=== PATIENT | male | born 1950 | race Caucasian/White ===

== ENCOUNTER → 2016-09-10 | Outpatient (CLI) | payer OTHER ==
[~2016-09-10] MED LIST: ACET-1311 PO; ADVIN10050 INH; ALBUAER19 INH; ALL300 PO; ASPEC81 PO; CLON1TAB3 PO; CYAN500T PO; FLVHFA220 INH; GFNSR600 PO; GLC/500 PO; HYDC25 PO; LISI-461 PO; METO50TA16 PO; NAPR-1169 PO; PRAV20TA PO; PRLSR20 PO; XNX25 PO
[2016-09-10 17:22] LABS: BASO % 0.3 %; BASO ABS # 0.02 K/uL (0-0.2); COMPLETE YES; EOS % 4.2 %; IG% 0.4 %; LYMPH % 21.5 %; LYMPH ABS # 1.57 K/uL (1.2-3.4); MEAN CELL VOLUME 90.7 fL (80-100); MEAN CORPUSCULAR HEMOGLOBIN 31.7 pg (25-34); MEAN PLATELET VOLUME 11.2 fL (7.4-10.4); MONO % 7.1 %; NEUT % 66.5 %; PLATELET COUNT 194 K/uL (130-400); RED BLOOD COUNT 4.19 M/uL (4.7-6.1)
[2016-09-10 18:02] LABS: ALB/GLOB RATIO 1.3 (0.9-2); ALT/SGPT 27 U/L (12-78); AST/SGOT 16 U/L (15-37); BLOOD UREA NITROGEN 16 mg/dl (7-18); BUN/CREATININE RATIO 13.7 (10-20); CALCIUM 8.7 mg/dl (8.5-10.1); CARBON DIOXIDE 24 mmol/L (21-32); CHLORIDE 103 mmol/L (98-107); CHOLESTEROL 145 mg/dl (0-200); CHOLESTEROL/HDL RATIO 4.1; GLUCOSE 87 mg/dl (70-99); HDL CHOLESTEROL 35 mg/dl; POTASSIUM 3.8 mmol/L (3.5-5.1); SODIUM 139 mmol/L (136-145)
[2016-09-10 18:16] LABS: ALKALINE PHOSPHATASE 56 U/L (45-117); LDL CHOLESTEROL CALCULATED 76 mg/dl; TRIGLYCERIDES 170 mg/dl (0-150); VERY LOW DENSITY LIPOPROT CALC 34 mg/dl
[2016-09-11 06:46] LABS: ESTIMATED AVERAGE GLUCOSE 117 mg/dl; HA1C FLAG Normal (Normal)
== END | disposition home or self-care (01) ==
LOC: C.LABBFT 14:33
PROVIDERS: ATTEND Internal Medicine
DX: E11.9 Type 2 diabetes mellitus without complications (principal); D64.9 Anemia, unspecified; Z11.59 Encounter for screening for other viral diseases

== ENCOUNTER → 2017-02-15 | Outpatient (CLI) | payer OTHER ==
--- NOTE | 2017-02-21 12:27 | CODING QUERY MEDICAL NECESSITY ---
SUPPORTING DIAGNOSIS NEEDED A supporting diagnosis is required for the test/procedure performed on this patient in order for us to be reimbursed by the patient's insurance. Please provide a supporting diagnosis for the following test/procedure listed below next to the test name along with your signature. *If there is no additional diagnosis for this patient that would support the following test/procedure please document that below next to the test/procedure. Test(s)/Procedure(s) that require a supporting diagnosis: * VITAMIN B12 DIAGNOSIS: Provider Signature: Date: Thank you Marisa [place] [employer] Once completed, please kindly fax back to [phone] For questions please call [phone]
== END | disposition home or self-care (01) ==
LOC: C.LABBFT 12:03
PROVIDERS: ATTEND Physician Assistant Medical
DX: G62.9 Polyneuropathy, unspecified (principal)

== ENCOUNTER → 2017-04-04 | Outpatient (CLI) | payer OTHER ==
[2017-04-04 17:49] LABS: BASO % 0.3 %; BASO ABS # 0.02 K/uL (0-0.2); COMPLETE YES; EOS % 3.5 %; HEMATOCRIT 39.9 % (42-52); IG% 0.3 %; LYMPH % 17.8 %; LYMPH ABS # 1.22 K/uL (1.2-3.4); MEAN CORPUSCULAR HEMOGLOBIN 31.9 pg (25-34); MEAN CORPUSCULAR HGB CONC 33.6 g/dl (32-36); MEAN PLATELET VOLUME 10.9 fL (7.4-10.4); MONO % 5.7 %; NEUT % 72.4 %; PLATELET COUNT 174 K/uL (130-400); WHITE BLOOD COUNT 6.85 K/uL (4.8-10.8)
[2017-04-04 18:00] LABS: ALT/SGPT 21 U/L (12-78); AST/SGOT 12 U/L (15-37); BLOOD UREA NITROGEN 19 mg/dl (7-18); BUN/CREATININE RATIO 17.2 (10-20); CALCIUM 8.9 mg/dl (8.5-10.1); CARBON DIOXIDE 26 mmol/L (21-32); CHLORIDE 105 mmol/L (98-107); GLUCOSE 143 mg/dl (70-99); POTASSIUM 3.8 mmol/L (3.5-5.1); SODIUM 138 mmol/L (136-145)
[2017-04-04 18:11] LABS: ALB/GLOB RATIO 1.2 (0.9-2); ALKALINE PHOSPHATASE 56 U/L (45-117); CHOLESTEROL 153 mg/dl (0-200); CHOLESTEROL/HDL RATIO 4.8; HDL CHOLESTEROL 32 mg/dl; LDL CHOLESTEROL CALCULATED 82 mg/dl; TRIGLYCERIDES 194 mg/dl (0-150); VERY LOW DENSITY LIPOPROT CALC 39 mg/dl
[2017-04-05 06:14] LABS: ESTIMATED AVERAGE GLUCOSE 108 mg/dl; HA1C FLAG Normal (Normal)
--- NOTE | 2017-04-15 09:57 | CODING QUERY MEDICAL NECESSITY ---
CQSUPPORTING DIAGNOSIS NEEDED A supporting diagnosis is required for the test/procedure performed on this patient in order for us to be reimbursed by the patient's insurance. Please provide a supporting diagnosis for the following test/procedure listed below next to the test name along with your signature. *If there is no additional diagnosis for this patient that would support the following test/procedure please document that below next to the test/procedure. Test(s)/Procedure(s) that require a supporting diagnosis: DOS 04/04/17 VITAMIN B12 TEST ORDERED BY JOI ELAM Provider Signature: Date: Thank you Josee Fuller [employer] Once completed, please kindly fax back to [phone] For questions please call [phone]
== END | disposition home or self-care (01) ==
LOC: C.LABBFT 12:16
PROVIDERS: ATTEND Physician Assistant Medical
DX: R79.9 Abnormal finding of blood chemistry, unspecified (principal); E11.9 Type 2 diabetes mellitus without complications

== ENCOUNTER 2017-07-09 20:16 | Emergency (ER) | payer OTHER ==
[~2017-07-09] VITALS: Ht 170.2 cm; Wt 96.2 kg
[2017-07-09 20:46] VITALS: O2SAT 95
[2017-07-09] MEDS ORDERED: ALBUT/IPRATROP 3MG/0.5MG NEB 3 ML VIAL INH STA (20:52)
[2017-07-09 20:56] VITALS: Ht 170.2 cm; Wt 96.2 kg
[2017-07-09] MEDS ORDERED: GLC500 PO (21:17)
[2017-07-09] MEDS ORDERED: VNTHFA/IN INH (21:17)
[2017-07-09] MEDS ORDERED: NAPR500T3 PO (21:17)
[2017-07-09] MEDS ORDERED: TIOT1AER INH (21:17)
[2017-07-09] MEDS ORDERED: TADA5TAB11 PO (21:17)
[2017-07-09] MEDS ORDERED: RANI300C PO (21:17)
[2017-07-09] MEDS ORDERED: OMEP40CA41 PO (21:17)
[2017-07-09] MEDS ORDERED: ALL300 PO (21:17)
[2017-07-09] MEDS ORDERED: HYDR25TA5 PO (21:17)
[2017-07-09] MEDS ORDERED: KLN1X PO (21:17)
[2017-07-09] MEDS ORDERED: PRVC/20 PO (21:17)
[2017-07-09] MEDS ORDERED: LISI-461 PO (21:17)
[2017-07-09] MEDS ORDERED: ASPI81TA28 PO (21:19)
[2017-07-09] MEDS ORDERED: CYAN100020 PO ×2 (21:22)
[2017-07-09] MEDS ORDERED: MOME6000 (21:24)
[2017-07-09 21:39] LABS: BASO % 0.1 %; BASO ABS # 0.02 K/uL (0-0.2); COMPLETE YES; EOS % 0.4 %; HEMATOCRIT 40.2 % (42-52); IG% 0.3 %; LYMPH % 6.4 %; LYMPH ABS # 0.96 K/uL (1.2-3.4); MEAN CELL VOLUME 93.7 fL (80-100); MEAN CORPUSCULAR HEMOGLOBIN 33.3 pg (25-34); MEAN CORPUSCULAR HGB CONC 35.6 g/dl (32-36); MEAN PLATELET VOLUME 10.2 fL (7.4-10.4); NEUT % 86.8 %; PLATELET COUNT 149 K/uL (130-400); RED BLOOD COUNT 4.29 M/uL (4.7-6.1); WHITE BLOOD COUNT 14.89 K/uL (4.8-10.8)
--- NOTE | 2017-07-09 21:49 | DIAGNOSTIC IMAGING REPORT ---
CHEST ONE VIEW PORTABLE CLINICAL HISTORY: Sepsis dyspnea COMPARISON STUDY: 12/02/2014 FINDINGS: The bones soft tissues and hemidiaphragms are normal. The cardiomediastinal silhouette is normal. The lungs are clear. The pulmonary vasculature is normal. IMPRESSION: Negative chest. The above report was generated using voice recognition software. It may contain grammatical, syntax or spelling errors. Electronically signed by: Yasmany Fall M.D. 07/09/2017 9:48 PM Dictated Date/Time: 07/09/2017 9:48 PM
[2017-07-09 21:52] LABS: PROTHROMBIN TIME (PATIENT) 10.4 SECONDS (9.0-12.0)
[2017-07-09 22:02] LABS: BUN/CREATININE RATIO 12.2 (10-20); CALCIUM 9.1 mg/dl (8.5-10.1); CREATININE 1.39 mg/dl (0.60-1.40); POTASSIUM 3.8 mmol/L (3.5-5.1)
[2017-07-09 22:05] LABS: ALB/GLOB RATIO 1.1 (0.9-2)
[2017-07-09] MEDS ORDERED: ACETAMINOPHEN 325 MG TAB PO STA (22:22)
[2017-07-09 23:20] VITALS: TEMP 37
[2017-07-09] MEDS ORDERED: DOXY100C2 PO (23:25)
[2017-07-09 23:30] VITALS: BP 146/77
[2017-07-09] MEDS ORDERED: DOXYCYCLINE HYCLATE 100 MG CAP PO ONE (23:30)
[2017-07-09 23:35] VITALS: PULSE 107; O2SAT 93
--- NOTE | 2017-07-10 00:33 | EMERGENCY ROOM VISIT NOTE ---
History Report prepared by Will: Gi Escalera Under the Supervision of: Dr. Ramo Juarez M.D. First contact with patient: 20:43 Chief Complaint: FLU LIKE SX Stated Complaint: FEVER, SORE THROAT, CONGESTION, CHEST (COPD) History of Present Illness The patient is a 67 year old male who presents to the Emergency Room with complaints of worsening flu like symptoms starting yesterday. The patient states that he woke up yesterday with a sore throat and feeling achy. He reports that it became worse throughout the day. He states that this morning his voice was hoarse and he started a cough. He reports that he started coughing up mucus that is a dozier gel color. He notes that this is similar to when he had pneumonia in the past. The patient denies vomiting. The patient complains of a fever of a 102 or something and some shortness of breath. The patient notes he does have a nebulizer, but no medication for it. He notes that he has some achy chest pain from coughing but otherwise denies any chest discomfort. He notes that he took 1000 mg of Tylenol 3 hours ago. Source of History: patient Onset: yesterday Position: other (global) Quality: ache Timing: worsening Associated Symptoms: + fevers, + sorethroat, + cough, + chest pain, + SOB, No vomiting Note: The patient complains of coughing up a dozier gel mucus. Review of Systems See HPI for pertinent positives & negatives. A total of 10 systems reviewed and were otherwise negative. Past Medical & Surgical Medical Problems: (1) Chronic obstructive lung disease (2) Gastroesophageal reflux disease (3) Lacunar infarction (4) Vertigo Family History No pertinent family history Social History Smoking Status: Former Smoker Alcohol Use: none Marital Status: Housing Status: lives with significant other Occupation Status: unemployed Current/Historical Medications Scheduled Allopurinol (Allopurinol), 300 MG PO QAM Aspirin (Aspirin Ec), 81 MG PO QAM Clonazepam (Clonazepam), 1 MG PO BID Cyanocobalamin (Vitamin B12), 2,000 MCG PO QAM Cyanocobalamin (Vitamin B12), 1,000 MCG PO QPM Doxycycline Hyclate (Vibramycin), 100 MG PO BID Hydrochlorothiazide (Hydrochlorothiazide), 25 MG PO QAM Lisinopril (Lisinopril), 10 MG PO HS Metformin HCl (Metformin HCl), 1,000 MG PO BID Metoprolol Tartrate (Lopressor) (Lopressor), 50 MG PO BID Mometasone Furoate (Nasal) (Mometasone Furoate), 2 SPRAYS NA QAM Omeprazole (Prilosec), 40 MG PO QAM Pravastatin Sod (Pravastatin Sodium), 20 MG PO HS Tadalafil (Cialis), 5 MG PO QAM Tiotropium Rowe-Olodaterol (Stiolto Respimat 2.5-2.5 Mcg/Act), 2 PUFFS INH QAM Scheduled PRN Albuterol Hfa (Ventolin Hfa), 2 PUFFS INH QID PRN for SOB/Wheezing Naproxen (Naproxen), 500 MG PO BID PRN for Pain Ranitidine Hcl (Ranitidine Hcl), 300 MG PO DAILY PRN for Indigestion Allergies Coded Allergies: Iodine (Verified Allergy, Intermediate, SHORTNESS OF BREATH, 12/02/14) HAS HAD CT SCAN PREVIOUSLY, QUESTIONABLE R/T CONTRAST DYE VS. ANXIETY FROM CLOSED SPACES Amoxicillin (Verified Allergy, Mild, RASH, 12/05/14) rash was not typical drug reaction rash and was not pruritic. Clavulanic Acid (Verified Allergy, Mild, RASH, 12/05/14) rash was not typical drug reaction rash and was not pruritic. Clarithromycin (Verified Allergy, Unknown, UNKNOWN, 12/02/14) Indomethacin (Verified Allergy, Unknown, UNKNOWN, 12/02/14) Physical Exam Vital Signs Date Time Temp Pulse Resp B/P (MAP) Pulse Ox O2 Delivery O2 Flow Rate FiO2 07/09/17 23:35 107 16 93 07/09/17 23:30 146/77 07/09/17 23:20 105 16 94 07/09/17 23:20 37.0 07/09/17 23:05 106 20 93 07/09/17 23:00 107 18 143/70 93 07/09/17 22:54 129/84 07/09/17 22:32 111 20 140/79 93 Room Air 07/09/17 20:49 107 07/09/17 20:46 95 Room Air 07/09/17 20:42 108 18 154/90 95 Room Air 07/09/17 20:20 38.1 107 18 215/106 96 Room Air Physical Exam Constitutional: Vital signs reviewed. Eyes: Pupils are equal round reactive to light. Conjunctiva are noninjected. ENT: Pharynx is clear without erythema or exudate. Mucous membranes are moist. Neck supple without meningeal signs. Respiratory: Minimal wheezing at the bases. Otherwise clear to auscultation bilaterally. Breath sounds are equal bilaterally. Cardiovascular: Tachycardic heart rate of 107. Regular rhythm. No rubs or gallops. GI: Soft, nondistended and nontender. Bowel sounds are present. Musculoskeletal: No peripheral edema. No lower extremity tenderness. Integumentary: No cyanosis. Neurological: The patient is awake and alert. No focal deficits. Psychiatric: Normal affect. Medical Decision & Procedures ER Provider Diagnostic Interpretation: Radiology results as stated below per my review and the radiologist's interpretation: CHEST ONE VIEW PORTABLE CLINICAL HISTORY: Sepsis dyspnea COMPARISON STUDY: 12/02/2014 FINDINGS: The bones soft tissues and hemidiaphragms are normal. The cardiomediastinal silhouette is normal. The lungs are clear. The pulmonary vasculature is normal. IMPRESSION: Negative chest. The above report was generated using voice recognition software. It may contain grammatical, syntax or spelling errors. Electronically signed by: Yasmany Fall M.D. 07/09/2017 9:48 PM Dictated Date/Time: 07/09/2017 9:48 PM Laboratory Results 07/09/17 21:17 Red Blood Count 4.29, Mean Corpuscular Volume 93.7, Mean Corpuscular Hemoglobin 33.3, Mean Corpuscular Hemoglobin Concent 35.6, Mean Platelet Volume 10.2, Neutrophils (%) (Auto) 86.8, Lymphocytes (%) (Auto) 6.4, Monocytes (%) (Auto) 6.0, Eosinophils (%) (Auto) 0.4, Basophils (%) (Auto) 0.1, Neutrophils # (Auto) 12.91, Lymphocytes # (Auto) 0.96, Monocytes # (Auto) 0.90, Eosinophils # (Auto) 0.06, Basophils # (Auto) 0.02 07/09/17 21:17 Test 07/09/17 21:17 07/09/17 21:32 07/09/17 22:25 White Blood Count 14.89 K/uL (4.8-10.8) Red Blood Count 4.29 M/uL (4.7-6.1) Hemoglobin 14.3 g/dL (14.0-18.0) Hematocrit 40.2 % (42-52) Mean Corpuscular Volume 93.7 fL (80-100) Mean Corpuscular Hemoglobin 33.3 pg (25-34) Mean Corpuscular Hemoglobin Concent 35.6 g/dl (32-36) Platelet Count 149 K/uL (130-400) Mean Platelet Volume 10.2 fL (7.4-10.4) Neutrophils (%) (Auto) 86.8 % Lymphocytes (%) (Auto) 6.4 % Monocytes (%) (Auto) 6.0 % Eosinophils (%) (Auto) 0.4 % Basophils (%) (Auto) 0.1 % Neutrophils # (Auto) 12.91 K/uL (1.4-6.5) Lymphocytes # (Auto) 0.96 K/uL (1.2-3.4) Monocytes # (Auto) 0.90 K/uL (0.11-0.59) Eosinophils # (Auto) 0.06 K/uL (0-0.5) Basophils # (Auto) 0.02 K/uL (0-0.2) RDW Standard Deviation 48.1 fL (36.4-46.3) RDW Coefficient of Variation 14.2 % (11.5-14.5) Immature Granulocyte % (Auto) 0.3 % Immature Granulocyte # (Auto) 0.04 K/uL (0.00-0.02) Prothrombin Time 10.4 SECONDS (9.0-12.0) Prothromb Time International Ratio 1.0 (0.9-1.1) Activated Partial Thromboplast Time 25.1 SECONDS (21.0-31.0) Partial Thromboplastin Ratio 1.0 Anion Gap 8.0 mmol/L (3-11) Est Creatinine Clear Calc Drug Dose 56.2 ml/min Estimated GFR () 59.9 Estimated GFR (Non- 51.7 BUN/Creatinine Ratio 12.2 (10-20) Calcium Level 9.1 mg/dl (8.5-10.1) Total Bilirubin 0.8 mg/dl (0.2-1) Aspartate Amino Transf (AST/SGOT) 13 U/L (15-37) Alanine Aminotransferase (ALT/SGPT) 22 U/L (12-78) Alkaline Phosphatase 64 U/L (45-117) Troponin I < 0.015 ng/ml (0-0.045) Total Protein 7.8 gm/dl (6.4-8.2) Albumin 4.1 gm/dl (3.4-5.0) Globulin 3.7 gm/dl (2.5-4.0) Albumin/Globulin Ratio 1.1 (0.9-2) Bedside Lactic Acid Venous 1.70 mmol/L (0.90-1.70) Influenza Type A Antigen Neg for Influ A (NEG) Influenza Type B Antigen Neg for Influ B (NEG) Laboratory results as reviewed by me. Medications Administered Medications (Trade) Dose Ordered Sig/Diann Route Start Time Stop Time Status Last Admin Dose Admin Albuterol/ Ipratropium (Duoneb) 3 ml NOW STAT INH 07/09/17 20:52 07/09/17 20:54 DC 07/09/17 20:57 3 ML Acetaminophen (Tylenol Tab) 650 mg NOW STAT PO 07/09/17 22:22 07/09/17 22:23 DC 07/09/17 22:28 650 MG Doxycycline Hyclate (Vibramycin Cap) 100 mg ONE ONCE PO 07/09/17 23:30 07/09/17 23:31 DC 07/09/17 23:48 100 MG ECG Indication: SOB/dyspnea Rate (beats per minute): 106 Rhythm: sinus tachycardia Findings: no acute ischemic change, no ectopy Comparison ECG Date: December 02, 2014 Change: no significant change ED Course 2047: The patient was evaluated in room B6. A complete history and physical exam was performed. 2051: Ordered Duoneb 3 ml INH. 2218: I reevaluated the patient and he is feeling 50% better.On re-exam his wheezing is resolved. He complains of a headache from not eating. 2221: Ordered Tylenol Tab 650 mg PO. 3: Upon reevaluation, the patient appeared to have improvement of his symptoms. I discussed tonight's findings with him. He verbalized agreement of the treatment plan. The patient was discharged home. 0: Ordered Vibramycin Cap 100 mg PO. Medical Decision This is a 67-year-old male presents with flulike symptoms and fever. Differential diagnosis includes COPD exacerbation, pneumonia, bronchitis, influenza, SIRS. I did perform a limited focused review of portions of the patient's old chart on the electronic medical record. The patient has had no recent pertinent visits to this hospital. I did evaluate the patient as noted above. The patient is presenting with flulike symptoms starting yesterday. He states he is here today because he was concerned about pneumonia. IV access was established. The patient was placed on a continuous desk monitor. I did order and personally review the patient' s 12-lead EKG and chest x-ray as described above. This chest x-ray does not demonstrate any acute infiltrates. I did order and review the patient's blood work as noted in the electronic medical record. His white blood cell count is elevated. Troponin is negative. Rapid flu testing is negative. I did treat the patient with a DuoNeb. He is also given Tylenol. On reassessment he is feeling better. His wheezing is resolved. I did discuss the test results with the patient. He was given doxycycline here and discharged with a prescription for doxycycline. He was advised follow with his doctor. Medication Reconcilliation Current Medication List: was personally reviewed by me Blood Pressure Screening Patient's blood pressure: Elevated blood pressure Blood pressure disposition: Referred to PCP Impression Primary Impression: Bronchitis Additional Impression: COPD exacerbation Scribe Attestation The scribe's documentation has been prepared under my direct and personally reviewed by me in its entirety. I confirm that the note above accurately reflects all work, treatment, procedures, and medical decision making performed by me. Departure Information Dispostion Home / Self-Care Prescriptions Doxycycline Hyclate (VIBRAMYCIN) 100 Mg Cap 100 MG PO BID for 10 Days, #19 CAP Prov: Ramo Juarez M.D. 07/09/17 Referrals Harjeet Molina M.D. (PCP) Forms HOME CARE DOCUMENTATION FORM, IMPORTANT VISIT INFORMATION Patient Instructions My [facility] Additional Instructions You have been examined and treated today on an emergency basis only. This is not a substitute for, or an effort to provide, complete comprehensive medical care. It is impossible to recognize and treat all injuries or illnesses in a single emergency department visit. It is therefore important that you follow up closely with your physician. Call as soon as possible for an appointment. Return for worsening symptoms or if you develop fever, vomiting, or any other concerning symptoms. Problem Qualifiers
== END 2017-07-09 23:50 | disposition home or self-care (01) ==
LOC: C.EDB 20:17
DX: J44.1 Chronic obstructive pulmonary disease with (acute) exacerbation (principal); K21.9 Gastro-esophageal reflux disease without esophagitis; Z87.891 Personal history of nicotine dependence; Z79.82 Long term (current) use of aspirin; Z79.84 Long term (current) use of oral hypoglycemic drugs

== ENCOUNTER 2017-09-12 14:09 | Emergency (ER) | payer OTHER ==
[~2017-09-12] VITALS: Ht 170.2 cm; Wt 92.1 kg
[~2017-09-12 14:09] MED LIST changes: -ACET-1311 PO; -ADVIN10050 INH; -ALBUAER19 INH; -ASPEC81 PO; +ASPI81TA28 PO; -CLON1TAB3 PO; +CYAN100020 PO; -CYAN500T PO; +DOXY100C2 PO; -FLVHFA220 INH; -GFNSR600 PO; -GLC/500 PO; +GLC500 PO; -HYDC25 PO; +HYDR25TA5 PO; +KLN1X PO; +MOME6000; -NAPR-1169 PO; +NAPR500T3 PO; +OMEP40CA41 PO; -PRAV20TA PO; -PRLSR20 PO; +PRVC/20 PO; +RANI300C PO; +TADA5TAB11 PO; +TIOT1AER INH; +VNTHFA/IN INH; -XNX25 PO
[2017-09-12 14:14] VITALS: TEMP 36.6; Ht 170.2 cm; Wt 92.1 kg
[2017-09-12] MEDS ORDERED: OSEL75CA16 PO (14:38)
[2017-09-12] MEDS ORDERED: KETOROLAC TROMETHAMINE 30 MG/ML VIAL IV STA (14:52)
[2017-09-12] MEDS ORDERED: DEXAMETHASONE INJ 10 MG in SYRINGE 0 ML IV ONE (15:00)
[2017-09-12] MEDS ORDERED: SODIUM CHLORIDE 0.9% 1000ML 1,000 ML IV ONE (15:00)
[2017-09-12] MEDS ORDERED: ALBUT/IPRATROP 3MG/0.5MG NEB 3 ML VIAL INH ONE (15:00)
[2017-09-12] MEDS ORDERED: ACETAMINOPHEN IV 1,000 MG in EMPTY BAG 0 ML IV ONE (15:00)
[2017-09-12] MEDS ORDERED: ACETAMINOPHEN 1000 MG/100 ML IV IV ONE (15:16)
[2017-09-12] MEDS ORDERED: DEXAMETHASONE **PF** INJ 10 MG/ML VIAL ONE (15:21)
[2017-09-12 15:27] LABS: BASO % 0.5 %; BASO ABS # 0.03 K/uL (0-0.2); EOS % 3.8 %; EOS ABS # 0.24 K/uL (0-0.5); HEMATOCRIT 37.9 % (42-52); HEMOGLOBIN 13.4 g/dL (14.0-18.0); IG# 0.01 K/uL (0.00-0.02); LYMPH % 17.9 %; LYMPH ABS # 1.13 K/uL (1.2-3.4); MEAN CELL VOLUME 92.2 fL (80-100); MEAN CORPUSCULAR HEMOGLOBIN 32.6 pg (25-34); MEAN CORPUSCULAR HGB CONC 35.4 g/dl (32-36); MONO % 10.1 %; MONO ABS # 0.64 K/uL (0.11-0.59); NEUT % 67.5 %; NEUT ABS # 4.26 K/uL (1.4-6.5); PLATELET COUNT 140 K/uL (130-400); WHITE BLOOD COUNT 6.31 K/uL (4.8-10.8)
--- NOTE | 2017-09-12 15:34 | EMERGENCY ROOM VISIT NOTE ---
ED Visit Note First contact with patient: 14:34 This Patient was discussed with the physician assistant media buyer, Bruno Du PA-C. The pertinent historical and physical exam findings were confirmed. I agree with the studies ordered and with the interpretations of these studies. I agree with the disposition and care plan.
[2017-09-12 15:51] LABS: ALBUMIN 3.8 gm/dl (3.4-5.0); CALCIUM 8.5 mg/dl (8.5-10.1); CREATININE 1.06 mg/dl (0.60-1.40); POTASSIUM 4.4 mmol/L (3.5-5.1)
[2017-09-12 15:54] LABS: TOTAL PROTEIN 7.7 gm/dl (6.4-8.2)
--- NOTE | 2017-09-12 16:17 | DIAGNOSTIC IMAGING REPORT ---
TWO VIEW CHEST CLINICAL HISTORY: Cough. Influenza. COPD. FINDINGS: PA and lateral chest radiographs are compared to study dated 07/09/2017. The heart is top normal for projection and there is atherosclerotic calcification of the thoracic aorta. The pulmonary vasculature is noncongested. Chronic interstitial thickening is similar to previous. No airspace consolidation or pleural effusion is identified. There is no pneumothorax. The skeletal structures appear osteopenic. The bony thorax appears intact. IMPRESSION: No acute cardiopulmonary abnormality. Electronically signed by: Don Oleary M.D. 09/12/2017 4:16 PM Dictated Date/Time: 09/12/2017 4:15 PM
[2017-09-12 16:34] VITALS: O2SAT 92
[2017-09-12] MEDS ORDERED: PRED50TA PO (17:08)
[2017-09-12 17:21] VITALS: BP 146/71; PULSE 87; O2SAT 93
--- NOTE | 2017-09-12 21:38 | EMERGENCY ROOM VISIT NOTE ---
History First contact with patient: 14:34 Chief Complaint: FLU LIKE SX Stated Complaint: FLU History of Present Illness The patient is a 67 year old male who presents to the Emergency Room with complaints of persistent flulike symptoms for the past 3 days. The patient was evidently diagnosed with influenza A from his primary care physician's office earlier this week. He was started on Tamiflu and has been taking the medication as prescribed. The patient has a past medical history of COPD, and he has been using his inhalers as previously prescribed. He states that he has some mild wheezing that has been improved, but not completely resolved with the inhalers. He states the wheezing is worse at night. He will occasionally have a productive cough the past few days, which is atypical for him. He has had a fever and is taking Advil and Tylenol at home with relief. He does not report other complaints and rates his discomfort a 6/10. Review of Systems More than 10 systems were reviewed and otherwise negative with the exception of history of present illness. Past Medical/Surgical History Medical Problems: (1) Chronic obstructive lung disease (2) Gastroesophageal reflux disease (3) Lacunar infarction (4) Vertigo Family History No pertinent family history Social History Smoking Status: Former Smoker Alcohol Use: none Marital Status: Housing Status: lives with significant other Occupation Status: unemployed Current/Historical Medications Scheduled Allopurinol (Allopurinol), 300 MG PO QAM Aspirin (Aspirin Ec), 81 MG PO QAM Clonazepam (Clonazepam), 1 MG PO BID Cyanocobalamin (Vitamin B12), 1,000 MCG PO QPM Hydrochlorothiazide (Hydrochlorothiazide), 25 MG PO QAM Lisinopril (Lisinopril), 10 MG PO HS Metformin HCl (Metformin HCl), 1,000 MG PO BID Metoprolol Tartrate (Lopressor) (Lopressor), 50 MG PO BID Mometasone Furoate (Nasal) (Mometasone Furoate), 2 SPRAYS NA QAM Omeprazole (Prilosec), 40 MG PO QAM Oseltamivir Phosphate (Oseltamivir Phosphate), 75 MG PO BID Pravastatin Sod (Pravastatin Sodium), 20 MG PO HS Prednisone (Prednisone), 50 MG PO DAILY Scheduled PRN Albuterol Hfa (Ventolin Hfa), 2 PUFFS INH QID PRN for SOB/Wheezing Naproxen (Naproxen), 500 MG PO BID PRN for Pain Ranitidine Hcl (Ranitidine Hcl), 300 MG PO DAILY PRN for Indigestion Physical Exam Vital Signs Date Time Temp Pulse Resp B/P (MAP) Pulse Ox O2 Delivery O2 Flow Rate FiO2 09/12/17 17:21 87 20 146/71 93 09/12/17 16:35 66 09/12/17 16:34 92 Room Air 09/12/17 14:14 36.6 53 20 142/75 95 Room Air Physical Exam VITALS: Vitals are noted on the nurse's note and reviewed by myself. Vital signs stable. GENERAL: Well-developed, well-nourished, white male who appears mildly ill but nontoxic NECK: Supple without nuchal rigidity. No lymphadenopathy. No thyromegaly. Cervical spine is nontender. HEART: Regular rate and rhythm without murmurs gallops or rubs. LUNGS: Distant breath sounds bilateral with scattered wheezing. No crackles ABDOMEN: Positive normal bowel sounds x 4. Soft, nontender, without masses or organomegaly. No guarding or rebound tenderness. MUSCULOSKELETAL: No muscle atrophy, erythema, or edema noted. Full range of motion without joint tenderness in all extremities. Medical Decision & Procedures ER Provider Diagnostic Interpretation: TWO VIEW CHEST CLINICAL HISTORY: Cough. Influenza. COPD. FINDINGS: PA and lateral chest radiographs are compared to study dated 07/09/2017. The heart is top normal for projection and there is atherosclerotic calcification of the thoracic aorta. The pulmonary vasculature is noncongested. Chronic interstitial thickening is similar to previous. No airspace consolidation or pleural effusion is identified. There is no pneumothorax. The skeletal structures appear osteopenic. The bony thorax appears intact. IMPRESSION: No acute cardiopulmonary abnormality. Laboratory Results 09/12/17 15:15 Red Blood Count 4.11, Mean Corpuscular Volume 92.2, Mean Corpuscular Hemoglobin 32.6, Mean Corpuscular Hemoglobin Concent 35.4, Mean Platelet Volume 10.0, Neutrophils (%) (Auto) 67.5, Lymphocytes (%) (Auto) 17.9, Monocytes (%) (Auto) 10.1, Eosinophils (%) (Auto) 3.8, Basophils (%) (Auto) 0.5, Neutrophils # (Auto ) 4.26, Lymphocytes # (Auto) 1.13, Monocytes # (Auto) 0.64, Eosinophils # (Auto ) 0.24, Basophils # (Auto) 0.03 09/12/17 15:15 Test 09/12/17 15:15 09/12/17 15:39 White Blood Count 6.31 K/uL (4.8-10.8) Red Blood Count 4.11 M/uL (4.7-6.1) Hemoglobin 13.4 g/dL (14.0-18.0) Hematocrit 37.9 % (42-52) Mean Corpuscular Volume 92.2 fL (80-100) Mean Corpuscular Hemoglobin 32.6 pg (25-34) Mean Corpuscular Hemoglobin Concent 35.4 g/dl (32-36) Platelet Count 140 K/uL (130-400) Mean Platelet Volume 10.0 fL (7.4-10.4) Neutrophils (%) (Auto) 67.5 % Lymphocytes (%) (Auto) 17.9 % Monocytes (%) (Auto) 10.1 % Eosinophils (%) (Auto) 3.8 % Basophils (%) (Auto) 0.5 % Neutrophils # (Auto) 4.26 K/uL (1.4-6.5) Lymphocytes # (Auto) 1.13 K/uL (1.2-3.4) Monocytes # (Auto) 0.64 K/uL (0.11-0.59) Eosinophils # (Auto) 0.24 K/uL (0-0.5) Basophils # (Auto) 0.03 K/uL (0-0.2) RDW Standard Deviation 47.0 fL (36.4-46.3) RDW Coefficient of Variation 14.0 % (11.5-14.5) Immature Granulocyte % (Auto) 0.2 % Immature Granulocyte # (Auto) 0.01 K/uL (0.00-0.02) Anion Gap 8.0 mmol/L (3-11) Est Creatinine Clear Calc Drug Dose 72.2 ml/min Estimated GFR () 83.2 Estimated GFR (Non- 71.8 BUN/Creatinine Ratio 14.1 (10-20) Calcium Level 8.5 mg/dl (8.5-10.1) Total Bilirubin 0.7 mg/dl (0.2-1) Aspartate Amino Transf (AST/SGOT) 15 U/L (15-37) Alanine Aminotransferase (ALT/SGPT) 19 U/L (12-78) Alkaline Phosphatase 62 U/L (45-117) Total Protein 7.7 gm/dl (6.4-8.2) Albumin 3.8 gm/dl (3.4-5.0) Globulin 3.9 gm/dl (2.5-4.0) Albumin/Globulin Ratio 1.0 (0.9-2) Bedside Troponin I < 0.030 ng/ml (0-0.045) Medications Administered Medications (Trade) Dose Ordered Sig/Diann Route Start Time Stop Time Status Last Admin Dose Admin Sodium Chloride 1,000 ml @ 999 mls/hr Q1H1M ONCE IV 09/12/17 15:00 09/12/17 16:00 DC 09/12/17 15:27 999 MLS/HR Ketorolac Tromethamine (Toradol Inj) 30 mg NOW STAT IV 09/12/17 14:52 09/12/17 14:55 DC 09/12/17 15:28 30 MG Acetaminophen 1000 mg/Empty Bag 100 ml @ 400 mls/hr NOW ONCE IV 09/12/17 15:00 09/12/17 15:14 DC 09/12/17 15:30 400 MLS/HR Albuterol/ Ipratropium (Duoneb) 3 ml NOW ONCE INH 09/12/17 15:00 09/12/17 15:01 DC 09/12/17 15:29 3 ML Dexamethasone Sodium Phosphate (Dexamethasone Inj Pf) 10 mg STK-MED ONCE .ROUTE 09/12/17 15:21 09/12/17 15:22 DC 09/12/17 15:29 10 MG ED Course Physical exam and history were performed. Nursing notes, EMR, and Medication List were personally reviewed. Patient appears to have an outpatient diagnosis of the flu. His concern today is that he is having some worsening of his wheezing. He is with chronic COPD, and his inhalers have been helping, but not completely resolving his symptoms. IV access was established and labs were obtained. The patient was hydrated medicated as above. He was given a DuoNeb here in the department as well as steroids. Chest x-ray was performed. The patient's blood work is as above and was reviewed. He does not have a significant elevated white blood cell count, gross anemia, bandemia, or significant electrolyte imbalance. His chest x-ray is without obvious pneumonia or other etiology of his symptoms. Overall the patient is felt to have a flulike process that is continuing through the week. He has been ill for the past few days but did feel much better with steroids and a breathing treatment. I do not feel that he needs antibiotics at this point. The case was discussed with my attending physician, Dr. Dickey, who also independently evaluated the patient. The patient will be started on a short course of steroids and asked to follow closely with his primary care physician. He was otherwise asked to return to the ER with any worsening symptoms. He voiced understanding and rated his discomfort a 3/10 at the time of departure. The chart was completed utilizing [employer] Speech Voice Recognition Software. Grammatical errors, random word insertions, pronoun errors, and incomplete sentences are an occasional consequence of this system due to software limitations, ambient noise, and hardware issues. Any formal questions or concerns about the content, text, or information contained within the body of this dictation should be directly addressed to the provider for clarification. . Medical Decision Differential diagnosis: Etiologies such as infections, reactive airway disease, pneumonia, pneumothorax , COPD, CHF, cardiac ischemia, pulmonary embolism, musculoskeletal, gastrointestinal, as well as others were entertained. Impression Primary Impression: Influenza-like symptoms Additional Impression: Upper respiratory infection Departure Information Dispostion Home / Self-Care Condition GOOD Prescriptions Prednisone (Prednisone) 50 Mg Tab 50 MG PO DAILY for 4 Days, #4 TAB Prov: Bruno Du PA-C 09/12/17 Referrals Harjeet Molina M.D. (PCP) Forms HOME CARE DOCUMENTATION FORM, IMPORTANT VISIT INFORMATION Patient Instructions My [facility] Additional Instructions You were seen and evaluated today on an emergency basis only. This is not a substitute for, or an effort to provide, complete comprehensive medical care. It is not possible to recognize and treat all injuries or illnesses in a single emergency department visit. For this reason it is recommended that you followup with your primary care physician's office on Saturday or Saturday for recheck. Continue the inhalers at home Take prednisone daily for the next 4 days For baseline pain relief you may alternate ibuprofen and acetaminophen every 4 hours for pain control. Take 600 mg ibuprofen (Advil) and then 4 hours later take 1000 mg acetaminophen (Tylenol). Do not take more than 3000 mg acetaminophen in a single day. Drink plenty of fluids and remain well hydrated. You are welcome to return to the emergency department anytime with new, worsening, or concerning symptoms. Problem Qualifiers
== END 2017-09-12 17:22 | disposition home or self-care (01) ==
LOC: C.EDB 14:12
DX: J06.9 Acute upper respiratory infection, unspecified (principal); K21.9 Gastro-esophageal reflux disease without esophagitis; Z86.73 Personal history of transient ischemic attack (TIA), and cerebral infarction without residual deficits; Z87.891 Personal history of nicotine dependence; Z79.82 Long term (current) use of aspirin; Z79.899 Other long term (current) drug therapy

== ENCOUNTER → 2017-10-16 | Outpatient (CLI) | payer OTHER ==
[~2017-10-16] MED LIST changes: -DOXY100C2 PO; +NAPR-1231 PO; -NAPR500T3 PO; +OSEL75CA16 PO; -TADA5TAB11 PO; -TIOT1AER INH
[2017-10-16 12:17] LABS: BASO % 0.4 %; BASO ABS # 0.03 K/uL (0-0.2); EOS % 4.6 %; EOS ABS # 0.36 K/uL (0-0.5); HEMATOCRIT 38.1 % (42-52); HEMOGLOBIN 13.5 g/dL (14.0-18.0); IG# 0.05 K/uL (0.00-0.02); LYMPH % 16.1 %; LYMPH ABS # 1.25 K/uL (1.2-3.4); MEAN CELL VOLUME 91.8 fL (80-100); MEAN CORPUSCULAR HEMOGLOBIN 32.5 pg (25-34); MEAN CORPUSCULAR HGB CONC 35.4 g/dl (32-36); MEAN PLATELET VOLUME 9.6 fL (7.4-10.4); MONO % 8.4 %; MONO ABS # 0.65 K/uL (0.11-0.59); NEUT % 69.9 %; NEUT ABS # 5.42 K/uL (1.4-6.5); PLATELET COUNT 173 K/uL (130-400); RED CELL DISTRIBUTION WIDTH CV 14.2 % (11.5-14.5); RED CELL DISTRIBUTION WIDTH SD 48.3 fL (36.4-46.3); WHITE BLOOD COUNT 7.76 K/uL (4.8-10.8)
[2017-10-16 12:25] LABS: HEMOGLOBIN A1C 5.8 % (4.5-5.6)
[2017-10-16 12:42] LABS: ALBUMIN 3.8 gm/dl (3.4-5.0); ALT/SGPT 19 U/L (12-78); BLOOD UREA NITROGEN 16 mg/dl (7-18); CALCIUM 9.3 mg/dl (8.5-10.1); CARBON DIOXIDE 29 mmol/L (21-32); CHOLESTEROL 166 mg/dl (0-200); CREATININE 1.06 mg/dl (0.60-1.40); GLUCOSE 85 mg/dl (70-99); POTASSIUM 4.4 mmol/L (3.5-5.1); SODIUM 133 mmol/L (136-145); TOTAL PROTEIN 7.2 gm/dl (6.4-8.2)
[2017-10-16 12:52] LABS: ALKALINE PHOSPHATASE 58 U/L (45-117); AST/SGOT 10 U/L (15-37); LDL CHOLESTEROL CALCULATED 98 mg/dl
== END | disposition home or self-care (01) ==
LOC: C.LABBFT 10:14
PROVIDERS: ATTEND Internal Medicine
DX: E11.9 Type 2 diabetes mellitus without complications (principal); D64.9 Anemia, unspecified

== ENCOUNTER 2017-11-13 08:46 | Inpatient (IN) | payer OTHER ==
[~2017-11-13] VITALS: Ht 170.2 cm; Wt 87.9 kg
[2017-11-13] VITALS (13 sets, daily range): BP systolic 127–169; BP diastolic 75–81; PULSE 70–86; TEMP 36.4–37.1; O2SAT 91–93; Ht 170.2 cm; Wt 87.9 kg
[2017-11-13] MEDS ORDERED: DC ALL PREVIOUSLY ORDERED DIABETES MEDS ONE (11:00)
[2017-11-13] MEDS ORDERED: DEXTROSE 50% 50 ML SYR IV PRN (11:00)
[2017-11-13] MEDS ORDERED: ACETAMINOPHEN 325 MG TAB PO PRN (11:00)
[2017-11-13] MEDS ORDERED: GLUCOSE 10 TABS/TUBE PO PRN (11:00)
[2017-11-13] MEDS ORDERED: ALBUTEROL 0.5% NEB SOLN 2.5 MG/0.5 ML VIAL INH PRN (11:00)
[2017-11-13] MEDS ORDERED: ONDANSETRON INJ 2 MG/ML 2 ML VIAL IV PRN (11:00)
[2017-11-13] MEDS: INSULIN ASPART 100 UNITS/ML 3 ML PEN SC SCH ×3 (11:00→21:41)
[2017-11-13] MEDS ORDERED: GLUCOSE 40% GEL 15 GM TUBE PO PRN (11:00)
[2017-11-13] MEDS ORDERED: GLUCAGON FOR INJ 1 MG VIAL SQ PRN (11:00)
[2017-11-13] MEDS ORDERED: GUAIFENESIN/DEXTROM SYRUP 100MG/10MG 5ML UDC PO PRN (11:00)
--- NOTE | 2017-11-13 11:29 | History and Physical ---
History & Physical Date & Time of Service: Nov 13, 2017 at 11:04 Chief Complaint: COPD Primary Care Physician: Harjeet Molina M.D. History of Present Illness Source: patient Mr. Rutledge is a pleasant 67yo C male with history of COPD presenting with cough and progressive shortness of breath over the last 4-5 days. Patient reports that he was diagnosed with the flu in September and was treated with Tamiflu after which he developed a right lung pneumonia. He was treated in the outpatient setting with a course of Levaquin 750mg daily and a 15 day steroid taper. He states that he felt much improved after completing the steroid taper. However, at the beginning of October he developed a head cold with cough. He was seen again by an outpatient provider and prescribed another course of antibiotics and a 9 day steroid taper. He states that he has been having a severe cough, progressively worsening over the last 4-5 days. The cough is constant, worse at night with laying down. Productive for clear phlegm. He also reports progressive SOB/HALL and wheeze. He had an episode at 0230 today in which he could not stop coughing and could not catch his breath. He has nasal congestion that is clear/yellow in nature. He denies CP/palpitations/ syncope. Denies fevers/chills or sweats. Denies abdominal pain/nausea/vomiting /post-tussive vomiting. He does endorse some mild constipation and muscular back pain associated with the cough. Patient was seen in clinic the AM with Dr. Molina and was subsequently transferred to [facility] for direct admission. Past Medical/Surgical History Medical Problems: (1) Acute bronchitis (2) Bronchitis (3) Chronic obstructive lung disease (4) COPD exacerbation (5) COPD exacerbation (6) Failure of outpatient treatment (7) Gastroesophageal reflux disease (8) Influenza-like symptoms (9) Influenza-like symptoms (10) Lacunar infarction (11) Upper respiratory infection (12) Upper respiratory infection (13) Vertigo Family History No pertinent family history Cancer in sister Renal disease in mother Social History Smoking Status: Former Smoker Smokeless Tobacco Use: No Alcohol Use: none Drug Use: none Marital Status: Housing status: lives with family Occupational Status: unemployed Immunizations History of Influenza Vaccine: No History of Tetanus Vaccine?: Yes History of Pneumococcal: Yes Pneumococcal Date: Jun 14, 2010 History of Hepatitis B Vaccine: Yes Allergies Coded Allergies: Iodine (Verified Allergy, Intermediate, SHORTNESS OF BREATH, 12/02/14) HAS HAD CT SCAN PREVIOUSLY, QUESTIONABLE R/T CONTRAST DYE VS. ANXIETY FROM CLOSED SPACES Amoxicillin (Verified Allergy, Mild, RASH, 12/05/14) rash was not typical drug reaction rash and was not pruritic. Clavulanic Acid (Verified Allergy, Mild, RASH, 12/05/14) rash was not typical drug reaction rash and was not pruritic. Clarithromycin (Verified Allergy, Unknown, UNKNOWN, 12/02/14) Indomethacin (Verified Allergy, Unknown, UNKNOWN, 12/02/14) Home Medications Scheduled Allopurinol (Allopurinol), 300 MG PO QAM Aspirin (Aspirin Ec), 81 MG PO QAM Clonazepam (Clonazepam), 1 MG PO BID Cyanocobalamin (Vitamin B12), 1,000 MCG PO QPM Hydrochlorothiazide (Hydrochlorothiazide), 25 MG PO QAM Lisinopril (Lisinopril), 10 MG PO HS Metformin HCl (Metformin HCl), 1,000 MG PO BID Metoprolol Tartrate (Lopressor) (Lopressor), 50 MG PO BID Mometasone Furoate (Nasal) (Mometasone Furoate), 2 SPRAYS NA QAM Omeprazole (Prilosec), 40 MG PO QAM Oseltamivir Phosphate (Oseltamivir Phosphate), 75 MG PO BID Pravastatin Sod (Pravastatin Sodium), 20 MG PO HS Scheduled PRN Albuterol Hfa (Ventolin Hfa), 2 PUFFS INH QID PRN for SOB/Wheezing Naproxen (Naproxen), 500 MG PO BID PRN for Pain Ranitidine Hcl (Ranitidine Hcl), 300 MG PO DAILY PRN for Indigestion Review of Systems Constitutional: + weight loss (Patient reports weighing 233# in April), No fever, No chills, No sweats, No fatigue Eyes: No worsening of vision, No redness ENT: No hearing loss, No sore throat, No trouble swallowing Respiratory: + cough, + sputum, + wheezing, + shortness of breath, + dyspnea on exertion, + dyspnea at rest, No hemoptysis Cardiovascular: No chest pain, No orthopnea, No PND, No edema, No palpitations Abdomen: + constipation, No pain, No nausea, No vomiting, No diarrhea Musculoskeletal: + muscle pain, No swelling Genitourinary - Male: No hematuria Integumentary: No rash, No itch Physical Exam Vital Signs Date Time Temp Pulse Resp B/P (MAP) Pulse Ox O2 Delivery O2 Flow Rate FiO2 11/13/17 10:12 37.1 85 20 127/81 (96) 92 Room Air General: patient sitting up in bed, appears comfortable, NAD, pleasant and appropriate, oriented x 4 Skin: warm, dry, intact, no rashes or lesions HEENT: NC/AT, PERRL, EOMI, anicteric sclera, conjunctiva without injection, MMM , +postnasal drip with cobblestoning in the posterior pharynx, +tenderness with palpation of left frontal sinus, neck supple, no JVD, no thyromegaly, no cervical LAD Heart: distant heart sounds, +S1/S2, regular, no m/r/g Lungs: equal air entry bilaterally, +diffuse expiratory wheezing in bilateral lung [place], coarse breath sounds with rales in entirety of right lung, no clubbing Abd: soft, NT/ND, normoactive bowel sounds Ext: warm, well perfused, no clubbing/cyanosis or edema Neuro: grossly intact Diagnostics Laboratory Results Ordered and pending Diagnostic Radiology CXR ordered and pending EKG Ordered and pending Impression Assessment and Plan 67yo C male presenting with COPD exacerbation, possible right PNA 1. COPD exacerbation - patient with progressive SOB/HALL and wheeze as well as cough productive for clear sputum. He is presently in no respiratory distress, adequate oxygenation on room air -DuoNeb q 4 hours -Albuterol q 4 hours PRN -Solumedrol 60mg IV q 8 hours -Awaiting CXR - will start antibiotics pending X-ray results -Supplemental O2 as needed -Sam maher and Aurelainosin DM as needed for symptomatic relief 2. ?PNA - patient presently afebrile, hemodynamically stable. He has completed a course of Tamiflu and 2 courses of antibiotics. Denies fevers/chills/sweats at present but has concerning findings in the right lung on pulmonary exam -Awaiting CXR -Awaiting CBC -Additional workup and antibiotics pending above study results 3. DM - patient reports adequate control on Metformin 500mg po BID -Will hold Metformin while inpatient -Lantus 15units BID and ISS -Blood sugar monitoring 4. HTN - blood pressure presently stable -Continue Lisinopril 10mg po daily -Continue HCTZ 25mg po daily -Continue Lopressor 50mg po BID 5. HLP - stable -Continue Pravastatin 6. GERD - stable -Continue Prilosec daily 7. Gout - stable -Continue Allopurinol 300mg po daily 8. History of lacunar infarct -Stable. -Continue ASA 81mg po daily and Pravastatin 9. Pain control -Naprosyn BID 10. F/E/N - heplock. Check electrolytes and replete as needed. AHA diet as tolerated 11. Code - Full per discussion with patient 12. Dispo - admit to medicine for COPD exacerbation and possible PNA Resuscitation Status Full VTE Prophylaxis Will order VTE Prophylaxis: Yes Social Service Consult None Apply
[2017-11-13 11:36] LABS: BASO % 0.4 %; BASO ABS # 0.04 K/uL (0-0.2); EOS % 3.3 %; EOS ABS # 0.32 K/uL (0-0.5); HEMATOCRIT 38.4 % (42-52); HEMOGLOBIN 13.8 g/dL (14.0-18.0); IG# 0.07 K/uL (0.00-0.02); LYMPH % 9.4 %; LYMPH ABS # 0.92 K/uL (1.2-3.4); MEAN CELL VOLUME 91.2 fL (80-100); MEAN CORPUSCULAR HEMOGLOBIN 32.8 pg (25-34); MEAN CORPUSCULAR HGB CONC 35.9 g/dl (32-36); MEAN PLATELET VOLUME 9.6 fL (7.4-10.4); MONO % 10.2 %; NEUT ABS # 7.47 K/uL (1.4-6.5); PLATELET COUNT 211 K/uL (130-400); RED CELL DISTRIBUTION WIDTH CV 14.5 % (11.5-14.5); RED CELL DISTRIBUTION WIDTH SD 48.1 fL (36.4-46.3); WHITE BLOOD COUNT 9.82 K/uL (4.8-10.8)
[2017-11-13] MEDS: PATIENT'S HEIGHT AND/OR WEIGHT NEEDED SCH ×2 (11:45→13:45)
[2017-11-13 11:53] LABS: BLOOD UREA NITROGEN 21 mg/dl (7-18); CALCIUM 8.7 mg/dl (8.5-10.1); CARBON DIOXIDE 28 mmol/L (21-32); CREATININE 1.14 mg/dl (0.60-1.40); GLUCOSE 97 mg/dl (70-99); PHOSPHORUS 3.5 mg/dl (2.5-4.9); POTASSIUM 3.7 mmol/L (3.5-5.1); SODIUM 133 mmol/L (136-145)
[2017-11-13] MEDS: ALBUT/IPRATROP 3MG/0.5MG NEB 3 ML VIAL INH SCH ×4 (11:53→22:57)
--- NOTE | 2017-11-13 13:46 | DIAGNOSTIC IMAGING REPORT ---
TWO VIEW CHEST CLINICAL HISTORY: Cough and dyspnea. FINDINGS: PA and lateral chest radiographs are compared to study dated 09/12/2017. The cardiomediastinal silhouette is unremarkable. Mild patchy airspace opacities are identified in the lingula. The lungs are otherwise clear. No large pleural effusion or pneumothorax is seen. The bony thorax appears intact. IMPRESSION: Mild patchy airspace opacities are suggested in the lingula. This may represent a mild infectious/inflammatory pneumonitis. Radiographic follow-up to resolution is recommended. Electronically signed by: Don Oleary M.D. 11/13/2017 1:45 PM Dictated Date/Time: 11/13/2017 1:44 PM
[2017-11-13] MEDS: BENZONATATE 100MG CAP PO SCH ×2 (14:18→21:34)
[2017-11-13] MEDS: METHYLPREDNISOLONE IV 60 MG in SYRINGE 0 ML IV SCH ×2 (14:19→21:35)
[2017-11-13] MEDS: ENOXAPARIN 40 MG/0.4 ML SYR SC SCH (14:20)
[2017-11-13] MEDS: MAGNESIUM SULFATE 1GM / D5W 1 GM in PREMIXED IN D5W 100 ML IV SCH ×2 (14:20→15:37)
[2017-11-13] MEDS: NAPROXEN 250 MG TAB PO PRN (17:31)
[2017-11-13] MEDS: LEVOFLOXACIN / D5W 750 MG in PREMIXED IN D5W 150 ML IV SCH (17:32)
[2017-11-13] MEDS: CLONAZEPAM 1 MG TAB PO SCH (21:32)
[2017-11-13] MEDS: CYANOCOBALAMIN 500 MCG TAB (VIT B-12) PO SCH (21:33)
[2017-11-13] MEDS: LISINOPRIL 10 MG TAB PO SCH (21:33)
[2017-11-13] MEDS: PRAVASTATIN SOD 20 MG TAB PO SCH (21:34)
[2017-11-13] MEDS: METOPROLOL TARTRATE 50 MG TAB PO SCH (21:34)
[2017-11-13] MEDS: INSULIN GLARGINE SOLOSTAR 100 UNITS/ML 3 ML PEN SC SCH (21:42)
[2017-11-14] VITALS (13 sets, daily range): BP systolic 123–154; BP diastolic 68–79; PULSE 58–96; TEMP 36.4–36.8; O2SAT 92–97
[2017-11-14] MEDS: ALBUT/IPRATROP 3MG/0.5MG NEB 3 ML VIAL INH SCH ×6 (02:22→23:09)
[2017-11-14] MEDS: METHYLPREDNISOLONE IV 60 MG in SYRINGE 0 ML IV SCH ×3 (05:27→20:59)
[2017-11-14 07:00] LABS: HEMATOCRIT 36.8 % (42-52); HEMOGLOBIN 13.1 g/dL (14.0-18.0); IG# 0.04 K/uL (0.00-0.02); LYMPH % 6.1 %; LYMPH ABS # 0.41 K/uL (1.2-3.4); MEAN CELL VOLUME 91.1 fL (80-100); MEAN CORPUSCULAR HEMOGLOBIN 32.4 pg (25-34); MEAN CORPUSCULAR HGB CONC 35.6 g/dl (32-36); MEAN PLATELET VOLUME 9.5 fL (7.4-10.4); MONO % 5.4 %; MONO ABS # 0.36 K/uL (0.11-0.59); NEUT % 87.9 %; NEUT ABS # 5.91 K/uL (1.4-6.5); PLATELET COUNT 208 K/uL (130-400); RED CELL DISTRIBUTION WIDTH CV 14.8 % (11.5-14.5); RED CELL DISTRIBUTION WIDTH SD 48.7 fL (36.4-46.3); WHITE BLOOD COUNT 6.72 K/uL (4.8-10.8)
[2017-11-14 07:33] LABS: CREATININE 1.02 mg/dl (0.60-1.40); POTASSIUM 3.9 mmol/L (3.5-5.1)
[2017-11-14] MEDS: FLUTICASONE PROPIONATE NA SPR 16 GM BTL SCH (08:12)
[2017-11-14] MEDS: PANTOprazole SOD 40 MG TAB PO SCH (08:13)
[2017-11-14] MEDS: METOPROLOL TARTRATE 50 MG TAB PO SCH ×2 (08:13→20:55)
[2017-11-14] MEDS: ASPIRIN 81 MG ECTAB PO SCH (08:13)
[2017-11-14] MEDS: ALLOPURINOL 300 MG TAB PO SCH (08:13)
[2017-11-14] MEDS: HYDROCHLOROTHIAZIDE 25 MG TAB PO SCH (08:13)
[2017-11-14] MEDS: BENZONATATE 100MG CAP PO SCH ×3 (08:13→20:56)
[2017-11-14] MEDS: INSULIN ASPART 100 UNITS/ML 3 ML PEN SC SCH ×4 (08:17→20:52)
[2017-11-14] MEDS: INSULIN GLARGINE SOLOSTAR 100 UNITS/ML 3 ML PEN SC SCH ×2 (08:18→20:53)
[2017-11-14] MEDS: CLONAZEPAM 1 MG TAB PO SCH ×2 (08:26→20:54)
[2017-11-14] MEDS: NAPROXEN 250 MG TAB PO PRN (08:26)
[2017-11-14] MEDS: LIDODERM (LIDOCAINE) PATCH 5% TD SCH (11:17)
[2017-11-14] MEDS: LACTOBACILLUS ACIDOPHILUS (FLORANEX) TAB PO SCH ×2 (11:18→17:14)
[2017-11-14] MEDS: ENOXAPARIN 40 MG/0.4 ML SYR SC SCH (13:25)
--- NOTE | 2017-11-14 14:51 | Progress Note ---
Subjective Date of Service: Nov 14, 2017. Subjective Pt evaluation today including: conversation w/ patient, physical exam, chart review, lab review, review of inpatient medication list Pain: Controlled PO Intake: Adequate Patient feeling much better than yesterday Sitting comfortable in room air Able to speak full sentences without getting short of breath Problem List Medical Problems: (1) Influenza-like symptoms Status: Acute (2) Upper respiratory infection Status: Acute Review of Systems Review of system Constitutional: No fever / no chills / no sweats / no weakness / no fatigue Eyes: no blurring of vision / no eye pain / no discharge / no redness ENT: no hearing loss / no epistaxis /no swallowing problems Respiratory: Positive for wheezing and SOB / no hemoptysis Cardiovascular: no Chest pain / no lower extremity edema / no palpitation Abdomen: no pain / no nausea / no vomiting / no constipation Musculoskeletal: no joint pain / no muscle pain / no joint swelling Genitourinary: no dysuria / no incontinence / no urinary retention Neurologic: no focal weakness / no numbness/tingling / no ataxia Psychiatric: no depression symptoms / no anxiety / no insomnia Endocrine: no excessive thirst / no excessive urination Hematologic: no abnormal bleeding / no bruising / no LN swelling Skin: No rash / no pallor Objective Vital Signs Date Time Temp Pulse Resp B/P (MAP) Pulse Ox O2 Delivery O2 Flow Rate FiO2 11/14/17 11:40 Room Air 11/14/17 11:30 36.5 60 16 123/68 (86) 93 Room Air 11/14/17 11:22 77 18 95 Room Air 11/14/17 07:45 Room Air 11/14/17 07:14 79 18 94 Room Air 11/14/17 06:56 36.7 72 20 154/77 (102) 92 Room Air 11/14/17 04:00 Room Air 11/14/17 03:56 36.8 96 18 143/78 (99) 92 Room Air 11/14/17 00:00 Room Air 11/13/17 23:48 36.4 86 19 169/80 (109) 92 Room Air 11/13/17 22:57 79 18 91 Room Air 11/13/17 21:31 86 135/76 (95) 92 Room Air 11/13/17 20:56 36.6 83 20 147/80 (102) 92 Room Air 11/13/17 20:00 93 Room Air 11/13/17 19:14 72 16 93 Room Air 11/13/17 16:09 36.9 70 18 131/75 (93) 91 Room Air 11/13/17 16:00 93 Room Air 11/13/17 15:19 76 16 93 Room Air Physical Exam Comments: Physical examination General patient appears to be comfortable, not in acute distress HEENT: Atraumatic , normocephalic /no jaundice /no pallor /anicteric /no dry mucous membrane /normal external ear inspection Neck: Supple /no swelling /central trach Heart: S1/S2 normal/regular rate and rhythm/no gallop /no rub /no murmur Lungs: Decreased air entry bilaterally, bilateral wheezing with scattered rhonchi Abdomen: Soft/nontender/no guarding/no rebound/no organomegaly/no pulsatile mass Musculoskeletal: No swelling/no edema/no tenderness/normal range of motion Neuro exam: Awake alert oriented 3/cranial nerves II through XII appear to be intact/sensation intact/moves all extremities/no abnormal movements Psychiatric evaluation: No depressed mood/normal affect Skin: No rash on exposed skin area/no erythema Extremity: Normal pulse/no pitting edema/no clubbing or cyanosis Endocrine/lymphatic: No obvious lymphadenopathy /no lymphedema Laboratory Results Last 24 Hours Test 11/13/17 16:41 11/13/17 20:28 11/14/17 06:33 11/14/17 07:12 Bedside Glucose 132 mg/dl 160 mg/dl 137 mg/dl White Blood Count 6.72 K/uL Red Blood Count 4.04 M/uL Hemoglobin 13.1 g/dL Hematocrit 36.8 % Mean Corpuscular Volume 91.1 fL Mean Corpuscular Hemoglobin 32.4 pg Mean Corpuscular Hemoglobin Concent 35.6 g/dl Platelet Count 208 K/uL Mean Platelet Volume 9.5 fL Neutrophils (%) (Auto) 87.9 % Lymphocytes (%) (Auto) 6.1 % Monocytes (%) (Auto) 5.4 % Eosinophils (%) (Auto) 0.0 % Basophils (%) (Auto) 0.0 % Neutrophils # (Auto) 5.91 K/uL Lymphocytes # (Auto) 0.41 K/uL Monocytes # (Auto) 0.36 K/uL Eosinophils # (Auto) 0.00 K/uL Basophils # (Auto) 0.00 K/uL RDW Standard Deviation 48.7 fL RDW Coefficient of Variation 14.8 % Immature Granulocyte % (Auto) 0.6 % Immature Granulocyte # (Auto) 0.04 K/uL Sodium Level 132 mmol/L Potassium Level 3.9 mmol/L Chloride Level 96 mmol/L Carbon Dioxide Level 27 mmol/L Anion Gap 8.0 mmol/L Blood Urea Nitrogen 20 mg/dl Creatinine 1.02 mg/dl Est Creatinine Clear Calc Drug Dose 72.8 ml/min Estimated GFR () 87.1 Estimated GFR (Non- 75.2 BUN/Creatinine Ratio 19.1 Random Glucose 142 mg/dl Calcium Level 9.0 mg/dl Test 11/14/17 11:28 11/14/17 11:35 D-Dimer 290 ug/L FEU Bedside Glucose 149 mg/dl Assessment and Plan 67-year-old man with past medical history of hypertension, dyslipidemia, diabetes mellitus on oral hypoglycemic, GERD and history of lacunar infarct. Patient was sent from his primary care physician office with severe shortness of breath, wheezing, COPD exacerbation failed outpatient treatment measures Assessment Acute COPD exacerbation Hypertension Dyslipidemia Diabetes mellitus type 2 on oral hypokinesis GERD History of lacunar infarct Plan Admit patient to telemetry continue bronchodilators, albuterol/Atrovent inhalation nebulizer 4 times daily continue steroids, Solu-Medrol 60 mg IV every 6 hours Chest imaging reviewed, showed no active pneumonia but likely bacterial bronchitis lingula pneumonia, CAP continue levofloxacin Add probiotic for C. difficile prevention hold Metformin while inpatient , continue Lantus 15units BID and ISS Continue Lisinopril 10mg / HCTZ 25mg and Lopressor 50mg po BID continue statin Pulmonary consultation if no improvement as needed Pepcid for GI prophylaxis Heparin subcu for DVT prophylaxis Patient will need pulmonary function test in 6 weeks after resolution
[2017-11-14] MEDS: LEVOFLOXACIN / D5W 750 MG in PREMIXED IN D5W 150 ML IV SCH (15:49)
[2017-11-14] MEDS: LISINOPRIL 10 MG TAB PO SCH (20:55)
[2017-11-14] MEDS: PRAVASTATIN SOD 20 MG TAB PO SCH (20:55)
[2017-11-14] MEDS: CYANOCOBALAMIN 500 MCG TAB (VIT B-12) PO SCH (20:55)
[2017-11-15] VITALS (12 sets, daily range): BP systolic 138–185; BP diastolic 72–89; PULSE 60–80; TEMP 36.4–36.9; O2SAT 93–96
[2017-11-15] MEDS: ALBUT/IPRATROP 3MG/0.5MG NEB 3 ML VIAL INH SCH ×6 (04:14→23:10)
[2017-11-15] MEDS: METHYLPREDNISOLONE IV 60 MG in SYRINGE 0 ML IV SCH ×3 (05:39→21:53)
[2017-11-15 06:42] LABS: HEMATOCRIT 35.8 % (42-52); IG# 0.04 K/uL (0.00-0.02); LYMPH % 5.4 %; LYMPH ABS # 0.54 K/uL (1.2-3.4); MEAN CELL VOLUME 90.4 fL (80-100); MEAN CORPUSCULAR HEMOGLOBIN 32.8 pg (25-34); MEAN CORPUSCULAR HGB CONC 36.3 g/dl (32-36); MEAN PLATELET VOLUME 9.5 fL (7.4-10.4); MONO % 4.8 %; MONO ABS # 0.48 K/uL (0.11-0.59); NEUT % 89.4 %; NEUT ABS # 8.89 K/uL (1.4-6.5); PLATELET COUNT 205 K/uL (130-400); RED CELL DISTRIBUTION WIDTH CV 14.4 % (11.5-14.5); RED CELL DISTRIBUTION WIDTH SD 47.7 fL (36.4-46.3); WHITE BLOOD COUNT 9.95 K/uL (4.8-10.8)
[2017-11-15 07:15] LABS: ALBUMIN 3.5 gm/dl (3.4-5.0); CREATININE 1.2 mg/dl (0.60-1.40); POTASSIUM 3.7 mmol/L (3.5-5.1)
[2017-11-15 07:17] LABS: TOTAL PROTEIN 7.1 gm/dl (6.4-8.2)
[2017-11-15] MEDS: LACTOBACILLUS ACIDOPHILUS (FLORANEX) TAB PO SCH ×3 (08:20→17:30)
[2017-11-15] MEDS: HYDROCHLOROTHIAZIDE 25 MG TAB PO SCH (08:21)
[2017-11-15] MEDS: TRAMADOL HCL 50 MG TAB PO PRN ×2 (08:21→20:52)
[2017-11-15] MEDS: METOPROLOL TARTRATE 50 MG TAB PO SCH ×2 (08:21→20:49)
[2017-11-15] MEDS: CLONAZEPAM 1 MG TAB PO SCH ×2 (08:21→20:48)
[2017-11-15] MEDS: BENZONATATE 100MG CAP PO SCH ×3 (08:21→20:48)
[2017-11-15] MEDS: PANTOprazole SOD 40 MG TAB PO SCH (08:21)
[2017-11-15] MEDS: ALLOPURINOL 300 MG TAB PO SCH (08:21)
[2017-11-15] MEDS: ASPIRIN 81 MG ECTAB PO SCH (08:21)
[2017-11-15] MEDS: LIDODERM (LIDOCAINE) PATCH 5% TD SCH (08:21)
[2017-11-15] MEDS: FLUTICASONE PROPIONATE NA SPR 16 GM BTL SCH (08:23)
[2017-11-15] MEDS: INSULIN ASPART 100 UNITS/ML 3 ML PEN SC SCH ×4 (08:26→20:47)
[2017-11-15] MEDS: INSULIN GLARGINE SOLOSTAR 100 UNITS/ML 3 ML PEN SC SCH ×2 (08:27→20:48)
[2017-11-15] MEDS: ENOXAPARIN 40 MG/0.4 ML SYR SC SCH (13:58)
[2017-11-15] MEDS ORDERED: NURSING VERBAL MED ORDER ONE (15:45)
[2017-11-15] MEDS: LEVOFLOXACIN / D5W 750 MG in PREMIXED IN D5W 150 ML IV SCH (15:50)
[2017-11-15] MEDS ORDERED: GUAIFENESIN SUGAR FREE 100 MG/5 ML UDC PO PRN (16:45)
--- NOTE | 2017-11-15 16:49 | Progress Note ---
Subjective Date of Service: Nov 15, 2017. Subjective Pt evaluation today including: conversation w/ patient, physical exam, chart review, lab review, review of studies, review of inpatient medication list Pain: controlled PO Intake: adequate Voiding: no voiding problems, no incontinence patient slightly improved yesterday today he is feeling much worse he is unable to cough up any mucous. Problem List Medical Problems: (1) Influenza-like symptoms Status: Acute (2) Upper respiratory infection Status: Acute Review of Systems Constitutional: No see HPI, No fever, No chills, No sweats, No weight loss, No weakness, No fatigue, No problem reported Eyes: No see HPI, No worsening of vision, No eye pain, No redness, No discharge , No diplopia, No problem reported ENT: No see HPI, No hearing loss, No unusual epistaxis, No nasal symptoms, No sore throat, No tinnitus, No dental problems, No trouble swallowing, No problem reported Respiratory: + cough, + sputum, + wheezing, + shortness of breath, + dyspnea on exertion, + dyspnea at rest, No see HPI, No hemoptysis, No problem reported Cardiac: No see HPI, No chest pain, No orthopnea, No PND, No edema, No claudication, No palpitations, No problem reported Abdomen: No see HPI, No pain, No nausea, No vomiting, No diarrhea, No constipation, No GI bleeding, No problem reported Musculoskeletal: No see HPI, No joint pain, No muscle pain, No swelling, No calf pain, No problem reported Male : No see HPI, No dysuria, No urinary frequency, No incontinence, No nocturia more than once/night, No slowing stream, No hematuria, No sexual dysfunction, No problem reported Neurologic: No see HPI, No memory loss, No paralysis, No weakness, No numbness/ tingling, No vertigo, No balance problems, No problem reported Psychiatric: No see HPI, No depression symptoms, No anhedonism, No anxiety, No insomnia, No substance abuse, No problem reported Heme: No see HPI, No abnormal bleeding/bruising, No clotting problems, No swollen lymph nodes, No night sweats, No problem reported Endo: No see HPI, No fatigue, No excessive thirst, No excessive urination, No problem reported Skin: No see HPI, No rash, No itch, No new/changing skin lesions, No color change, No bleeding, No problem reported Objective Vital Signs Date Time Temp Pulse Resp B/P (MAP) Pulse Ox O2 Delivery O2 Flow Rate FiO2 11/15/17 16:00 Room Air 11/15/17 15:59 36.4 63 18 161/72 (101) 96 Room Air 11/15/17 15:27 60 18 95 Room Air 11/15/17 12:00 Room Air 11/15/17 11:52 36.7 70 18 138/74 (95) 93 Room Air 11/15/17 11:21 70 18 93 Room Air 11/15/17 08:10 36.6 60 18 144/75 (98) 95 Room Air 11/15/17 07:45 Room Air 11/15/17 07:27 70 18 93 Room Air 11/15/17 04:32 36.9 75 19 143/72 (95) 93 Room Air 11/15/17 04:14 72 18 93 Room Air 11/15/17 04:00 Room Air 11/15/17 00:00 Room Air 11/14/17 23:09 60 18 97 Room Air 11/14/17 23:06 36.5 70 18 149/79 (102) 94 Room Air 11/14/17 20:00 93 Room Air 11/14/17 19:48 60 18 97 Room Air 11/14/17 19:42 36.4 74 16 154/76 (102) 93 Room Air Physical Exam General Appearance: WD/WN, no apparent distress Eyes: normal inspection, EOMI ENT: normal ENT inspection, hearing grossly normal Neck: supple Respiratory/Chest: chest non-tender, + decreased breath sounds, + crackles, + rales Cardiovascular: regular rate, rhythm, no edema, no gallop, no JVD, no murmur Abdomen: normal bowel sounds, non tender, soft, no organomegaly, no pulsatile mass Extremities: normal range of motion, non-tender, normal inspection, no pedal edema, no calf tenderness 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, no motor/sensory deficits, alert, normal mood/affect, oriented x 3 Skin: normal color, warm/dry, no rash Laboratory Results Last 24 Hours Test 11/14/17 20:23 11/15/17 05:59 11/15/17 07:47 11/15/17 11:03 Bedside Glucose 172 mg/dl 135 mg/dl 178 mg/dl White Blood Count 9.95 K/uL Red Blood Count 3.96 M/uL Hemoglobin 13.0 g/dL Hematocrit 35.8 % Mean Corpuscular Volume 90.4 fL Mean Corpuscular Hemoglobin 32.8 pg Mean Corpuscular Hemoglobin Concent 36.3 g/dl Platelet Count 205 K/uL Mean Platelet Volume 9.5 fL Neutrophils (%) (Auto) 89.4 % Lymphocytes (%) (Auto) 5.4 % Monocytes (%) (Auto) 4.8 % Eosinophils (%) (Auto) 0.0 % Basophils (%) (Auto) 0.0 % Neutrophils # (Auto) 8.89 K/uL Lymphocytes # (Auto) 0.54 K/uL Monocytes # (Auto) 0.48 K/uL Eosinophils # (Auto) 0.00 K/uL Basophils # (Auto) 0.00 K/uL RDW Standard Deviation 47.7 fL RDW Coefficient of Variation 14.4 % Immature Granulocyte % (Auto) 0.4 % Immature Granulocyte # (Auto) 0.04 K/uL Sodium Level 129 mmol/L Potassium Level 3.7 mmol/L Chloride Level 95 mmol/L Carbon Dioxide Level 27 mmol/L Anion Gap 7.0 mmol/L Blood Urea Nitrogen 26 mg/dl Creatinine 1.20 mg/dl Est Creatinine Clear Calc Drug Dose 61.9 ml/min Estimated GFR () 71.6 Estimated GFR (Non- 61.8 BUN/Creatinine Ratio 21.8 Random Glucose 146 mg/dl Calcium Level 9.0 mg/dl Magnesium Level 1.8 mg/dl Total Bilirubin 0.5 mg/dl Aspartate Amino Transf (AST/SGOT) 15 U/L Alanine Aminotransferase (ALT/SGPT) 18 U/L Alkaline Phosphatase 58 U/L Total Protein 7.1 gm/dl Albumin 3.5 gm/dl Globulin 3.6 gm/dl Albumin/Globulin Ratio 1.0 Test 11/15/17 16:16 Bedside Glucose 122 mg/dl Assessment and Plan 67-year-old man with past medical history of hypertension, dyslipidemia, diabetes mellitus on oral hypoglycemic, GERD and history of lacunar infarct. Patient was sent from his primary care physician office with severe shortness of breath, wheezing, COPD exacerbation failed outpatient treatment measures Assessment Acute COPD exacerbation Hypertension Dyslipidemia Diabetes mellitus type 2 on oral hypokinesis GERD History of lacunar infarct Plan continue telemetry unfortunately today he is worse switch levofloxacin to azithro / CTX to get the anti inflammatory effect of azithro ordered CT chest without contrast to evaluate his worsening SOB, R/O pneumonia or underlying CHF continue bronchodilators, albuterol/Atrovent inhalation nebulizer 4 times daily continue steroids, Solu-Medrol 60 mg IV every 6 hours lingula pneumonia, CAP continue probiotic for C. difficile prevention hold Metformin while inpatient , continue Lantus 15units BID and ISS Continue HCTZ 25mg and Lopressor 50mg po BID DC Lisinopril 10mg , as it might be contributing to patient's cough use losartan instead continue statin Pulmonary consultation Pepcid for GI prophylaxis Heparin subcu for DVT prophylaxis Patient will need pulmonary function test in 6 weeks after resolution
--- NOTE | 2017-11-15 17:28 | DIAGNOSTIC IMAGING REPORT ---
(CHEST) THORAX WITHOUT CT DOSE: 581.66 mGycm HISTORY: Short of breath. TECHNIQUE: Multiaxial CT images of the chest were performed without contrast. A dose lowering technique was utilized adhering to the principles of ALARA. COMPARISON: Chest 11/13/2017. FINDINGS: Small amount of mucoid material within the right mainstem bronchus. No pleural effusions. No pneumothorax. There are few small clusters of nodules seen within the left lower lobe. Dominant nodule measures 8 mm on image 198. 5 mm groundglass nodule within the right upper lobe on image 80. There are few additional irregular subcentimeter nodules within the right upper lobe posteriorly. Dominant groundglass nodule measures 8 mm on image 121. Small patchy densities within the base of the right lower lobe. No suspicious lytic or blastic osseous lesions. An 8 mm hypodense lesion within the liver. This is too small to characterize but statistically represents a cyst. The visualized spleen and adrenal glands are unremarkable. Right-sided gynecomastia. No pericardial effusion. The heart is normal in size. No mediastinal or hilar lymphadenopathy. Mild calcified plaque within the normal caliber thoracic aorta. IMPRESSION: A few scattered subcentimeter groundglass and irregular nodules within the lungs as described above as well as a small amount of mucoid material within the right mainstem bronchus. These findings favor mild infectious/inflammatory change. A [address] follow up is recommended to ensure resolution of the small nodules. Electronically signed by: Ozzy Brito M.D. 11/15/2017 5:27 PM Dictated Date/Time: 11/15/2017 5:17 PM
[2017-11-15] MEDS: BUDESONIDE 0.5 MG/2 ML VIAL (PULMICORT) INH SCH (19:01)
[2017-11-15] MEDS: PRAVASTATIN SOD 20 MG TAB PO SCH (20:48)
[2017-11-15] MEDS: CYANOCOBALAMIN 500 MCG TAB (VIT B-12) PO SCH (20:49)
[2017-11-15] MEDS: GUAIFENESIN 600 MG TABCR PO SCH (21:06)
[2017-11-16] VITALS (14 sets, daily range): BP systolic 132–179; BP diastolic 68–102; PULSE 62–91; TEMP 36.3–36.6; O2SAT 92–96
[2017-11-16] MEDS: ALBUT/IPRATROP 3MG/0.5MG NEB 3 ML VIAL INH SCH ×6 (03:37→23:25)
[2017-11-16] MEDS: METHYLPREDNISOLONE IV 60 MG in SYRINGE 0 ML IV SCH ×3 (06:08→21:31)
[2017-11-16] MEDS: BUDESONIDE 0.5 MG/2 ML VIAL (PULMICORT) INH SCH ×2 (07:06→18:56)
[2017-11-16 07:18] LABS: HEMATOCRIT 38.2 % (42-52); HEMOGLOBIN 13.4 g/dL (14.0-18.0); IG# 0.05 K/uL (0.00-0.02); LYMPH % 5.4 %; LYMPH ABS # 0.53 K/uL (1.2-3.4); MEAN CELL VOLUME 91.2 fL (80-100); MEAN CORPUSCULAR HGB CONC 35.1 g/dl (32-36); MEAN PLATELET VOLUME 9.7 fL (7.4-10.4); MONO % 4.1 %; NEUT ABS # 8.76 K/uL (1.4-6.5); PLATELET COUNT 188 K/uL (130-400); RED CELL DISTRIBUTION WIDTH CV 14.3 % (11.5-14.5); RED CELL DISTRIBUTION WIDTH SD 48.1 fL (36.4-46.3); WHITE BLOOD COUNT 9.74 K/uL (4.8-10.8)
[2017-11-16 07:46] LABS: ALBUMIN 3.3 gm/dl (3.4-5.0); CALCIUM 8.9 mg/dl (8.5-10.1); CREATININE 1.09 mg/dl (0.60-1.40); POTASSIUM 3.5 mmol/L (3.5-5.1)
[2017-11-16 07:49] LABS: TOTAL PROTEIN 6.7 gm/dl (6.4-8.2)
[2017-11-16] MEDS: FLUTICASONE PROPIONATE NA SPR 16 GM BTL SCH (08:05)
[2017-11-16] MEDS: GUAIFENESIN 600 MG TABCR PO SCH ×2 (08:06→20:48)
[2017-11-16] MEDS: BENZONATATE 100MG CAP PO SCH ×3 (08:06→20:49)
[2017-11-16] MEDS: METOPROLOL TARTRATE 50 MG TAB PO SCH ×2 (08:07→20:48)
[2017-11-16] MEDS: LOSARTAN POTASSIUM 50 MG TAB PO SCH (08:07)
[2017-11-16] MEDS: LACTOBACILLUS ACIDOPHILUS (FLORANEX) TAB PO SCH ×3 (08:07→17:14)
[2017-11-16] MEDS: PANTOprazole SOD 40 MG TAB PO SCH (08:08)
[2017-11-16] MEDS: ALLOPURINOL 300 MG TAB PO SCH (08:09)
[2017-11-16] MEDS: ASPIRIN 81 MG ECTAB PO SCH (08:09)
[2017-11-16] MEDS: CLONAZEPAM 1 MG TAB PO SCH ×2 (08:12→20:45)
[2017-11-16] MEDS: INSULIN ASPART 100 UNITS/ML 3 ML PEN SC SCH ×4 (08:20→20:52)
[2017-11-16] MEDS: INSULIN GLARGINE SOLOSTAR 100 UNITS/ML 3 ML PEN SC SCH ×2 (08:20→20:52)
--- NOTE | 2017-11-16 12:07 | Pulmonary Consultation ---
History General Date of Service: Nov 16, 2017. Stated Complaint: COPD HPI The patient is a 67 year old male who presents to [facility] with complaints of COPD. The patient's primary care provider is Harjeet Molina M.D.. 67-year-old gentleman admitted for progressive cough with associated shortness of breath. Patient has a clinical diagnosis of COPD but no pulmonary function studies for evaluation. He was initially seen by his PCP on 11/06/2017 for COPD exacerbation with associated cough and wheezing and started on oral cortical steroids with doxycycline and albuterol nebulizer with increasing signs and symptoms. After being seen by his PCP on 11/13/2017 he was a direct admission. In the emergency room the patient noted progressive cough or shortness of Breath and was started on Levaquin 750 mg and IV steroids. Patient has had increasing cough since October of 2017 with semi productive sputum and associated severe GERD/unable to lie flat without coughing and notable postnasal drip. During our interview the patient denied: Fever, chills , pleurisy, unintentional weight loss, B type symptoms, hemoptysis or classic cardiac chest pain. He did reiterate chronic rhinitis and GERD as issues he notes every day and also is having productive yellow nasal secretions. Current workup EKG: Sinus rhythm, rate 78, first-degree AV block WBC: 9K D-dimer: 290 Na: [id number] Albumin: 3.3 CT thorax without contrast: Diffuse/scattered pulmonary nodules some ground -glass in the right upper lobe ranging from 8 millimeters to 12 millimeters with some scar tissue noted in the right lower lobe. Previous workup Dobutamine stress echocardiogram 10/20/2014: No stress-induced segmental wall motion abnormalities noted Echocardiogram 10/19/2014 Normal global biventricular systolic function without segmental wall motion abnormalities Mild left ventricular hypertrophy/diastolic dysfunction suggested EF=60% TAPSE = WNL Inpatient medications 1. Guaifenesin 2. Pulmonary cord/budesonide nebulized 0.5 mg b.i.d. 3. Flonase nasal spray 2 puffs b.i.d. 4. Protonix 40 mg daily 5. Levaquin 750 mg daily 6. Enoxaparin 40 mg daily subcu 7. Methylprednisolone 60 mg q.8 hours IV 8. Duo nebs q.4 hours 9. Robitussin DM 5 milliliters q.6 hours p.r.n. PmHx: 1. Chronic Sinusitis 2. Anemia 3. Anxiety 4. Anemia 5. Benign prostatic hypertrophy 6. COPD 7. Diabetes mellitus 8. Erectile dysfunction 9. GERD 10. Gout 11. Hypertension 12. Hypertrophy of the right breast 13. Lacunar stroke 14. 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 Peripheral neuropathy 17. Vitamin B12 deficiency 18. Cataracts PsHx: 1. Phacoemulsification with intraocular lens implantation of the right eye 2. Phacoemulsification with intraocular lens implantation of the left eye 3. Social history Alcohol: Current rare use Tobacco: 2-2.5ppd/45 years-quit in 2004 Marital status: and lives with his in [place] Occupation: Disabled secondary to CVA Outpatient Medications Allergies Iodine contrast, Augmentin, Biaxin, indomethacin Family history Two brothers are both had cardiac disease and underwent bypass surgery , mother at age 46 from kidney disease Historian: patient, EMS Review of Systems Constitutional: reports: weakness Eyes: reports: no symptoms ENT: reports: as stated in HPI Cardiovascular: reports: as stated in HPI Respiratory: reports: as stated in HPI Gastrointestinal: reports: no symptoms Genitourinary - Male: reports: no symptoms Musculoskeletal: reports: no symptoms Integumentary: reports: no symptoms Neurologic: reports: no symptoms Psychiatric: reports: no symptoms Endocrine: no symptoms Hematologic / Lymphatic: no symptoms Allergic / Immunologic: no symptoms Past Medical History Past Medical History: Please refer to HPI Past Surgical History: Please refer to HPI Family History No pertinent family history Please refer to HPI Social History Please refer to [facility] Hx Tobacco Use In Past Year?: No Smoking Status: Former Smoker Marital status: Housing status: lives with family Occupational Status: unemployed Immunizations History of Influenza Vaccine: No History of Tetanus Vaccine?: Yes History of Pneumococcal: Yes Pneumococcal Date: Jun 14, 2010 History of Hepatitis B Vaccine: Yes History of MDRO History of MDRO: No Allergies Coded Allergies: Iodine (Verified Allergy, Intermediate, SHORTNESS OF BREATH, 12/02/14) HAS HAD CT SCAN PREVIOUSLY, QUESTIONABLE R/T CONTRAST DYE VS. ANXIETY FROM CLOSED SPACES Amoxicillin (Verified Allergy, Mild, RASH, 12/05/14) rash was not typical drug reaction rash and was not pruritic. Clavulanic Acid (Verified Allergy, Mild, RASH, 12/05/14) rash was not typical drug reaction rash and was not pruritic. Clarithromycin (Verified Allergy, Unknown, UNKNOWN, 12/02/14) Indomethacin (Verified Allergy, Unknown, UNKNOWN, 12/02/14) Current Medications Reported Home Medications Medications Dose Route/Sig Max Daily Dose Days Date Category Oseltamivir Phosphate 75 Mg Cap 75 Mg PO BID 09/12/17 Reported Mometasone Furoate (Mometasone Furoate (Nasal)) 50 Mcg/Act Spr 2 Sprays NA QAM 07/09/17 Reported Vitamin B12 (Cyanocobalamin) 1,000 Mcg Tab 1,000 Mcg PO QPM 07/09/17 Reported Aspirin Ec (Aspirin) 81 Mg Tab 81 Mg PO QAM 07/09/17 Reported Ranitidine Hcl 300 Mg Cap 300 Mg PO DAILY PRN 07/09/17 Reported Lisinopril 10 Mg Tab 10 Mg PO HS 07/09/17 Reported Prilosec (Omeprazole) 40 Mg Cap 40 Mg PO QAM 07/09/17 Reported Hydrochlorothiazide 25 Mg Tab 25 Mg PO QAM 07/09/17 Reported Clonazepam 1 Mg Tab 1 Mg PO BID 07/09/17 Reported Naproxen 500 Mg Tab 500 Mg PO BID PRN 07/09/17 Reported Ventolin Hfa (Albuterol) 200 Puffs/72946 Mcg Aers 2 Puffs INH QID PRN 07/09/17 Reported Allopurinol 300 Mg Tab 300 Mg PO QAM 07/09/17 Reported Pravastatin Sodium (Pravastatin Sod) 20 Mg Tab 20 Mg PO HS 07/09/17 Reported Metformin HCl 500 Mg Tab 1,000 Mg PO BID 07/09/17 Reported Lopressor (Metoprolol Tartrate) 50 Mg Tab 50 Mg PO BID 04/30/14 Reported Physical Physical Exam Vital Signs: Date Time Temp Pulse Resp B/P (MAP) Pulse Ox O2 Delivery O2 Flow Rate FiO2 11/16/17 11:20 81 18 96 Room Air 11/16/17 08:00 95 Room Air 11/16/17 07:33 36.5 87 16 144/68 (93) 95 Room Air 11/16/17 07:06 77 18 95 Room Air 11/16/17 05:14 36.5 77 18 160/74 (102) 94 Room Air 11/16/17 04:00 Room Air 11/16/17 03:37 81 18 92 Room Air 11/16/17 00:00 Room Air 11/15/17 23:10 80 18 95 Room Air 11/15/17 22:57 36.7 62 20 185/89 (121) 94 Room Air 170/75 (106) 11/15/17 20:00 Room Air 11/15/17 19:06 36.6 64 20 162/79 (106) 95 11/15/17 19:03 77 16 95 Room Air 11/15/17 16:00 Room Air 11/15/17 15:59 36.4 63 18 161/72 (101) 96 Room Air 11/15/17 15:27 60 18 95 Room Air 11/15/17 12:00 Room Air General Appearance: WELL-APPEARING, NO APPARENT DISTRESS Head: NORMOCEPHALIC, ATRAUMATIC Eyes: PERRLA, NO DISCHARGE, EOMI, SCLERAE NORMAL ENT: NORMAL EAR EXAM, other (Mallampati 2, posterior oral pharyngeal cobblestoning and bilateral nasal erythema) Neck: NORMAL RANGE OF MOTION, NO TENDERNESS, other (Inspiratory expiratory wheezing appreciated at the level of the glottis with rhonchorous breath sounds that appear to transfer down to the lungs bilaterally) Respiratory: rhonchi, wheezing Cardiovasular: REGULAR RATE/RHYTHM, NORMAL S1S2, NO M/G/R, NO MURMUR, NO GALLOP Abdomen: NON TENDER, NORMAL BOWEL SOUNDS, NO REBOUND, NO MASSES, NO GUARDING, NO ORGANOMEGALY Genitourinary - Male: EXTERNAL GENITALIA NORMAL Back: NORMAL INSPECTION, NO MIDLINE TENDERNESS, NO CVA TENDERNESS, NO PARAVERTEBRAL TTP Upper Extremities: NO EDEMA, NO DEFORMITY, NORMAL ROM Lower Extremities: NO EDEMA, NO DEFORMITY, NORMAL ROM Pulses: carotid (R) (2+), carotid (L) (2+), dorsalis pedis (R) (2+), dorsalis pedis (L) (2+) Neuro: ALERT, ORIENTED x 3, NORMAL MOTOR EXAM, NORMAL SENSATION Reflexes: biceps (R) (2+), bicpes (L) (2+), patellar (R) (2+), patellar (L) (2+ ) Babinski Testing: right (downgoing), left (downgoing) Psychiatric: NORMAL AFFECT, NO SUICIDAL IDEATION, CONTRACTS FOR SAFETY Diagnostics Labs Results Past 24 Hours Test 11/15/17 16:16 11/15/17 20:13 11/16/17 06:57 11/16/17 07:06 Range/Units Bedside Glucose 122 148 147 70-99 mg/dl White Blood Count 9.74 4.8-10.8 K/uL Red Blood Count 4.19 4.7-6.1 M/uL Hemoglobin 13.4 14.0-18.0 g/dL Hematocrit 38.2 42-52 % Mean Corpuscular Volume 91.2 80-100 fL Mean Corpuscular Hemoglobin 32.0 25-34 pg Mean Corpuscular Hemoglobin Concent 35.1 32-36 g/dl Platelet Count 188 130-400 K/uL Mean Platelet Volume 9.7 7.4-10.4 fL Neutrophils (%) (Auto) 90.0 % Lymphocytes (%) (Auto) 5.4 % Monocytes (%) (Auto) 4.1 % Eosinophils (%) (Auto) 0.0 % Basophils (%) (Auto) 0.0 % Neutrophils # (Auto) 8.76 1.4-6.5 K/uL Lymphocytes # (Auto) 0.53 1.2-3.4 K/uL Monocytes # (Auto) 0.40 0.11-0.59 K/uL Eosinophils # (Auto) 0.00 0-0.5 K/uL Basophils # (Auto) 0.00 0-0.2 K/uL RDW Standard Deviation 48.1 36.4-46.3 fL RDW Coefficient of Variation 14.3 11.5-14.5 % Immature Granulocyte % (Auto) 0.5 % Immature Granulocyte # (Auto) 0.05 0.00-0.02 K/uL Sodium Level 131 136-145 mmol/L Potassium Level 3.5 3.5-5.1 mmol/L Chloride Level 96 98-107 mmol/L Carbon Dioxide Level 26 21-32 mmol/L Anion Gap 8.0 3-11 mmol/L Blood Urea Nitrogen 23 7-18 mg/dl Creatinine 1.09 0.60-1.40 mg/dl Est Creatinine Clear Calc Drug Dose 68.1 ml/min Estimated GFR () 80.4 Estimated GFR (Non- 69.4 BUN/Creatinine Ratio 20.6 10-20 Random Glucose 150 70-99 mg/dl Calcium Level 8.9 8.5-10.1 mg/dl Magnesium Level 1.8 1.8-2.4 mg/dl Total Bilirubin 0.5 0.2-1 mg/dl Aspartate Amino Transf (AST/SGOT) 14 15-37 U/L Alanine Aminotransferase (ALT/SGPT) 17 12-78 U/L Alkaline Phosphatase 53 45-117 U/L Total Protein 6.7 6.4-8.2 gm/dl Albumin 3.3 3.4-5.0 gm/dl Globulin 3.4 2.5-4.0 gm/dl Albumin/Globulin Ratio 1.0 0.9-2 Diagnostic Radiology Please refer to HPI EKG Please refer to HPI Impression Assessment and Plan 67-year-old gentleman admitted with chronic cough progressive shortness of breath and pulmonary nodules found on CT: 1. Cough/shortness of breath: Agree with continuing current treatment for COPD exacerbations of this patient requires a more thorough workup and I will write for bedside spirometry to better understand his obstructive ventilatory disease. This will most likely a sub par study as he will require further workup as an outpatient for possible COPD. Patient is at a chronic cough most likely associated with COPD, GERD and postnasal drip as well as a diagnosis of laryngeal pharyngeal syndrome. We had a long discussion about dietary and social habits 2nd help with these different disorders. As the patient is notably improving I will decrease his steroid dosing to p.o. starting tomorrow 11/17/2017. Also I would like to obtain pertussis titers at this time. 2. Pulmonary nodules: Patient has multiple pulmonary nodules most of the ground-glass but will require 2-3 month follow-up with noncontrast CT.
[2017-11-16] MEDS: LIDODERM (LIDOCAINE) PATCH 5% TD SCH (14:22)
[2017-11-16] MEDS: ENOXAPARIN 40 MG/0.4 ML SYR SC SCH (14:23)
[2017-11-16] MEDS: LEVOFLOXACIN / D5W 750 MG in PREMIXED IN D5W 150 ML IV SCH (15:55)
--- NOTE | 2017-11-16 16:59 | Progress Note ---
Subjective Date of Service: Nov 16, 2017. Subjective 67 yo m today had midsternum burning like sensation. PATIENT HAS HAD THIS PAIN IN THE PAST. He attributes this to GERD. This occurred after eating crackers.Patient continues to have a cough, denies fever chills. Problem List Medical Problems: (1) Influenza-like symptoms Status: Acute (2) Upper respiratory infection Status: Acute Review of Systems Constitutional: No fever, No chills Eyes: No worsening of vision, No eye pain ENT: No hearing loss Respiratory: + cough, + shortness of breath Cardiac: No chest pain Abdomen: + pain Musculoskeletal: No joint pain Neurologic: No memory loss Heme: No abnormal bleeding/bruising Endo: No fatigue Skin: No rash All Other Systems: Reviewed and Negative Objective Vital Signs Date Time Temp Pulse Resp B/P (MAP) Pulse Ox O2 Delivery O2 Flow Rate FiO2 11/16/17 16:14 36.3 78 18 132/102 (112) 92 Room Air 11/16/17 16:00 Room Air 11/16/17 14:36 62 18 95 Room Air 11/16/17 12:32 36.6 81 18 150/78 (102) 96 Room Air 11/16/17 12:00 96 Room Air 11/16/17 11:20 81 18 96 Room Air 11/16/17 08:00 95 Room Air 11/16/17 07:33 36.5 87 16 144/68 (93) 95 Room Air 11/16/17 07:06 77 18 95 Room Air 11/16/17 05:14 36.5 77 18 160/74 (102) 94 Room Air 11/16/17 04:00 Room Air 11/16/17 03:37 81 18 92 Room Air 11/16/17 00:00 Room Air 11/15/17 23:10 80 18 95 Room Air 11/15/17 22:57 36.7 62 20 185/89 (121) 94 Room Air 170/75 (106) 11/15/17 20:00 Room Air 11/15/17 19:06 36.6 64 20 162/79 (106) 95 11/15/17 19:03 77 16 95 Room Air Physical Exam Comments: General Appearance: WD/WN, no apparent distress Eyes: normal inspection, EOMI ENT: normal ENT inspection, hearing grossly normal Neck: supple Respiratory/Chest: chest non-tender, + decreased breath sounds, + crackles, + wheezing Cardiovascular: regular rate, rhythm, no edema, no gallop, no JVD, no murmur Abdomen: normal bowel sounds, non tender, soft, no organomegaly, no pulsatile mass Extremities: normal range of motion, non-tender, normal inspection, no pedal edema, no calf tenderness 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, no motor/sensory deficits, alert, normal mood/affect, oriented x 3 Skin: normal color, warm/dry, no rash Laboratory Results Last 24 Hours Test 11/15/17 20:13 11/16/17 06:57 11/16/17 07:06 11/16/17 11:56 Bedside Glucose 148 mg/dl 147 mg/dl 118 mg/dl White Blood Count 9.74 K/uL Red Blood Count 4.19 M/uL Hemoglobin 13.4 g/dL Hematocrit 38.2 % Mean Corpuscular Volume 91.2 fL Mean Corpuscular Hemoglobin 32.0 pg Mean Corpuscular Hemoglobin Concent 35.1 g/dl Platelet Count 188 K/uL Mean Platelet Volume 9.7 fL Neutrophils (%) (Auto) 90.0 % Lymphocytes (%) (Auto) 5.4 % Monocytes (%) (Auto) 4.1 % Eosinophils (%) (Auto) 0.0 % Basophils (%) (Auto) 0.0 % Neutrophils # (Auto) 8.76 K/uL Lymphocytes # (Auto) 0.53 K/uL Monocytes # (Auto) 0.40 K/uL Eosinophils # (Auto) 0.00 K/uL Basophils # (Auto) 0.00 K/uL RDW Standard Deviation 48.1 fL RDW Coefficient of Variation 14.3 % Immature Granulocyte % (Auto) 0.5 % Immature Granulocyte # (Auto) 0.05 K/uL Sodium Level 131 mmol/L Potassium Level 3.5 mmol/L Chloride Level 96 mmol/L Carbon Dioxide Level 26 mmol/L Anion Gap 8.0 mmol/L Blood Urea Nitrogen 23 mg/dl Creatinine 1.09 mg/dl Est Creatinine Clear Calc Drug Dose 68.1 ml/min Estimated GFR () 80.4 Estimated GFR (Non- 69.4 BUN/Creatinine Ratio 20.6 Random Glucose 150 mg/dl Calcium Level 8.9 mg/dl Magnesium Level 1.8 mg/dl Total Bilirubin 0.5 mg/dl Aspartate Amino Transf (AST/SGOT) 14 U/L Alanine Aminotransferase (ALT/SGPT) 17 U/L Alkaline Phosphatase 53 U/L Total Protein 6.7 gm/dl Albumin 3.3 gm/dl Globulin 3.4 gm/dl Albumin/Globulin Ratio 1.0 Test 11/16/17 12:15 Assessment and Plan 67-year-old man with past medical history of hypertension, dyslipidemia, diabetes mellitus on oral hypoglycemic, GERD and history of lacunar infarct. Patient was sent from his primary care physician office with severe shortness of breath, wheezing, COPD exacerbation failed outpatient treatment measures Assessment Acute COPD exacerbation Hypertension Dyslipidemia Diabetes mellitus type 2 on oral hypokinesis GERD History of lacunar infarct Plan continue telemetry Will continue to monitor switch levofloxacin to azithro / CTX to get the anti inflammatory effect of azithro ordered CT chest without contrast to evaluate his worsening SOB, R/O pneumonia or underlying CHF A few scattered subcentimeter groundglass and irregular nodules within the lungs on CT scan; recommend repeating in 6 months continue bronchodilators, albuterol/Atrovent inhalation nebulizer 4 times daily continue steroids, Solu-Medrol 60 mg IV every 6 hours lingula pneumonia, CAP continue probiotic for C. difficile prevention hold Metformin while inpatient , continue Lantus 15units BID and ISS Continue Lopressor 50mg po BID, helld hctz due to worsening sodium DC Lisinopril 10mg , as it might be contributing to patient's cough use losartan instead continue statin Pulmonary consultation Pepcid for GI prophylaxis Heparin subcu for DVT prophylaxis Patient will need pulmonary function test in 6 weeks after resolution
[2017-11-16] MEDS ORDERED: RANITIDINE HCL 150 MG TAB PO ONE (17:30)
[2017-11-16] MEDS: SODIUM CHLORIDE 0.65% NA SOLN 45 ML (OCEAN) SCH (20:45)
[2017-11-16] MEDS: PRAVASTATIN SOD 20 MG TAB PO SCH (20:48)
[2017-11-16] MEDS: CYANOCOBALAMIN 500 MCG TAB (VIT B-12) PO SCH (20:49)
[2017-11-17] VITALS (13 sets, daily range): BP systolic 151–182; BP diastolic 70–78; PULSE 57–84; TEMP 36.4–36.6; O2SAT 92–96
[2017-11-17] MEDS: ALBUT/IPRATROP 3MG/0.5MG NEB 3 ML VIAL INH SCH ×6 (03:44→23:36)
[2017-11-17] MEDS: BUDESONIDE 0.5 MG/2 ML VIAL (PULMICORT) INH SCH ×2 (07:02→19:58)
[2017-11-17] MEDS: LOSARTAN POTASSIUM 50 MG TAB PO SCH (07:59)
[2017-11-17] MEDS: BENZONATATE 100MG CAP PO SCH ×3 (07:59→20:56)
[2017-11-17] MEDS: LACTOBACILLUS ACIDOPHILUS (FLORANEX) TAB PO SCH ×3 (07:59→17:19)
[2017-11-17] MEDS: ASPIRIN 81 MG ECTAB PO SCH (08:00)
[2017-11-17] MEDS: ALLOPURINOL 300 MG TAB PO SCH (08:00)
[2017-11-17] MEDS: PANTOprazole SOD 40 MG TAB PO SCH (08:00)
[2017-11-17] MEDS: GUAIFENESIN 600 MG TABCR PO SCH ×2 (08:00→20:55)
[2017-11-17] MEDS: METOPROLOL TARTRATE 50 MG TAB PO SCH ×2 (08:00→20:54)
[2017-11-17] MEDS: SODIUM CHLORIDE 0.65% NA SOLN 45 ML (OCEAN) SCH ×2 (08:05→20:54)
[2017-11-17] MEDS: CLONAZEPAM 1 MG TAB PO SCH ×2 (08:05→21:04)
[2017-11-17] MEDS: FLUTICASONE PROPIONATE NA SPR 16 GM BTL SCH (08:05)
[2017-11-17] MEDS: LIDODERM (LIDOCAINE) PATCH 5% TD SCH (08:06)
[2017-11-17] MEDS: INSULIN ASPART 100 UNITS/ML 3 ML PEN SC SCH ×4 (08:10→20:58)
[2017-11-17] MEDS: INSULIN GLARGINE SOLOSTAR 100 UNITS/ML 3 ML PEN SC SCH ×2 (08:11→20:59)
--- NOTE | 2017-11-17 09:47 | Pulmonology Progress Note ---
Pulmonary Progress Note Date of Service Nov 17, 2017. Attending Dr. Freeman Subjective Patient notes improvement in his overall respiratory status but still states he is 50% from his baseline. He also notes he has not been at his baseline since July 2017. Objective Patient is sitting up at the bedside today working on his computer showing no signs of respiratory insufficiency. 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 Levaquin 750 mg daily 2. Guaifenesin 600 mg twice daily 3. Budesonide nebulized twice daily 4. Robitussin 100 mg every 6 hours as needed cough 5. Fluticasone nasal spray 6. Pantoprazole 40 mg 7. Lovenox 40 mg subcu daily 8. Tessalon Perles 100 mg 3 times daily 9. DuoNeb's every 4 hours/every 4 as needed 10. Robitussin-DM 5 mL every 6 as needed cough Assessment & Plan 67-year-old gentleman admitted with chronic cough progressive shortness of breath and pulmonary nodules found on CT: 1. Cough/Shortness of Breath: Patient is currently responding well to therapy but at this time I will add a 48 hour course of dornase and vest physiotherapy as he appears to still have difficulty clearing his mucus secretions. Bedside spirometry is currently pending. High likelihood patient could have underlying COPD from his previous smoking history but also exacerbating factors such as GERD as well as chronic rhinitis. As well as pertussis titers are currently pending 2. Pulmonary nodules: Patient has multiple pulmonary nodules most of the ground-glass but will require 2-3 month follow-up with non-contrast CT. 3. Mucus impaction: If patient fails to progress on current regimen bronchoscopy would be warranted for evaluation of the mucoid impaction noted on CAT scan of his right lower lobe. Data Medications: Current Inpatient Medications Medications (Trade) Dose Ordered Sig/Diann Route Start Time Stop Time Status Last Admin Dose Admin Enoxaparin Sodium (Lovenox Inj) 40 mg Q24H SC 11/13/17 14:00 12/13/17 13:59 11/16/17 14:23 40 MG Acetaminophen (Tylenol Tab) 650 mg Q4H PRN PO 11/13/17 11:00 12/13/17 10:59 11/15/17 13:58 650 MG Ondansetron HCl (Zofran Inj) 4 mg Q6H PRN IV 11/13/17 11:00 12/13/17 10:59 Insulin Glargine (Lantus Solostar Pen) 15 units Q12 SC 11/13/17 21:00 12/13/17 20:59 11/17/17 08:11 15 UNITS Insulin Aspart (novoLOG ASPART) SLIDING SCALE If C... ACHS SC 11/13/17 11:00 12/13/17 10:59 11/17/17 08:10 4 UNITS Glucose (Glucose 40% Gel) 15-30 GRAMS 15 GRAMS... UD PRN PO 11/13/17 11:00 12/13/17 10:59 Glucose (Glucose Chew Tab) 4-8 Tablets 4 Tabl... UD PRN PO 11/13/17 11:00 12/13/17 10:59 Dextrose (Dextrose 50% 50ML Syringe) 25-50ML OF 50% DW IV FOR... UD PRN IV 11/13/17 11:00 12/13/17 10:59 Glucagon (Glucagon Inj) 1 mg UD PRN SQ 11/13/17 11:00 12/13/17 10:59 Allopurinol (Zyloprim Tab) 300 mg QAM PO 11/14/17 09:00 12/14/17 08:59 11/17/17 08:00 300 MG Aspirin (Ecotrin Tab) 81 mg QAM PO 11/14/17 09:00 12/14/17 08:59 11/17/17 08:00 81 MG Clonazepam (Klonopin Tab) 1 mg BID PO 11/13/17 21:00 12/13/17 20:59 11/17/17 08:05 1 MG Metoprolol Tartrate (Lopressor Tab) 50 mg BID PO 11/13/17 21:00 12/13/17 20:59 11/17/17 08:00 50 MG Pravastatin Sodium (Pravachol Tab) 20 mg HS PO 11/13/17 21:00 12/13/17 20:59 11/16/17 20:48 20 MG Cyanocobalamin (Vitamin B-12 Tab) 1,000 mcg QPM PO 11/13/17 21:00 12/13/17 20:59 11/16/17 20:49 1,000 MCG Fluticasone Propionate (Flonase Nasal [place]) 2 sprays QAM NA 11/14/17 09:00 12/14/17 08:59 11/17/17 08:05 2 SPRAYS Pantoprazole Sodium (Protonix Tab) 40 mg QAM PO 11/14/17 09:00 12/14/17 08:59 11/17/17 08:00 40 MG Albuterol/ Ipratropium (Duoneb) 3 ml Q4R INH 11/13/17 12:00 12/13/17 11:59 11/17/17 07:02 3 ML Albuterol Sulfate (Ventolin 0.5% 2.5MG/0.5ML Neb) 2.5 mg Q4 PRN INH 11/13/17 11:00 12/13/17 10:59 Guaifenesin/ Dextromethorphan (Robitussin-Dm Syrup) 5 ml Q6H PRN PO 11/13/17 11:00 12/13/17 10:59 Benzonatate (Tessalon Perles Cap) 100 mg TID PO 11/13/17 14:00 12/13/17 13:59 11/17/17 07:59 100 MG Tramadol HCl (Ultram Tab) 50 mg Q4H PRN PO 11/14/17 10:30 12/14/17 10:29 11/15/17 20:52 50 MG Lidocaine (Lidoderm Patch 5%) 1 patch QAM TD 11/14/17 11:00 12/14/17 10:59 11/16/17 14:22 1 PATCH Miscellaneous (Remove Lidoderm Patch) 1 ea DAILY@21 N/A 11/14/17 21:00 12/14/17 20:59 11/16/17 20:51 1 EA Lactobacillus Acidophilus (Floranex Tab) 4 tab TIDM PO 11/14/17 12:00 12/14/17 11:59 11/17/17 07:59 4 TAB Guaifenesin (Mucinex Contr Rel Tab) 600 mg BID PO 11/15/17 21:00 12/15/17 20:59 11/17/17 08:00 600 MG Guaifenesin (Robitussin Sugar Free Syrup) 100 mg Q6H PRN PO 11/15/17 16:45 12/15/17 16:44 Budesonide (Pulmicort Respules 0.5MG/ 2ML Neb Soln) 0.5 mg BIDR INH 11/15/17 20:00 12/15/17 19:59 11/17/17 07:02 0.5 MG Losartan Potassium (coZAAR TAB) 50 mg QAM PO 11/16/17 09:00 12/16/17 08:59 11/17/17 07:59 50 MG Levofloxacin (Levaquin Tab) 750 mg DAILY@11 PO 11/17/17 11:00 11/24/17 10:59 Sodium Chloride ([place] Nasal [place]) 2 sprays BID NA 11/16/17 21:00 12/16/17 20:59 11/17/17 08:05 2 SPRAYS Vital Signs: Date Time Temp Pulse Resp B/P (MAP) Pulse Ox O2 Delivery O2 Flow Rate FiO2 11/17/17 07:24 36.5 67 18 152/70 (97) 96 Room Air 11/17/17 07:02 83 16 96 Room Air 11/17/17 04:00 Room Air 11/17/17 04:00 36.5 76 20 151/78 (102) 92 Room Air 11/17/17 03:44 74 16 96 Room Air 11/17/17 00:13 36.5 59 20 182/77 (112) 93 Room Air 11/17/17 00:00 Room Air 11/16/17 23:26 64 16 96 Room Air 11/16/17 20:00 36.6 91 20 160/76 (104) 95 Room Air 11/16/17 20:00 Room Air 11/16/17 18:58 88 16 96 Room Air 11/16/17 16:44 82 18 179/84 (115) 96 Room Air 11/16/17 16:14 36.3 78 18 132/102 (112) 92 Room Air 11/16/17 16:00 Room Air 11/16/17 14:36 62 18 95 Room Air 11/16/17 12:32 36.6 81 18 150/78 (102) 96 Room Air 11/16/17 12:00 96 Room Air 11/16/17 11:20 81 18 96 Room Air Laboratory Results: Last 24 Hours Test 11/16/17 11:56 11/16/17 12:15 11/16/17 16:51 11/16/17 20:38 Bedside Glucose 118 mg/dl 158 mg/dl 219 mg/dl Test 11/17/17 07:03 Bedside Glucose 139 mg/dl
[2017-11-17] MEDS: LEVOFLOXACIN 750 MG TAB PO SCH (12:40)
[2017-11-17] MEDS ORDERED: RANITIDINE HCL 150 MG TAB PO ONE (13:15)
[2017-11-17] MEDS: ENOXAPARIN 40 MG/0.4 ML SYR SC SCH (14:00)
[2017-11-17] MEDS: DORNASE ALFA 2.5 ML AMP INH SCH (19:58)
[2017-11-17] MEDS: PRAVASTATIN SOD 20 MG TAB PO SCH (20:55)
[2017-11-17] MEDS: CYANOCOBALAMIN 500 MCG TAB (VIT B-12) PO SCH (20:56)
--- NOTE | 2017-11-17 22:18 | Progress Note ---
Subjective Date of Service: Nov 17, 2017. Subjective Patient reports no significant improvement today. He reports ambulating more, but he was very short of breath, and continued to have cough which was non productive. Patient also complained of left ear pain which was when he put his finger in his left external ear canal to remove wax he noticed pain. This was examined with otoscope and was normal on exam. Problem List Medical Problems: (1) Influenza-like symptoms Status: Acute (2) Upper respiratory infection Status: Acute Review of Systems Constitutional: No fever, No chills Eyes: No worsening of vision ENT: No hearing loss Respiratory: + cough, + dyspnea on exertion Cardiac: No chest pain Abdomen: No pain Musculoskeletal: No joint pain Neurologic: No memory loss Psychiatric: No depression symptoms Heme: No abnormal bleeding/bruising Endo: No fatigue Skin: No rash All Other Systems: Reviewed and Negative Medications Current Inpatient Medications Medications (Trade) Dose Ordered Sig/Diann Route Start Time Stop Time Status Last Admin Dose Admin Enoxaparin Sodium (Lovenox Inj) 40 mg Q24H SC 11/13/17 14:00 12/13/17 13:59 11/16/17 14:23 40 MG Acetaminophen (Tylenol Tab) 650 mg Q4H PRN PO 11/13/17 11:00 12/13/17 10:59 11/15/17 13:58 650 MG Ondansetron HCl (Zofran Inj) 4 mg Q6H PRN IV 11/13/17 11:00 12/13/17 10:59 Insulin Glargine (Lantus Solostar Pen) 15 units Q12 SC 11/13/17 21:00 12/13/17 20:59 11/17/17 20:59 15 UNITS Insulin Aspart (novoLOG ASPART) SLIDING SCALE If C... ACHS SC 11/13/17 11:00 12/13/17 10:59 11/17/17 20:58 3 UNITS Glucose (Glucose 40% Gel) 15-30 GRAMS 15 GRAMS... UD PRN PO 11/13/17 11:00 12/13/17 10:59 Glucose (Glucose Chew Tab) 4-8 Tablets 4 Tabl... UD PRN PO 11/13/17 11:00 12/13/17 10:59 Dextrose (Dextrose 50% 50ML Syringe) 25-50ML OF 50% DW IV FOR... UD PRN IV 11/13/17 11:00 12/13/17 10:59 Glucagon (Glucagon Inj) 1 mg UD PRN SQ 11/13/17 11:00 12/13/17 10:59 Allopurinol (Zyloprim Tab) 300 mg QAM PO 11/14/17 09:00 12/14/17 08:59 11/17/17 08:00 300 MG Aspirin (Ecotrin Tab) 81 mg QAM PO 11/14/17 09:00 12/14/17 08:59 11/17/17 08:00 81 MG Clonazepam (Klonopin Tab) 1 mg BID PO 11/13/17 21:00 12/13/17 20:59 11/17/17 21:04 1 MG Metoprolol Tartrate (Lopressor Tab) 50 mg BID PO 11/13/17 21:00 12/13/17 20:59 11/17/17 20:54 50 MG Pravastatin Sodium (Pravachol Tab) 20 mg HS PO 11/13/17 21:00 12/13/17 20:59 11/17/17 20:55 20 MG Cyanocobalamin (Vitamin B-12 Tab) 1,000 mcg QPM PO 11/13/17 21:00 12/13/17 20:59 11/17/17 20:56 1,000 MCG Fluticasone Propionate (Flonase Nasal [place]) 2 sprays QAM NA 11/14/17 09:00 12/14/17 08:59 11/17/17 08:05 2 SPRAYS Pantoprazole Sodium (Protonix Tab) 40 mg QAM PO 11/14/17 09:00 12/14/17 08:59 11/17/17 08:00 40 MG Albuterol/ Ipratropium (Duoneb) 3 ml Q4R INH 11/13/17 12:00 12/13/17 11:59 11/18/17 04:05 3 ML Albuterol Sulfate (Ventolin 0.5% 2.5MG/0.5ML Neb) 2.5 mg Q4 PRN INH 11/13/17 11:00 12/13/17 10:59 Guaifenesin/ Dextromethorphan (Robitussin-Dm Syrup) 5 ml Q6H PRN PO 11/13/17 11:00 12/13/17 10:59 Benzonatate (Tessalon Perles Cap) 100 mg TID PO 11/13/17 14:00 12/13/17 13:59 11/17/17 20:56 100 MG Tramadol HCl (Ultram Tab) 50 mg Q4H PRN PO 11/14/17 10:30 12/14/17 10:29 11/15/17 20:52 50 MG Lidocaine (Lidoderm Patch 5%) 1 patch QAM TD 11/14/17 11:00 12/14/17 10:59 11/16/17 14:22 1 PATCH Miscellaneous (Remove Lidoderm Patch) 1 ea DAILY@21 N/A 11/14/17 21:00 12/14/17 20:59 11/16/17 20:51 1 EA Lactobacillus Acidophilus (Floranex Tab) 4 tab TIDM PO 11/14/17 12:00 12/14/17 11:59 11/17/17 17:19 4 TAB Guaifenesin (Mucinex Contr Rel Tab) 600 mg BID PO 11/15/17 21:00 12/15/17 20:59 11/17/17 20:55 600 MG Guaifenesin (Robitussin Sugar Free Syrup) 100 mg Q6H PRN PO 11/15/17 16:45 12/15/17 16:44 Budesonide (Pulmicort Respules 0.5MG/ 2ML Neb Soln) 0.5 mg BIDR INH 11/15/17 20:00 12/15/17 19:59 11/17/17 19:58 0.5 MG Losartan Potassium (coZAAR TAB) 50 mg QAM PO 11/16/17 09:00 12/16/17 08:59 11/17/17 07:59 50 MG Levofloxacin (Levaquin Tab) 750 mg DAILY@11 PO 11/17/17 11:00 11/24/17 10:59 11/17/17 12:40 750 MG Sodium Chloride ([place] Nasal [place]) 2 sprays BID NA 11/16/17 21:00 12/16/17 20:59 11/17/17 20:54 2 SPRAYS Dornase Noé (Pulmozyme Inhalation Soln 2.5ml Amp) 2.5 ml BIDR INH 11/17/17 20:00 12/17/17 19:59 11/17/17 19:58 2.5 ML Ranitidine HCl (zANTac TAB) 150 mg QAM PO 11/18/17 09:00 12/18/17 08:59 Objective Vital Signs Date Time Temp Pulse Resp B/P (MAP) Pulse Ox O2 Delivery O2 Flow Rate FiO2 11/17/17 20:00 Room Air 11/17/17 19:58 74 16 95 Room Air 11/17/17 19:56 36.4 67 20 161/77 (105) 96 Room Air 11/17/17 16:08 36.4 80 18 156/73 (100) 94 Room Air 11/17/17 16:00 Room Air 11/17/17 14:59 84 16 92 Room Air 11/17/17 12:20 36.6 60 18 162/77 (105) 94 Room Air 11/17/17 12:00 Room Air 11/17/17 11:11 67 16 95 Room Air 11/17/17 08:00 96 Room Air 11/17/17 07:24 36.5 67 18 152/70 (97) 96 Room Air 11/17/17 07:02 83 16 96 Room Air 11/17/17 04:00 Room Air 11/17/17 04:00 36.5 76 20 151/78 (102) 92 Room Air 11/17/17 03:44 74 16 96 Room Air 11/17/17 00:13 36.5 59 20 182/77 (112) 93 Room Air 11/17/17 00:00 Room Air 11/16/17 23:26 64 16 96 Room Air Physical Exam Comments: General Appearance: WD/WN, no apparent distress Eyes: normal inspection, EOMI ENT: normal ENT inspection, hearing grossly normal Neck: supple Respiratory/Chest: chest non-tender, + decreased breath sounds, + wheezing Cardiovascular: regular rate, rhythm, no edema, no gallop, no JVD, no murmur Abdomen: normal bowel sounds, non tender, soft, no organomegaly, no pulsatile mass Extremities: normal range of motion, non-tender, normal inspection, no pedal edema, no calf tenderness 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 Patient was sent from his primary care physician office with severe shortness of breath, wheezing, COPD exacerbation failed outpatient treatment measures Assessment Acute COPD exacerbation Hypertension Dyslipidemia Diabetes mellitus type 2 on oral hypokinesis GERD History of lacunar infarct Plan continue telemetry unfortunately today no significant improvement switch levofloxacin to azithro / CTX to get the anti inflammatory effect of azithro ordered CT chest without contrast to evaluate his worsening SOB, R/O pneumonia or underlying CHF A few scattered subcentimeter groundglass and irregular nodules within the lungs on CT scan; recommend repeating in 2-3 months as per pulmonary continue bronchodilators, albuterol/Atrovent inhalation nebulizer 4 times daily continue steroids, on PO prednisone lingula pneumonia, CAP Added a course of vest physiotherapy and dornase on Saturday fo 48 hours to help clear secretions. Bedside spirometry is pending Pertussis is pending If no improvement over next 2 days, may require bronch. continue probiotic for C. difficile prevention hold Metformin while inpatient , continue Lantus 15units BID and ISS Continue Lopressor 50mg po BID, helld hctz due to worsening sodium DC Lisinopril 10mg , as it might be contributing to patient's cough use losartan instead continue statin Pulmonary consultation Pepcid for GI prophylaxis Heparin subcu for DVT prophylaxis Patient will need pulmonary function test in 6 weeks after resolution
[2017-11-18] VITALS (15 sets, daily range): BP systolic 129–160; BP diastolic 69–78; PULSE 50–88; TEMP 36.3–36.8; O2SAT 93–100
[2017-11-18] MEDS: ALBUT/IPRATROP 3MG/0.5MG NEB 3 ML VIAL INH SCH ×6 (04:05→23:19)
[2017-11-18] MEDS: DORNASE ALFA 2.5 ML AMP INH SCH ×2 (07:06→19:13)
[2017-11-18] MEDS: BUDESONIDE 0.5 MG/2 ML VIAL (PULMICORT) INH SCH ×2 (07:06→19:13)
[2017-11-18] MEDS: LACTOBACILLUS ACIDOPHILUS (FLORANEX) TAB PO SCH ×3 (08:27→17:32)
[2017-11-18] MEDS: SODIUM CHLORIDE 0.65% NA SOLN 45 ML (OCEAN) SCH ×2 (08:28→20:15)
[2017-11-18] MEDS: FLUTICASONE PROPIONATE NA SPR 16 GM BTL SCH (08:28)
[2017-11-18] MEDS: RANITIDINE HCL 150 MG TAB PO SCH (08:28)
[2017-11-18] MEDS: ALLOPURINOL 300 MG TAB PO SCH (08:30)
[2017-11-18] MEDS: ASPIRIN 81 MG ECTAB PO SCH (08:30)
[2017-11-18] MEDS: LOSARTAN POTASSIUM 50 MG TAB PO SCH (08:30)
[2017-11-18] MEDS: GUAIFENESIN 600 MG TABCR PO SCH ×2 (08:30→20:24)
[2017-11-18] MEDS: PANTOprazole SOD 40 MG TAB PO SCH (08:31)
[2017-11-18] MEDS: BENZONATATE 100MG CAP PO SCH ×3 (08:32→20:24)
[2017-11-18] MEDS: INSULIN ASPART 100 UNITS/ML 3 ML PEN SC SCH ×4 (08:39→20:42)
[2017-11-18] MEDS: INSULIN GLARGINE SOLOSTAR 100 UNITS/ML 3 ML PEN SC SCH ×2 (08:39→20:42)
[2017-11-18] MEDS: CLONAZEPAM 1 MG TAB PO SCH ×2 (08:42→20:23)
[2017-11-18] MEDS: METOPROLOL TARTRATE 50 MG TAB PO SCH ×2 (08:44→20:33)
[2017-11-18] MEDS: LIDODERM (LIDOCAINE) PATCH 5% TD SCH (08:46)
[2017-11-18] MEDS ORDERED: DOCUSATE SODIUM 100 MG CAP PO PRN (10:45)
[2017-11-18] MEDS: LEVOFLOXACIN 750 MG TAB PO SCH (11:08)
[2017-11-18] MEDS: POLYETHYLENE (MIRALAX) 17 GM PACK PO SCH (11:44)
--- NOTE | 2017-11-18 13:01 | Hospitalist Progress Note ---
Hospitalist Progress Note Date of Service Nov 18, 2017. Subjective Pt evaluation today including: conversation w/ patient, physical exam, lab review, review of studies, review of inpatient medication list Voiding: no voiding problems Patient resting in bed. Feeling well. Started Dornase and vest therapy yesterday- patient notes significant improvement in breathing. Bringing up more sputum- yellowish in color. Eating and drinking OK. No BM since last Saturday- +flatus, no N/V. Ambulating around the luke w/out difficulty. Patient denies any fever, chills, sweats, lightheadedness, dizziness, vision changes, CP, palpitations, edema, SOB, wheezing, abdominal pain, nausea, vomiting, diarrhea, urinary symptoms, melena, numbness/tingling, weakness, muscle/joint pain, anxiety/depression, active bleeding, or new skin discoloration/changes. Per RN, doing well. No acute events. Ambulates around hallways. No O2 supplement required. Medications Current Inpatient Medications Medications (Trade) Dose Ordered Sig/Diann Route Start Time Stop Time Status Last Admin Dose Admin Enoxaparin Sodium (Lovenox Inj) 40 mg Q24H SC 11/13/17 14:00 12/13/17 13:59 11/16/17 14:23 40 MG Acetaminophen (Tylenol Tab) 650 mg Q4H PRN PO 11/13/17 11:00 12/13/17 10:59 11/15/17 13:58 650 MG Ondansetron HCl (Zofran Inj) 4 mg Q6H PRN IV 11/13/17 11:00 12/13/17 10:59 Insulin Glargine (Lantus Solostar Pen) 15 units Q12 SC 11/13/17 21:00 12/13/17 20:59 11/18/17 08:39 15 UNITS Insulin Aspart (novoLOG ASPART) SLIDING SCALE If C... ACHS SC 11/13/17 11:00 12/13/17 10:59 11/18/17 12:05 6 UNITS Glucose (Glucose 40% Gel) 15-30 GRAMS 15 GRAMS... UD PRN PO 11/13/17 11:00 12/13/17 10:59 Glucose (Glucose Chew Tab) 4-8 Tablets 4 Tabl... UD PRN PO 11/13/17 11:00 12/13/17 10:59 Dextrose (Dextrose 50% 50ML Syringe) 25-50ML OF 50% DW IV FOR... UD PRN IV 11/13/17 11:00 12/13/17 10:59 Glucagon (Glucagon Inj) 1 mg UD PRN SQ 11/13/17 11:00 12/13/17 10:59 Allopurinol (Zyloprim Tab) 300 mg QAM PO 11/14/17 09:00 12/14/17 08:59 11/18/17 08:30 300 MG Aspirin (Ecotrin Tab) 81 mg QAM PO 11/14/17 09:00 12/14/17 08:59 11/18/17 08:30 81 MG Clonazepam (Klonopin Tab) 1 mg BID PO 11/13/17 21:00 12/13/17 20:59 11/18/17 08:42 1 MG Metoprolol Tartrate (Lopressor Tab) 50 mg BID PO 11/13/17 21:00 12/13/17 20:59 11/18/17 08:44 50 MG Pravastatin Sodium (Pravachol Tab) 20 mg HS PO 11/13/17 21:00 12/13/17 20:59 11/17/17 20:55 20 MG Cyanocobalamin (Vitamin B-12 Tab) 1,000 mcg QPM PO 11/13/17 21:00 12/13/17 20:59 11/17/17 20:56 1,000 MCG Fluticasone Propionate (Flonase Nasal [place]) 2 sprays QAM NA 11/14/17 09:00 12/14/17 08:59 11/18/17 08:28 2 SPRAYS Pantoprazole Sodium (Protonix Tab) 40 mg QAM PO 11/14/17 09:00 12/14/17 08:59 11/18/17 08:31 40 MG Albuterol/ Ipratropium (Duoneb) 3 ml Q4R INH 11/13/17 12:00 12/13/17 11:59 11/18/17 11:20 3 ML Albuterol Sulfate (Ventolin 0.5% 2.5MG/0.5ML Neb) 2.5 mg Q4 PRN INH 11/13/17 11:00 5/11/18 10:59 Guaifenesin/ Dextromethorphan (Robitussin-Dm Syrup) 5 ml Q6H PRN PO 11/13/17 11:00 12/13/17 10:59 Benzonatate (Tessalon Perles Cap) 100 mg TID PO 11/13/17 14:00 12/13/17 13:59 11/18/17 08:32 100 MG Tramadol HCl (Ultram Tab) 50 mg Q4H PRN PO 11/14/17 10:30 12/14/17 10:29 11/15/17 20:52 50 MG Lidocaine (Lidoderm Patch 5%) 1 patch QAM TD 11/14/17 11:00 12/14/17 10:59 11/16/17 14:22 1 PATCH Miscellaneous (Remove Lidoderm Patch) 1 ea DAILY@21 N/A 11/14/17 21:00 12/14/17 20:59 11/16/17 20:51 1 EA Lactobacillus Acidophilus (Floranex Tab) 4 tab TIDM PO 11/14/17 12:00 12/14/17 11:59 11/18/17 11:46 4 TAB Guaifenesin (Mucinex Contr Rel Tab) 600 mg BID PO 11/15/17 21:00 12/15/17 20:59 11/18/17 08:30 600 MG Guaifenesin (Robitussin Sugar Free Syrup) 100 mg Q6H PRN PO 11/15/17 16:45 12/15/17 16:44 Budesonide (Pulmicort Respules 0.5MG/ 2ML Neb Soln) 0.5 mg BIDR INH 11/15/17 20:00 12/15/17 19:59 11/18/17 07:06 0.5 MG Losartan Potassium (coZAAR TAB) 50 mg QAM PO 11/16/17 09:00 12/16/17 08:59 11/18/17 08:30 50 MG Levofloxacin (Levaquin Tab) 750 mg DAILY@11 PO 11/17/17 11:00 11/24/17 10:59 11/18/17 11:08 750 MG Sodium Chloride ([place] Nasal [place]) 2 sprays BID NA 11/16/17 21:00 12/16/17 20:59 11/18/17 08:28 2 SPRAYS Dornase Noé (Pulmozyme Inhalation Soln 2.5ml Amp) 2.5 ml BIDR INH 11/17/17 20:00 12/17/17 19:59 11/18/17 07:06 2.5 ML Ranitidine HCl (zANTac TAB) 150 mg QAM PO 11/18/17 09:00 12/18/17 08:59 11/18/17 08:28 150 MG Prednisone (PredniSONE TAB) 20 mg DAILY PO 11/18/17 09:00 12/18/17 08:59 11/18/17 08:49 20 MG Polyethylene (Miralax Powder Packet) 17 gm DAILY PO 11/18/17 11:00 12/18/17 10:59 11/18/17 11:44 17 GM Docusate Sodium (coLACE CAP) 100 mg BID PRN PO 11/18/17 10:45 12/18/17 10:44 Objective Vital Signs Date Time Temp Pulse Resp B/P (MAP) Pulse Ox O2 Delivery O2 Flow Rate FiO2 11/18/17 12:01 100 Room Air 11/18/17 11:48 36.4 50 18 160/76 (104) 94 11/18/17 11:21 58 18 96 Room Air 11/18/17 08:40 88 129/69 (89) 11/18/17 08:00 100 Room Air 11/18/17 07:48 36.8 55 18 148/78 (101) 100 Nebulizer 11/18/17 07:06 71 18 96 Room Air 11/18/17 05:05 36.4 58 18 145/71 (95) 94 Room Air 11/18/17 04:10 Room Air 11/18/17 04:06 69 16 93 Room Air 11/18/17 00:05 Room Air 11/18/17 00:00 36.7 60 20 129/74 (92) 95 Room Air 11/17/17 23:36 57 16 93 Room Air 11/17/17 20:00 Room Air 11/17/17 19:58 74 16 95 Room Air 11/17/17 19:56 36.4 67 20 161/77 (105) 96 Room Air 11/17/17 16:08 36.4 80 18 156/73 (100) 94 Room Air 11/17/17 16:00 Room Air 11/17/17 14:59 84 16 92 Room Air Physical Exam General Appearance: no apparent distress, + obese Eyes: normal inspection, PERRL ENT: hearing grossly normal Neck: supple Respiratory/Chest: no respiratory distress, no accessory muscle use, + wheezing (mild expiratory wheeze throughout all lung [place]), + pertinent finding ( coarse breath sounds throughout) Cardiovascular: regular rate, rhythm Abdomen: normal bowel sounds, non tender, soft Extremities: no pedal edema, no calf tenderness Neurologic/Psychiatric: alert, normal mood/affect, oriented x 3 Skin: normal color, warm/dry, no rash Laboratory Results Last 24 Hours Test 11/17/17 16:44 11/17/17 20:18 11/18/17 07:38 11/18/17 11:42 Bedside Glucose 130 mg/dl 143 mg/dl 84 mg/dl 73 mg/dl Assessment and Plan 67-year-old man with past medical history of hypertension, dyslipidemia, diabetes mellitus on oral hypoglycemic, GERD and history of lacunar infarct. Patient was sent from his primary care physician office with severe shortness of breath, wheezing, COPD exacerbation failed outpatient treatment measures Acute COPD exacerbation: - Admitted to tele for cardiac monitoring- no acute events- transfer to med/surg - Levaquin 750 mg daily- started on 11/13 - Prednisone 20 mg daily increased to 60 mg daily per pulmonary x7 days then stop- no taper- started on 11/18 - DuoNebs QID and PRN for sob/wheezing, incentive spirometer - Vest physiotherapy and Dornase x48 hours- started on 11/17 - Robitussin and Tessalon Perles PRN for cough - Pertussis pending - Pulmonary consulted, appreciate recommendations- may require bronchoscopy if no significant improvement Pulmonary nodules: Recommend 2-3 month follow-up with non-contrast CT T2DM- last hgbA1c 5.8% in 10/2017- CONTROLLED, peripheral neuropathy: - Hold Metformin 1000 mg BID while inpatient - Lantus 15 u BID - BSG ACHS and ISS HTN- STABLE: - Lisinopril 10 mg daily discontinued- ?contributing to cough; Losartan 50 mg daily - HCTZ held due to hyponatremia - Continue Metoprolol 50 mg BID Hyponatremia: - Hold HCTZ - Follow PRP HLD: Continue Pravastatin 20 mg daily h/o lacunar infarct: Continue ASA and statin Constipation: MiraLAX daily, Colace BID PRN, ambulation Anxiety: Continue Klonopin 1 mg BID Gout: Continue Allopurinol GERD: Continue Zantac, Protonix while inpatient- resume Prilosec at discharge DVT prophylaxis: Lovenox SQ daily Code status: LEVEL I, FULL Dispo: Discharge to home once medically stable- likely discharge in the next 1- 2 days
[2017-11-18] MEDS: ENOXAPARIN 40 MG/0.4 ML SYR SC SCH (13:08)
--- NOTE | 2017-11-18 14:29 | Pulmonology Progress Note ---
Pulmonary Progress Note Date of Service Nov 18, 2017. Attending Dr. Vides Subjective The patient continues to have shortness of breath and cough. The patient did not have shortness of breath at rest but only with exercise. He did not have pulse oximetry on exercise tested yet. Continue to have wheezing. No events overnight. Objective Patient is sitting up at the bedside today working on his computer showing no signs of respiratory insufficiency. He is able to complete sentences with no tachypnea and/or accessory respiratory muscle use Past medical history: Chronic sinusitis, anxiety, COPD/not defined by pulmonary function studies, diabetes, GERD, laryngeal pharyngeal reflux Vital signs: Stable on room air Respiratory: Mild rhonchi at the right base with expiratory wheezing appreciated globally but increased overall air movement as compared to the previous exams Cardiac: S1-S2, regular rate and rhythm Abdomen: Positive bowel sounds soft nontender Extremities: No clubbing cyanosis or edema [employer]: Cranial nerves II through XII intact, strength 5 out of 5 bilaterally in orientated 3 CT thorax 11/15/2017: Diffuse pulmonary nodules with a mixed ground-glass and solid pulmonary nodules all subcentimeter as well as some scar versus atelectatic changes in the right lower lobe, possible mucus/secretions in the right mainstem His physical exam today on 11/18/2017 revealed bilateral diffuse wheezing, the rest of his vital signs were stable, S1-S2 regular rate and rhythm, abdomen is benign no edema. Medications 1. Levaquin 750 mg daily 2. Guaifenesin 600 mg twice daily 3. Budesonide nebulized twice daily 4. Robitussin 100 mg every 6 hours as needed cough 5. Fluticasone nasal spray 6. Pantoprazole 40 mg 7. Lovenox 40 mg subcu daily 8. Tessalon Perles 100 mg 3 times daily 9. DuoNeb's every 4 hours/every 4 as needed 10. Robitussin-DM 5 mL every 6 as needed cough Assessment & Plan 1. Likely obstructive lung disease such as COPD. However I could not confirm without presence of previous workup such as pulmonary function test. I will treat the patient has COPD gold level 2. 2. GERD. 3. Postnasal drip syndrome. Plan: 1. I would increase the dose of prednisone to 60 mg p.o. daily and keep it for additional 7 days then stop it. No taper. 2. Continue with bronchodilators and manage the patient with long-acting beta agonist as well. 3. The loose pulmonary nodules needs to be followed up in follow-up CT of the chest. 4. Patient can be discharged home in the morning. Thank you for your kind referral. Data Medications: Current Inpatient Medications Medications (Trade) Dose Ordered Sig/Diann Route Start Time Stop Time Status Last Admin Dose Admin Enoxaparin Sodium (Lovenox Inj) 40 mg Q24H SC 11/13/17 14:00 12/13/17 13:59 11/16/17 14:23 40 MG Acetaminophen (Tylenol Tab) 650 mg Q4H PRN PO 11/13/17 11:00 12/13/17 10:59 11/15/17 13:58 650 MG Ondansetron HCl (Zofran Inj) 4 mg Q6H PRN IV 11/13/17 11:00 12/13/17 10:59 Insulin Glargine (Lantus Solostar Pen) 15 units Q12 SC 11/13/17 21:00 12/13/17 20:59 11/18/17 08:39 15 UNITS Insulin Aspart (novoLOG ASPART) SLIDING SCALE If C... ACHS SC 11/13/17 11:00 12/13/17 10:59 11/18/17 12:05 6 UNITS Glucose (Glucose 40% Gel) 15-30 GRAMS 15 GRAMS... UD PRN PO 11/13/17 11:00 12/13/17 10:59 Glucose (Glucose Chew Tab) 4-8 Tablets 4 Tabl... UD PRN PO 11/13/17 11:00 12/13/17 10:59 Dextrose (Dextrose 50% 50ML Syringe) 25-50ML OF 50% DW IV FOR... UD PRN IV 11/13/17 11:00 12/13/17 10:59 Glucagon (Glucagon Inj) 1 mg UD PRN SQ 11/13/17 11:00 12/13/17 10:59 Allopurinol (Zyloprim Tab) 300 mg QAM PO 11/14/17 09:00 12/14/17 08:59 11/18/17 08:30 300 MG Aspirin (Ecotrin Tab) 81 mg QAM PO 11/14/17 09:00 12/14/17 08:59 11/18/17 08:30 81 MG Clonazepam (Klonopin Tab) 1 mg BID PO 11/13/17 21:00 12/13/17 20:59 11/18/17 08:42 1 MG Metoprolol Tartrate (Lopressor Tab) 50 mg BID PO 11/13/17 21:00 12/13/17 20:59 11/18/17 08:44 50 MG Pravastatin Sodium (Pravachol Tab) 20 mg HS PO 11/13/17 21:00 12/13/17 20:59 11/17/17 20:55 20 MG Cyanocobalamin (Vitamin B-12 Tab) 1,000 mcg QPM PO 11/13/17 21:00 12/13/17 20:59 11/17/17 20:56 1,000 MCG Fluticasone Propionate (Flonase Nasal [place]) 2 sprays QAM NA 11/14/17 09:00 12/14/17 08:59 11/18/17 08:28 2 SPRAYS Pantoprazole Sodium (Protonix Tab) 40 mg QAM PO 11/14/17 09:00 12/14/17 08:59 11/18/17 08:31 40 MG Albuterol/ Ipratropium (Duoneb) 3 ml Q4R INH 11/13/17 12:00 12/13/17 11:59 11/18/17 11:20 3 ML Albuterol Sulfate (Ventolin 0.5% 2.5MG/0.5ML Neb) 2.5 mg Q4 PRN INH 11/13/17 11:00 12/13/17 10:59 Guaifenesin/ Dextromethorphan (Robitussin-Dm Syrup) 5 ml Q6H PRN PO 11/13/17 11:00 12/13/17 10:59 Benzonatate (Tessalon Perles Cap) 100 mg TID PO 11/13/17 14:00 12/13/17 13:59 11/18/17 13:08 100 MG Tramadol HCl (Ultram Tab) 50 mg Q4H PRN PO 11/14/17 10:30 12/14/17 10:29 11/15/17 20:52 50 MG Lidocaine (Lidoderm Patch 5%) 1 patch QAM TD 11/14/17 11:00 12/14/17 10:59 11/16/17 14:22 1 PATCH Miscellaneous (Remove Lidoderm Patch) 1 ea DAILY@21 N/A 11/14/17 21:00 12/14/17 20:59 11/16/17 20:51 1 EA Lactobacillus Acidophilus (Floranex Tab) 4 tab TIDM PO 11/14/17 12:00 12/14/17 11:59 11/18/17 11:46 4 TAB Guaifenesin (Mucinex Contr Rel Tab) 600 mg BID PO 11/15/17 21:00 12/15/17 20:59 11/18/17 08:30 600 MG Guaifenesin (Robitussin Sugar Free Syrup) 100 mg Q6H PRN PO 11/15/17 16:45 12/15/17 16:44 Budesonide (Pulmicort Respules 0.5MG/ 2ML Neb Soln) 0.5 mg BIDR INH 11/15/17 20:00 12/15/17 19:59 11/18/17 07:06 0.5 MG Losartan Potassium (coZAAR TAB) 50 mg QAM PO 11/16/17 09:00 12/16/17 08:59 11/18/17 08:30 50 MG Levofloxacin (Levaquin Tab) 750 mg DAILY@11 PO 11/17/17 11:00 11/24/17 10:59 11/18/17 11:08 750 MG Sodium Chloride ([place] Nasal [place]) 2 sprays BID NA 11/16/17 21:00 12/16/17 20:59 11/18/17 08:28 2 SPRAYS Dornase Noé (Pulmozyme Inhalation Soln 2.5ml Amp) 2.5 ml BIDR INH 11/17/17 20:00 12/17/17 19:59 11/18/17 07:06 2.5 ML Ranitidine HCl (zANTac TAB) 150 mg QAM PO 11/18/17 09:00 12/18/17 08:59 11/18/17 08:28 150 MG Prednisone (PredniSONE TAB) 20 mg DAILY PO 11/18/17 09:00 12/18/17 08:59 11/18/17 08:49 20 MG Polyethylene (Miralax Powder Packet) 17 gm DAILY PO 11/18/17 11:00 12/18/17 10:59 11/18/17 11:44 17 GM Docusate Sodium (coLACE CAP) 100 mg BID PRN PO 11/18/17 10:45 12/18/17 10:44 Vital Signs: Date Time Temp Pulse Resp B/P (MAP) Pulse Ox O2 Delivery O2 Flow Rate FiO2 11/18/17 12:01 100 Room Air 11/18/17 11:48 36.4 50 18 160/76 (104) 94 11/18/17 11:21 58 18 96 Room Air 11/18/17 08:40 88 129/69 (89) 11/18/17 08:00 100 Room Air 11/18/17 07:48 36.8 55 18 148/78 (101) 100 Nebulizer 11/18/17 07:06 71 18 96 Room Air 11/18/17 05:05 36.4 58 18 145/71 (95) 94 Room Air 11/18/17 04:10 Room Air 11/18/17 04:06 69 16 93 Room Air 11/18/17 00:05 Room Air 11/18/17 00:00 36.7 60 20 129/74 (92) 95 Room Air 11/17/17 23:36 57 16 93 Room Air 11/17/17 20:00 Room Air 11/17/17 19:58 74 16 95 Room Air 11/17/17 19:56 36.4 67 20 161/77 (105) 96 Room Air 11/17/17 16:08 36.4 80 18 156/73 (100) 94 Room Air 11/17/17 16:00 Room Air 11/17/17 14:59 84 16 92 Room Air Laboratory Results: Last 24 Hours Test 11/17/17 16:44 11/17/17 20:18 11/18/17 07:38 11/18/17 11:42 Bedside Glucose 130 mg/dl 143 mg/dl 84 mg/dl 73 mg/dl
[2017-11-18] MEDS: PRAVASTATIN SOD 20 MG TAB PO SCH (20:23)
[2017-11-18] MEDS: CYANOCOBALAMIN 500 MCG TAB (VIT B-12) PO SCH (20:34)
[2017-11-19] VITALS (7 sets, daily range): BP systolic 143–163; BP diastolic 72–85; PULSE 61–84; TEMP 36.6–36.8; O2SAT 94–96
[2017-11-19] MEDS: ALBUT/IPRATROP 3MG/0.5MG NEB 3 ML VIAL INH SCH ×3 (03:29→11:42)
[2017-11-19] MEDS: BUDESONIDE 0.5 MG/2 ML VIAL (PULMICORT) INH SCH (06:57)
[2017-11-19] MEDS: DORNASE ALFA 2.5 ML AMP INH SCH (06:57)
[2017-11-19 07:30] LABS: CALCIUM 8.5 mg/dl (8.5-10.1); POTASSIUM 3.6 mmol/L (3.5-5.1)
[2017-11-19] MEDS: METOPROLOL TARTRATE 50 MG TAB PO SCH (07:47)
[2017-11-19] MEDS: FLUTICASONE PROPIONATE NA SPR 16 GM BTL SCH (07:47)
[2017-11-19] MEDS: POLYETHYLENE (MIRALAX) 17 GM PACK PO SCH (07:47)
[2017-11-19] MEDS: LACTOBACILLUS ACIDOPHILUS (FLORANEX) TAB PO SCH ×2 (07:47→10:53)
[2017-11-19] MEDS: PANTOprazole SOD 40 MG TAB PO SCH (07:48)
[2017-11-19] MEDS: ALLOPURINOL 300 MG TAB PO SCH (07:48)
[2017-11-19] MEDS: ASPIRIN 81 MG ECTAB PO SCH (07:48)
[2017-11-19] MEDS: GUAIFENESIN 600 MG TABCR PO SCH (07:48)
[2017-11-19] MEDS: RANITIDINE HCL 150 MG TAB PO SCH (07:49)
[2017-11-19] MEDS: LOSARTAN POTASSIUM 50 MG TAB PO SCH (07:49)
[2017-11-19] MEDS: LIDODERM (LIDOCAINE) PATCH 5% TD SCH (07:50)
[2017-11-19] MEDS: SODIUM CHLORIDE 0.65% NA SOLN 45 ML (OCEAN) SCH (07:50)
[2017-11-19] MEDS: CLONAZEPAM 1 MG TAB PO SCH (07:52)
[2017-11-19] MEDS: INSULIN ASPART 100 UNITS/ML 3 ML PEN SC SCH (07:59)
[2017-11-19] MEDS: INSULIN GLARGINE SOLOSTAR 100 UNITS/ML 3 ML PEN SC SCH (08:00)
[2017-11-19] MEDS: BENZONATATE 100MG CAP PO SCH (08:01)
[2017-11-19] MEDS ORDERED: GFNSR600 PO (08:41)
[2017-11-19] MEDS ORDERED: PRD20 PO (08:41)
[2017-11-19] MEDS ORDERED: IPRASOL4 INH (08:41)
[2017-11-19] MEDS ORDERED: PLMINS INH (08:41)
[2017-11-19] MEDS ORDERED: CZR50 PO (08:41)
--- NOTE | 2017-11-19 08:48 | Discharge Instructions ---
Discharge Instructions Date of Service Nov 19, 2017. Admission Reason for Admission: COPD Discharge Discharge Diagnosis / Problem: COPD exacerbation Discharge Goals Goal(s): Decrease discomfort, Improve function Activity Recommendations Activity Limitations: resume your previous activity . Instructions / Follow-Up Instructions / Follow-Up Medications: - PREDNISONE: 60mg daily starting tomorrow for 5 more days then stop - DUONEB and PULMICORT: use as prescribed, the duoneb is as needed and the Pulmicort is scheduled twice a day - LOSARTAN: replaces Lisinopril for blood pressure control - HYDROCHLOROTHIAZIDE: stopped due to low sodium levels, likely do not need to resume in the future - MUCINEX: take for additional 7 days, twice a day COPD exacerbation: treated with steroids and antibiotics and nebulizers initially your recovery was slow but vastly improved in 48 hours with vibratory vest and Dornase allowed you to cough up mucous completed 7 days of Levaquin (antibiotic) so no further antibiotics needed will continue Prednisone for 5 more days, no taper prescribed Duoneb and Pulmicort to be used with nebulizer at home Pulmonary nodules: seen on CT scan of the chest, most likely inflammatory in setting of infection, COPD exacerbation need a follow up CT of the chest in 2-3 months, discuss with your PCP FOLLOW UP - Dr. Molina in one week, call for appointment, discussed need for follow up CT chest in a few months Current Hospital Diet Patient's current hospital diet: AHA Diet (Heart Healthy) Discharge Diet Recommended Diet: AHA Diet (Heart Healthy), Diabetes Type 2 Diet Pending Studies Studies pending at discharge: no Laboratory Results Hemoglobin A1c Test 10/16/17 10:38 Range/Units Estimated Average Glucose 120 mg/dl Hemoglobin A1c 5.8 H 4.5-5.6 % Lipid Panel Test 10/16/17 10:38 Range/Units Triglycerides Level 147 0-150 mg/dl Cholesterol Level 166 0-200 mg/dl HDL Cholesterol 39 mg/dl Cholesterol/HDL Ratio 4.3 LDL Cholesterol, Calculated 98 mg/dl Medical Emergencies . Who to Call and When: Medical Emergencies: If at any time you feel your situation is an emergency, please call 911 immediately. . Non-Emergent Contact Non-Emergency issues call your: Primary Care Provider Call Non-Emergent contact if: you have any medication questions . . "Provider Documentation" section prepared by Louie Ralph. . [place] Drug Monitoring Program Search Results: no issues identified
--- NOTE | 2017-11-19 09:38 | Discharge Summary ---
Discharge Summary Date of Service Nov 19, 2017. Discharge Summary Admission Date: Nov 13, 2017 at 11:01 Discharge Date: Nov 19, 2017 Discharge Disposition: Home Principal Diagnosis: COPD exacerbation Problems/Secondary Diagnoses: Pulmonary nodules T2DM- last hgbA1c 5.8% in 10/2017 HTN Hyponatremia HLD h/o lacunar infarct Constipation Anxiety Gout GERD Immunizations: Have You Had Influenza Vaccine: No History of Tetanus Vaccine?: Yes History of Pneumococcal: Yes Pneumococcal Date: Jun 14, 2010 History of Hepatitis B Vaccine: Yes Procedures: TWO VIEW CHEST CLINICAL HISTORY: Cough and dyspnea. FINDINGS: PA and lateral chest radiographs are compared to study dated 09/12/2017. The cardiomediastinal silhouette is unremarkable. Mild patchy airspace opacities are identified in the lingula. The lungs are otherwise clear. No large pleural effusion or pneumothorax is seen. The bony thorax appears intact. IMPRESSION: Mild patchy airspace opacities are suggested in the lingula. This may represent a mild infectious/inflammatory pneumonitis. Radiographic follow-up to resolution is recommended. Electronically signed by: Don Oleary M.D. 11/13/2017 1:45 PM Dictated Date/Time: 11/13/2017 1:44 PM The status of this report is Signed. Draft = Not yet reviewed or approved by Radiologist. Signed = Reviewed and approved by Radiologist (CHEST) THORAX WITHOUT CT DOSE: 581.66 mGycm HISTORY: Short of breath. TECHNIQUE: Multiaxial CT images of the chest were performed without contrast. A dose lowering technique was utilized adhering to the principles of ALARA. COMPARISON: Chest 11/13/2017. FINDINGS: Small amount of mucoid material within the right mainstem bronchus. No pleural effusions. No pneumothorax. There are few small clusters of nodules seen within the left lower lobe. Dominant nodule measures 8 mm on image 198. 5 mm groundglass nodule within the right upper lobe on image 80. There are few additional irregular subcentimeter nodules within the right upper lobe posteriorly. Dominant groundglass nodule measures 8 mm on image 121. Small patchy densities within the base of the right lower lobe. No suspicious lytic or blastic osseous lesions. An 8 mm hypodense lesion within the liver. This is too small to characterize but statistically represents a cyst. The visualized spleen and adrenal glands are unremarkable. Right-sided gynecomastia. No pericardial effusion. The heart is normal in size. No mediastinal or hilar lymphadenopathy. Mild calcified plaque within the normal caliber thoracic aorta. IMPRESSION: A few scattered subcentimeter groundglass and irregular nodules within the lungs as described above as well as a small amount of mucoid material within the right mainstem bronchus. These findings favor mild infectious/inflammatory change. A [address] follow up is recommended to ensure resolution of the small nodules. Electronically signed by: Ozzy Brito M.D. 11/15/2017 5:27 PM Dictated Date/Time: 11/15/2017 5:17 PM The status of this report is Signed. Draft = Not yet reviewed or approved by Radiologist. Signed = Reviewed and approved by Radiologist Consultations: Pulmonary- Dr. Zarate/Dr. Vides Medication Reconciliation New Medications: Budesonide (Inhalation) (Pulmicort Respules 0.5MG/2ML) 0.5 Mg/2 Ml Meg 0.5 MG INH BIDR for 30 Days, #60 INHA 1 Refill Guaifenesin Ext Rel (Mucinex Ext Rel) 600 Mg Tabcr 600 MG PO BID for 7 Days, #14 TABS 0 Refills Ipratropium-Albuterol (Duoneb) 3 Ml Nebu 3 ML INH Q6H PRN for SOB/Wheezing, #1 BOX 3 Refills Losartan Potassium (Losartan Potassium) 50 Mg Tab 50 MG PO QAM, #30 TAB 3 Refills Prednisone (Prednisone) 20 Mg Tab 60 MG PO DAILY, #15 TAB 0 Refills Continued Medications: Albuterol Hfa (Ventolin Hfa) 200 Puffs/96091 Mcg Aers 2 PUFFS INH QID PRN for SOB/Wheezing Allopurinol (Allopurinol) 300 Mg Tab 300 MG PO QAM Aspirin (Aspirin Ec) 81 Mg Tab 81 MG PO QAM Clonazepam (Clonazepam) 1 Mg Tab 1 MG PO BID Cyanocobalamin (Vitamin B12) 1,000 Mcg Tab 1000 MCG PO QPM Metformin HCl (Metformin HCl) 500 Mg Tab 1000 MG PO BID Metoprolol Tartrate (Lopressor) (Lopressor) 50 Mg Tab 50 MG PO BID, TAB Mometasone Furoate (Nasal) (Mometasone Furoate) 50 Mcg/Act Spr 2 SPRAYS NA QAM Naproxen (Naproxen) 500 Mg Tab 500 MG PO BID PRN for Pain Omeprazole (Prilosec) 40 Mg Cap 40 MG PO QAM Pravastatin Sod (Pravastatin Sodium) 20 Mg Tab 20 MG PO HS Ranitidine Hcl (Ranitidine Hcl) 300 Mg Cap 300 MG PO DAILY PRN for Indigestion Discontinued Medications: Hydrochlorothiazide (Hydrochlorothiazide) 25 Mg Tab 25 MG PO QAM Lisinopril (Lisinopril) 10 Mg Tab 10 MG PO HS Oseltamivir Phosphate (Oseltamivir Phosphate) 75 Mg Cap 75 MG PO BID Referrals At Discharge Follow up Referrals: Family Practice Referral - Within 1 Week with Harjeet Molina M.D. Classroom Aide Referral - Within a Month with Ramo Freeman MD Discharge Exam Review of Systems: Constitutional: No fever, No chills, No sweats, No weakness, No fatigue Eyes: No worsening of vision ENT: No hearing loss Respiratory: + cough, + sputum, No shortness of breath, No dyspnea on exertion, No hemoptysis Cardiovascular: No chest pain, No edema, No palpitations Abdomen: No pain, No nausea, No vomiting, No diarrhea, No constipation Musculoskeletal: No joint pain, No muscle pain, No swelling, No calf pain Genitourinary - Male: No hematuria, No dysuria Neurologic: No weakness, No numbness/tingling Psychiatric: No depression symptoms, No anxiety Endocrine: No fatigue Hematologic / Lymphatic: No abnormal bleeding/bruising Integumentary: No rash, No itch, No new/changing skin lesions Physical Exam: General Appearance: no apparent distress, + obese Eyes: normal inspection, PERRL ENT: hearing grossly normal Neck: supple Respiratory/Chest: no respiratory distress, no accessory muscle use, + decreased breath sounds (throughout- improved from yesterday, moving more air ) , + rhonchi (mild, throughout ), + wheezing (mild expiratory wheeze bilateral lower lung [place] ) Cardiovascular: regular rate, rhythm Abdomen / GI: normal bowel sounds, non tender, soft Extremities: no calf tenderness, no pedal edema Neurologic/Psychiatric: alert, normal mood/affect, oriented x 3 Skin: normal color, warm/dry, no rash Hospital Course 67-year-old man with past medical history of hypertension, dyslipidemia, diabetes mellitus on oral hypoglycemic, GERD and history of lacunar infarct. Patient was sent from his primary care physician office with severe shortness of breath, wheezing, COPD exacerbation failed outpatient treatment measures Acute COPD exacerbation: - Admitted to tele for cardiac monitoring- no acute events- transfer to med/surg - Levaquin 750 mg daily- started on 11/13- treatment completed prior to discharge - Prednisone 20 mg daily increased to 60 mg daily per pulmonary x7 days then stop- no taper - DuoNebs QID and PRN for sob/wheezing, incentive spirometer, Pulmicort BID - Vest physiotherapy and Dornase x48 hours- started on 11/17 - Robitussin and Tessalon Perles PRN for cough - Mucinex BID - Pertussis pending - Pulmonary consulted, appreciate recommendations- f/u outpatient for PFT testing Pulmonary nodules: Recommend 2-3 month follow-up with non-contrast CT T2DM- last hgbA1c 5.8% in 10/2017- CONTROLLED, peripheral neuropathy: - Hold Metformin 1000 mg BID while inpatient- resume at discharge - Lantus 15 u BID - BSG ACHS and ISS HTN- STABLE: - Lisinopril 10 mg daily discontinued- ?contributing to cough; Losartan 50 mg daily - HCTZ held due to hyponatremia- continue to hold at discharge- log BPs and f/u w/ PCP - Continue Metoprolol 50 mg BID Hyponatremia- RESOLVED: - Hold HCTZ - Follow PRP HLD: Continue Pravastatin 20 mg daily h/o lacunar infarct: Continue ASA and statin Constipation- RESOLVED: MiraLAX daily, Colace BID PRN, ambulation Anxiety: Continue Klonopin 1 mg BID Gout: Continue Allopurinol GERD: Continue Zantac, Protonix while inpatient- resume Prilosec at discharge DVT prophylaxis: Lovenox SQ daily Code status: LEVEL I, FULL Dispo: Discharge to home Total Time Spent: Greater than 30 minutes This includes examination of the patient, discharge planning, medication reconciliation, and communication with other providers. Discharge Instructions Please refer to the electronic Patient Visit Report (Discharge Instructions) for additional information. Follow-Up Please follow-up with your PCP within 5-7 days Please follow-up with Pulmonary within 1 month Please follow-up/keep all of your subspecialty appointments Additional Copies To Harjeet Molina M.D.
[2017-11-19] MEDS: LEVOFLOXACIN 750 MG TAB PO SCH (10:53)
--- NOTE | 2017-11-19 11:27 | Pulmonology Progress Note ---
Pulmonary Progress Note Date of Service Nov 19, 2017. Attending Dr. Vides Subjective The patient is feeling better, he denies any sputum production, he does have occasional cough. Wheezing has subsided and got better. Overnight he tolerated using the vibrating vest, he feels is very helpful. Did not require additional bronchodilators. Objective Physical exam on 11/19/2017 revealed O2 saturation 95% on room air, no stridor, scattered rhonchi, heart examination S1-S2 regular rate and rhythm, abdomen is benign no edema in the periphery. Assessment & Plan 1. Likely obstructive lung disease such as COPD. although the CT of the chest showed mild cases of bronchiectasis. 2. GERD. 3. Postnasal drip syndrome. 4. Multiple poorly formed pulmonary nodules. Etiology could be inflammatory. Plan: 1. Continue prednisone to 60 mg p.o. daily for 7 days then stop it. No taper. 2. Continue with bronchodilators and manage the patient with long-acting beta agonist as well. Stop Pulmicort as the patient is already on prednisone. Add Symbicort 2 puffs twice daily. 3. The loose pulmonary nodules needs to be followed up in follow-up CT of the chest. 4. Discharge patient home. 5. The patient can use vibration therapy with commercial product, I have given him instruction about that. 6. Follow-up with Dr. Freeman as an outpatient. Thank you for your kind referral. Data Medications: Current Inpatient Medications Medications (Trade) Dose Ordered Sig/Diann Route Start Time Stop Time Status Last Admin Dose Admin Enoxaparin Sodium (Lovenox Inj) 40 mg Q24H SC 11/13/17 14:00 12/13/17 13:59 11/16/17 14:23 40 MG Acetaminophen (Tylenol Tab) 650 mg Q4H PRN PO 11/13/17 11:00 12/13/17 10:59 11/15/17 13:58 650 MG Ondansetron HCl (Zofran Inj) 4 mg Q6H PRN IV 11/13/17 11:00 12/13/17 10:59 Insulin Glargine (Lantus Solostar Pen) 15 units Q12 SC 11/13/17 21:00 12/13/17 20:59 11/19/17 08:00 15 UNITS Insulin Aspart (novoLOG ASPART) SLIDING SCALE If C... ACHS SC 11/13/17 11:00 12/13/17 10:59 11/19/17 07:59 4 UNITS Glucose (Glucose 40% Gel) 15-30 GRAMS 15 GRAMS... UD PRN PO 11/13/17 11:00 12/13/17 10:59 Glucose (Glucose Chew Tab) 4-8 Tablets 4 Tabl... UD PRN PO 11/13/17 11:00 12/13/17 10:59 Dextrose (Dextrose 50% 50ML Syringe) 25-50ML OF 50% DW IV FOR... UD PRN IV 11/13/17 11:00 12/13/17 10:59 Glucagon (Glucagon Inj) 1 mg UD PRN SQ 11/13/17 11:00 12/13/17 10:59 Allopurinol (Zyloprim Tab) 300 mg QAM PO 11/14/17 09:00 12/14/17 08:59 11/19/17 07:48 300 MG Aspirin (Ecotrin Tab) 81 mg QAM PO 11/14/17 09:00 12/14/17 08:59 11/19/17 07:48 81 MG Clonazepam (Klonopin Tab) 1 mg BID PO 11/13/17 21:00 12/13/17 20:59 11/19/17 07:52 1 MG Metoprolol Tartrate (Lopressor Tab) 50 mg BID PO 11/13/17 21:00 12/13/17 20:59 11/19/17 07:47 50 MG Pravastatin Sodium (Pravachol Tab) 20 mg HS PO 11/13/17 21:00 12/13/17 20:59 11/18/17 20:23 20 MG Cyanocobalamin (Vitamin B-12 Tab) 1,000 mcg QPM PO 11/13/17 21:00 12/13/17 20:59 11/18/17 20:34 1,000 MCG Fluticasone Propionate (Flonase Nasal A[place]or) 2 sprays QAM NA 11/14/17 09:00 12/14/17 08:59 11/19/17 07:47 2 SPRAYS Pantoprazole Sodium (Protonix Tab) 40 mg QAM PO 11/14/17 09:00 12/14/17 08:59 11/19/17 07:48 40 MG Albuterol/ Ipratropium (Duoneb) 3 ml Q4R INH 11/13/17 12:00 12/13/17 11:59 11/19/17 06:56 3 ML Albuterol Sulfate (Ventolin 0.5% 2.5MG/0.5ML Neb) 2.5 mg Q4 PRN INH 11/13/17 11:00 12/13/17 10:59 Guaifenesin/ Dextromethorphan (Robitussin-Dm Syrup) 5 ml Q6H PRN PO 11/13/17 11:00 12/13/17 10:59 Benzonatate (Tessalon Perles Cap) 100 mg TID PO 11/13/17 14:00 12/13/17 13:59 11/19/17 08:01 100 MG Tramadol HCl (Ultram Tab) 50 mg Q4H PRN PO 11/14/17 10:30 12/14/17 10:29 11/15/17 20:52 50 MG Lidocaine (Lidoderm Patch 5%) 1 patch QAM TD 11/14/17 11:00 12/14/17 10:59 11/16/17 14:22 1 PATCH Miscellaneous (Remove Lidoderm Patch) 1 ea DAILY@21 N/A 11/14/17 21:00 12/14/17 20:59 11/18/17 20:14 1 EA Lactobacillus Acidophilus (Floranex Tab) 4 tab TIDM PO 11/14/17 12:00 12/14/17 11:59 11/19/17 10:53 4 TAB Guaifenesin (Mucinex Contr Rel Tab) 600 mg BID PO 11/15/17 21:00 12/15/17 20:59 11/19/17 07:48 600 MG Guaifenesin (Robitussin Sugar Free Syrup) 100 mg Q6H PRN PO 11/15/17 16:45 12/15/17 16:44 Budesonide (Pulmicort Respules 0.5MG/ 2ML Neb Soln) 0.5 mg BIDR INH 11/15/17 20:00 12/15/17 19:59 11/19/17 06:57 0.5 MG Losartan Potassium (coZAAR TAB) 50 mg QAM PO 11/16/17 09:00 5/14/18 08:59 11/19/17 07:49 50 MG Levofloxacin (Levaquin Tab) 750 mg DAILY@11 PO 11/17/17 11:00 11/24/17 10:59 11/19/17 10:53 750 MG Sodium Chloride (Swisher Nasal A[place]) 2 sprays BID NA 11/16/17 21:00 12/16/17 20:59 11/19/17 07:50 2 SPRAYS Dornase Noé (Pulmozyme Inhalation Soln 2.5ml Amp) 2.5 ml BIDR INH 11/17/17 20:00 12/17/17 19:59 11/19/17 06:57 2.5 ML Ranitidine HCl (zANTac TAB) 150 mg QAM PO 11/18/17 09:00 12/18/17 08:59 11/19/17 07:49 150 MG Polyethylene (Miralax Powder Packet) 17 gm DAILY PO 11/18/17 11:00 12/18/17 10:59 11/19/17 07:47 17 GM Docusate Sodium (coLACE CAP) 100 mg BID PRN PO 11/18/17 10:45 12/18/17 10:44 Prednisone (PredniSONE TAB) 60 mg DAILY PO 11/19/17 09:00 12/18/17 08:59 11/19/17 07:49 60 MG Vital Signs: Date Time Temp Pulse Resp B/P (MAP) Pulse Ox O2 Delivery O2 Flow Rate FiO2 11/19/17 09:46 36.7 61 16 95 Room Air 11/19/17 08:00 Room Air 11/19/17 07:12 36.7 61 16 163/85 (111) 95 Room Air 11/19/17 06:58 68 18 96 Room Air 11/19/17 04:08 36.8 84 20 143/73 (96) 94 Room Air 11/19/17 04:00 Room Air 11/19/17 03:29 69 16 96 Room Air 11/19/17 00:49 36.6 63 20 156/72 (100) 94 Room Air 11/19/17 00:00 Room Air 11/18/17 23:19 56 16 97 Room Air 11/18/17 19:41 36.4 78 20 144/72 (96) 95 11/18/17 19:16 72 16 96 Room Air 11/18/17 16:00 Room Air 11/18/17 15:51 36.3 61 20 138/73 (94) 94 11/18/17 15:36 67 16 96 Room Air 11/18/17 12:01 100 Room Air 11/18/17 11:48 36.4 50 18 160/76 (104) 94 Laboratory Results: Last 24 Hours Test 11/18/17 11:42 11/18/17 16:37 11/18/17 20:40 11/19/17 06:21 Bedside Glucose 73 mg/dl 99 mg/dl 122 mg/dl Sodium Level 136 mmol/L Potassium Level 3.6 mmol/L Chloride Level 103 mmol/L Carbon Dioxide Level 26 mmol/L Anion Gap 7.0 mmol/L Blood Urea Nitrogen 21 mg/dl Creatinine 1.00 mg/dl Est Creatinine Clear Calc Drug Dose 74.8 ml/min Estimated GFR () 89.2 Estimated GFR (Non- 77.0 BUN/Creatinine Ratio 21.1 Random Glucose 75 mg/dl Calcium Level 8.5 mg/dl Test 11/19/17 07:17 Bedside Glucose 75 mg/dl
[2017-11-19] MEDS ORDERED: BUDESONIDE/FORMOTEROL FUMARATE 160/4.5 60 PUFFS/INHALER INH SCH (21:00)
== END 2017-11-19 13:26 | disposition home or self-care (01) | DRG 191 ==
LOC: C.MED 09:37 → UNDOADMIN 09:37 → C.MED 11:01
PROVIDERS: ADMIT Internal Medicine; ATTEND Internal Medicine
DX: J44.1 Chronic obstructive pulmonary disease with (acute) exacerbation (principal); E87.1 Hypo-osmolality and hyponatremia; E11.9 Type 2 diabetes mellitus without complications; I10 Essential (primary) hypertension; K21.9 Gastro-esophageal reflux disease without esophagitis; E78.5 Hyperlipidemia, unspecified; M10.9 Gout, unspecified; K59.00 Constipation, unspecified; R09.82 Postnasal drip; F41.9 Anxiety disorder, unspecified; Z79.82 Long term (current) use of aspirin; Z79.84 Long term (current) use of oral hypoglycemic drugs; Z79.899 Other long term (current) drug therapy; Z87.891 Personal history of nicotine dependence; Z88.1 Allergy status to other antibiotic agents; Z91.041 Radiographic dye allergy status; Z86.73 Personal history of transient ischemic attack (TIA), and cerebral infarction without residual deficits

== ENCOUNTER → 2017-11-25 | Outpatient (CLI) | payer OTHER ==
[~2017-11-25] MED LIST changes: +CZR50 PO; +GFNSR600 PO; -HYDR25TA5 PO; +IPRASOL4 INH; -LISI-461 PO; -OSEL75CA16 PO; +PLMINS INH; +PRD20 PO
[2017-11-25 17:34] LABS: BLOOD UREA NITROGEN 14 mg/dl (7-18); CALCIUM 8.8 mg/dl (8.5-10.1); CARBON DIOXIDE 29 mmol/L (21-32); CREATININE 1.02 mg/dl (0.60-1.40); GLUCOSE 91 mg/dl (70-99); SODIUM 140 mmol/L (136-145)
== END | disposition home or self-care (01) ==
LOC: C.LABBFT 14:43
PROVIDERS: ATTEND Internal Medicine
DX: E87.1 Hypo-osmolality and hyponatremia (principal)

== ENCOUNTER → 2017-11-26 | Outpatient (CLI) | payer OTHER ==
--- NOTE | 2017-11-26 14:45 | DIAGNOSTIC IMAGING REPORT ---
CHEST 2 VIEWS ROUTINE CLINICAL HISTORY: R05 Cough dyspnea COMPARISON STUDY: 11/13/2017 FINDINGS: The bones soft tissues and hemidiaphragms are normal. The cardiomediastinal silhouette is normal. The lungs are clear. The pulmonary vasculature is normal. Faint nodularity and parenchymal prominence primarily at the left base is similar to minimally improved. IMPRESSION: Stable to slightly improved exam compared to the prior study. A [address] of the chest follow-up is again recommended. The above report was generated using voice recognition software. It may contain grammatical, syntax or spelling errors. Electronically signed by: Yasmany Fall M.D. 11/26/2017 2:43 PM Dictated Date/Time: 11/26/2017 2:42 PM
== END | disposition home or self-care (01) ==
LOC: C.RAD1850 14:36
PROVIDERS: ATTEND Physician Assistant
DX: R05 Cough (principal)

== ENCOUNTER → 2017-11-29 | Outpatient (CLI) | payer OTHER | END | disposition home or self-care (01) | LOC: C.LABBFT 09:33 | PROVIDERS: ATTEND Internal Medicine | DX: R39.9 Unspecified symptoms and signs involving the genitourinary system (principal) ==

== ENCOUNTER → 2017-12-23 | Outpatient (CLI) | payer OTHER ==
[2017-12-23 14:32] LABS: BLOOD UREA NITROGEN 9 mg/dl (7-18); CALCIUM 8.7 mg/dl (8.5-10.1); CARBON DIOXIDE 28 mmol/L (21-32); CREATININE 1.01 mg/dl (0.60-1.40); GLUCOSE 83 mg/dl (70-99); POTASSIUM 3.9 mmol/L (3.5-5.1); SODIUM 137 mmol/L (136-145)
== END | disposition home or self-care (01) ==
LOC: C.LABBFT 10:51
PROVIDERS: ATTEND Internal Medicine
DX: I10 Essential (primary) hypertension (principal)

== ENCOUNTER → 2018-03-28 | Outpatient (CLI) | payer OTHER ==
[~2018-03-28] MED LIST changes: +IPRA-64 INH; -IPRASOL4 INH
[2018-03-29 06:36] LABS: HEMOGLOBIN A1C 5.2 % (4.5-5.6)
== END | disposition home or self-care (01) ==
LOC: C.LABBFT 14:20
PROVIDERS: ATTEND Internal Medicine
DX: E11.9 Type 2 diabetes mellitus without complications (principal); Z12.5 Encounter for screening for malignant neoplasm of prostate

== ENCOUNTER 2019-05-15 05:29 | Inpatient (IN) ==
[2019-05-15] MEDS ORDERED: ONDANSETRON INJ 2 MG/ML 2 ML VIAL ONE (05:34)
[2019-05-15] MEDS ORDERED: SODIUM CHLORIDE 0.9% 1000ML 1,000 ML IV ONE ×2 (06:00→07:20)
[2019-05-15] MEDS ORDERED: ONDANSETRON INJ 2 MG/ML 2 ML VIAL IV STA (06:00)
[2019-05-15] MEDS ORDERED: ALBUT/IPRATROP 3MG/0.5MG NEB 3 ML VIAL NEB STA ×2 (06:00→07:27)
[2019-05-15] MEDS ORDERED: KETOROLAC TROMETHAMINE 15 MG/ML VIAL IV STA (06:04)
[2019-05-15 06:17] LABS: Basophils # (auto) 0.02 K/uL (0-0.2); Basophils % (auto) 0.2 %; Eosinophils % (auto) 2.1 %; Hematocrit (blood only) 39.9 % (42-52); Hemoglobin 14.3 g/dL (14.0-18.0); Immature Granulocytes # (auto) 0.03 K/uL (0.00-0.02); Immature Granulocytes % (auto) 0.3 %; Lymphocytes # (auto) 0.73 K/uL (1.2-3.4); Lymphocytes % (auto) 7.7 %; Mean Corpuscular Hemoglobin 33.3 pg (25-34); Mean Corpuscular Hgb Conc 35.8 g/dL (32-36); Mean Corpuscular Volume 92.8 fL (80-100); Mean Platelet Volume 9.9 fL (7.4-10.4); Monocytes # (auto) 0.53 K/uL (0.11-0.59); Monocytes % (auto) 5.6 %; Neutrophils # (auto) 7.91 K/uL (1.4-6.5); Neutrophils % (auto) 84.1 %; Platelet Count 143 K/uL (130-400); RDW Coefficient of Variation 13.8 % (11.5-14.5); RDW Standard Deviation 46.9 fL (36.4-46.3); White Blood Count 9.42 K/uL (4.8-10.8)
[2019-05-15 06:24] LABS: Albumin Level 4.1 gm/dl (3.4-5.0); BUN Creatinine Ratio 10.9 (10-20); Calcium 8.8 mg/dl (8.5-10.1); Creatinine Clr Calc Pharmacy 59.1 ml/min; Est GFR (African American) 66.5; Est GFR (Non-African American) 57.4; Potassium 3.9 mmol/L (3.5-5.1)
[2019-05-15 06:32] LABS: Albumin Globulin Ratio 1.1 (0.9-2); Bilirubin,Total 1.1 mg/dl (0.2-1); Globulin 3.8 gm/dl (2.5-4.0); Prothrombin Time 10.5 Seconds (9.0-12.0); Total Protein 7.9 gm/dl (6.4-8.2); Troponin I 0.163 ng/ml (0-0.045)
[2019-05-15 07:07] LABS: Influenza A virus by PCR Neg for Influ A (Neg); Influenza B virus by PCR Neg for Influ B (Neg)
[2019-05-15] MEDS ORDERED: ACETAMINOPHEN 1,000 MG/100 ML VIAL IV STA (07:20)
[2019-05-15] MEDS ORDERED: LEVOFLOXACIN/D5W 750 MG/150 ML BAG IV STA (07:20)
[2019-05-15] MEDS ORDERED: methylPREDNISolone 125 MG/2 ML VIAL IV STA (07:20)
[2019-05-15] MEDS ORDERED: ASPIRIN 325 MG ECTAB PO STA (07:27)
--- NOTE | 2019-05-15 07:29 | XRay Report ---
XR chest 2V PA/lateral HISTORY: Shortness of breath. Cough. COMPARISON: Chest 07/09/2017. FINDINGS: The lungs are clear. Cardiac silhouette is normal in size. No pleural effusions. No pneumot horax. IMPRESSION: No acute process. Electronically signed by: Ozzy Brito M.D. 05/15/2019 7:28 AM
[2019-05-15] MEDS ORDERED: ASPIRIN CHEW 324 MG ONE (07:50)
--- NOTE | 2019-05-15 07:54 | History & Physical Report ---
Date of Service May 15, 2019 Assessment & Plan (1) COPD exacerbation: Likely viral process causing COPD flare. sick with URI symptoms; multiple neighbors with URIs; patient with hoarse voice; cxr negative -- all point towards viral etiology. Flu PCR negative. Was given levaquin in ER; will change to doxycycline PO starting tomorrow in the event he has atypical bacterial process (mycoplasma, etc). Continue IV steroids - solumedrol 40mg q8h. Incentive jonah; flutter valve; mucinex BID. Duonebs q6h and prn. Fortunately he is saturating well in room air. (2) Elevated troponin: Patient had chest discomfort this am but it sounded more like tightness from his wheezing/COPD than ischemic pain. He has CAD risk factors, however, and as precautionary measure will place on telemetry; obtain 2 more troponins q6h; and obtain echo to look at wall motion. Continue BB. Continue aspirin. He had no pain at the time of my admission assessment. (3) DM w/o complication type II: Hold metformin. BSGs ac/hs. T2DM diet. Start novolog - correction factor 30; carb ratio 1:10. Likely will need lantus in light of high-dose steroids. (4) Essential (primary) hypertension: Continue all home meds. (5) Hyperlipidemia: Continue statin agent. (6) GERD (gastroesophageal reflux disease): Continue PPI and H2 kip as previous. (7) Gout: No flares at this time. Continue allopurinol prophylaxis. (8) Thrombocytopenia: Possibly due to viral effects on bone marrow. Simply repeat CBC am for stability. (9) Contact dermatitis: waist line. likely due to waistband of clothes or a detergent. triamcinolone cream 0.1% TID in thin amounts. (10) Murmur, cardiac: sounds like . could be MR but less likely. echo for characterization. (11) DVT prophylaxis: lovenox 40mg daily extensively updated at bedside History of Present Illness Chief Complaint: body aches, sore throat, cough, chills Primary Care Provider: Harjeet Molina MD 69yo male with COPD who presents with sore throat starting Saturday am, body aches starting Saturday, severe chills starting early this am, mild cough, worsening dyspnea on exertion, fever today, hoarse voice since Saturday, and nausea that began upon arrival to the [facility] ER. has been sick with URI. He and his live in an apartment building and several neighbors have had URIs. Allergies Allergy/AdvReac Type Severity Reaction Status Date / Time iodine Allergy Intermediate SHORTNESS Verified 05/15/19 06:11 OF BREATH amoxicillin Allergy Mild RASH Verified 05/15/19 06:11 clavulanic acid Allergy Mild RASH Verified 05/15/19 06:11 clarithromycin Allergy Unknown UNKNOWN Verified 05/15/19 06:11 indomethacin Allergy Unknown UNKNOWN Verified 05/15/19 06:11 Home Medications Home Medications Medication Instructions Recorded Confirmed Type omeprazole 40 mg capsule,delayed 40 mg PO DAILY #90 cap 01/30/19 05/15/19 Rx release acetaminophen 325 mg capsule 325 mg PO Q4H PRN 03/05/19 05/15/19 History albuterol sulfate HFA 90 2 puffs INH Q6H PRN 03/05/19 05/15/19 History mcg/actuation aerosol inhaler allopurinol 300 mg tablet 300 mg PO DAILY 03/05/19 05/15/19 History metformin 500 mg tablet 500 mg PO BID 03/05/19 05/15/19 History metoprolol tartrate 50 mg tablet 50 mg PO BID 03/05/19 05/15/19 History ranitidine 300 mg tablet 300 mg PO DAILY 03/05/19 05/15/19 History vitamin B12 500 mcg-folic acid 400 1 tab PO DAILY 03/05/19 05/15/19 History mcg tablet aspirin 81 mg tablet,delayed 81 mg PO HS tab 04/21/19 05/15/19 History release losartan 50 mg tablet 50 mg PO QAM tab 04/21/19 05/15/19 History pravastatin 20 mg tablet 20 mg PO HS tab 04/21/19 05/15/19 History mometasone 50 mcg/actuation nasal 2 sprays INTNAS QAM #17 gm 04/24/19 05/15/19 Rx spray clonazepam 1 mg tablet 1 mg PO BID PRN #180 tab 05/12/19 05/15/19 Rx naproxen 500 mg tablet,delayed 500 mg PO BID #180 tab 05/12/19 05/15/19 Rx release tiotropium-olodaterol [Stiolto 2 puff INHALATION DAILY 05/15/19 05/15/19 History Respimat] Past Med/Surg History Medical History COPD (chronic obstructive pulmonary disease) (Chronic) Acute bronchitis (Acute) Bronchitis (Acute) COPD exacerbation (Acute) COPD exacerbation (Acute) Failure of outpatient treatment (Acute) Influenza-like symptoms (Acute) 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 Social History marital status: Current Living Situation: Spouse Current Living Situation Comment: apartment in [place] current occupational status: retired current occupation: [employer] other: first marriage - 1 child; 2nd marriage - 2 children Feels Safe at Home: Yes Smoking Status: Former smoker Tobacco Type: cigarettes ; packs per day: 2 ; Years Smoked: 40 ; Cigarettes Per Day: 30-40 ; Smoking End Date: 2006 ; Hx Alcohol Use: No (drank in past; heavily at times; none in years) Review of Systems Constitutional: + fever, + chills, + fatigue and + weight gain (gradual); no anorexia and no weight loss Eyes: no worsening vision Ear, Nose, Mouth, Throat: + sore throat and + hoarseness; no nasal congestion Respiratory: + cough, + dyspnea, + dyspnea on exertion, + sputum production (mild only) and + wheezing Cardiovascular: + chest pain (chest tightness - today only ) Gastrointestinal: + nausea and + vomiting; no abdominal pain and no diarrhea/loose stools Genitourinary: no dysuria Musculoskeletal: no joint pain Integumentary: + rash (back) Neurologic: no gait abnormality and no loss of sensation Psychiatric: no depression Endocrine: diabetes - BSGs controlled Hematologic / Lymphatic: no easy bleeding and no easy bruising Physical Exam Constitutional: well developed, well nourished, + obese and comfortable; no acute distress and no altered mental status Eyes: PERRL (lens implants b/l ) ENMT: Ears: + TM abnormality (right TM serous effusion; no purulence; left TM wnl) Mouth: + oropharynx abnormality (mild erythema) Neck: trachea midline, no thyromegaly Respiratory: normal respiratory effort; no respiratory distress Ausculta tion: + crackles (minimal bases) and + wheezes (b/l -- all lung segments) Cardiovascular: Rate/Rhythm: regular rhythm and + tachycardic Heart Sounds: normal S1, normal S2 and + murmur (2/6 systolic- RUSB) Vessels: posterior tibial pulses present and dorsalis pedis pulses present; no JVD Extremities: no edema Chest (Breasts): Additional Comments: no reproducible chest wall pain Gastrointestinal (Abdomen): normal bowel sounds, soft, nontender, no hepatosplenomegaly Percussion/Palpation: + hernia (minimal umbilical hernia - reducible ) Musculoskeletal: no cyanosis or clubbing, extremities motor strength 5/5 Skin: contact dermatitis b/l waist line Neurologic: deep tendon reflexes 2+ bilaterally; no focal motor deficits Psychiatric: A+Ox3, euthymic affect Lymphatic: no cervical lymphadenopathy Results & Data Vital Signs (Past 12 Hours) Vital Signs Temp Pulse Pulse Resp BP BP Pulse Ox 05/15/19 07:47 95 05/15/19 07:19 38.9 C H 122 H 16 151/73 H 96 05/15/19 06:51 130 H 18 152/76 H 93 05/15/19 06:20 113 H 16 95 05/15/19 06:08 117 H 94 05/15/19 05:40 38.1 C H 115 H 18 173/96 H 94 Laboratory Results Laboratory Results - last 24 hr 05/15/19 05/15/19 05/15/19 05:34 05:34 05:34 WBC 9.42 RBC 4.30 L Hgb 14.3 Hct 39.9 L MCV 92.8 MCH 33.3 MCHC 35.8 RDW Std Deviation 46.9 H RDW Coeff of Kang 13.8 Plt Count 143 MPV 9.9 Immature Gran % (Auto) 0.3 Neut % (Auto) 84.1 Lymph % (Auto) 7.7 [place] % (Auto) 5.6 Eos % (Auto) 2.1 Baso % (Auto) 0.2 Immature Gran # (Auto) 0.03 H Neut # (Auto) 7.91 H Lymph # (Auto) 0.73 L [place] # (Auto) 0.53 Eos # (Auto) 0.20 Baso # (Auto) 0.02 PT 10.5 INR 1.0 Sodium 135 L Potassium 3.9 Chloride 100 Carbon Dioxide 27 Anion Gap 8.0 BUN 14 Creatinine 1.26 Est Cr Clr Drug Dosing 59.1 Est GFR ( Amer) 66.5 Est GFR (Non-Af Amer) 57.4 BUN/Creatinine Ratio 10.9 Glucose 107 H POC Lactic Acid Freddy Calcium 8.8 Total Bilirubin 1.1 H AST 13 L ALT 21 Alkaline Phosphatase 61 Troponin I 0.163 H* NT-Pro-B Natriuret Pep 299 Total Protein 7.9 Albumin 4.1 Globulin 3.8 Albumin/Globulin Ratio 1.1 Procalcitonin Influenza Type A (PCR) Influenza Type B (PCR) 05/15/19 05/15/19 05/15/19 05:34 06:18 06:24 WBC RBC Hgb Hct MCV MCH MCHC RDW Std Deviation RDW Coeff of Kang Plt Count MPV Immature Gran % (Auto) Neut % (Auto) Lymph % (Auto) [place] % (Auto) Eos % (Auto) Baso % (Auto) Immature Gran # (Auto) Neut # (Auto) Lymph # (Auto) [place] # (Auto) Eos # (Auto) Baso # (Auto) PT INR Sodium Potassium Chloride Carbon Dioxide Anion Gap BUN Creatinine Est Cr Clr Drug Dosing Est GFR ( Amer) Est GFR (Non-Af Amer) BUN/Creatinine Ratio Glucose POC Lactic Acid Freddy 1.62 Calcium Total Bilirubin AST ALT Alkaline Phosphatase Troponin I NT-Pro-B Natriuret Pep Total Protein Albumin Globulin Albumin/Globulin Ratio Procalcitonin 0.07 Influenza Type A (PCR) Neg for Influ A Influenza Type B (PCR) Neg for Influ B Diagnostic Findings EKG - my reading - 1st EKG - sinus tach, minimal ST segment depression III, AVF; possible LVH 2nd EKG - suspect sinus tach; doubt 2:1 flutter (I think there are P waves but they are challenging to see); ST segments unchanged from first EKG Code Status & VTE Plan Code Status full code VTE Prophylaxis Plan VTE Prophylaxis will be ordered: Yes PG Care Time/CCT Total # of Minutes Spent Total Time Spent with Patient: Total time spent is greater than 50% in co ordination of care (as documented) at patient's floor/unit and/or counseling patient: (1) DM w/o complication type II Diabetes mellitus fci insulin use: without terminal press operator use Qualified Code(s): E11.9 - Type 2 diabetes mellitus without complications (2) Hyperlipidemia Hyperlipidemia type: mixed hyperlipidemia Qualified Code(s): E78.2 - Mixed hyperlipidemia (3) GERD (gastroesophageal reflux disease) Esophagitis presence: without esophagitis Qualified Code(s): K21.9 - Gastro- esophageal reflux disease without esophagitis (4) Gout Gout site: unspecified site Gout etiology: unspecified cause Chronicity: chronic Presence of tophus: without tophus Qualified Code(s): M1A.9XX0 - Chronic gout, unspecified, without tophus (tophi) (5) Contact dermatitis Contact dermatitis type: irritant Contact dermatitis trigger: other trigger Qualified Code(s): L24.89 - Irritant contact dermatitis due to other agents; L24.8 - Irritant contact dermatitis due to other agents
[2019-05-15] MEDS ORDERED: ACETAMINOPHEN 325 MG TAB PO PRN (10:14)
[2019-05-15] MEDS ORDERED: ALUMINUM/MAGNESIUM SUSP 30 ML UDC PO PRN (10:14)
[2019-05-15] MEDS ORDERED: GLUCOSE 10 TABS/TUBE PO PRN (10:14)
[2019-05-15] MEDS ORDERED: NITROGLYCERIN SL 0.4 MG/TAB TAB SL PRN (10:14)
[2019-05-15] MEDS ORDERED: MOMETASONE INTNAS SCH (10:14)
[2019-05-15] MEDS ORDERED: GLUCOSE 40% GEL 15 GM TUBE PO PRN (10:14)
[2019-05-15] MEDS ORDERED: CARBOHYDRATES FOR HYPOGLYCEMIA PO PRN (10:14)
[2019-05-15] MEDS ORDERED: MAGNESIUM HYDROXIDE SUSP 30 ML UDC PO PRN (10:14)
[2019-05-15] MEDS ORDERED: DEXTROSE 50% 50 ML SYRINGE IV PRN (10:14)
[2019-05-15] MEDS ORDERED: ONDANSETRON INJ 2 MG/ML 2 ML VIAL IV PRN (10:14)
[2019-05-15] MEDS ORDERED: NON-FORMULARY MEDICATION (Vitamin B12-Folic Acid 1 TAB) PO SCH (10:14)
[2019-05-15] MEDS ORDERED: GLUCAGON FOR INJ 1 MG VIAL SQ PRN (10:14)
[2019-05-15] MEDS: ALBUT/IPRATROP 3MG/0.5MG NEB 3 ML VIAL NEB SCH ×3 (10:56→18:58)
[2019-05-15] MEDS: guaiFENesin 600 MG TABCR PO SCH ×2 (11:10→21:10)
[2019-05-15] MEDS: LOSARTAN POTASSIUM 50 MG TAB PO SCH (11:10)
[2019-05-15] MEDS: allopurinoL 300 MG TAB PO SCH (11:11)
[2019-05-15] MEDS: METOPROLOL TARTRATE 50 MG TAB PO SCH ×2 (11:11→21:11)
[2019-05-15] MEDS: FOLIC ACID 400 MCG TAB PO SCH (11:16)
[2019-05-15] MEDS: CYANOCOBALAMIN 500 MCG TABLET (VITAMIN B-12) PO SCH (11:16)
[2019-05-15] MEDS: PANTOprazole 40 MG TAB PO SCH (11:19)
[2019-05-15] MEDS: ENOXAPARIN INJ 40 MG/0.4 ML SYR SQ SCH (11:19)
[2019-05-15] MEDS: LIDOCAINE 5% 1 PATCH TD SCH (11:20)
[2019-05-15] MEDS: TRIAMCINOLONE ACET 0.1% CR 80 GM TUBE EXT SCH ×3 (11:24→21:11)
[2019-05-15] MEDS: FLUTICASONE PROPIONATE NA SPR 16 GM BTL SCH (11:42)
[2019-05-15] MEDS: methylPREDNISolone 40 MG in SYRINGE 0 ML IV SCH ×2 (14:05→21:11)
[2019-05-15] MEDS: INSULIN ASPART 100 UNITS/ML 3 ML PEN SC SCH ×3 (14:24→21:11)
[2019-05-15] MEDS: ASPIRIN 81 MG ECTAB PO SCH (21:10)
[2019-05-15] MEDS: clonazePAM 1 MG TAB PO PRN (21:10)
[2019-05-15] MEDS: PRAVASTATIN SOD 20 MG TAB PO SCH (21:11)
[2019-05-15] MEDS: INSULIN GLARGINE SOLOSTAR 100 UNITS/ML 3 ML PEN SC SCH (21:31)
[2019-05-16] MEDS: methylPREDNISolone 40 MG in SYRINGE 0 ML IV SCH ×2 (06:14→17:55)
[2019-05-16] MEDS: ALBUT/IPRATROP 3MG/0.5MG NEB 3 ML VIAL NEB SCH ×4 (06:55→19:23)
[2019-05-16 06:59] LABS: Hematocrit (blood only) 35.5 % (42-52); Hemoglobin 12.5 g/dL (14.0-18.0); Immature Granulocytes # (auto) 0.04 K/uL (0.00-0.02); Immature Granulocytes % (auto) 0.3 %; Lymphocytes # (auto) 0.54 K/uL (1.2-3.4); Lymphocytes % (auto) 3.8 %; Mean Corpuscular Hgb Conc 35.2 g/dL (32-36); Mean Corpuscular Volume 93.7 fL (80-100); Mean Platelet Volume 10.1 fL (7.4-10.4); Monocytes # (auto) 0.61 K/uL (0.11-0.59); Monocytes % (auto) 4.3 %; Neutrophils # (auto) 13.08 K/uL (1.4-6.5); Neutrophils % (auto) 91.6 %; Platelet Count 145 K/uL (130-400); RDW Coefficient of Variation 13.8 % (11.5-14.5); RDW Standard Deviation 47.6 fL (36.4-46.3); Red Blood Count 3.79 M/uL (4.7-6.1); White Blood Count 14.27 K/uL (4.8-10.8)
[2019-05-16 07:29] LABS: BUN Creatinine Ratio 14.5 (10-20); Calcium 8.6 mg/dl (8.5-10.1); Creatinine Clr Calc Pharmacy 62.9 ml/min; Est GFR (African American) 72.8; Est GFR (Non-African American) 62.8; Potassium 3.7 mmol/L (3.5-5.1)
[2019-05-16] MEDS ORDERED: DOXYCYCLINE HYCLATE 100 MG CAP PO SCH (09:00)
[2019-05-16] MEDS: allopurinoL 300 MG TAB PO SCH (09:04)
[2019-05-16] MEDS: FOLIC ACID 400 MCG TAB PO SCH (09:04)
[2019-05-16] MEDS: CYANOCOBALAMIN 500 MCG TABLET (VITAMIN B-12) PO SCH (09:04)
[2019-05-16] MEDS: LOSARTAN POTASSIUM 50 MG TAB PO SCH (09:04)
[2019-05-16] MEDS: guaiFENesin 600 MG TABCR PO SCH ×2 (09:04→20:54)
[2019-05-16] MEDS: METOPROLOL TARTRATE 50 MG TAB PO SCH ×2 (09:04→20:53)
[2019-05-16] MEDS: PANTOprazole 40 MG TAB PO SCH (09:04)
[2019-05-16] MEDS: ENOXAPARIN INJ 40 MG/0.4 ML SYR SQ SCH (09:05)
[2019-05-16] MEDS: TRIAMCINOLONE ACET 0.1% CR 80 GM TUBE EXT SCH ×3 (09:05→20:53)
[2019-05-16] MEDS: FLUTICASONE PROPIONATE NA SPR 16 GM BTL SCH (09:06)
[2019-05-16] MEDS: LIDOCAINE 5% 1 PATCH TD SCH (09:07)
[2019-05-16] MEDS: INSULIN ASPART 100 UNITS/ML 3 ML PEN SC SCH ×4 (09:07→20:58)
[2019-05-16] MEDS: clonazePAM 1 MG TAB PO PRN ×2 (09:16→20:52)
--- NOTE | 2019-05-16 12:35 | Hospitalist Progress Note ---
Date of Service May 16, 2019 Assessment & Plan (1) COPD exacerbation: IMPROVED. Continue IV steroids but lower solumedrol to 40mg q12h. Incentive jonah; flutter valve; mucinex BID. Duonebs q6h. In terms of abx -- the doxycycline could be giving him reflux. He is already on PPI AND H2 kip. Thus, stop doxy; use ceftin 500mg BID in linsey. Suspect we can wean to prednisone tomorrow. (2) Elevated troponin: Mild troponin elevation. Peaked and fell. Echo w/o wall motion abnormalities and normal EF. Last stress per records - 2014 - dobutamine stress (was negative). This was likely myocardial demand ischemia in setting of COPD exacerbation. Continue BB. Continue aspirin. Continue statin. He had pain again this am. Uncertain if cardiac vs pulmonary vs GI. He definitely has numerous CAD risk factors. At MINIMUM will recommend stress test as outpatient once over his COPD flare. (3) DM w/o complication type II: Hold metformin. BSGs ac/hs. T2DM diet. Cont novolog correction factor 30; carb ratio 1:10. Cont lantus. Adjust as needed. (4) Essential (primary) hypertension: Continue all home meds. Uncontrolled, probably due to steroids. If still high in am then adjust meds. (5) Hyperlipidemia: Continue statin agent. (6) GERD (gastroesophageal reflux disease): Continue PPI and H2 kip as previous. Was today's episode reflux due to doxycycline?? or cardiac vs pulmonary? add carafate 1gm qid and re-eval. (7) Gout: No flares at this time. Continue allopurinol prophylaxis. (8) Thrombocytopenia: Possibly due to viral effects on bone marrow. Repeat CBC today stable and scantly below lower limit of normal. (9) Contact dermatitis: waist line. likely due to waistband of clothes or a detergent. triamcinolone cream 0.1% TID in thin amounts. (10) Murmur, cardiac: echo with moderate . will need routine echo in 2 years to reassess valve. patient aware of found. (11) DVT prophylaxis: lovenox 40mg daily progressing from COPD standpoint follow chest discomforts carefully Subjective tele with brief run of PAT this am. he also had a mid-sternal chest discomfort this am following one of his breathing treatments. he had a hard time describing it but it almost sounded like heartburn. of note - he started on doxycycline this am. the discomfort ultimately self-resolved. breathing is overall improved. cough improved. wheezing better. no fevers/chills today. he also did not sleep well last pm and is "exhausted." Review of Systems Constitutional: + fatigue; no fever, no chills and no anorexia Cardiovascular: as per Subjective / HPI; no orthopnea, no paroxysmal nocturnal dyspnea and no edema Gastrointestinal: no abdominal pain Physical Exam Constitutional: well developed, well nourished, + obese and comfortable; no acute distress and no altered mental status ENMT: external ear and nose normal, oropharynx normal Neck: trachea midline, no thyromegaly Respiratory: normal respiratory effort; no respiratory distress Auscultation: + wheezes (b/l but MUCH improved today ) Cardiovascular: Rate/Rhythm: regular rate and regular rhythm Heart Sounds: normal S1, normal S2 and + murmur (2/6 systolic- RUSB) Vessels: posterior tibial pulses present and dorsalis pedis pulses present; no JVD Extremities: no edema Chest (Breasts): Additional Comments: no reproducible chest pain to palpation Gastrointestinal (Abdomen): normal bowel sounds, soft, nontender, no hepatosplenomegaly Percussion/Palpation: + hernia (minimal umbilical hernia - reducible ) Psychiatric: A+Ox3, euthymic affect Results & Data Vital Signs (Past 12 Hours) Vital Signs Temp Pulse Pulse Resp BP Pulse Ox 05/16/19 11:30 36.6 C 78 20 142/73 H 96 05/16/19 10:57 74 18 97 05/16/19 07:44 36.6 C 89 20 132/70 93 05/16/19 07:00 78 05/16/19 06:56 73 18 94 05/16/19 04:00 37 C 75 20 166/84 H 94 Laboratory Results Laboratory Results - last 24 hr 05/15/19 05/15/19 05/15/19 11:50 14:13 16:47 WBC RBC Hgb Hct MCV MCH MCHC RDW Std Deviation RDW Coeff of Kang Plt Count MPV Immature Gran % (Auto) Neut % (Auto) Lymph % (Auto) [place] % (Auto) Eos % (Auto) Baso % (Auto) Immature Gran # (Auto) Neut # (Auto) Lymph # (Auto) [place] # (Auto) Eos # (Auto) Baso # (Auto) Sodium Potassium Chloride Carbon Dioxide Anion Gap BUN Creatinine Est Cr Clr Drug Dosing Est GFR ( Amer) Est GFR (Non-Af Amer) BUN/Creatinine Ratio Glucose POC Glucose 143 H 202 H Calcium Troponin I 0.211 H* 05/15/19 05/15/19 05/16/19 17:30 20:09 06:35 WBC 14.27 H RBC 3.79 L Hgb 12.5 L Hct 35.5 L MCV 93.7 MCH 33.0 MCHC 35.2 RDW Std Deviation 47.6 H RDW Coeff of Kang 13.8 Plt Count 145 MPV 10.1 Immature Gran % (Auto) 0.3 Neut % (Auto) 91.6 Lymph % (Auto) 3.8 [place] % (Auto) 4.3 Eos % (Auto) 0.0 Baso % (Auto) 0.0 Immature Gran # (Auto) 0.04 H Neut # (Auto) 13.08 H Lymph # (Auto) 0.54 L [place] # (Auto) 0.61 H Eos # (Auto) 0.00 Baso # (Auto) 0.00 Sodium Potassium Chloride Carbon Dioxide Anion Gap BUN Creatinine Est Cr Clr Drug Dosing Est GFR ( Amer) Est GFR (Non-Af Amer) BUN/Creatinine Ratio Glucose POC Glucose 211 H Calcium Troponin I 0.179 H* 05/16/19 05/16/19 05/16/19 06:35 07:35 11:44 WBC RBC Hgb Hct MCV MCH MCHC RDW Std Deviation RDW Coeff of Kang Plt Count MPV Immature Gran % (Auto) Neut % (Auto) Lymph % (Auto) [place] % (Auto) Eos % (Auto) Baso % (Auto) Immature Gran # (Auto) Neut # (Auto) Lymph # (Auto) [place] # (Auto) Eos # (Auto) Baso # (Auto) Sodium 135 L Potassium 3.7 Chloride 103 Carbon Dioxide 26 Anion Gap 6.0 BUN 17 Creatinine 1.17 Est Cr Clr Drug Dosing 62.9 Est GFR ( Amer) 72.8 Est GFR (Non-Af Amer) 62.8 BUN/Creatinine Ratio 14.5 Glucose 144 H POC Glucose 161 H 228 H Calcium 8.6 Troponin I Diagnostic Findings EKGs - NSR (or sinus tach), nonspecific ST changes inferior leads and anterolateral leads PG Care Time/CCT Total # of Minutes Spent Total Time Spent with Patient: Total time spent is greater than 50% in coordination of care (as documented) at patient's floor/unit and/or counseling patient: (1) DM w/o complication type II Diabetes mellitus roasterman insulin use: without roasterman use Qualified Code(s): E11.9 - Type 2 diabetes mellitus without complications (2) Gout Chronicity: chronic Gout etiology: unspecified cause Gout site: unspecified site Presence of tophus: without tophus Qualified Code(s): M1A.9XX0 - Chronic gout, unspecified, without tophus (tophi) (3) Hyperlipidemia Hyperlipidemia type: mixed hyperlipidemia Qualified Code(s): E78.2 - Mixed hyperlipidemia (4) GERD (gastroesophageal reflux disease) Esophagitis presence: without esophagitis Qualified Code(s): K21.9 - Gastro- esophageal reflux disease without esophagitis (5) Contact dermatitis Contact dermatitis trigger: other trigger Contact dermatitis type: irritant Qualified Code(s): L24.89 - Irritant contact dermatitis due to other agents; L 24.8 - Irritant contact dermatitis due to other agents
[2019-05-16] MEDS: SUCRALFATE 1 GM/10 ML UDC PO SCH ×3 (13:17→20:52)
[2019-05-16] MEDS: cefUROXime axetil 500 MG TAB PO SCH (20:52)
[2019-05-16] MEDS: ASPIRIN 81 MG ECTAB PO SCH (20:53)
[2019-05-16] MEDS: PRAVASTATIN SOD 20 MG TAB PO SCH (20:55)
[2019-05-16] MEDS: INSULIN GLARGINE SOLOSTAR 100 UNITS/ML 3 ML PEN SC SCH (20:59)
--- NOTE | 2019-05-16 23:15 | Emergency Department Note ---
Entered by Heidi Malone acting as a scribe for History of Present Illness General Chief complaint: Shortness of Breath/Dyspnea Stated complaint: SHORT OF BREATH Time Seen by Provider: 05/15/19 05:42 Source: patient History of Present Illness Provider complaint: ilness Onset (ago): hour(s) 3 Location: left and right Severity: similar to prior episodes Maximum Pain Intensity: 8 Quality: + other (illness) Associated symptoms: + cough, + fever/chills (Positive chills; negative fever) and + other (Positive difficulty breathing; Positive chest tightness; Positive difficulty breathing; Positive sputum; Negative diarrhea; Negative irregular bowel movements; ); no loss of appetite The patient, who is a 69 year old male with a medical history of hypertension, hypercholesteremia and COPD, presents to the Emergency Room with complaints of illness that started 3 hours ago. Pt states his became ill earlier this week and he had very mild symptoms earlier this week but became much worse tonight. He began feeling worse after his flu shot from his PCP on Saturday. The patient states that at 0200 the patient started to cough. The patient reports bringing up dark brown sputum and denies the observance of blood. The patient expresses that his body aches and his chest tightness. The patient expresses that he had difficulty breathing at home but it is now improving. The patient states that his appetite is fine and he has been drinking fluids. States the coughing has given him back pain also. The patient expresses pain in between his shoulder blade, The patient states prior to arrival he has experience chills and chest tightness. The patient states that he takes his inhaler in the morning and his two puffs before bed. The patient states that the medication he uses is Ventolin. The patient states that he had pneumonia before and his symptoms feel similar. Home Medications Home Medications Medication Instructions Recorded Confirmed Type omeprazole 40 mg capsule,delayed 40 mg PO DAILY #90 cap 01/30/19 05/15/19 Rx release acetaminophen 325 mg capsule 325 mg PO Q4H PRN 03/05/19 05/15/19 History albuterol sulfate HFA 90 2 puffs INH Q6H PRN 03/05/19 05/15/19 History mcg/actuation aerosol inhaler allopurinol 300 mg tablet 300 mg PO DAILY 03/05/19 05/15/19 History metformin 500 mg tablet 500 mg PO BID 03/05/19 05/15/19 History metoprolol tartrate 50 mg tablet 50 mg PO BID 03/05/19 05/15/19 History ranitidine 300 mg tablet 300 mg PO DAILY 03/05/19 05/15/19 History vitamin B12 500 mcg-folic acid 400 1 tab PO DAILY 03/05/19 05/15/19 History mcg tablet aspirin 81 mg tablet,delayed 81 mg PO HS tab 04/21/19 05/15/19 History release losartan 50 mg tablet 50 mg PO QAM tab 04/21/19 05/15/19 History pravastatin 20 mg tablet 20 mg PO HS tab 04/21/19 05/15/19 History mometasone 50 mcg/actuation nasal 2 sprays INTNAS QAM #17 gm 04/24/19 05/15/19 Rx spray clonazepam 1 mg tablet 1 mg PO BID PRN #180 tab 05/12/19 05/15/19 Rx naproxen 500 mg tablet,delayed 500 mg PO BID #180 tab 05/12/19 05/15/19 Rx release tiotropium-olodaterol [Stiolto 2 puff INHALATION DAILY 05/15/19 05/15/19 History Respimat] Allergies Allergy/AdvReac Type Severity Reaction Status Date / Time iodine Allergy Intermediate SHORTNESS Verified 05/15/19 06:11 OF BREATH amoxicillin Allergy Mild RASH Verified 05/15/19 06:11 clavulanic acid Allergy Mild RASH Verified 05/15/19 06:11 clarithromycin Allergy Unknown UNKNOWN Verified 05/15/19 06:11 indomethacin Allergy Unknown UNKNOWN Verified 05/15/19 06:11 Past Med/Surg History Medical History COPD (chronic obstructive pulmonary disease) (Chronic) Acute bronchitis (Acute) Bronchitis (Acute) COPD exacerbation (Acute) COPD exacerbation (Acute) Failure of outpatient treatment (Acute) Influenza-like symptoms (Acute) 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 and A total of 10 systems reviewed and were otherwise negative Physical Exam Vital Signs Vital Signs - 24 hr 05/15/19 05:40 05/15/19 06:08 05/15/19 06:20 Temperature 38.1 C H Temperature Source Oral Sepsis Recent Fever Within 48 Hours No Sepsis New/Unexplained Change in Mental Status No Sepsis Action Taken by Nursing No Action Required Pulse Rate 115 H 117 H Pulse Rate [Left Finger] 113 H Pulse Rhythm Regular Regular Pulse Rhythm [Left Finger] Pulse Strength Normal Pulse Strength [Left Finger] Respiratory Rate 18 16 Respiratory Effort / Characteristics Non-Labored Non-Labored Respiratory Depth Normal Respiratory Pattern Regular Blood Pressure 173/96 H Blood Pressure [Right Arm] Blood Pressure Mean 121 Blood Pressure Mean [Right Arm] Blood Pressure Position Sitting Blood Pressure Position [Right Arm] Pulse Oximetry 94 94 95 Oxygen Delivery Method Room Air Room Air Room Air 05/15/19 06:51 05/15/19 07:19 05/15/19 07:47 Temperature 38.9 C H Temperature Source Oral Sepsis Recent Fever Within 48 Hours Sepsis New/Unexplained Change in Mental Status Sepsis Action Taken by Nursing Pulse Rate Pulse Rate [Left Finger] 130 H 122 H Pulse Rhythm Pulse Rhythm [Left Finger] Regular Pulse Strength Pulse Strength [Left Finger] Normal Respiratory Rate 18 16 Respiratory Effort / Characteristics Non-Labored Respiratory Depth Normal Respiratory Pattern Regular Blood Pressure Blood Pressure [Right Arm] 152/76 H 151/73 H Blood Pressure Mean Blood Pressure Mean [Right Arm] 101 99 Blood Pressure Position Blood Pressure Position [Right Arm] Lying Pulse Oximetry 93 96 95 Oxygen Delivery Method Room Air Room Air Room Air 05/15/19 07:56 Temperature Temperature Source Sepsis Recent Fever Within 48 Hours Sepsis New/Unexplained Change in Mental Status Sepsis Action Taken by Nursing Pulse Rate Pulse Rate [Left Finger] 119 H Pulse Rhythm Pulse Rhythm [Left Finger] Pulse Strength Pulse Strength [Left Finger] Respiratory Rate 19 Respiratory Effort / Characteristics Non-Labored Spontaneous Respiratory Depth Respiratory Pattern Blood Pressure Blood Pressure [Right Arm] Blood Pressure Mean Blood Pressure Mean [Right Arm] Blood Pressure Position Blood Pressure Position [Right Arm] Pulse Oximetry 96 Oxygen Delivery Method GENERAL: alert, well appearing, well nourished, no distress, non-toxic, ill- appearing EYE EXAM: normal conjunctiva, PERRL and EOM's grossly intact OROPHARYNX: no exudate, no erythema, lips, buccal mucosa, and tongue normal and mucous membranes are dry NECK: supple, no nuchal rigidity, no adenopathy, non-tender, no JVD LUNGS: Clear to auscultation. Normal chest wall mechanics. Decreased breath sounds bilaterally but no W/R/R. HEART: no murmurs, S1 normal and S2 normal ABDOMEN: abdomen soft, non-tender, normo-active bowel sounds, no masses, no re bound or guarding. BACK: Back is symmetrical on inspection and there is no deformity, no midline tenderness, no CVA tenderness. SKIN: no rashes and no bruising, no petechaie UPPER EXTREMITIES: upper extremities are grossly normal. FROM, nml pulses b/l. LOWER EXTREMITIES: No pitting edema. FROM, nml pulses b/l. NEURO EXAM: Normal sensorium, cranial nerves II-XII grossly intact, normal speech, no gross weakness of arms, no gross weakness of legs. Gross sensation intact. Course 0051: Past medical records reviewed. The patient was evaluated in room B6. A complete history and physical exam was performed. 0716: I reassessed the patient who is still febrile and states there is no change in his symptoms. I updated him on his results. 0734: I reviewed the patient's case with Dr. Clark, [facility] Hospitalist. He will evaluate the patient for further management. Consultations Consultation #1: I reviewed the patient's case with Dr. Clark, [facility] Hospita list. He will evaluate the patient for further management. Time: 07:34 Administered Medications Albuterol (Duoneb) 3 ml NEB QIDR [facility] Stop: 06/14/19 10:59 Last Admin: 05/16/19 19:23 Dose: 3 ml Documented by: [id number] Admin: 05/16/19 15:09 Dose: 3 ml Documented by: [id number] Admin: 05/16/19 10:56 Dose: 3 ml Documented by: [id number] Admin: 05/16/19 06:55 Dose: 3 ml Documented by: [id number] Admin: 05/15/19 18:58 Dose: 3 ml Documented by: [id number] Admin: 05/15/19 15:02 Dose: 3 ml Documented by: [id number] Admin: 05/15/19 10:56 Dose: 3 ml Documented by: [id number] Allopurinol (Zyloprim) 300 mg PO DAILY [facility] Stop: 06/14/19 10:13 Last Admin: 05/16/19 09:04 Dose: 300 mg Documented by: [id number] Admin: 05/15/19 11:11 Dose: 300 mg Documented by: [id number] Aspirin (Ecotrin Ectab) 81 mg PO HS [facility] Stop: 06/14/19 20:59 Last Admin: 05/16/19 20:53 Dose: 81 mg Documented by: [id number] Admin: 05/15/19 21:10 Dose: 81 mg Documented by: [id number] Cefuroxime Axetil (Ceftin) 500 mg PO BID [facility]; Protocol Stop: 05/23/19 20:59 Last Admin: 05/16/19 20:52 Dose: 500 mg Documented by: [id number] Clonazepam (Klonopin) 1 mg PO BID PRN PRN Reason: anxiety Stop: 06/14/19 10:13 Last Admin: 05/16/19 20:52 Dose: 1 mg Documented by: [id number] Admin: 05/16/19 09:16 Dose: 1 mg Documented by: [id number] Admin: 05/15/19 21:10 Dose: 1 mg Documented by: [id number] Cyanocobalamin (Vitamin B-12) 500 mcg PO DAILY [facility] Stop: 06/14/19 10:13 Last Admin: 05/16/19 09:04 Dose: 500 mcg Documented by: [id number] Admin: 05/15/19 11:16 Dose: 500 mcg Documented by: [id number] Enoxaparin Sodium (Lovenox) 40 mg SQ QAM [facility] Stop: 06/14/19 10:13 Last Admin: 05/16/19 09:05 Dose: 40 mg Documented by: [id number] Admin: 05/15/19 11:19 Dose: 40 mg Documented by: [id number] Fluticasone Propionate (Flonase) 2 sprays NA DAILY [facility] Stop: 06/14/19 10:13 Last Admin: 05/16/19 09:06 Dose: 2 sprays Documented by: [id number] Admin: 05/15/19 11:42 Dose: Not Given Documented by: [id number] Folic Acid (Folvite) 400 mcg PO DAILY [facility] Stop: 06/14/19 10:13 Last Admin: 05/16/19 09:04 Dose: 400 mcg Documented by: [id number] Admin: 05/15/19 11:16 Dose: 400 mcg Documented by: [id number] Guaifenesin (Mucinex) 1,200 mg PO Q12 [facility] Stop: 06/14/19 10:13 Last Admin: 05/16/19 20:54 Dose: 1,200 mg Documented by: [id number] Admin: 05/16/19 09:04 Dose: 1,200 mg Documented by: [id number] Admin: 05/15/19 21:10 Dose: 1,200 mg Documented by: [id number] Admin: 05/15/19 11:10 Dose: 1,200 mg Documented by: [id number] Methylprednisolone 40 mg/ (Syringe) 0.64 mls @ 1.5 mls/min IV Q12H [facility] Stop: 06/15/19 17:59 Last Admin: 05/16/19 17:55 Dose: 1.5 mls/min Documented by: [id number] Insulin Aspart (Novolog Flexpen) 0 units SC ACHS [facility] Stop: 06/14/19 11:29 Last Admin: 05/16/19 20:58 Dose: 3 units Documented by: [id number] Cosigned by: [id number] Admin: 05/16/19 17:55 Dose: 7 units Documented by: [id number] Cosigned by: [id number] Admin: 05/16/19 13:14 Dose: 8 units Documented by: [id number] Cosigned by: [id number] Admin: 05/16/19 09:07 Dose: 5 units Documented by: [id number] Cosigned by: [id number] Admin: 05/15/19 21:11 Dose: 3 units Documented by: [id number] Cosigned by: [id number] Admin: 05/15/19 17:30 Dose: 5 units Documented by: [id number] Cosigned by: [id number] Admin: 05/15/19 14:24 Dose: 2 units Documented by: [id number] Cosigned by: [id number] Insulin Glargine (Lantus Solostar Pen) 10 units SC [facility] Stop: 06/14/19 20:59 Last Admin: 05/16/19 20:59 Dose: 10 units Documented by: [id number] Cosigned by: [id number] Admin: 05/15/19 21:31 Dose: 10 units Documented by: [id number] Cosigned by: [id number] [facility] ([facility]oderm 5%) [facility]: 06/14/19 10:44 Last Admin: 05/16/19 09:07 Dose: 3 patch Documented by: [id number] Admin: 05/15/19 11:20 Dose: 3 patch Documented by: [id number] Losartan Potassium (Cozaar) 50 mg PO [facility] Stop: 06/14/19 10:13 Last Admin: 05/16/19 09:04 Dose: 50 mg Documented by: [id number] Admin: 05/15/19 11:10 Dose: 50 mg Documented by: [id number] Metoprolol Tartrate (Lopressor) 50 mg PO BID [facility] Stop: 06/14/19 10:13 Last Admin: 05/16/19 20:53 Dose: 50 mg Documented by: [id number] Admin: 05/16/19 09:04 Dose: 50 mg Documented by: [id number] Admin: 05/15/19 21:11 Dose: 50 mg Documented by: [id number] Admin: 05/15/19 11:11 Dose: 50 mg Documented by: [id number] Miscellaneous (Remove Lidoderm Patch) 1 ea N/A DAILY@2100 [facility] Stop: 06/14/19 20:59 Last Admin: 05/16/19 20:55 Dose: 1 ea Documented by: [id number] Admin: 05/15/19 21:07 Dose: 1 ea Documented by: [id number] Pantoprazole Sodium (Protonix) 40 mg PO [facility] Stop: 06/14/19 10:13 Last Admin: 05/16/19 09:04 Dose: 40 mg Documented by: [id number] Admin: 05/15/19 11:19 Dose: 40 mg Documented by: [id number] Pravastatin Sodium (Pravachol) 20 mg PO [facility] Stop: 06/14/19 20:59 Last Admin: 05/16/19 20:55 Dose: 20 mg Documented by: [id number] Admin: 05/15/19 21:11 Dose: 20 mg Documented by: [id number] Ranitidine HCl (Zantac) 300 mg PO DAILY [facility] Stop: 06/14/19 10:13 Last Admin: 05/16/19 09:05 Dose: 300 mg Documented by: [id number] Admin: 05/15/19 11:16 Dose: 300 mg Documented by: [id number] Sucralfate (Carafate) 1 gm PO ACHS [facility] Stop: 06/15/19 12:59 Last Admin: 05/16/19 20:52 Dose: 1 gm Documented by: [id number] Admin: 05/16/19 17:55 Dose: 1 gm Documented by: [id number] Admin: 05/16/19 13:17 Dose: 1 gm Documented by: [id number] Triamcinolone Acetonide (Aristocort 0.1%) 1 appln EXT TID [facility] Stop: 06/14/19 10:13 Last Admin: 05/16/19 20:53 Dose: 1 appln Documented by: [id number] Admin: 05/16/19 13:16 Dose: Not Given Documented by: [id number] Admin: 05/16/19 09:05 Dose: 1 appln Documented by: [id number] Admin: 05/15/19 21:11 Dose: Not Given Documented by: [id number] Admin: 05/15/19 14:25 Dose: 1 appln Documented by: [id number] Admin: 05/15/19 11:24 Dose: Not Given Documented by: [id number] Discontinued Medications Albuterol (Duoneb) 3 ml NEB NOW STA Stop: 05/15/19 06:01 Last Admin: 05/15/19 06:18 Dose: 3 ml Documented by: [id number] Albuterol (Duoneb) 3 ml NEB NOW STA Stop: 05/15/19 07:28 Last Admin: 05/15/19 07:55 Dose: 3 ml Documented by: [id number] Aspirin (Ecotrin) 325 mg PO NOW STA Stop: 05/15/19 07:28 Last Admin: 05/15/19 08:12 Dose: 325 mg Documented by: [id number] Aspirin (Aspirin) Confirm Administered Dose 324 mg .ROUTE .STK-MED ONE Stop: 05/15/19 07:51 Last Admin: 05/15/19 08:10 Dose: Not Given Documented by: [id number] Doxycycline Hyclate (Vibramycin) 100 mg PO BID [facility] Stop: 05/23/19 08:59 Last Admin: 05/16/19 09:03 Dose: 100 mg Documented by: [id number] Sodium Chloride (Nss 1000ml) 1,000 mls @ 999 mls/hr IV .Q1H1M ONE Stop: 05/15/19 07:00 Last Infusion: 05/15/19 07:18 Dose: 0 mls/hr Documented by: [id number] Admin: 05/15/19 06:19 Dose: 999 mls/hr Documented by: [id number] Sodium Chloride (Nss 1000ml) 1,000 mls @ 999 mls/hr IV .Q1H1M ONE Stop: 05/15/19 08:20 Last Infusion: 05/15/19 08:45 Dose: 0 mls/hr Documented by: [id number] Admin: 05/15/19 07:29 Dose: 999 mls/hr Documented by: [id number] Acetaminophen (Ofirmev) 1,000 mg in 100 mls @ 400 mls/hr IV NOW STA Stop: 05/15/19 07:34 Last Infusion: 05/15/19 07:46 Dose: 0 mls/hr Documented by: [id number] Admin: 05/15/19 07:28 Dose: 400 mls/hr Documented by: [id number] Levofloxacin/Dextrose (Levaquin/D5w) 750 mg in 150 mls @ 100 mls/hr IV NOW STA Stop: 05/15/19 08:49 Last Infusion: 05/15/19 09:19 Dose: 0 mls/hr Documented by: [id number] Admin: 05/15/19 07:29 Dose: 100 mls/hr Documented by: [id number] Methylprednisolone 40 mg/ (Syringe) 0.64 mls @ 1.5 mls/min IV Q8H [facility] Stop: 06/14/19 13:29 Last Admin: 05/16/19 06:14 Dose: 1.5 mls/min Documented by: [id number] Admin: 05/15/19 21:11 Dose: 1.5 mls/min Documented by: [id number] Admin: 05/15/19 14:05 Dose: 1.5 mls/min Documented by: [id number] Ketorolac Tromethamine (Toradol) 15 mg IV NOW STA Stop: 05/15/19 06:05 Last Admin: 05/15/19 06:16 Dose: 15 mg Documented by: [id number] Methylprednisolone (Solumedrol) 60 mg IV NOW STA Stop: 05/15/19 07:21 Last Admin: 05/15/19 07:28 Dose: 60 mg Documented by: [id number] Ondansetron HCl (Zofran) Confirm Administered Dose 4 mg .ROUTE .STK-MED ONE Stop: 05/15/19 05:35 Last Admin: 05/15/19 05:37 Dose: 4 mg Documented by: [id number] Ondansetron HCl (Zofran) 4 mg IV NOW STA Stop: 05/15/19 06:01 Last Admin: 05/15/19 06:19 Dose: Not Given Documented by: [id number] Medical Decision Making Differential Diagnosis Differential diagnosis includes: viral syndrome, otitis, pharyngitis, pneumonia, influenza, meningitis, urinary tract infection, sepsis, bacteremia, infection, reactive airway disease, pneumonia, pneumothorax, COPD, CHF, cardiac ischemia, pulmonary embolism, musculoskeletal, gastrointestinal as well as others were entertained. Medical Records Attestation: I reviewed the patient's medical records. Home Medications Current Medication List: was personally reviewed by me Laboratory Data Attestation: I reviewed the patient's lab results. Result diagrams: 05/16/19 06:35 05/16/19 06:35 Lab Results 05/15/19 05/15/19 05/15/19 Range/Units 05:34 05:34 05:34 WBC 9.42 (4.8-10.8) K/uL RBC 4.30 L (4.7-6.1) M/uL Hgb 14.3 (14.0-18.0) g/dL Hct 39.9 L (42-52) % MCV 92.8 (80-100) fL MCH 33.3 (25-34) pg MCHC 35.8 (32-36) g/dL RDW Std Deviation 46.9 H (36.4-46.3) fL RDW Coeff of Kang 13.8 (11.5-14.5) % Plt Count 143 (130-400) K/uL MPV 9.9 (7.4-10.4) fL Immature Gran % (Auto) 0.3 % Neut % (Auto) 84.1 % Lymph % (Auto) 7.7 % [place] % (Auto) 5.6 % Eos % (Auto) 2.1 % Baso % (Auto) 0.2 % Immature Gran # (Auto) 0.03 H (0.00-0.02) K/uL Neut # (Auto) 7.91 H (1.4-6.5) K/uL Lymph # (Auto) 0.73 L (1.2-3.4) K/uL [place] # (Auto) 0.53 (0.11-0.59) K/uL Eos # (Auto) 0.20 (0-0.5) K/uL Baso # (Auto) 0.02 (0-0.2) K/uL PT 10.5 (9.0-12.0) Seconds INR 1.0 (0.9-1.1) Sodium 135 L (136-145) mmol/L Potassium 3.9 (3.5-5.1) mmol/L Chloride 100 (98-107) mmol/L Carbon Dioxide 27 (21-32) mmol/L Anion Gap 8.0 (3-11) BUN 14 (7-18) mg/dl Creatinine 1.26 (0.6-1.4) mg/dl Est Cr Clr Drug Dosing 59.1 ml/min Est GFR ( Amer) 66.5 Est GFR (Non-Af Amer) 57.4 BUN/Creatinine Ratio 10.9 (10-20) Glucose 107 H (70-99) mg/dl POC Lactic Acid Freddy (0.90-1.70) mmol/L Calcium 8.8 (8.5-10.1) mg/dl Total Bilirubin 1.1 H (0.2-1) mg/dl AST 13 L (15-37) U/L ALT 21 (12-78) U/L Alkaline Phosphatase 61 (45-117) U/L Troponin I 0.163 H* (0-0.045) ng/ml NT-Pro-B Natriuret Pep 299 (0-900) pg/ml Total Protein 7.9 (6.4-8.2) gm/dl Albumin 4.1 (3.4-5.0) gm/dl Globulin 3.8 (2.5-4.0) gm/dl Albumin/Globulin Ratio 1.1 (0.9-2) Procalcitonin (0-0.5) ng/ml Influenza Type A (PCR) (Neg) Influenza Type B (PCR) (Neg) 05/15/19 05/15/19 05/15/19 Range/Units 05:34 06:18 06:24 WBC (4.8-10.8) K/uL RBC (4.7-6.1) M/uL Hgb (14.0-18.0) g/dL Hct (42-52) % MCV (80-100) fL MCH (25-34) pg MCHC (32-36) g/dL RDW Std Deviation (36.4-46.3) fL RDW Coeff of Kang (11.5-14.5) % Plt Count (130-400) K/uL MPV (7.4-10.4) fL Immature Gran % (Auto) % Neut % (Auto) % Lymph % (Auto) % [place] % (Auto) % Eos % (Auto) % Baso % (Auto) % Immature Gran # (Auto) (0.00-0.02) K/uL Neut # (Auto) (1.4-6.5) K/uL Lymph # (Auto) (1.2-3.4) K/uL [place] # (Auto) (0.11-0.59) K/uL Eos # (Auto) (0-0.5) K/uL Baso # (Auto) (0-0.2) K/uL PT (9.0-12.0) Seconds INR (0.9-1.1) Sodium (136-145) mmol/L Potassium (3.5-5.1) mmol/L Chloride (98-107) mmol/L Carbon Dioxide (21-32) mmol/L Anion Gap (3-11) BUN (7-18) mg/dl Creatinine (0.6-1.4) mg/dl Est Cr Clr Drug Dosing ml/min Est GFR ( Amer) Est GFR (Non-Af Amer) BUN/Creatinine Ratio (10-20) Glucose (70-99) mg/dl POC Lactic Acid Freddy 1.62 (0.90-1.70) mmol/L Calcium (8.5-10.1) mg/dl Total Bilirubin (0.2-1) mg/dl AST (15-37) U/L ALT (12-78) U/L Alkaline Phosphatase (45-117) U/L Troponin I (0-0.045) ng/ml NT-Pro-B Natriuret Pep (0-900) pg/ml Total Protein (6.4-8.2) gm/dl Albumin (3.4-5.0) gm/dl Globulin (2.5-4.0) gm/dl Albumin/Globulin Ratio (0.9-2) Procalcitonin 0.07 (0-0.5) ng/ml Influenza Type A (PCR) Neg for Influ A (Neg) Influenza Type B (PCR) Neg for Influ B (Neg) Imaging Data Radiologist's Impression: Radiology results as stated below per my review and the radiologist's interpretation: XR chest 2V PA/lateral HISTORY: Shortness of breath. Cough. COMPARISON: Chest 07/09/2017. FINDINGS: The lungs are clear. Cardiac silhouette is normal in size. No pleural effusions. No pneumothorax. IMPRESSION: No acute process. Electronically signed by: Ozzy Brito M.D. 05/15/2019 7:28 AM ECG Data Attestation: I personally reviewed and interpreted this ECG as follows: Indication: SOB/dyspnea Rate (beats per minute): 116 Rhythm: sinus tachycardia Findings: + other (Normal axis; Normal interval); no ST elevation and no ectopy Blood Pressure Blood Pressure Findings: Elevated blood pressure Blood Pressure Disposition: further management by hospitalist [facility] Narrative Pt here ill appearing with fever and cough and complaints of SOB. Tachycardia likely due to fever. No improvement after neb tx here. CXR with questionable early infiltrate on left and pt started on antibiotics to cover for early pneumonia vs COPD exacerbation given worsening symptoms. Steroid started in addition. Fever and HR improved with med and IVF. No evidence of CHF. Troponin slightly elevated also, no EKG changes. I do not suspect primary ACS, more likely secondary to infection. Pt does have risk factors for CAD. No clinical evidence of pericardial effusion. Given symptoms and suspected illness, pericarditis/myocarditis also considered. No hypoxia. Chest pain only mildly improved with meds. I discussed all results with pt and family and advised additional evaluation. Pt in agreement. [facility] At that time, morning in house rad read cxr as clear. No evidence of bacteremia/sepsis. Impression & Plan COPD exacerbation, Fever, Elevated troponin Discharge Plan Visit Data *Final* Discharge Date/Time: 05/15/19 09:53 Chief Complaint: Shortness of Breath/Dyspnea Stated Complaint: SHORT OF BREATH ED Provider: Danelle Morgan Discharge Problem: COPD exacerbation, Fever, Elevated troponin Patient Disposition: Admitted As Inpatient Discharge Instructions Interventions: ED Discharge Assessment Last Done: 05/15/19 09:53 Discharge Problem: Fever Qualifiers: Fever type: unspecified Qualified Code(s): R50.9 - Fever, unspecified The scribe's documentation has been prepared under my direction and personally reviewed by me in its entirety. I confirm that the note above accurately reflects all work, treatment, procedures, and medical decision making performed by me.
[2019-05-17] MEDS ORDERED: METOPROLOL TARTRATE 1 MG/ML VIAL IV PRN (00:21)
[2019-05-17] MEDS: ZOLPIDEM TARTRATE 5 MG TAB PO PRN ×2 (01:00→21:06)
[2019-05-17] MEDS: methylPREDNISolone 40 MG in SYRINGE 0 ML IV SCH (05:49)
[2019-05-17] MEDS: ALBUT/IPRATROP 3MG/0.5MG NEB 3 ML VIAL NEB SCH ×4 (06:59→19:40)
[2019-05-17] MEDS: SUCRALFATE 1 GM/10 ML UDC PO SCH ×4 (08:42→21:08)
[2019-05-17] MEDS: ENOXAPARIN INJ 40 MG/0.4 ML SYR SQ SCH (08:42)
[2019-05-17] MEDS: TRIAMCINOLONE ACET 0.1% CR 80 GM TUBE EXT SCH ×3 (08:43→21:10)
[2019-05-17] MEDS: METOPROLOL TARTRATE 50 MG TAB PO SCH ×2 (08:43→21:09)
[2019-05-17] MEDS: FOLIC ACID 400 MCG TAB PO SCH (08:43)
[2019-05-17] MEDS: cefUROXime axetil 500 MG TAB PO SCH ×2 (08:43→21:09)
[2019-05-17] MEDS: allopurinoL 300 MG TAB PO SCH (08:44)
[2019-05-17] MEDS: FLUTICASONE PROPIONATE NA SPR 16 GM BTL SCH (08:44)
[2019-05-17] MEDS: LIDOCAINE 5% 1 PATCH TD SCH (08:44)
[2019-05-17] MEDS: LOSARTAN POTASSIUM 50 MG TAB PO SCH (08:45)
[2019-05-17] MEDS: guaiFENesin 600 MG TABCR PO SCH ×2 (08:45→21:10)
[2019-05-17] MEDS: PANTOprazole 40 MG TAB PO SCH (08:45)
[2019-05-17] MEDS: CYANOCOBALAMIN 500 MCG TABLET (VITAMIN B-12) PO SCH (08:47)
[2019-05-17] MEDS: INSULIN ASPART 100 UNITS/ML 3 ML PEN SC SCH ×4 (08:48→21:11)
[2019-05-17] MEDS: clonazePAM 1 MG TAB PO PRN ×2 (08:53→21:06)
[2019-05-17] MEDS ORDERED: LOSARTAN POTASSIUM 50 MG TAB PO ONE (10:15)
--- NOTE | 2019-05-17 14:01 | Cardiology Consultation ---
Date of Consultation May 17, 2019 Assessment & Plan (1) Chest pain syndrome: The patient's description of chest discomfort is somewhat vague, however, he does have a mildly elevated troponin and numerous risk factors for coronary artery disease. We will likely proceed with a dobutamine stress test. (2) Elevated troponin: Suspect his mild elevation is related to his COPD exacerbation and not an acute coronary syndrome. As above, we will likely perform a dobutamine stress echocardiogram. (3) Aortic stenosis: Mild to moderate aortic stenosis noted on current echocardiogram. (4) Hypertension: Borderline control on current medical regimen. (5) Hypercholesteremia: Continue pravastatin. History of Present Illness Attending Physician: Bunny Green History of Present Illness Mr. Rutledge is a 69 year old male admitted on May 15 with a COPD flare. This consultation was ordered to evaluate a chest pain syndrome. The patient carries a longstanding history of hypertension, hy percholesterolemia, and COPD. During this hospitalization, the patient has had 2 relatively brief episodes of a substernal chest discomfort. The patient has a difficult time describing the sensation, but explains that only lasted for a brief period of time and improved when he used a nebulizer treatment. Prior to this hospitalization, the patient had never experienced exertional angina pectoris. He does experience dyspnea because of his COPD. He further denies syncope, presyncope, PND, orthopnea, palpitations, lower extremity edema, and claudication. The patient did have an echocardiogram performed during this hospitalization which noted normal left ventricular systolic function without wall motion abnormalities. There is mild borderline moderate aortic stenosis with a valve area 1.5 cm2. Currently, patient is resting comfortably in bed without complaints. Past medical and surgical history 1. Hypertension 2. Hypercholesterolemia 3. Mild to moderate aortic stenosis 4. Diabetes mellitus 5. COPD 6. GERD 7. Gout 8. Thrombocytopenia 9. CVA-October 2012 10. Interocular lens implants Social history and lives with his Quit tobacco in 2006, 40 pack year history No alcohol Family history Mother at 46 from renal failure Father at 92 from old age. Review of systems A 10 point review of systems was negative except for that described above. Allergies Allergy/AdvReac Type Severity Reaction Status Date / Time iodine Allergy Intermediate SHORTNESS Verified 05/15/19 06:11 OF BREATH amoxicillin Allergy Mild RASH Verified 05/15/19 06:11 clavulanic acid Allergy Mild RASH Verified 05/15/19 06:11 clarithromycin Allergy Unknown UNKNOWN Verified 05/15/19 06:11 indomethacin Allergy Unknown UNKNOWN Verified 05/15/19 06:11 Home Medications Home Medications Medication Instructions Recorded Confirmed Type omeprazole 40 mg capsule,delayed 40 mg PO DAILY #90 cap 01/30/19 05/15/19 Rx release acetaminophen 325 mg capsule 325 mg PO Q4H PRN 03/05/19 05/15/19 History albuterol sulfate HFA 90 2 puffs INH Q6H PRN 03/05/19 05/15/19 History mcg/actuation aerosol inhaler allopurinol 300 mg tablet 300 mg PO DAILY 03/05/19 05/15/19 History metformin 500 mg tablet 500 mg PO BID 03/05/19 05/15/19 History metoprolol tartrate 50 mg tablet 50 mg PO BID 03/05/19 05/15/19 History ranitidine 300 mg tablet 300 mg PO DAILY 03/05/19 05/15/19 History vitamin B12 500 mcg-folic acid 400 1 tab PO DAILY 03/05/19 05/15/19 History mcg tablet aspirin 81 mg tablet,delayed 81 mg PO HS tab 04/21/19 05/15/19 History release losartan 50 mg tablet 50 mg PO QAM tab 04/21/19 05/15/19 History pravastatin 20 mg tablet 20 mg PO HS tab 04/21/19 05/15/19 History mometasone 50 mcg/actuation nasal 2 sprays INTNAS QAM #17 gm 04/24/19 05/15/19 Rx spray clonazepam 1 mg tablet 1 mg PO BID PRN #180 tab 05/12/19 05/15/19 Rx naproxen 500 mg tablet,delayed 500 mg PO BID #180 tab 05/12/19 05/15/19 Rx release tiotropium-olodaterol [Stiolto 2 puff INHALATION DAILY 05/15/19 05/15/19 History Respimat] Patient History Medical History COPD (chronic obstructive pulmonary disease) (Chronic) Acute bronchitis (Acute) Bronchitis (Acute) COPD exacerbation (Acute) COPD exacerbation (Acute) Failure of outpatient treatment (Acute) Influenza-like symptoms (Acute) 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 Beliefs That Will Affect Care: None marital status: Current Living Situation: Spouse Current Living Situation Comment: apartment in [place] current occupational status: retired current occupation: [employer] Other Information That Helps Us Care for You: No other: first marriage - 1 child; 2nd marriage - 2 children Feels Safe at Home: Yes Safety Concerns: Feels Safe At This Time Smoking Status: Former smoker Tobacco Type: cigarettes ; packs per day: 2 ; Years Smoked: 40 ; Cigarettes Per Day: 30-40 ; Smoking End Date: 2006 ; Hx Alcohol Use: No Hx Substance Use: No Physical Exam Physical Exam: In general this is a well-developed well-nourished white male in no acute distress. HEENT exam is negative. Neck is supple with full carotid upstrokes. There are no carotid bruits or transmitted murmurs.. Jugular venous pressure is flat at 90. There is no thyromegaly. Cardiovascular exam reveals a regular rhythm with a normal S1 and S2. A 2/6 basal systolic ejection murmur is noted. Lungs are clear without rales, rhonchi, or wheezes. Abdomen is soft and nontender without bruits. Extremities reveal intact radial artery and posterior tibial pulses bilaterally. There is no peripheral edema. Results & Data Vital Signs (Past 12 Hours) Vital Signs Temp Pulse Resp BP Pulse Ox 05/17/19 11:50 36.7 C 58 L 20 169/84 H 98 05/17/19 10:57 78 18 97 05/17/19 07:49 36.6 C 76 20 181/77 H 95 05/17/19 07:00 72 18 96 05/17/19 05:48 172/82 H 05/17/19 04:10 36.6 C 71 20 181/84 H 96 05/17/19 02:00 167/75 H Laboratory Results CBC notes a hemoglobin of 12.5, medical 35.5, white count 14.2, platelet count [id number]. Electrolytes note a sodium of 135, potassium 3.7, chloride 103, bicarb 26, BUN 17, creatinine 1.17, glucose of 144. Initial troponin was 0.163 with fall values of 0.211, 0.179, and 0.189. Diagnostic Findings EKG notes sinus tachycardia with premature atrial contractions and nonspecific ST and T-wave abnormality. PG Care Time/CCT Total # of Minutes Spent Total Time Spent with Patient: Total time spent is greater than 50% in coordination of care (as documented) at patient's floor/unit and/or counseling patient:
[2019-05-17] MEDS: ASPIRIN 81 MG ECTAB PO SCH (21:08)
[2019-05-17] MEDS: PRAVASTATIN SOD 20 MG TAB PO SCH (21:09)
[2019-05-17] MEDS: INSULIN GLARGINE SOLOSTAR 100 UNITS/ML 3 ML PEN SC SCH (21:12)
--- NOTE | 2019-05-17 21:28 | Hospitalist Progress Note ---
Date of Service May 17, 2019 Assessment & Plan (1) COPD exacerbation: IMPROVED/resolving nicely. STOP IV solumedrol. Change to prednisone 40mg daily starting tomorrow AM and wean over about a week. Cont Incentive jonha; flutter valve; mucinex BID. Cont Duonebs q6h. Cont ceftin 500mg BID. Day #3 of antibiotics. Plan 7 days in total. (2) Elevated troponin: Mild troponin elevation with peak then fall. Echo w/o wall motion abnormalities and normal EF. Last stress per records - 2014 - dobutamine stress (was negative). This was likely myocardial demand ischemia in setting of COPD exacerbation. Continue BB. Continue aspirin. Continue statin. He has had recurrent chest pain during the stay, however. Uncertain if cardiac vs pulmonary vs GI. He has numerous CAD risk factors. Dr Bella consulted from cardiology --- PLAN --- NPO after MN tonight; dobutamine stress echo in morning tomorrow. (3) DM w/o complication type II: Hold metformin. BSGs ac/hs acceptable. T2DM diet. Cont novolog correction factor 30; carb ratio 1:10. Cont lantus. Adjust as needed. (4) Essential (primary) hypertension: UNCONTROLLED. Suspect steroids are contributing AND anxiety. Increase losartan to 100mg daily. Cont other home meds. (5) Hyperlipidemia: Continue statin agent. (6) GERD (gastroesophageal reflux disease): Continue PPI and H2 kip as previous. Had refractory reflux-type symptoms yesterday (maybe due to doxycycline before it was changed to ceftin). Added carafate and this helped. (7) Gout: No flares at this time. Continue allopurinol prophylaxis. (8) Thrombocytopenia: Possibly due to viral effects on bone marrow. Repeat CBC yesterday stable and scantly below lower limit of normal. Follow. (9) Contact dermatitis: waist line. likely due to waistband of clothes or a detergent causing irritation. triamcinolone cream 0.1% TID in thin amounts. (10) Aortic stenosis: moderate. will need surveillance echos as outpatient every 2-3 years. (11) DVT prophylaxis: lovenox 40mg daily progressing from COPD standpoint stress test tomorrow d/c home next 1-2 days Subjective tele stable overnight. again patient has "rough nite" with poor sleep. took ambien but it didn't help. he was anxious during the visit today. denies any recurrent substernal chest pain. he cont with mild cough. he is walking the hallways with minimal amount of dyspnea on exertion. no o2 requirement. eating well. Review of Systems Constitutional: + fatigue; no fever, no chills and no anorexia Respiratory: + sputum production (minimal); no pain on inspiration Cardiovascular: no orthopnea, no paroxysmal nocturnal dyspnea, no palpitations and no edema Gastrointestinal: no abdominal pain, no nausea and no vomiting Integumentary: + rash (waistline area- improving ) Physical Exam Constitutional: well developed, well nourished, + obese and comfortable; no acute distress and no altered mental status ENMT: external ear and nose normal, oropharynx normal Respiratory: normal respiratory effort; no respiratory distress Auscultation: + wheezes (b/l - scant) Cardiovascular: Rate/Rhythm: regular rate and regular rhythm Heart Sounds: normal S1, normal S2 and + murmur (2/6 systolic- RUSB) Vessels: posterior tibial pulses present and dorsalis pedis pulses present; no JVD Extremities: no edema Gastrointestinal (Abdomen): normal bowel sounds, soft, nontender, no hepatosplenomegaly Percussion/Palpation: + hernia (minimal umbilical hernia - reducible ) Psychiatric: Orientation: alert and oriented x 3 Affect: + anxious affect Results & Data Vital Signs (Past 12 Hours) Vital Signs Temp Pulse Pulse Resp BP Pulse Ox 05/17/19 19:43 87 20 97 05/17/19 16:00 88 05/17/19 15:41 36.6 C 93 H 20 155/75 H 94 05/17/19 14:38 83 18 94 05/17/19 11:50 36.7 C 58 L 20 169/84 H 98 05/17/19 10:57 78 18 97 Laboratory Results Laboratory Results - last 24 hr 05/17/19 05/17/19 05/17/19 07:31 11:46 16:41 POC Glucose 140 H 151 H 158 H 05/17/19 20:22 POC Glucose 138 H PG Care Time/CCT Total # of Minutes Spent Total Time Spent with Patient: Total time spent is greater than 50% in coordination of care (as documented) at patient's floor/unit and/or counseling patient: (1) DM w/o complication type II 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: without snf use Qualified Code(s): E11.9 - Type 2 diabetes mellitus without complications (2) Gout Chronicity: chronic Gout etiology: unspecified cause Gout site: unspecified site Presence of tophus: without tophus Qualified Code(s): M1A.9XX0 - Chronic gout, unspecified, without tophus (tophi) (3) Hyperlipidemia Hyperlipidemia type: mixed hyperlipidemia Qualified Code(s): E78.2 - Mixed hyperlipidemia (4) GERD (gastroesophageal reflux disease) Esophagitis presence: without esophagitis Qualified Code(s): K21.9 - Gastro- esophageal reflux disease without esophagitis (5) Contact dermatitis Contact dermatitis trigger: other trigger Contact dermatitis type: irritant Qualified Code(s): L24.89 - Irritant contact dermatitis due to other agents; L24.8 - Irritant contact dermatitis due to other agents (6) Aortic stenosis Cardiac valve disease etiology: etiology unspecified Qualified Code(s): I35.0 - Nonrheumatic aortic (valve) stenosis
[2019-05-18 06:44] LABS: BUN Creatinine Ratio 15.9 (10-20); Calcium 8.4 mg/dl (8.5-10.1); Creatinine Clr Calc Pharmacy 64.4 ml/min; Est GFR (African American) 75.1; Est GFR (Non-African American) 64.8; Potassium 3.8 mmol/L (3.5-5.1)
[2019-05-18] MEDS: ALBUT/IPRATROP 3MG/0.5MG NEB 3 ML VIAL NEB SCH ×3 (07:13→15:01)
[2019-05-18] MEDS: INSULIN ASPART 100 UNITS/ML 3 ML PEN SC SCH ×2 (08:36→13:22)
[2019-05-18] MEDS ORDERED: LOSARTAN POTASSIUM 50 MG TAB PO SCH (09:00)
[2019-05-18] MEDS ORDERED: predniSONE 20 MG TAB PO SCH (09:00)
[2019-05-18] MEDS: SUCRALFATE 1 GM/10 ML UDC PO SCH ×2 (09:08→13:26)
[2019-05-18] MEDS: TRIAMCINOLONE ACET 0.1% CR 80 GM TUBE EXT SCH (09:09)
[2019-05-18] MEDS: cefUROXime axetil 500 MG TAB PO SCH (09:10)
[2019-05-18] MEDS: FLUTICASONE PROPIONATE NA SPR 16 GM BTL SCH (09:14)
[2019-05-18] MEDS: FOLIC ACID 400 MCG TAB PO SCH (09:15)
[2019-05-18] MEDS: LIDOCAINE 5% 1 PATCH TD SCH (09:15)
[2019-05-18] MEDS: METOPROLOL TARTRATE 50 MG TAB PO SCH (09:16)
[2019-05-18] MEDS: ENOXAPARIN INJ 40 MG/0.4 ML SYR SQ SCH (09:18)
[2019-05-18] MEDS: guaiFENesin 600 MG TABCR PO SCH (09:21)
[2019-05-18] MEDS: CYANOCOBALAMIN 500 MCG TABLET (VITAMIN B-12) PO SCH (09:24)
[2019-05-18] MEDS: PANTOprazole 40 MG TAB PO SCH (09:24)
[2019-05-18] MEDS: allopurinoL 300 MG TAB PO SCH (09:26)
--- NOTE | 2019-05-18 09:59 | Cardiology Progress Note ---
Date of Service May 18, 2019 Assessment & Plan (1) Chest pain syndrome: We will proceed with a dobutamine stress echocardiogram this morning realizing his complete chest discomfort, mildly elevated troponin, numerous risk factors for coronary artery disease. (2) Elevated troponin: Suspect his mildly elevated troponins related to his COPD exacerbation and not an acute coronary syndrome. (3) Aortic stenosis: Echocardiogram during this hospitalization noted mild to moderate aortic stenosis. (4) Hypertension: Borderline control on current medications. (5) Hypercholesteremia: Continue Pravachol. Subjective The patient is resting comfortably in bed complaints of chest pain or dyspnea. We plan to proceed with a stress test later this morning. Physical Exam Physical Exam: In general this is a well-developed well-nourished white male in no acute distress. HEENT exam is negative. Neck is supple with full carotid upstrokes. There are no carotid bruits or transmitted murmurs.. Jugular venous pressure is flat at 90. There is no thyromegaly. Cardiovascular exam reveals a regular rhythm with a normal S1 and S2. A 2/6 basal systolic ejection murmur is noted. Lungs are clear without rales, rhonchi, or wheezes. Abdomen is soft and nontender without bruits. Extremities reveal intact radial artery and posterior tibial pulses bilaterally. There is no peripheral edema. Results & Data Vital Signs (Past 12 Hours) Vital Signs Temp Pulse Pulse Resp BP Pulse Ox 05/18/19 07:30 36.7 C 57 L 18 187/77 H 94 05/18/19 07:13 61 14 97 05/18/19 04:38 36.9 C 56 L 20 170/78 H 95 05/17/19 23:34 36.7 C 84 72 20 173/82 H 94 PG Care Time/CCT Total # of Minutes Spent Total Time Spent with Patient: Total time spent is greater than 50% in co ordination of care (as documented) at patient's floor/unit and/or counseling patient: (1) Aortic stenosis Cardiac valve disease etiology: etiology unspecified Qualified Code(s): I35.0 - Nonrheumatic aortic (valve) stenosis
[2019-05-18] MEDS: DOBUTamine HCL 12.5 MG/ML 20 ML VIAL IV ONE ×2 (12:26→12:54)
[2019-05-18] MEDS: METOPROLOL TARTRATE 1 MG/ML VIAL IV ONE ×4 (12:26→12:54)
[2019-05-18] MEDS: ATROPINE SULFATE 0.1 MG/ML 10ML SYR IV ONE ×2 (12:26→12:53)
[2019-05-18 15:26] VITALS: TEMP 98.2; O2SAT 95
[2019-05-18 15:30] VITALS: BP 165/80; PULSE 57
--- NOTE | 2019-06-01 00:15 | Discharge Summary ---
Date of Service May 18, 2019 Admission HPI Per Admitting Provider 69yo male with COPD who presents with sore throat starting Saturday am, body aches starting Saturday, severe chills starting early this am, mild cough, worsening dyspnea on exertion, fever today, hoarse voice since Saturday, and nausea that began upon arrival to the [facility] ER. has been sick with URI. He and his live in an apartment building and several neighbors have had URIs. Admission Exam Per Admitting Provider Constitutional: well developed, well nourished, + obese and comfortable; no acute distress and no altered mental status Eyes: PERRL (lens implants b/l ) ENMT: Ears: + TM abnormality (right TM serous effusion; no purulence; left TM wnl) Mouth: + oropharynx abnormality (mild erythema) Neck: trachea midline, no thyromegaly Respiratory: normal respiratory effort; no respiratory distress Auscultation: + crackles (minimal bases) and + wheezes (b/l -- all lung segments) Cardiovascular: Rate/Rhythm: regular rhythm and + tachycardic Heart Sounds: normal S1, normal S2 and + murmur (2/6 systolic- RUSB) Vessels: posterior tibial pulses present and dorsalis pedis pulses present; no JVD Extremities: no edema Chest (Breasts): Additional Comments: no reproducible chest wall pain Gastrointestinal (Abdomen): normal bowel sounds, soft, nontender, no hepatosplenomegaly Percussion/Palpation: + hernia (minimal umbilical hernia - reducible ) Musculoskeletal: no cyanosis or clubbing, extremities motor strength 5/5 Skin: contact dermatitis b/l waist line Neurologic: deep tendon reflexes 2+ bilaterally; no focal motor deficits Psychiatric: A+Ox3, euthymic affect Lymphatic: no cervical lymphadenopathy Principal Diagnosis COPD exacerbation Moderate aortic stenosis Elevated troponin - demand ischemia GERD Hypertension Discharge Exam Constitutional well developed and + obese; no acute distress and no altered mental status Eyes + anicteric sclerae ENMT external ear and nose normal, oropharynx normal Neck normal visual inspection and trachea midline Respiratory normal respiratory effort; no respiratory distress Auscultation: lungs clear to auscultation bilaterally; no crackles and no wheezes Cardiovascular Rate/Rhythm: regular rate and regular rhythm Heart Sounds: normal S1, normal S2 and + murmur (3/6 systolic- RUSB) Vessels: no JVD Extremities: no edema Gastrointestinal (Abdomen) normal bowel sounds, soft, nontender, no hepatosplenomegaly Musculoskeletal no cyanosis or clubbing, extremities motor strength 5/5 Neurologic awake; no focal motor deficits and not confused Psychiatric A+Ox3, euthymic affect Discharge Data Allergies Allergy/AdvReac Type Severity Reaction Status Date / Time iodine Allergy Intermediate SHORTNESS Verified 05/30/19 10:16 OF BREATH amoxicillin Allergy Mild RASH Verified 05/30/19 10:16 clavulanic acid Allergy Mild RASH Verified 05/30/19 10:16 clarithromycin Allergy Unknown UNKNOWN Verified 05/30/19 10:16 indomethacin Allergy Unknown UNKNOWN Verified 05/30/19 10:16 Consultations 05/17/19 10:14 Consult Cardiology Routine Hospital Course (1) COPD exacerbation: Improved Started on tapering dose of prednisone Cont Incentive jonah; flutter valve; mucinex BID. Cont Duonebs q6h. Cont ceftin 500mg BID. Day #4 of antibiotics. Plan 7 days in total. (2) Elevated troponin: Demand-ischemia Echo w/o wall motion abnormalities and normal EF. Cardiology consulted and underwent dobutamine stress today which was negative for myocardial ischemia (3) DM w/o complication type II: Continue on home meds (4) Essential (primary) hypertension: UNCONTROLLED. Suspect steroids are contributing AND anxiety. Losartan increased to 100mg daily. Follow up with PCP. Repeat BMP in 4 weeks. Cont other home meds. (5) Hyperlipidemia: Continue statin agent. (6) GERD (gastroesophageal reflux disease): Continue PPI and H2 kip as previous. Some concern your chronic night time symptoms start when lying flat which may be due to your GERD. Recommend following up with your PCP regarding this since you are on two medications for this. Consider reducing NSAID use if possible as this may be exacerbating your symptoms. (7) Gout: No flares at this time. Continue allopurinol prophylaxis. (8) Contact dermatitis: waist line. likely due to waistband of clothes or a detergent causing irritation. triamcinolone cream 0.1% TID in thin amounts. (9) Aortic stenosis: moderate. will need surveillance echos as outpatient every 1-2 years, sooner if assymptomatic. Total Time Total Time Spent Total Time Spent (In Minutes): 40 Total Time Includes: Examination of the Patient, Discharge Planning, Medication Reconciliation and Communication With Other Providers Discharge Plan Discharge Items Patient Disposition: Home - Self-Care Reason For Visit: COPD EXACERBATION Discharge Diagnosis: COPD exacerbation Moderate aortic stenosis Elevated troponin - demand ischemia GERD Hypertension Condition on Discharge: Good Activity: Resume your previous activity Non-emergency contact: Primary Care Provider Call non-emergency contact if: you have any medication questions and your symptoms worsen Follow-up/Referrals: Harjeet Molina III, MD [Primary Care Provider] - Marisa Swan PA-C [Physician Tower Switch Operator] - (4 weeks, hospital follow up) Diet: Carb Consistent or DM2 Ambulatory Orders: Basic Metabolic Panel (Routine) Timeframe: 4 Weeks Location: Determined by Patient Ordered By: Bunny Carpio Attending Provider Instructions: You were admitted with shortness of breath, chills and sore throat. Diagnosed with COPD exacerbation likely due to viral illness. This was treated with antibiotics, steroids and nebulizer treatment, although no definitive pneumonia on chest XR. 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 Some concern your chronic night time symptoms start when lying flat which may be due to your GERD. Recommend following up with your PCP regarding this since you are on two medications for this. Consider reducing NSAID use if possible as this may be exacerbating your symptoms. High blood pressure. Consistently elevated during admission. Losartan was increased to 100mg PO daily. Recommend repeat kidney function test in approximately 4 weeks for routine monitoring of this medication. You were also diagnosed with aortic stenosis incidentally found on echocardiogram. Recommend repeat echocardiogram in 1-2 years, sooner if symptomatic. Pending Studies at Discharge: No Stand-Alone Forms: My [facility] Medications and DC Order Prescriptions: Continued omeprazole 40 mg capsule,delayed release(DR/EC) 40 mg PO DAILY Qty: 90 RF: 2 clonazepam 1 mg tablet 1 mg PO BID PRN (Reason: anxiety) Qty: 180 RF: 0 naproxen 500 mg tablet,delayed release (DR/EC) 500 mg PO BID Qty: 180 RF: 0 allopurinol 300 mg tablet 300 mg PO DAILY RF: 0 metformin 500 mg tablet 500 mg PO BID RF: 0 metoprolol tartrate 50 mg tablet 50 mg PO BID RF: 0 acetaminophen [Tylenol] 325 mg capsule 325 mg PO Q4H PRN (Reason: Pain) RF: 0 vitamin [id number] acid 500-400 mcg tablet 1 tab PO DAILY RF: 0 aspirin [Adult Aspirin Regimen] 81 mg tablet,delayed release (DR/EC) 81 mg PO HS RF: 0 pravastatin 20 mg tablet 20 mg PO HS RF: 0 mometasone [Nasonex] 50 mcg/actuation spray,non-aerosol 2 sprays INTNAS QAM Qty: 17 RF: 0 Stiolto Respimat 2.5-2.5 mcg/actuation mist 2 puff inhalation DAILY RF: 0 Changed losartan 50 mg tablet 100 mg PO QAM Qty: 0 RF: 0 Discontinued ranitidine HCl 300 mg tablet 300 mg PO DAILY RF: 0 No Action famotidine 20 mg tablet 40 mg PO DAILY Qty: 30 RF: 5 sucralfate [Carafate] 1 gram tablet 1 gm PO QID 7 Days Qty: 28 RF: 0 albuterol sulfate [Ventolin HFA] 90 mcg/actuation HFA aerosol inhaler 2 puffs INH Q6H PRN (Reason: Shortness Of Breath) Qty: 8.5 RF: 5 ranitidine HCl 300 mg Tablet 300 mg PO DAILY RF: 0 Discharge Orders: Discharge Order (Routine); Ordered 05/18/19 Ordered By: Bunny Oropeza Admission Data Admit Date/Time: 05/15/19 08:39 Attending Provider: Bunny Oropeza Admit Provider: Bunny Green Primary Care Provider: Harjeet Molina III Other Providers: Jean Marie Bella Other Interventions: Discharge Summary Assessment (RN) Last Done: 05/18/19 15:35 DC Date/Time DO NOT enter until pt leaves facility: 05/18/19 16:12
== END 2019-05-18 16:12 | disposition home or self-care (01) | DRG 191 ==
LOC: ED 05:29 → SUATTDRO 08:39 → 2N 08:39

== ENCOUNTER 2019-12-18 01:44 | Observation (INO) ==
--- NOTE | 2019-12-18 02:20 | Emergency Department Note ---
Impression & Plan Left-sided chest pain ED Provider Note NAME: JEAN PAUL BERRIOS AGE: 69 SEX: M ARRIVES VIA: Ambulance INFORMANT: Patient ED PROVIDER(S): Erin Hooper DO CHIEF COMPLAINT: Chest pain PLAN: [facility] MEDICAL DECISION MAKING: This is a 69-year-old male patient with a history of diabetes, hypertension and COPD who presents to the emergency department with intermittent episodes of left-sided chest discomfort. The patient called EMS tonight as he described an ache/hurt/pressure in the left side of his chest that radiated up into his neck, throat and into his back. This discomfort was relieved by nitroglycerin and aspirin. Patient had a normal-appearing EKG and negative troponin at this time. He remained somewhat hypertensive and tachycardic while here in the emergency department. Given his risk factors for heart disease, I felt he would require further evaluation and work-up as an inpatient. [facility] for further management. Triage Nursing notes reviewed and agree them. Prior medical records reviewed and it seems that the patient presented with tachycardia in the fall and underwent a stress echo at that time which was unremarkable. The patient did have an elevated troponin at that time. Vital Signs: reviewed and remarkable for tachycardia and hypertension Differential diagnosis: Anxiety, GERD, cardiac ischemia, congestive heart failure, hypertensive emergency ER treatment provided: IV Ativan The patient received sublingual nitro and oral aspirin by EMS Diagnostics interpreted by me: ECG: Normal sinus rhythm with first-degree AV block at 96. No ST segment elevation or ST segment depression. No ectopy no signs of ischemia no T wave inversion. Cardiac Monitoring: Sinus tachycardia at a rate of 101. Laboratory studies: See below Imaging studies: Chest x-ray: No acute pulmonary infiltrates or consolidations HPI: 69/M arrives for evaluation of chest pain. This is a 69-year-old male patient who presents to the emergency department with an episode of chest pain that started around 8 PM this evening while he was playing some computer games on his laptop. He describes the pain as a "hurt." He went on to describe it more as an ache or a pressure that radiated up into his neck and into his back.. The patient had a similar episode at 10 AM this morning that was also associated with a headache but thought this was secondary to wearing a mask. The patient was able to lay down and rest tonight but the pain came back and he became more concerned. EMS was called. They administered sublingual nitro and aspirin which relieved his symptoms. The patient has a history of diabetes and hypertension as well as COPD. He was admitted to the hospital last fall with a rapid heartbeat and underwent a stress echo which apparently was normal as he describes it. ROS: See above HPI for pertinent positives & negatives. A total of 10 systems reviewed and were otherwise negative. PAST MEDICAL HISTORY:See Below PAST SURGICAL HISTORY:See Below FAMILY HISTORY:See Below SOCIAL HISTORY:See Below HOME MEDICATIONS:See list ALLERGIES:See list VITALS:See Below PHYSICAL EXAMINATION: HEENT: Head - normocephalic and atraumatic. Pupils are equal, round, and reactive to light. Extraocular eye muscles are intact, and sclera are an icteric. Nose - moist nasal mucosa without discharge. Mouth - moist buccal mucosa. Oropharynx is nonerythematous and there is no tonsillar exudate or edema noted. Neck: Supple; no JVD, nuchal rigidity, cervical lymphadenopathy, or auscultated bruits. Heart: Tachycardic rate and regular there is a normal S1 and S2 with no murmurs, clicks, or gallops appreciated. Lungs: Clear to auscultation bilaterally with no wheezes, rales, or rhonchi. Abdomen: Soft, completely nontender, nondistended, with good bowel sounds. There are no palpable pulsatile masses or hepatosplenomegaly. There is no guar ding, rigidity, or rebound noted. Extremities: No evidence of cyanosis or clubbing. The patient does have trace pedal edema. There are easily palpable peripheral pulses. Skin: warm and dry with good turgor and no rashes. ED COURSE: Times/Reassessments: 0200: The patient was evaluated in room C7. A complete history and physical was performed. Previous electronic medical records were reviewed. An order was placed for continuous cardiac monitoring. The patient was in sinus tachycardia at a rate of 110. Laboratory studies were drawn as abo ve. A twelve-lead EKG was obtained. A portable chest x-ray was obtained. 0325: I rechecked the patient and he remained chest pain-free at this time. I reviewed the results of the chest x-ray and laboratory studies with the patient. 0345: I discussed the situation with the patient's on the phone. Erin Hooper DO Past Med/Surg History Medical History (Updated 12/18/19 @ 04:06 by Erin Hooper DO) Acute bronchitis Bronchitis COPD (chronic obstructive pulmonary disease) COPD exacerbation COPD exacerbation DM w/o complication type II Essential (primary) hypertension Failure of outpatient treatment GERD (gastroesophageal reflux disease) Gout Hyperlipidemia Influenza-like symptoms Lacunar infarction (Chronic 10/15/12) Pulmonary nodules Thrombocytopenia Upper respiratory infection Surgical History (Updated 05/15/19 @ 08:50 by Bunny Green) H/O tooth extraction S/P cataract extraction Family History (Updated 05/15/19 @ 08:15 by Bunny Green) Mother , age 46 Kidney disease Father , age 92 - "old age"; suffered from severe osteoarthritis No problems noted. 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 Beliefs That Will Affect Care: None marital status: Current Living Situation: Spouse Current Living Situation Comment: apartment in [place] current occupational status: retired current occupation: [employer] other: first marriage - 1 child; 2nd marriage - 2 children Feels Safe at Home: Yes Smoking Status: Former smoker Tobacco Type: cigarettes ; packs per day: 2 ; Cigarettes Per Day: 30-40 ; Hx Alcohol Use: No Hx Substance Use: No Allergies Allergies Allergy/AdvReac Type Severity Reaction Status Date / Time iodine Allergy Intermediate SHORTNESS Verified 12/18/19 02:24 OF BREATH amoxicillin Allergy Mild RASH Verified 12/18/19 02:24 clavulanic acid Allergy Mild RASH Verified 12/18/19 02:24 clarithromycin Allergy Unknown UNKNOWN Verified 12/18/19 02:24 indomethacin Allergy Unknown UNKNOWN Verified 12/18/19 02:24 Home Meds Home Medications Medication Instructions Recorded Confirmed vitamin B12 500 mcg-folic acid 400 1 tab PO BID 03/05/19 12/18/19 mcg tablet aspirin 81 mg tablet,delayed 81 mg PO HS tab 04/21/19 12/18/19 release famotidine 20 mg PO DAILY 12/18/19 12/18/19 Previous Rx's Medication Instructions Recorded mometasone 50 mcg/actuation nasal 2 sprays INTNAS QAM #17 gm 04/24/19 spray allopurinol 300 mg tablet 300 mg PO DAILY #90 tab 06/11/19 metformin 500 mg tablet 500 mg PO BID #180 tab 06/11/19 metoprolol tartrate 50 mg tablet 50 mg PO BID #180 tab 06/11/19 pravastatin 20 mg tablet 20 mg PO HS #90 tab 06/11/19 tiotropium 2.5 mcg-olodaterol 2.5 2 puff INHALATION DAILY #4 gm 06/19/19 mcg/actuation mist for inhalation naproxen 500 mg tablet,delayed 500 mg PO BID #180 tab 08/10/19 release cyclobenzaprine 5 mg tablet See Rx Instructions PO TID PRN #90 08/20/19 tab blood sugar diagnostic #300 ea 09/04/19 clonazepam 1 mg tablet 1 mg PO BID PRN #180 tab 10/26/19 losartan 50 mg tablet 50 mg PO DAILY #90 tab 10/26/19 amlodipine 5 mg tablet 5 mg PO DAILY #90 tab 11/02/19 omeprazole 40 mg capsule,delayed 40 mg PO DAILY #90 cap 11/02/19 release tadalafil 5 mg tablet 5 mg PO DAILY #30 tab 12/01/19 albuterol sulfate 90 mcg/actuation 2 puffs INH Q6H PRN #8.5 gm 12/03/19 aerosol inhaler Results & Data (ED) Vital Signs Vital Signs - 24 hr 12/18/19 01:58 12/18/19 02:15 12/18/19 03:15 Temperature 37.1 C Temperature Source Oral Pulse Rate 101 H Pulse Rate [Right Finger] 102 H Pulse Rhythm [Right Finger] Regular Pulse Strength [Right Finger] Normal Respiratory Rate 20 20 Respiratory Effort / Characteristics Non-Labored Spontaneous Respiratory Depth Normal Respiratory Pattern Regular Blood Pressure 157/83 H Blood Pressure [Right Arm] 148/93 H Blood Pressure Mean 107 Blood Pressure Mean [Right Arm] 111 Pulse Oximetry 97 97 Oxygen Delivery Method Room Air Room Air Room Air Sepsis Recent Fever Within 48 Hours No Sepsis Action Taken by Nursing No Action Required Laboratory Data Result diagrams: 12/18/19 01:57 12/18/19 01:57 Lab Results 12/18/19 12/18/19 12/18/19 Range/Units 01:57 01:57 01:57 WBC 11.06 H (4.8-10.8) K/uL RBC 4.12 L (4.7-6.1) M/uL Hgb 13.6 L (14.0-18.0) g/dL Hct 37.9 L (42-52) % MCV 92.0 (80-100) fL MCH 33.0 (25-34) pg MCHC 35.9 (32-36) g/dL RDW Std Deviation 44.6 (36.4-46.3) fL RDW Coeff of Kang 13.4 (11.5-14.5) % Plt Count 181 (130-400) K/uL MPV 10.2 (7.4-10.4) fL Immature Gran % (Auto) 0.4 % Neut % (Auto) 75.9 % Lymph % (Auto) 13.5 % [place] % (Auto) 7.6 % Eos % (Auto) 2.3 % Baso % (Auto) 0.3 % Immature Gran # (Auto) 0.04 H (0.00-0.02) K/uL Neut # (Auto) 8.41 H (1.4-6.5) K/uL Lymph # (Auto) 1.49 (1.2-3.4) K/uL [place] # (Auto) 0.84 H (0.11-0.59) K/uL Eos # (Auto) 0.25 (0-0.5) K/uL Baso # (Auto) 0.03 (0-0.2) K/uL PT 10.3 (9.0-12.0) Seconds INR 1.0 (0.9-1.1) APTT 25.7 (21.0-31.0) Seconds PTT Ratio 0.9 Sodium 136 (136-145) mmol/L Potassium 3.7 (3.5-5.1) mmol/L Chloride 101 (98-107) mmol/L Carbon Dioxide 28 (21-32) mmol/L Anion Gap 7.0 (3-11) BUN 14 (7-18) mg/dl Creatinine 1.08 (0.6-1.4) mg/dl Est Cr Clr Drug Dosing 68.4 ml/min Est GFR ( Amer) 80.2 Est GFR (Non-Af Amer) 69.2 BUN/Creatinine Ratio 13.2 (10-20) Glucose 112 H (70-99) mg/dl Calcium 8.9 (8.5-10.1) mg/dl Total Bilirubin 0.4 (0.2-1) mg/dl AST 12 L (15-37) U/L ALT 23 (12-78) U/L Alkaline Phosphatase 64 (45-117) U/L Troponin I 0.022 (0-0.045) ng/ml Total Protein 8.0 (6.4-8.2) gm/dl Albumin 4.1 (3.4-5.0) gm/dl Globulin 3.9 (2.5-4.0) gm/dl Albumin/Globulin Ratio 1.1 (0.9-2) Lipase 60 L (73-393) U/L Administered Medications Discontinued Medications Lorazepam (Ativan) 0.5 mg in 1 mls @ 1 mls/min IV NOW STA Stop: 12/18/19 03:06 Last Admin: 12/18/19 03:14 Dose: 1 mls/min Documented by: [id number] Discharge Plan Visit Data Chief Complaint: Chest Pain Stated Complaint: Chest pain ED Provider: Erin Hooper Discharge Problem: Left-sided chest pain Forms Stand Alone Forms: My [facility] Prescriptions Prescriptions: No Action allopurinol 300 mg tablet 300 mg PO DAILY Qty: 90 RF: 3 metformin 500 mg tablet 500 mg PO BID Qty: 180 RF: 3 metoprolol tartrate 50 mg tablet 50 mg PO BID Qty: 180 RF: 3 pravastatin 20 mg tablet 20 mg PO HS Qty: 90 RF: 3 Stiolto Respimat 2.5-2.5 mcg/actuation mist 2 puff inhalation DAILY Qty: 4 RF: 5 naproxen 500 mg tablet,delayed release (DR/EC) 500 mg PO BID Qty: 180 RF: 0 cyclobenzaprine 5 mg tablet See Rx Instructions PO TID PRN (Reason: low back pain) Qty: 90 RF: 1 (DME) OneTouch Ultra Blue Test Strip Strip See Rx Instructions .ROUTE .MEDSUPPLY Qty: 300 RF: 3 clonazepam 1 mg tablet 1 mg PO BID PRN (Reason: anxiety) Qty: 180 RF: 0 losartan 50 mg tablet 50 mg PO DAILY Qty: 90 RF: 3 amlodipine 5 mg tablet 5 mg PO DAILY Qty: 90 RF: 3 omeprazole 40 mg capsule,delayed release(DR/EC) 40 mg PO DAILY Qty: 90 RF: 3 tadalafil 5 mg tablet 5 mg PO DAILY Qty: 30 RF: 5 albuterol sulfate [Ventolin HFA] 90 mcg/actuation HFA aerosol inhaler 2 puffs INH Q6H PRN (Reason: Shortness Of Breath) Qty: 8.5 RF: 5 vitamin K62-bhkae acid 500-400 mcg tablet 1 tab PO BID RF: 0 aspirin [Adult Aspirin Regimen] 81 mg tablet,delayed release (DR/EC) 81 mg PO HS RF: 0 mometasone [Nasonex] 50 mcg/actuation spray,non-aerosol 2 sprays INTNAS QAM Qty: 17 RF: 0 famotidine 20 mg tablet 20 mg PO DAILY RF: 0
[2019-12-18 02:24] LABS: Basophils # (auto) 0.03 K/uL (0-0.2); Basophils % (auto) 0.3 %; Eosinophils # (auto) 0.25 K/uL (0-0.5); Eosinophils % (auto) 2.3 %; Hematocrit (blood only) 37.9 % (42-52); Hemoglobin 13.6 g/dL (14.0-18.0); Immature Granulocytes # (auto) 0.04 K/uL (0.00-0.02); Immature Granulocytes % (auto) 0.4 %; Lymphocytes # (auto) 1.49 K/uL (1.2-3.4); Lymphocytes % (auto) 13.5 %; Mean Corpuscular Hgb Conc 35.9 g/dL (32-36); Mean Platelet Volume 10.2 fL (7.4-10.4); Monocytes # (auto) 0.84 K/uL (0.11-0.59); Monocytes % (auto) 7.6 %; Neutrophils # (auto) 8.41 K/uL (1.4-6.5); Neutrophils % (auto) 75.9 %; Platelet Count 181 K/uL (130-400); RDW Coefficient of Variation 13.4 % (11.5-14.5); RDW Standard Deviation 44.6 fL (36.4-46.3); Red Blood Count 4.12 M/uL (4.7-6.1); White Blood Count 11.06 K/uL (4.8-10.8)
[2019-12-18 02:30] LABS: Partial Thromboplastin Ratio 0.9; Partial Thromboplastin Time 25.7 Seconds (21.0-31.0); Prothrombin Time 10.3 Seconds (9.0-12.0)
[2019-12-18 02:32] LABS: Albumin Level 4.1 gm/dl (3.4-5.0); BUN Creatinine Ratio 13.2 (10-20); Calcium 8.9 mg/dl (8.5-10.1); Creatinine Clr Calc Pharmacy 68.4 ml/min; Est GFR (African American) 80.2; Est GFR (Non-African American) 69.2; Potassium 3.7 mmol/L (3.5-5.1)
[2019-12-18 02:37] LABS: Albumin Globulin Ratio 1.1 (0.9-2); Bilirubin,Total 0.4 mg/dl (0.2-1); Globulin 3.9 gm/dl (2.5-4.0); Troponin I 0.022 ng/ml (0-0.045)
[2019-12-18] MEDS ORDERED: LORazepam 0.5 MG/1 ML VIAL IV STA (03:05)
--- NOTE | 2019-12-18 04:30 | History & Physical Report ---
Date of Service December 18, 2019 Assessment & Plan (1) Left-sided chest pain: Jr Rutledge is a 69 year old man with multiple risk factors of CAD who presents with atypical chest pain. Chest pain Based on his description appears atypical for ACS, being pleuritic in nature, radiating up from abdomen and being positional, however it was relieved by nitroglycerin Troponin negative, ECG showing no acute ischemic changes, CXR normal As he has had previous presentation for similar symptoms and has multiple risk factors for CAD including HTN, DMII, HLD, and age we will admit for observation to Med-Tele Will place on monitor, given nitro and ASA, continuing home statin, beta kip and ARB Previous negative dobutamine stress echo in May, consulted cardiology, will hold off on ordering stress test until evaluation. Will make NPO in case of cath COPD Stable continuing home medications DMII HOlding metformin placed on sliding scale Patient NPO pending cardiology evaluation HTN Mildly hypertensive on admission Will continue patients home regime of amlodipine, losartan and metoprolol Neck Pain Chronic, has stopped taking NSAID's for varghese virus concern Will order lidocaine patch for neck DVT PPx: SCD's F/E/N: Normal saline +20meq Kcl at 80 mls/hour Dispo: Admit to med [facility] for cardiology evaluation and monitoring for chest pain rule out DNR/DNI (2) Anemia: (3) AAA (abdominal aortic aneurysm): (4) Anxiety disorder: (5) BPH (benign prostatic hyperplasia): (6) Chronic obstructive pulmonary disease: History of Present Illness Chief Complaint: Chest Pain Primary Care Provider: Harjeet Molina MD Ms. Jr Rutledge is a 69 year old man with a past medical history significant for DMII, HTN, COPD, HLD, GERD, gout, and aortic stenosis who is here today for chest pain. Chest pain began around 10 am morning as a tightness in his chest while he was out running an errand. He blamed it on having to wear his mask which he said makes his breathing uncomfortable and gives him chest tightness. This was quickly resolved by taking the mask off. He then felt in his usual state of health for the rest of the day until he relaxed to play some computer games around 11 pm night. He felt this tightness in his chest return. He describes the feeling in his chest as a tightness, it starts in the upper part of his abdomen and moves up the midline of his chest. He denies any other radiation than up from his abdomen. He says the pain is very postiional and he was most comfortable while lying on his side. He also says it is always associated with his breathing and feels it at the end of long inhalation. He has no chest pain currently but a small amount of tightness in his upper abdomen lower chest just deep to his xyphoid. He denies fevers, chills, sweats, neause, vomiting, lightheadedness, sycnope, palpitations, diarrhea, constipation. he does endorse chronically slow stream urination and chronic polydipsia polyuria. He tells me his sugars have been very well controlled of late less than 110 on average. He denies any breathing troubles other than the chest pain associated with it, no more short of breath than usual, no cough, no sick contacts, no recent travel. On arrival to ED via ambulance he received nitro and ASA which seemed to relieve his chest pain. His vitals were singificant for HTN and tachycardia, regular sinus. ECG showing no acute ST changes or concerning signs of ischemia. Labwork significant for mildly elevated white count of 11, negative troponin, negative lipase. He had a similar admission in May where he received a dobutamine stress echo which showed no acute ischemic changes. He is a former smoker quit about 13 years ago, former heavy drinker quit also 13 years ago and now drinks only occasionally at a "moose club". He does not use recreational drugs. 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 Wishes to be DNR/DNI. Allergies Allergy/AdvReac Type Severity Reaction Status Date / Time iodine Allergy Intermediate SHORTNESS Verified 12/18/19 02:24 OF BREATH amoxicillin Allergy Mild RASH Verified 12/18/19 02:24 clavulanic acid Allergy Mild RASH Verified 12/18/19 02:24 clarithromycin Allergy Unknown UNKNOWN Verified 12/18/19 02:24 indomethacin Allergy Unknown UNKNOWN Verified 12/18/19 02:24 Home Medications Home Medications Medication Instructions Recorded Confirmed Type vitamin B12 500 mcg-folic acid 400 1 tab PO BID 03/05/19 12/18/19 History mcg tablet aspirin 81 mg tablet,delayed 81 mg PO HS tab 04/21/19 12/18/19 History release mometasone 50 mcg/actuation nasal 2 sprays INTNAS QAM #17 gm 04/24/19 12/18/19 Rx spray allopurinol 300 mg tablet 300 mg PO DAILY #90 tab 06/11/19 12/18/19 Rx metformin 500 mg tablet 500 mg PO BID #180 tab 06/11/19 12/18/19 Rx metoprolol tartrate 50 mg tablet 50 mg PO BID #180 tab 06/11/19 12/18/19 Rx pravastatin 20 mg tablet 20 mg PO HS #90 tab 06/11/19 12/18/19 Rx tiotropium 2.5 mcg-olodaterol 2.5 2 puff INHALATION DAILY #4 gm 06/19/19 12/18/19 Rx mcg/actuation mist for inhalation naproxen 500 mg tablet,delayed 500 mg PO BID #180 tab 08/10/19 12/18/19 Rx release cyclobenzaprine 5 mg tablet See Rx Instructions PO TID PRN #90 08/20/19 12/18/19 Rx tab blood sugar diagnostic #300 ea 09/04/19 Rx clonazepam 1 mg tablet 1 mg PO BID PRN #180 tab 10/26/19 12/18/19 Rx losartan 50 mg tablet 50 mg PO DAILY #90 tab 10/26/19 12/18/19 Rx amlodipine 5 mg tablet 5 mg PO DAILY #90 tab 11/02/19 12/18/19 Rx omeprazole 40 mg capsule,delayed 40 mg PO DAILY #90 cap 11/02/19 12/18/19 Rx release tadalafil 5 mg tablet 5 mg PO DAILY #30 tab 12/01/19 12/18/19 Rx albuterol sulfate 90 mcg/actuation 2 puffs INH Q6H PRN #8.5 gm 12/03/19 12/18/19 Rx aerosol inhaler famotidine 20 mg PO DAILY 12/18/19 12/18/19 History Past Med/Surg History Medical History Acute bronchitis Aortic stenosis Bronchitis COPD (chronic obstructive pulmonary disease) DM w/o complication type II Essential (primary) hypertension Failure of outpatient treatment GERD (gastroesophageal reflux disease) Gout Hyperlipidemia Influenza-like symptoms Lacunar infarction (Chronic 10/15/12) Pulmonary nodules Thrombocytopenia Upper respiratory infection Surgical History H/O tooth extraction S/P cataract extraction Family History Mother , age 46 Kidney disease Father , age 92 - "old age"; suffered from severe osteoarthritis No problems noted. 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 Beliefs That Will Affect Care: None marital status: Current Living Situation: Spouse Current Living Situation Comment: apartment in [place] current occupational status: retired current occupation: [employer] other: first marriage - 1 child; 2nd marriage - 2 children Feels Safe at Home: Yes Smoking Status: Former smoker Tobacco Type: cigarettes ; packs per day: 2 ; Cigarettes Per Day: 30-40 ; Hx Alcohol Use: Yes Hx Substance Use: No Review of Systems Review of Systems: All systems reviewed & are unremarkable except as noted in HPI & below Physical Exam Constitutional: WD/WN, vitals as above Eyes: PERRL, conjunctivae normal, anicteric sclerae ENMT: external ear and nose normal, oropharynx normal Neck: trachea midline, no thyromegaly Respiratory: normal respiratory effort, lungs clear to auscultation Cardiovascular: Rate/Rhythm: regular rhythm and + tachycardic Heart Sounds: + murmur (Systolic ejection murmur best appreciated at right sternal border); no click and no gallop Gastrointestinal (Abdomen): normal bowel sounds, soft, nontender, no hepatosplenomegaly Skin: no rashes, warm and dry Neurologic: patellar DTR's 2+ bilat, sensation intact and PERRL, EOMI, accommodation nl, no face palsy, no dysarthria Psychiatric: Affect: + anxious affect Results & Data Results & Data ([facility]) Vital Signs (Past 12 Hours) Vital Signs Temp Pulse Pulse Resp BP BP Pulse Ox 12/18/19 03:15 102 H 20 148/93 H 97 12/18/19 01:58 37.1 C 101 H 20 157/83 H 97 Supervising Physician Co-Signing Physician Notes Attending addendum: I have physically seen this patient, have supervised the medical residents activities, and agree with the H&P unless as otherwise noted. Assessment and Plan: Left-sided chest pain/hypertension- The patient will be admitted to telemetry for serial cardiac enzymes, serial EKG's, cardiac rhythm monitoring and a 2-D echocardiogram with Dopplers. Continue aspirin 81 mg daily, losartan 50 mg daily, metoprolol tartrate 50 mg p.o. twice daily. N.p.o. after midnight. Multiple risk factors including: Hypertension, diabetes mellitus, hyperlipidemia, overweight and age. Consult cardiology Diabetes mellitus- Hold metformin. Placed on Accu-Cheks before meals and at bedtime with NovoLog coverage per scale Remainder of orders and notations as noted. Resident Activity Tracking Resident Involvement: Resident Care Provided Care Provided: Adult [facility] Medicine
[2019-12-18] MEDS ORDERED: ALBUTEROL HFA 8 GM INHALER INH PRN (05:08)
[2019-12-18] MEDS ORDERED: POLYETHYLENE (MIRALAX) 17 GM PACK PO PRN (05:08)
[2019-12-18] MEDS ORDERED: CARBOHYDRATES FOR HYPOGLYCEMIA PO PRN (05:08)
[2019-12-18] MEDS ORDERED: GLUCAGON FOR INJ 1 MG VIAL SQ PRN (05:08)
[2019-12-18] MEDS ORDERED: ONDANSETRON INJ 2 MG/ML 2 ML VIAL IV PRN (05:08)
[2019-12-18] MEDS ORDERED: clonazePAM 1 MG TAB PO PRN (05:08)
[2019-12-18] MEDS ORDERED: NITROGLYCERIN SL 0.4 MG/TAB TAB SL PRN (05:08)
[2019-12-18] MEDS ORDERED: MoRPHine SULFATE 2 MG/ML CARP IV PRN (05:08)
[2019-12-18] MEDS ORDERED: GLUCOSE 10 TABS/TUBE PO PRN (05:08)
[2019-12-18] MEDS ORDERED: ACETAMINOPHEN 325 MG TAB PO PRN (05:08)
[2019-12-18] MEDS ORDERED: DEXTROSE 50% 50 ML SYRINGE IV PRN (05:08)
[2019-12-18] MEDS ORDERED: NSS + 20MEQ KCL 20 MEQ/1,000 ML BAG IV SCH (05:08)
[2019-12-18] MEDS ORDERED: GLUCOSE 40% GEL 15 GM TUBE PO PRN (05:08)
[2019-12-18] MEDS ORDERED: LIDOCAINE 5% 1 PATCH TD SCH ×2 (06:00→09:00)
--- NOTE | 2019-12-18 06:42 | XRay Report ---
XR chest 1V portable HISTORY: 69 years-old Male Chest Pain acute atypical chest pain COMPARISON: Chest radiographs 05/15/2019, chest CT 02/11/2018 TECHNIQUE: Portable AP view of the chest FINDINGS: Cardiac silhouette is upper limits of normal in size. Pulmonary vascular congestion with new mild int erstitial coarsening. There is no pneumothorax, pleural effusion or focal airspace consolidation. Deg enerative changes of the shoulders and spine. IMPRESSION: Pulmonary vascular congestion with new interstitial coarsening suspicious for developing pulmonary edema versus atypical pneumonitis. ACT 112: Negative or not required by law. The above report was generated using voice recognition software. It may contain grammatical, syntax o r spelling errors. Electronically signed by: Alexey Holland M.D. 12/18/2019 6:40 AM
[2019-12-18] MEDS ORDERED: TADALAFIL~ORDER AWAITING ACTION SCH (08:00)
[2019-12-18] MEDS: INSULIN ASPART 100 UNITS/ML 3 ML PEN SC SCH ×2 (08:38→12:34)
[2019-12-18] MEDS ORDERED: AMLODIPINE BESYLATE 5 MG TAB PO SCH (09:00)
[2019-12-18] MEDS ORDERED: UMECLIDINIUM/VILANTEROL 62.5/25MCG 7 PUFFS/INHALER INH SCH (09:00)
[2019-12-18] MEDS ORDERED: PANTOprazole 40 MG TAB PO SCH (09:00)
[2019-12-18] MEDS ORDERED: FAMOTIDINE 20 MG TAB PO SCH (09:00)
[2019-12-18] MEDS ORDERED: METOPROLOL TARTRATE 50 MG TAB PO SCH (09:00)
[2019-12-18] MEDS ORDERED: LOSARTAN POTASSIUM 50 MG TAB PO SCH (09:00)
[2019-12-18] MEDS ORDERED: FLUTICASONE PROPIONATE NA SPR 16 GM BTL SCH (09:00)
[2019-12-18] MEDS ORDERED: NON-FORMULARY MEDICATION (Vitamin B12-Folic Acid 1 TAB) PO SCH (09:00)
[2019-12-18] MEDS ORDERED: allopurinoL 300 MG TAB PO SCH (09:00)
--- NOTE | 2019-12-18 11:33 | Cardiology Consultation ---
Date of Consultation December 18, 2019 Assessment & Plan (1) Atypical chest pain: (2) Epigastric abdominal pain: (3) Hypertension: (4) Hypercholesteremia: (5) Aortic stenosis: ASSESSMENT/PLAN: 1. Atypical chest pain: Has had prolonged episodes of chest pain lasting more than 2 hours and despite this, troponins are not elevated. Symptoms atypical, originating from the epigastric area. Suspect more likely GI etiology. With atypical symptoms for ischemic heart disease, and no objective data to suggest ischemic heart disease, especially in the setting of unremarkable dobutamine stress echo in May of 2019, further ischemic evaluation is not recommended at this time. He certainly does have risk factors for CAD. He was asked to seek further cardiac evaluation for worsening or change in symptoms. In the meantime, recommend GI evaluation or treatment as per primary service. 2. Epigastric pain: As above. 3. Aortic stenosis: Non severe. This can be followed up over time. Can repeat echo in approximately 1 - 1.5 years. 4. Hypertension: Blood pressure currently well controlled. No changes recommended at this time. 5. Dyslipidemia: On statin therapy. LDL has been well controlled when last evaluated. 6. Disposition: No further cardiac evaluation recommended at this time. He has previously been seen by Dr. Bella. Can be followed in the cardiology office for his aortic stenosis if patient is willing, in approximately 6 months. Patient care communicated with Dr. Ralph with a primary hospitalist service. 45 min spent with greater than 50% of the time spent counseling patient and coordinating care. Thank you for allowing me to participate in the care of your patient. Please call for any other questions or concerns. Sincerely, Delroy Lagos M.D. History of Present Illness Reason for Consultation: Atypical chest pain Requesting Physician: Dr. Singh Attending Physician: Louie Ralph, History of Present Illness Mr. Rutledge is a 69-year-old gentleman with a history significant for non severe aortic stenosis, hypertension, dyslipidemia, type 2 diabetes, and COPD. He was previously evaluated by Dr. Bella of Cardiology in May of 2019, for which a Dobutamine stress echo was performed, without reported ischemic changes. Yesterday at approximately 10:00 a.m. he was out running errands and while exerting himself with a mask on, he noticed a tightness in his chest that would resolve when removing the mask. Then later in the day, he consumed a meal that he typically does not eat involving baked beans and pork riblets in a barbecue sauce. He admits that he ate much later than usual. Then at approximately 8 o'clock, he developed epigastric discomfort described as a pressure and ache that radiated upward into his sternal area. It persisted until approximately 10 30 when he fell asleep. He then woke up at approximately 12:30 p.m. because the pain was worse. He called EMS and was given aspirin and nitroglycerin. The pain eventually resolved while here but then returned once again on the floor. When he woke up this morning, he had 2/10 epigastric achy pain that continues to be present. It was present for at least 2 hours and 15 minutes at the time of our visit. During our conversation, he states that on second thought he believes that his symptoms are similar to his usual acid reflux and he wonders if it could be related to the food that he ate last night. He denies usual exertional chest discomfort. He denies syncope, near-syncope, shortness of breath, palpitations, or bleeding such as melena, hematochezia, or hematuria. He thought he had some swelling in his right foot recently as well. Review of systems: As above. Review of systems otherwise negative/unremarkable. Family history: 3 brothers had some form of heart disease including 1 with a valve replacement and 1 was some other type of open heart surgery. He does not recall if they had ischemic heart disease. Social history: He quit smoking approximately 13 years after approximately 40 pack years. He quit consuming alcohol approximately 13 years ago. He lives with his second . He has 1 daughter to his first in 2 daughters with his second . He is unaccompanied. Allergies Allergy/AdvReac Type Severity Reaction Status Date / Time iodine Allergy Intermediate SHORTNESS Verified 12/18/19 02:24 OF BREATH amoxicillin Allergy Mild RASH Verified 12/18/19 02:24 clavulanic acid Allergy Mild RASH Verified 12/18/19 02:24 clarithromycin Allergy Unknown UNKNOWN Verified 12/18/19 02:24 indomethacin Allergy Unknown UNKNOWN Verified 12/18/19 02:24 Home Medications Home Medications Medication Instructions Recorded Confirmed Type vitamin B12 500 mcg-folic acid 400 1 tab PO BID 03/05/19 12/18/19 History mcg tablet aspirin 81 mg tablet,delayed 81 mg PO HS tab 04/21/19 12/18/19 History release mometasone 50 mcg/actuation nasal 2 sprays INTNAS QAM #17 gm 04/24/19 12/18/19 Rx spray allopurinol 300 mg tablet 300 mg PO DAILY #90 tab 06/11/19 12/18/19 Rx metformin 500 mg tablet 500 mg PO BID #180 tab 06/11/19 12/18/19 Rx metoprolol tartrate 50 mg tablet 50 mg PO BID #180 tab 06/11/19 12/18/19 Rx pravastatin 20 mg tablet 20 mg PO HS #90 tab 06/11/19 12/18/19 Rx tiotropium 2.5 mcg-olodaterol 2.5 2 puff INHALATION DAILY #4 gm 06/19/19 12/18/19 Rx mcg/actuation mist for inhalation naproxen 500 mg tablet,delayed 500 mg PO BID #180 tab 08/10/19 12/18/19 Rx release cyclobenzaprine 5 mg tablet See Rx Instructions PO TID PRN #90 08/20/19 12/18/19 Rx tab blood sugar diagnostic #300 ea 09/04/19 Rx clonazepam 1 mg tablet 1 mg PO BID PRN #180 tab 10/26/19 12/18/19 Rx losartan 50 mg tablet 50 mg PO DAILY #90 tab 10/26/19 12/18/19 Rx amlodipine 5 mg tablet 5 mg PO DAILY #90 tab 11/02/19 12/18/19 Rx omeprazole 40 mg capsule,delayed 40 mg PO DAILY #90 cap 11/02/19 12/18/19 Rx release tadalafil 5 mg tablet 5 mg PO DAILY #30 tab 12/01/19 12/18/19 Rx albuterol sulfate 90 mcg/actuation 2 puffs INH Q6H PRN #8.5 gm 12/03/19 12/18/19 Rx aerosol inhaler famotidine 20 mg PO DAILY 12/18/19 12/18/19 History Patient History Medical History Acute bronchitis Aortic stenosis Bronchitis COPD (chronic obstructive pulmonary disease) DM w/o complication type II Essential (primary) hypertension Failure of outpatient treatment GERD (gastroesophageal reflux disease) Gout Hyperlipidemia Influenza-like symptoms Lacunar infarction (Chronic 10/15/12) Pulmonary nodules Thrombocytopenia Upper respiratory infection Surgical History H/O tooth extraction S/P cataract extraction Family History Mother , age 46 Kidney disease Father , age 92 - "old age"; suffered from severe osteoarthritis No problems noted. 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 Other Information That Helps Us Care for You: No other: first marriage - 1 child; 2nd marriage - 2 children Feels Safe at Home: Yes Safety Concerns: Feels Safe At This Time Smoking Status: Former smoker Tobacco Type: cigarettes ; packs per day: 2 ; Cigarettes Per Day: 30-40 ; Smoking End Date: 2006 ; Hx Alcohol Use: Yes Hx Substance Use: No Physical Exam Physical Exam: Gen.: No acute distress. Alert and oriented. HEENT: Anicteric sclera. Neck: No JVD. No bruits. Normal carotid upstrokes bilaterally. Cardiac: PMI was nondisplaced. No ventricular heave. Regular rate and rhythm. Normal S1-S2. 2/6 early to mid-peaking systolic ejection murmur. No rubs, or gallops. Pulmonary: Clear to auscultation bilaterally without wheezes, rales, or rhonchi. Abdomen: Soft, nondistended, with normoactive bowel sounds. No bruits noted. Tenderness near central abdomen. Extremities: 2+ radial pulses bilaterally. 2+ posterior tibialis pulses bilaterally. No significant pitting edema or cyanosis. Psychiatric: Affect appears appropriate. Chest nontender to palpation. Results & Data ([facility]) Vital Signs (Past 12 Hours) Vital Signs Temp Pulse Pulse Resp BP BP Pulse Ox 12/18/19 08:02 37.5 C 96 H 18 128/63 95 12/18/19 05:12 37.2 C 112 H 25 H 158/95 H 95 12/18/19 04:30 20 138/70 95 12/18/19 03:15 102 H 20 148/93 H 97 12/18/19 01:58 37.1 C 101 H 20 157/83 H 97 Laboratory Results Laboratory Results - last 24 hr 12/18/19 12/18/19 12/18/19 01:57 01:57 01:57 WBC 11.06 H RBC 4.12 L Hgb 13.6 L Hct 37.9 L MCV 92.0 MCH 33.0 MCHC 35.9 RDW Std Deviation 44.6 RDW Coeff of Kang 13.4 Plt Count 181 MPV 10.2 Immature Gran % (Auto) 0.4 Neut % (Auto) 75.9 Lymph % (Auto) 13.5 [place] % (Auto) 7.6 Eos % (Auto) 2.3 Baso % (Auto) 0.3 Immature Gran # (Auto) 0.04 H Neut # (Auto) 8.41 H Lymph # (Auto) 1.49 [place] # (Auto) 0.84 H Eos # (Auto) 0.25 Baso # (Auto) 0.03 PT 10.3 INR 1.0 APTT 25.7 PTT Ratio 0.9 Sodium 136 Potassium 3.7 Chloride 101 Carbon Dioxide 28 Anion Gap 7.0 BUN 14 Creatinine 1.08 Est Cr Clr Drug Dosing 68.4 Est GFR ( Amer) 80.2 Est GFR (Non-Af Amer) 69.2 BUN/Creatinine Ratio 13.2 Glucose 112 H POC Glucose Calcium 8.9 Total Bilirubin 0.4 AST 12 L ALT 23 Alkaline Phosphatase 64 Troponin I 0.022 Total Protein 8.0 Albumin 4.1 Globulin 3.9 Albumin/Globulin Ratio 1.1 Lipase 60 L 12/18/19 12/18/19 12/18/19 05:14 07:40 10:04 WBC RBC Hgb Hct MCV MCH MCHC RDW Std Deviation RDW Coeff of Kang Plt Count MPV Immature Gran % (Auto) Neut % (Auto) Lymph % (Auto) [place] % (Auto) Eos % (Auto) Baso % (Auto) Immature Gran # (Auto) Neut # (Auto) Lymph # (Auto) [place] # (Auto) Eos # (Auto) Baso # (Auto) PT INR APTT PTT Ratio Sodium Potassium Chloride Carbon Dioxide Anion Gap BUN Creatinine Est Cr Clr Drug Dosing Est GFR ( Amer) Est GFR (Non-Af Amer) BUN/Creatinine Ratio Glucose POC Glucose 112 H 103 H Calcium Total Bilirubin AST ALT Alkaline Phosphatase Troponin I 0.022 Total Protein Albumin Globulin Albumin/Globulin Ratio Lipase 12/18/19 11:33 WBC RBC Hgb Hct MCV MCH MCHC RDW Std Deviation RDW Coeff of Kang Plt Count MPV Immature Gran % (Auto) Neut % (Auto) Lymph % (Auto) [place] % (Auto) Eos % (Auto) Baso % (Auto) Immature Gran # (Auto) Neut # (Auto) Lymph # (Auto) [place] # (Auto) Eos # (Auto) Baso # (Auto) PT INR APTT PTT Ratio Sodium Potassium Chloride Carbon Dioxide Anion Gap BUN Creatinine Est Cr Clr Drug Dosing Est GFR ( Amer) Est GFR (Non-Af Amer) BUN/Creatinine Ratio Glucose POC Glucose Pending Calcium Total Bilirubin AST ALT Alkaline Phosphatase Troponin I Total Protein Albumin Globulin Albumin/Globulin Ratio Lipase Diagnostic Findings Telemetry personally reviewed: Sinus rhythm. ECGs personally reviewed: ECG 12/18/2019 at 5:29 a.m.: Sinus tachycardia 114 bpm with PVC. ECG 12/18/2019 at 1:49 a.m.: Sinus rhythm with first-degree AV block 96 bpm. Echo 05/15/2019: Reported normal LV systolic function. EF 60-65%. Moderate aortic stenosis reported with mean transvalvular gradient of 19, peak velocity of 3.2 m/sec, and SKYLAR 1.4. Dobutamine stress echo report reviewed 05/18/2019: Negative stress echo for ischemia 83% MPHR. No chest pain. Dobutamine induced AVnRT. Chest x-ray 12/18/2019: Interstitial coarsening per Radiology. On personal review, no infiltrate. No significant effusion. Medications Administered Current Inpatient Medications Acetaminophen (Tylenol) 650 mg PO Q4H PRN PRN Reason: Pain or Fever Stop: 01/17/20 05:07 Last Admin: 12/18/19 05:52 Dose: 650 mg Documented by: Albuterol (Ventolin Hfa) 2 puffs INH Q6H PRN PRN Reason: Shortness Of Breath Stop: 01/17/20 05:07 Allopurinol (Zyloprim) 300 mg PO DAILY DECLAN Stop: 01/17/20 08:59 Last Admin: 12/18/19 08:45 Dose: 300 mg Documented by: Amlodipine Besylate (Norvasc) 5 mg PO DAILY DECLAN Stop: 01/17/20 08:59 Last Admin: 12/18/19 08:45 Dose: 5 mg Documented by: Aspirin (Ecotrin Ectab) 81 mg PO HS [facility] Stop: 01/17/20 20:59 Clonazepam (Klonopin) 1 mg PO BID PRN PRN Reason: anxiety Stop: 01/17/20 05:07 Dextrose (Dextrose 50%) 25 - 50 ml IV UD PRN; Protocol PRN Reason: Hypoglycemia Protocol Stop: 01/17/20 05:07 Famotidine (Pepcid) 20 mg PO DAILY DECLAN Stop: 01/17/20 08:59 Last Admin: 12/18/19 08:45 Dose: 20 mg Documented by: Fluticasone Propionate (Flonase) 2 sprays NA QAM [facility] Stop: 01/17/20 08:59 Last Admin: 12/18/19 08:45 Dose: 2 sprays Documented by: Glucagon (Glucagen) 1 mg SQ UD PRN; Protocol PRN Reason: Hypoglycemia Protocol Stop: 01/17/20 05:07 Glucose (Dex4 Glucose) 4 - 8 tabs PO UD PRN; Protocol PRN Reason: Hypoglycemia Protocol Stop: 01/17/20 05:07 Glucose (Glucose 40%) 15 - 30 gm PO UD PRN; Protocol PRN Reason: Hypoglycemia Protocol Stop: 01/17/20 05:07 Potassium Chloride/Sodium Chloride (Normal Saline W/20 Meq Kcl) 20 meq in 1,000 mls @ 80 mls/hr IV .[id number] DECLAN Stop: 01/17/20 05:07 Last Admin: 12/18/19 05:22 Dose: 80 mls/hr Documented by: Insulin Aspart (Novolog Flexpen) 0 units SC ACHS DECLAN Stop: 01/17/20 07:29 Last Admin: 12/18/19 08:38 Dose: Not Given Documented by: Lidocaine (Lidoderm 5%) 1 patch TD QAM [facility] Stop: 01/17/20 05:59 Last Admin: 12/18/19 06:00 Dose: 1 patch Documented by: Losartan Potassium (Cozaar) 50 mg PO DAILY DECLAN Stop: 01/17/20 08:59 Last Admin: 12/18/19 08:45 Dose: 50 mg Documented by: Metoprolol Tartrate (Lopressor) 50 mg PO BID DECLAN Stop: 01/17/20 08:59 Last Admin: 12/18/19 08:45 Dose: 50 mg Documented by: Miscellaneous (Order Awaiting Action) 1 ea N/A QS DECLAN Stop: 01/17/20 07:59 Last Admin: 12/18/19 08:38 Dose: Not Given Documented by: Miscellaneous (Carbohydrates For Hypoglycemia) 15 - 30 gm PO UD PRN PRN Reason: Hypoglycemia Protocol Stop: 01/17/20 05:07 Miscellaneous (Remove Lidoderm Patch) 1 ea N/A DAILY@2100 DECLAN Stop: 01/17/20 20:59 Morphine Sulfate (Morphine Sulfate) 2 mg IV Q30M PRN PRN Reason: Chest Pain Stop: 01/01/20 05:07 Nitroglycerin (Nitrostat) 0.4 mg SL UD PRN PRN Reason: Chest Pain Stop: 01/17/20 05:07 Last Admin: 12/18/19 05:22 Dose: 0.4 mg Documented by: Ondansetron HCl (Zofran) 4 mg IV Q6H PRN PRN Reason: Nausea Stop: 01/17/20 05:07 Pantoprazole Sodium (Protonix) 40 mg PO DAILY DECLAN Stop: 01/17/20 08:59 Last Admin: 12/18/19 08:45 Dose: 40 mg Documented by: Polyethylene Glycol (Miralax Powder Packet) 17 gm PO DAILY PRN PRN Reason: Constipation Stop: 01/17/20 05:07 Pravastatin Sodium (Pravachol) 20 mg PO HS DECLAN Stop: 01/17/20 20:59 Umeclidinium/Vilanterol (Anoro Ellipta 62.5/25 Mcg Inh) 1 puffs INH DAILY DECLAN Stop: 01/17/20 08:59 Last Admin: 12/18/19 08:45 Dose: 1 puffs Documented by: PG Care Time/CCT Total # of Minutes Spent Total Time Spent with Patient: Total time spent is greater than 50% in coordination of care (as documented) at patient's floor/unit and/or counseling patient: Coding Level of Care Code 89446 Office/Outpt Visit, Est Diagnoses Atypical chest pain R07.89 Epigastric abdominal pain R10.13 Hypertension I10 Hypercholesteremia E78.00 Aortic stenosis I35.0 Cardiac valve disease etiology: etiology unspecified (1) Aortic stenosis Cardiac valve disease etiology: etiology unspecified Qualified Code(s): I35.0 - Nonrheumatic aortic (valve) stenosis
--- NOTE | 2019-12-18 12:08 | Discharge Summary ---
Date of Service December 18, 2019 Admission HPI Per Admitting Provider Ms. Jr Rutledge is a 69 year old man with a past medical history significant for DMII, HTN, COPD, HLD, GERD, gout, and aortic stenosis who is here today for chest pain. Chest pain began around 10 am morning as a tightness in his chest while he was out running an errand. He blamed it on having to wear his mask which he said makes his breathing uncomfortable and gives him chest tightness. This was quickly resolved by taking the mask off. He then felt in his usual state of health for the rest of the day until he relaxed to play some computer games around 11 pm night. He felt this tightness in his chest return. He describes the feeling in his chest as a tightness, it starts in the upper part of his abdomen and moves up the midline of his chest. He denies any other radiation than up from his abdomen. He says the pain is very postiional and he was most comfortable while lying on his side. He also says it is always associated with his breathing and feels it at the end of long inhalation. He has no chest pain currently but a small amount of tightness in his upper abdomen lower chest just deep to his xyphoid. He denies fevers, chills, sweats, neause, vomiting, lightheadedness, sycnope, palpitations, diarrhea, constipation. he does endorse chronically slow stream urination and chronic polydipsia polyuria. He tells me his sugars have been very well controlled of late less than 110 on average. He denies any breathing troubles other than the chest pain associated with it, no more short of breath than usual, no cough, no sick contacts, no recent travel. On arrival to ED via ambulance he received nitro and ASA which seemed to relieve his chest pain. His vitals were singificant for HTN and tachycardia, regular sinus. ECG showing no acute ST changes or concerning signs of ischemia. Labwork significant for mildly elevated white count of 11, negative troponin, negative lipase. He had a similar admission in May where he received a dobutamine stress echo which showed no acute ischemic changes. He is a former smoker quit about 13 years ago, former heavy drinker quit also 13 years ago and now drinks only occasionally at a "moose club". He does not use recreational drugs. 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 Wishes to be DNR/DNI. Principal Diagnosis Atypical chest pain Discharge Exam Constitutional WD/WN, vitals as above Eyes PERRL, conjunctivae normal, anicteric sclerae ENMT external ear and nose normal, oropharynx normal Neck trachea midline, no thyromegaly Respiratory normal respiratory effort, lungs clear to auscultation Cardiovascular RRR, no murmur, no edema Gastrointestinal (Abdomen) normal bowel sounds, soft, nontender, no hepatosplenomegaly Musculoskeletal no cyanosis or clubbing, extremities motor strength 5/5 Skin no rashes, warm and dry Neurologic patellar DTR's 2+ bilat, sensation intact and PERRL, EOMI, accommodation nl, no face palsy, no dysarthria Psychiatric A+Ox3, euthymic affect Lymphatic no cervical or axillary lymphadenopathy Discharge Data Allergies Allergy/AdvReac Type Severity Reaction Status Date / Time iodine Allergy Intermediate SHORTNESS Verified 12/18/19 02:24 OF BREATH amoxicillin Allergy Mild RASH Verified 12/18/19 02:24 clavulanic acid Allergy Mild RASH Verified 12/18/19 02:24 clarithromycin Allergy Unknown UNKNOWN Verified 12/18/19 02:24 indomethacin Allergy Unknown UNKNOWN Verified 12/18/19 02:24 Consultations 12/18/19 03:06 ED Decision to Admit Stat 12/18/19 05:08 Consult Cardiology Routine Hospital Course (1) Epigastric abdominal pain: symptoms triggered by eating BBQ pork, baked beans pain started in epigastric region, radiated up to his chest continue on Omeprazole 40mg daily, use Famotidine and Tums PRN educated on ways to prevent GERD such as avoiding trigger foods, don't eat late at night, elevate head of bed (2) Atypical chest pain: no ischemic changes on EKG troponin negative x 2 sets evaluated by cardiology, no further work up recommended as this is likely GERD had a normal stress echo in 2019 does have risk factors for CAD which he should continue to modify Total Time Total Time Spent Total Time Spent (In Minutes): 20 minutes Total Time Includes: Examination of the Patient, Discharge Planning, Medication Reconciliation and Communication With Other Providers (cardiology) Discharge Plan Discharge Items Patient Disposition: Home - Self-Care Reason For Visit: Chest pain Discharge Diagnosis: Atypical chest pain Epigastric pain, likely severe reflux Condition on Discharge: Good Goals: continue daily Omeprazole for GERD use as needed Famotidine and/or Tums for severe symptoms Activity: Resume your previous activity Weightbearing: Full weightbearing Non-emergency contact: Primary Care Provider Call non-emergency contact if: you have any medication questions and your symptoms worsen Follow-up/Referrals: Harjeet Molina III, MD [Primary Care Provider] - Diet: Carb Consistent or DM2 and Heart Healthy Addtl Attending Provider Instructions: Medications: no major changes Epigastric pain, atypical left sided chest pain no ischemic changes on EKG, troponin (heart enzyme) normal for two separate draws cardiology does not feel that any further cardiac work up is warranted, more likely reflux continue to take omeprazole daily, use famotidine as prescribed by Dr. Molina if you have severe symptoms, use Tums as needed avoid trigger foods such as spices, certain sauces, caffeine, peppermint avoid eating late at night, do not eat after dinner time try raising head of bed, sleeping at a slight incline can help reduce symptoms at night symptoms last night most likely triggered by the BBQ sauce and baked beans Pending Studies at Discharge: No Stand-Alone Forms: My [facility] [employer], Smoking Cessation Medications and DC Order Prescriptions: Continued allopurinol 300 mg tablet 300 mg PO DAILY Qty: 90 RF: 3 metformin 500 mg tablet 500 mg PO BID Qty: 180 RF: 3 metoprolol tartrate 50 mg tablet 50 mg PO BID Qty: 180 RF: 3 pravastatin 20 mg tablet 20 mg PO HS Qty: 90 RF: 3 Stiolto Respimat 2.5-2.5 mcg/actuation mist 2 puff inhalation DAILY Qty: 4 RF: 5 naproxen 500 mg tablet,delayed release (DR/EC) 500 mg PO BID Qty: 180 RF: 0 cyclobenzaprine 5 mg tablet See Rx Instructions PO TID PRN (Reason: low back pain) Qty: 90 RF: 1 (DME) OneTouch Ultra Blue Test Strip Strip See Rx Instructions .ROUTE .MEDSUPPLY Qty: 300 RF: 3 clonazepam 1 mg tablet 1 mg PO BID PRN (Reason: anxiety) Qty: 180 RF: 0 losartan 50 mg tablet 50 mg PO DAILY Qty: 90 RF: 3 amlodipine 5 mg tablet 5 mg PO DAILY Qty: 90 RF: 3 omeprazole 40 mg capsule,delayed release(DR/EC) 40 mg PO DAILY Qty: 90 RF: 3 tadalafil 5 mg tablet 5 mg PO DAILY Qty: 30 RF: 5 albuterol sulfate [Ventolin HFA] 90 mcg/actuation HFA aerosol inhaler 2 puffs INH Q6H PRN (Reason: Shortness Of Breath) Qty: 8.5 RF: 5 vitamin E61-wznel acid 500-400 mcg tablet 1 tab PO BID RF: 0 aspirin [Adult Aspirin Regimen] 81 mg tablet,delayed release (DR/EC) 81 mg PO HS RF: 0 mometasone [Nasonex] 50 mcg/actuation spray,non-aerosol 2 sprays INTNAS QAM Qty: 17 RF: 0 famotidine 20 mg tablet 20 mg PO DAILY RF: 0 Discharge Orders: Discharge Order (Routine); Ordered 12/18/19 Ordered By: Louie Ralph Admission Data Admit Date/Time: 12/18/19 04:32 Attending Provider: Louie Ralph Admit Provider: Murtaza Singh Primary Care Provider: Harjeet Molina III Other Providers: Derrick Bello ; Josias Lagos Other Interventions: Discharge Summary Assessment (RN) Last Done: 12/18/19 12:50 DC Date/Time DO NOT enter until pt leaves facility: 12/18/19 14:06 Coding Level of Care Code 17904 OBS Care - Discharge Diagnoses Epigastric abdominal pain R10.13 Atypical chest pain R07.89
--- NOTE | 2019-12-18 16:49 | Electrocardiogram Report ---
Test Reason : Blood Pressure : / mmHG Vent. Rate : 096 BPM Atrial Rate : 096 BPM P-R Int : 242 ms QRS Dur : 104 ms QT Int : 360 ms P-R-T Axes : 053 042 031 degrees QTc Int : 454 ms Sinus rhythm with 1st degree A-V block Otherwise normal ECG When compared with ECG of 30-MAY-2019 09:51, No significant change was found Confirmed by Josias Lagos ([id number]) on 12/18/2019 4:49:23 PM Referred By: REFERRED SELF Confirmed By:Josias Lagos
--- NOTE | 2019-12-18 16:50 | Electrocardiogram Report ---
Test Reason : Blood Pressure : / mmHG Vent. Rate : 114 BPM Atrial Rate : 111 BPM P-R Int : 000 ms QRS Dur : 098 ms QT Int : 364 ms P-R-T Axes : 000 042 043 degrees QTc Int : 501 ms Sinus tachycardia with 1st degree A-V block with occasional Premature ventricular complexes Abnormal ECG When compared with ECG of 18-DEC-2019 01:49, HR has increased by 18 bpm Premature ventricular complexes are now Present Confirmed by Josias Lagos ([id number]) on 12/18/2019 4:50:19 PM Referred By: REFERRED SELF Confirmed By:Josias Lagos
--- NOTE | 2019-12-18 17:23 | Electrocardiogram Report ---
Test Reason : Blood Pressure : / mmHG Vent. Rate : 087 BPM Atrial Rate : 087 BPM P-R Int : 286 ms QRS Dur : 102 ms QT Int : 364 ms P-R-T Axes : 068 066 042 degrees QTc Int : 438 ms Sinus rhythm with 1st degree A-V block Otherwise normal ECG Confirmed by Josias Lagos ([id number]) on 12/18/2019 5:22:49 PM Referred By: REFERRED SELF Confirmed By:Josias Lagos
[2019-12-18] MEDS ORDERED: ASPIRIN 81 MG ECTAB PO SCH (21:00)
[2019-12-18] MEDS ORDERED: PRAVASTATIN SOD 20 MG TAB PO SCH (21:00)
--- NOTE | 2019-12-19 01:23 | Billing Data ---
Date of Service December 19, 2019 Coding Level of Care Code 65335 Initial Inpt Care Lvl 3
== END 2019-12-18 14:06 | disposition home or self-care (01) ==
LOC: 2N 01:44 → ED 01:44 → SUATTDRO 04:32 → 2N 04:55

== ENCOUNTER 2024-10-30 11:05 | Inpatient (IN) ==
[2024-10-30 11:46] LABS: Basophils # (auto) 0.04 K/uL (0.00-0.20); Basophils % (auto) 0.3 %; Eosinophils # (auto) 0.08 K/uL (0.00-0.50); Eosinophils % (auto) 0.7 %; Hematocrit (blood only) 34.2 % (42.0-52.0); Hemoglobin 11.6 g/dl (14.0-18.0); Immature Granulocytes # (auto) 0.07 K/uL (0.01-0.20); Immature Granulocytes % (auto) 0.6 %; Lymphocytes # (auto) 0.59 K/uL (1.20-3.40); Lymphocytes % (auto) 5.1 %; Mean Corpuscular Hgb Conc 33.9 g/dL (32.0-36.0); Mean Corpuscular Volume 94.5 fL (80.0-100.0); Mean Platelet Volume 11.2 fL (9.4-12.4); Monocytes # (auto) 0.93 K/uL (0.11-0.59); Neutrophils # (auto) 9.91 K/uL (1.40-6.50); Neutrophils % (auto) 85.3 %; Platelet Count 163 K/uL (130-400); RDW Coefficient of Variation 14.5 % (11.5-14.5); RDW Standard Deviation 49.9 fL (36.4-46.3); Red Blood Count 3.62 M/uL (4.70-6.10); White Blood Count 11.62 K/ul (4.8-10.8)
[2024-10-30 12:03] LABS: Albumin Globulin Ratio 1.3 (0.9-2); BUN Creatinine Ratio 21.1 (10-20); Bilirubin,Total 1.4 mg/dl (0.2-1.0); Calcium 8.7 mg/dl (8.6-10.3); Creatinine Clr Calc Pharmacy 46.8 ml/min; Globulin 3.2 gm/dl (2.5-4.0); Potassium 4.2 mmol/L (3.5-5.1); Total Protein 7.2 gm/dl (6.0-8.3)
--- NOTE | 2024-10-30 12:06 | XRay Report ---
XR chest 1V portable CLINICAL HISTORY: Chest pain, nonspecific COMPARISON STUDY: 08/22/2021 FINDINGS: Heart size and pulmonary vasculature are normal. There is interval patchy opacity at the schuyler ng bases, right greater than left. No pleural effusion or pneumothorax. IMPRESSION: Lung base pneumonia. ACT 112: Negative or not required by law. Electronically signed by: Jos Jones M.D. 10/30/2024 12:05 PM
[2024-10-30 12:09] LABS: Troponin I High Sensitivity 26.4 pg/ml (0-20)
--- NOTE | 2024-10-30 12:09 | Emergency Department Note ---
Impression & Plan Atrial fibrillation with rapid ventricular response, Chest pain, Pneumonia, Elevated troponin I level, Abnormal EKG ED Provider Note NAME: JEAN PAUL BERRIOS AGE: 74 SEX: M : 1950 ARRIVES VIA: Ambulance INFORMANT: Patient, ED PROVIDER(S): Jean Marie Dickey DO CHIEF COMPLAINT: Shortness of breath HPI: The patient is a 74-year-old male who presented to the emergency department for an evaluation of shortness of breath. The patient has a history of aortic valve problems. He is scheduled for a TAVR. The patient had a preoperative cardiac catheterization yesterday. This did not reveal any culprit lesion and the patient did not receive any stents but he does have some coronary artery disease. The patient states last night he started having some chest heaviness but he also has been complaining of chest pain cough and fever. The patient denies having any leg swelling. He does note some orthopnea. ROS: See above HPI for pertinent positives & negatives. A total of 10 systems reviewed and were otherwise negative. PAST MEDICAL HISTORY: See Below PAST SURGICAL HISTORY: See Below FAMILY HISTORY: See Below SOCIAL HISTORY: See Below HOME MEDICATIONS: See Below ALLERGIES: See Below VITALS: See Below PHYSICAL EXAMINATION: GENERAL: The patient is awake and alert. The patient is somewhat anxious appearing. EYES: The conjunctivae are clear. The pupils are round and reactive. EARS, NOSE, MOUTH AND THROAT: The nose is without any evidence of any deformity. NECK: The neck is nontender and supple. RESPIRATORY: Diminished breath sounds are noted at both bases. Right greater than left. There is no tachypnea or conversational dyspnea. CARDIOVASCULAR: Tachycardic and irregular heart sounds were noted to auscultation.. GASTROINTESTINAL: The abdomen is soft. Abdomen is nontender. MUSCULOSKELETAL/EXTREMITIES: There is no evidence of gross deformity full range of motion is noted in the hips and shoulders. SKIN: There is no obvious evidence of any rash. Trace pedal edema was noted bilaterally. NEUROLOGIC: Patient is awake alert and oriented x3 MEDICAL DECISION MAKING: The patient is a 74-year-old male who presented to the emergency department for chest pain and cough. The patient has a history of aortic valve issues as well as atrial fibrillation. The patient presented to the emergency department with rapid atrial fibrillation and an abnormal EKG. He does appear to also have signs of pneumonia. Initially the patient was felt to be suffering just from a cardiac issue. He had a cardiac catheterization yesterday which was preoperative for aortic valve intervention. The patient was treated with a small fluid bolus because of his cardiac history. He was also treated with IV antibiotics. I discussed the patient's laboratory and radiographic studies with him. Heart rate improved. I discussed his condition with the on-call [facility] hospitalist group. They have agreed to evaluate the patient in the emergency department for further management and disposition. Triage Nursing notes reviewed. Prior medical records reviewed Vital Signs: reviewed and remarkable for initial tachycardia. Differential diagnosis: Reactive airway disease, pneumonia, pneumothorax, COPD, CHF, infections, cardiac ischemia, pulmonary embolism, musculoskeletal, gastrointestinal, as well as other pathologies. ER treatment provided: See below Diagnostics: EKG: EKG was obtained in the emergency department. My interpretation is atrial fibrillation at 108 bpm. No PVCs were noted. Nonspecific ST depression with T wave inversions were noted. This was compared to a tracing from December 18, 2019. The ST and T wave abnormalities are new compared to the previous tracing. Cardiac Monitoring: An order was placed for continuous cardiac monitoring. The monitor shows a rate of 98 bpm with atrial fibrillation. Laboratory studies: As stated above and show below. Imaging studies: See below. Radiographic imaging was reviewed by myself Consultation(s): I discussed this case with Dr. Mckee who is on-call for the [facility] hospitalist group. 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 Nasal bleeding Hyponatremia Hypomagnesemia Atrial fibrillation with controlled ventricular rate Ex-smoker Seasonal allergies Multiple pulmonary nodules Aortic stenosis Anemia AAA (abdominal aortic aneurysm) infrarenal Anxiety disorder (Acute) BPH (benign prostatic hyperplasia) (Acute) Chronic obstructive pulmonary disease (Acute) Gastroesophageal reflux disease (Acute 10/15/12) Gout, joint (Acute) Peripheral neuropathy (Acute) Vitamin B12 deficiency (Acute) Hypertension (Chronic) Diabetes type 2, controlled (Chronic) Hypercholesteremia (Chronic) Medical History Moderate to severe aortic stenosis Thrombocytopenia Gout DM w/o complication type II Essential (primary) hypertension Hyperlipidemia GERD (gastroesophageal reflux disease) COPD (chronic obstructive pulmonary disease) Upper respiratory infection Pulmonary nodules Lacunar infarction (10/15/12) Influenza-like symptoms Failure of outpatient treatment Bronchitis Acute bronchitis Surgical History S/P cataract extraction H/O tooth extraction Family History Mother , age 46 Kidney disease Father , age 92 - "old age"; suffered from severe osteoarthritis No problems noted. Sister Cancer Denies family history of Ovarian cancer Prostate cancer Myocardial infarction Breast cancer Colorectal cancer Social History Smoking Status: Former smoker Tobacco Type: Cigarettes Age Started Using Tobacco: 14; Age Quit Using Tobacco: 56; packs per day: 2; Cigarettes Per Day: 30-40; Second Hand Exposure: No; Do You Dip or Chew Tobacco: No; Hx Alcohol Use: No Hx Substance Use: No Preferred Language: Persian Communication Ability: Effective Visual Impairment: No Limitations Hearing Ability: Normal Parimutuel Cashier Required: No Beliefs That Will Affect Care: None marital status: Current Living Situation: Spouse Current Living Situation Comment: apartment in [place] current occupational status: retired current occupation: [email or web address] other: first marriage - 1 child; 2nd marriage - 2 children Feels Safe at Home: Yes Diet: regular caffeine: Yes Dental Care, Regularly: No Physical Activity Frequency: Does not Exercise Seatbelt Use: always Sunscreen Use: No Assistive Devices: Glasses Allergies Allergies Allergy/AdvReac Type Severity Reaction Status Date / Time iodine Allergy Intermediate SHORTNESS Verified 10/28/24 09:07 OF BREATH amoxicillin Allergy Mild RASH Verified 10/28/24 09:07 clavulanic acid Allergy Mild RASH Verified 10/28/24 09:07 clarithromycin Allergy Unknown UNKNOWN Verified 10/28/24 09:07 indomethacin Allergy Unknown UNKNOWN Verified 10/28/24 09:07 Home Meds Home Medications Medication Instructions Recorded Confirmed aspirin 81 mg tablet,delayed 81 mg PO HS 04/21/19 10/30/24 release (Adult Aspirin Regimen) B12 500 mg PO BID 10/30/24 10/30/24 apixaban 5 mg tablet (Eliquis) 5 mg PO BID 10/30/24 10/30/24 clonazepam 1 mg tablet 1 mg PO BID anxiety 10/30/24 10/30/24 cyclobenzaprine 5 mg tablet 5 - 10 mg PO DAILY PRN Other 10/30/24 10/30/24 famotidine 40 mg tablet 40 mg PO BID PRN heart burn 10/30/24 10/30/24 losartan 50 mg tablet 50 mg PO DAILY 10/30/24 10/30/24 magnesium chloride 64 mg 64 mg PO BID 10/30/24 10/30/24 tablet,extended release metoprolol succinate 100 mg 50 mg PO BID 10/30/24 10/30/24 tablet,extended release 24 hr mometasone 50 mcg/actuation nasal 2 spray intranasal QAM nasal 10/30/24 10/30/24 spray congestion naproxen 500 mg tablet 500 mg PO BID 10/30/24 10/30/24 tiotropium 2.5 mcg-olodaterol 2.5 2 puff inhalation QAM 10/30/24 10/30/24 mcg/actuation mist for inhalation (Stiolto Respimat) Previous Rx's Medication Instructions Recorded blood-glucose meter (OneTouch #1 ea 06/03/23 Verio Reflect Meter) omeprazole 40 mg capsule,delayed 40 mg PO DAILY #90 caps 02/13/24 release metformin 500 mg tablet 500 mg PO BID 90 days #180 tabs 03/27/24 allopurinol 300 mg tablet 300 mg PO DAILY #90 tabs 04/21/24 pravastatin 20 mg tablet 20 mg PO HS #100 tabs 04/21/24 albuterol sulfate 90 mcg/actuation 2 puff inhalation Q6H PRN 05/18/24 aerosol inhaler (Ventolin HFA) Shortness Of Breath #8.5 grams amlodipine 5 mg tablet 5 mg PO DAILY #90 tabs 05/26/24 blood sugar diagnostic (OneTouch #300 ea 09/30/24 Verio test strips) Results & Data (ED) Vital Signs Vital Signs - 24 hr 10/30/24 11:09 10/30/24 11:09 10/30/24 11:18 Pulse Rate 101 H Pulse Rate [Apical] 98 H Pulse Rhythm Irregular Pulse Rhythm [Apical] Irregular Pulse Strength Normal Pulse Strength [Apical] Respiratory Rate 19 Respiratory Effort / Characteristics Non-Labored Spontaneous Respiratory Depth Normal Respiratory Pattern Regular Blood Pressure 103/70 Blood Pressure [Left Arm] Blood Pressure Mean 81 Blood Pressure Mean [Left Arm] Blood Pressure Position Lying Blood Pressure Position [Left Arm] Pulse Oximetry 95 95 Oxygen Delivery Method Room Air Room Air Sepsis Recent Fever Within 48 Hours No Sepsis New/Unexplained Change in Mental Status No Sepsis Action Taken by Nursing No Action Required 10/30/24 11:24 10/30/24 12:27 10/30/24 13:06 Pulse Rate 108 H 96 H Pulse Rate [Apical] 107 H Pulse Rhythm Irregular Pulse Rhythm [Apical] Irregular Pulse Strength Pulse Strength [Apical] Normal Respiratory Rate 20 21 Respiratory Effort / Characteristics Non-Labored Spontaneous Respiratory Depth Normal Respiratory Pattern Regular Blood Pressure Blood Pressure [Left Arm] 98/73 L Blood Pressure Mean Blood Pressure Mean [Left Arm] 81 Blood Pressure Position Blood Pressure Position [Left Arm] Lying Pulse Oximetry 92 92 Oxygen Delivery Method Room Air Room Air Sepsis Recent Fever Within 48 Hours Sepsis New/Unexplained Change in Mental Status Sepsis Action Taken by Nursing 10/30/24 15:00 Pulse Rate Pulse Rate [Apical] 97 H Pulse Rhythm Pulse Rhythm [Apical] Irregular Pulse Strength Pulse Strength [Apical] Normal Respiratory Rate 18 Respiratory Effort / Characteristics Non-Labored Spontaneous Respiratory Depth Normal Respiratory Pattern Regular Blood Pressure Blood Pressure [Left Arm] 108/66 Blood Pressure Mean Blood Pressure Mean [Left Arm] 80 Blood Pressure Position Blood Pressure Position [Left Arm] Lying Pulse Oximetry 94 Oxygen Delivery Method Room Air Sepsis Recent Fever Within 48 Hours Sepsis New/Unexplained Change in Mental Status Sepsis Action Taken by Shelter Medications Current Medication List: was personally reviewed by me Laboratory Data Attestation: I reviewed the patient's lab results. 10/30/24 11:15 10/30/24 11:15 Lab Results 10/30/24 10/30/24 10/30/24 Range/Units 11:15 12:07 12:13 WBC 11.62 H (4.8-10.8) K/ul RBC 3.62 L (4.70-6.10) M/uL Hgb 11.6 L (14.0-18.0) g/dl Hct 34.2 L (42.0-52.0) % MCV 94.5 (80.0-100.0) fL MCH 32.0 (25.0-34.0) pg MCHC 33.9 (32.0-36.0) g/dL RDW Std Deviation 49.9 H (36.4-46.3) fL RDW Coeff of Kang 14.5 (11.5-14.5) % Plt Count 163 (130-400) K/uL MPV 11.2 (9.4-12.4) fL Immature Gran % (Auto) 0.6 % Neut % (Auto) 85.3 % Lymph % (Auto) 5.1 % Lipscomb % (Auto) 8.0 % Eos % (Auto) 0.7 % Baso % (Auto) 0.3 % Neut # (Auto) 9.91 H (1.40-6.50) K/uL Lymph # (Auto) 0.59 L (1.20-3.40) K/uL Lipscomb # (Auto) 0.93 H (0.11-0.59) K/uL Eos # (Auto) 0.08 (0.00-0.50) K/uL Baso # (Auto) 0.04 (0.00-0.20) K/uL Immature Gran # (Auto) 0.07 (0.01-0.20) K/uL PT 12.3 H (9.0-12.0) Seconds INR 1.1 (0.9-1.1) APTT 30 (21-31) Seconds PTT Ratio 1.1 VBG pH (7.36-7.41) VBG pCO2 (38-50) mmHg VBG pO2 mmHg VBG HCO3 mmol/L VBG O2 Saturation % VBG Base Excess mEq/L Sodium 133 L (136-145) mmol/L Potassium 4.2 (3.5-5.1) mmol/L Chloride 100 (98-107) mmol/L Carbon Dioxide 25 (21-32) mmol/L Anion Gap 8 (3-11) BUN 30 H (6-23) mg/dl Creatinine 1.42 H (0.6-1.4) mg/dl Est Cr Clr Drug Dosing 46.8 ml/min eGFR 51.53 BUN/Creatinine Ratio 21.1 H (10-20) Glucose 131 H (70-99(Fasting)) mg/dl Calcium 8.7 (8.6-10.3) mg/dl Magnesium 2.3 (1.7-2.4) mg/dl Total Bilirubin 1.4 H (0.2-1.0) mg/dl AST 13 (13-39) U/L ALT 18 (7-52) U/L Alkaline Phosphatase 76 (34-104) U/L Total Creatine Kinase 13 L (30-223) U/L Troponin I High Sens 26.4 H (0-20) pg/ml C-Reactive Protein 2.41 H (0-0.5) mg/dl B-Natriuretic Peptide 1363 H (0-100) pg/ml Total Protein 7.2 (6.0-8.3) gm/dl Albumin 4.0 (3.4-5.0) gm/dl Globulin 3.2 (2.5-4.0) gm/dl Albumin/Globulin Ratio 1.3 (0.9-2) Lipase 7 L (11-82) U/L Procalcitonin 0.05 (0-0.5) ng/ml SARS-CoV-2 (PCR) NEGATIVE (Negative) Influenza Type A (PCR) Negative (Neg) Influenza Type B (PCR) Negative (Neg) RSV (RT-PCR) Negative (Neg) 10/30/24 10/30/24 Range/Units 12:18 13:02 WBC (4.8-10.8) K/ul RBC (4.70-6.10) M/uL Hgb (14.0-18.0) g/dl Hct (42.0-52.0) % MCV (80.0-100.0) fL MCH (25.0-34.0) pg MCHC (32.0-36.0) g/dL RDW Std Deviation (36.4-46.3) fL RDW Coeff of Kang (11.5-14.5) % Plt Count (130-400) K/uL MPV (9.4-12.4) fL Immature Gran % (Auto) % Neut % (Auto) % Lymph % (Auto) % Lipscomb % (Auto) % Eos % (Auto) % Baso % (Auto) % Neut # (Auto) (1.40-6.50) K/uL Lymph # (Auto) (1.20-3.40) K/uL Lipscomb # (Auto) (0.11-0.59) K/uL Eos # (Auto) (0.00-0.50) K/uL Baso # (Auto) (0.00-0.20) K/uL Immature Gran # (Auto) (0.01-0.20) K/uL PT (9.0-12.0) Seconds INR (0.9-1.1) APTT (21-31) Seconds PTT Ratio VBG pH 7.41 (7.36-7.41) VBG pCO2 41 (38-50) mmHg VBG pO2 33 mmHg VBG HCO3 26 mmol/L VBG O2 Saturation < 60.0 % VBG Base Excess 1.2 mEq/L Sodium (136-145) mmol/L Potassium (3.5-5.1) mmol/L Chloride (98-107) mmol/L Carbon Dioxide (21-32) mmol/L Anion Gap (3-11) BUN (6-23) mg/dl Creatinine (0.6-1.4) mg/dl Est Cr Clr Drug Dosing ml/min eGFR BUN/Creatinine Ratio (10-20) Glucose (70-99(Fasting)) mg/dl Calcium (8.6-10.3) mg/dl Magnesium (1.7-2.4) mg/dl Total Bilirubin (0.2-1.0) mg/dl AST (13-39) U/L ALT (7-52) U/L Alkaline Phosphatase (34-104) U/L Total Creatine Kinase (30-223) U/L Troponin I High Sens 23.3 H (0-20) pg/ml C-Reactive Protein (0-0.5) mg/dl B-Natriuretic Peptide (0-100) pg/ml Total Protein (6.0-8.3) gm/dl Albumin (3.4-5.0) gm/dl Globulin (2.5-4.0) gm/dl Albumin/Globulin Ratio (0.9-2) Lipase (11-82) U/L Procalcitonin (0-0.5) ng/ml SARS-CoV-2 (PCR) (Negative) Influenza Type A (PCR) (Neg) Influenza Type B (PCR) (Neg) RSV (RT-PCR) (Neg) Administered Medications Lactated Ringer's (Lr) 1,000 mls @ 125 mls/hr IV .Q8H DCELAN Stop: 10/30/24 17:29 Last Admin: 10/30/24 14:09 Dose: Not Given Documented By: ELLIE Famotidine (Pepcid 20mg Iv Push) 20 mg in 5 mls @ 2.5 mls/min IV Q12H DECLAN Stop: 11/29/24 14:29 Last Admin: 10/30/24 14:33 Dose: 2.5 mls/min Documented By: ELLIE Discontinued Medications Sodium Chloride (Nss) 500 mls @ 999 mls/hr IV .Q31M ONE Stop: 10/30/24 13:15 Last Infusion: 10/30/24 13:44 Dose: Infused Documented By: Admin: 10/30/24 13:09 Dose: 999 mls/hr Documented By: ELLIE Ceftriaxone Sodium (Rocephin) 2,000 mg in 50 mls @ 100 mls/hr IV NOW STA Stop: 10/30/24 13:14 Last Infusion: 10/30/24 13:44 Dose: Infused Documented By: Admin: 10/30/24 13:08 Dose: 100 mls/hr Documented By: ELLIE Imaging Data Attestation: I personally reviewed and interpreted this imaging study as follows: My Impression: 1 view chest x-ray was obtained in the emergency department. My interpretation is bilateral lower lobe haziness, final report below. Radiologist's Impression: Chest X-Ray 10/30/24 11:18 XR chest 1V portable CLINICAL HISTORY: Chest pain, nonspecific COMPARISON STUDY: 08/22/2021 FINDINGS: Heart size and pulmonary vasculature are normal. There is interval patchy opacity at the lung bases, right greater than left. No pleural effusion or pneumothorax. IMPRESSION: Lung base pneumonia. ACT 112: Negative or not required by law. Electronically signed by: Jos Jones M.D. 10/30/2024 12:05 PM Discharge Plan Visit Data Chief Complaint: Chest Pain ED Provider: Jean Marie Dickey Discharge Problem: Atrial fibrillation with rapid ventricular response, Chest pain, Pneumonia, Elevated troponin I level, Abnormal EKG Patient Disposition: Being Evaluated by Hospitalist Forms Stand Alone Forms: My [facility] Prescriptions Prescriptions: No Action omeprazole 40 mg capsule,delayed release(DR/EC) 40 mg PO DAILY Qty: 90 3RF metformin 500 mg tablet 500 mg PO BID 90 Days Qty: 180 3RF Hold Instructions: Resume on 10/28/24. Start a.m. dose on 10/28/2024 allopurinol 300 mg tablet 300 mg PO DAILY Qty: 90 3RF pravastatin 20 mg tablet 20 mg PO HS Qty: 100 3RF amlodipine 5 mg tablet 5 mg PO DAILY Qty: 90 3RF (DME) OneTouch Verio test strips Strip See Rx Instructions .Route Qty: 300 3RF Rx Instructions: TEST 3 TIMES DAILY. DX: E11.9 aspirin [Adult Aspirin Regimen] 81 mg tablet,delayed release (DR/EC) 81 mg PO HS (DME) blood-glucose meter [OneTouch Verio Reflect Meter] Misc See Rx Instructions .ROUTE .MEDSUPPLY Qty: 1 0RF Rx Instructions: check AM, before meals, before bed albuterol sulfate [Ventolin HFA] 90 mcg/actuation HFA aerosol inhaler 2 puff INH Q6H PRN (Reason: Shortness Of Breath) Qty: 8.5 3RF Eliquis 5 mg tablet 5 mg PO BID Rx Instructions: TAKE 1 TABLET BY MOUTH TWICE DAILY B12 500 mg PO BID losartan 50 mg Tablet 50 mg PO DAILY Slow-Mag 64 mg Tablet Extended Release 64 mg PO BID naproxen 500 mg Tablet 500 mg PO BID famotidine 40 mg tablet 40 mg PO BID PRN (Reason: heart burn) metoprolol succinate 100 mg tablet extended release 24 hr 50 mg PO BID clonazepam 1 mg tablet 1 mg PO BID mometasone 50 mcg/actuation spray,non-aerosol 2 spray INTNAS QAM Stiolto Respimat 2.5-2.5 mcg/actuation mist 2 puff inhalation QAM cyclobenzaprine 5 mg Tablet 5 - 10 mg PO DAILY PRN (Reason: Other) Referrals Referrals: Nicola Stevens DO [Primary Care Provider] -
[2024-10-30 12:16] LABS: INR 1.1 (0.9-1.1); Partial Thromboplastin Ratio 1.1; Partial Thromboplastin Time 30 Seconds (21-31); Prothrombin Time 12.3 Seconds (9.0-12.0)
[2024-10-30 12:29] LABS: Base Excess VBG 1.2 mEq/L; HCO3 VBG 26 mmol/L; Oxygen Saturation VBG < 60.0 %; PCO2 VBG 41 mmHg (38-50); PO2 VBG 33 mmHg; pH VBG 7.41 (7.36-7.41)
[2024-10-30 12:52] LABS: C Reactive Protein 2.41 mg/dl (0-0.5); Magnesium 2.3 mg/dl (1.7-2.4)
[2024-10-30] MEDS: cefTRIAXone SODIUM 2,000 MG/50 ML BAG IV STA (13:08)
[2024-10-30] MEDS: SODIUM CHLORIDE 0.9% 500 ML IV ONE (13:09)
[2024-10-30 13:17] LABS: Influenza A virus by PCR Negative (Neg); Influenza B virus by PCR Negative (Neg); RSV by PCR Negative (Neg); SARS CoV2 RNA(COVID-19) Ceph NEGATIVE (Negative)
--- NOTE | 2024-10-30 13:19 | History & Physical Report ---
Date of Service October 30, 2024 Assessment & Plan (1) CAP (community acquired pneumonia): Plan: 74-year-old male with a history of nonocclusive coronary disease, aortic stenosis pending TAVR who presents with fever cough and sputum production and is found to have community-acquired pneumonia. CAP - Fever, cough, chest discomfort on coughing x24 hours - XR: CAP -Cautious fluid due to history of CHF however appears slightly dry, hypotensive and with pneumonia is likely intravascularly depleted and is preload dependent due to his aortic stenosis. Additional 500 cc fluid given pAfib -Mildly elevated rates likely reactive to pneumonia and some volume contraction Continue Eliquis Continue metoprolol Admitted to telemetry Severe aortic stenosis Caution preload dependence Volume contracted, gentle fluids given and diuretics held Pending TAVR. No acute change in management Hypertension Olmesartan for elevated renal function and hypotension Amlodipine held for hypotension - recently stopped hctz, but added lasix. This is temporarily held while volume contracted and for mild RUBEN RUBEN Creatinine mildly elevated on admission, baseline around 1.1 Trend daily Lasix held. Gentle fluids Renally adjust medications as needed Anxiety Home duloxetine, clonazepam continued DM2 Metformin held Basal bolus SSI while admitted. Goal BSG [id number] Lantus 5 units twice daily, CF 45, CR 20 Type II DM/heart healthy diet DVT prophylaxis: Anticoagulated Disposition: PCU CODE STATUS: Diet: Heart healthy/DM2 (2) Atrial fibrillation with rapid ventricular response: (3) Combined systolic and diastolic congestive heart failure: (4) Mild CAD: (5) Cardiomyopathy: (6) Severe aortic stenosis: History of Present Illness Primary Care Provider: DO Jr Zavala is a 74-year-old male with recent cardiac catheterization 10/29/2024 for valvular disease showing mild to moderate coronary left main/LAD disease otherwise normal coronaries and he was referred for AVR who presents back to the emergency department for shortness of breath. Prior report patient had a preoperative cardiac catheterization in anticipation of scheduled TAVR which did not show any abnormalities requiring stenting. Overnight he developed chest discomfort along with chest pain, cough, fever, and chills. No leg swellings. Endorses orthopnea. On ER evaluation he has a leukocytosis of 11.62, creatinine of 1.42 (baseline of approximately 1.2, although current is downtrending from last measurement of 1.56 on 10/20/2024), troponin of 26.4, CRP 2.41, and elevated BNP. Chest x-ray shows right greater than left basilar pneumonia. He is recommended for admission for community-acquired pneumonia. EKG: afib rate 108. Seen at bedside. Several days of cough prodcutive for brownish dark sputum last few days. One fever this morning and some chills last night. 100.4*F this morning, that was his first fever. Took tylenol 1000mg this AM. Medical History: Reviewed Medications: Reviewed Surgical History: Reviewed Family history: Reviewed Allergies: Reviewed Social History: Former tobacco use in remission, no recent ETOH use. Code Status: Allergies Allergy/AdvReac Type Severity Reaction Status Date / Time iodine Allergy Intermediate SHORTNESS Verified 10/28/24 09:07 OF BREATH amoxicillin Allergy Mild RASH Verified 10/28/24 09:07 clavulanic acid Allergy Mild RASH Verified 10/28/24 09:07 clarithromycin Allergy Unknown UNKNOWN Verified 10/28/24 09:07 indomethacin Allergy Unknown UNKNOWN Verified 10/28/24 09:07 Home Medications Medication Instructions Recorded Confirmed Type aspirin 81 mg tablet,delayed 81 mg PO HS 04/21/19 10/30/24 History release (Adult Aspirin Regimen) blood-glucose meter (OneTouch #1 ea 06/03/23 10/28/24 Rx Verio Reflect Meter) omeprazole 40 mg capsule,delayed 40 mg PO DAILY #90 caps 02/13/24 10/30/24 Rx release metformin 500 mg tablet 500 mg PO BID 90 days #180 tabs 03/27/24 10/30/24 Rx allopurinol 300 mg tablet 300 mg PO DAILY #90 tabs 04/21/24 10/30/24 Rx pravastatin 20 mg tablet 20 mg PO HS #100 tabs 04/21/24 10/30/24 Rx albuterol sulfate 90 mcg/actuation 2 puff inhalation Q6H PRN 05/18/24 10/30/24 Rx aerosol inhaler (Ventolin HFA) Shortness Of Breath #8.5 grams amlodipine 5 mg tablet 5 mg PO DAILY #90 tabs 05/26/24 10/30/24 Rx blood sugar diagnostic (OneTouch #300 ea 09/30/24 10/28/24 Rx Verio test strips) B12 500 mg PO BID 10/30/24 10/30/24 History apixaban 5 mg tablet (Eliquis) 5 mg PO BID 10/30/24 10/30/24 History clonazepam 1 mg tablet 1 mg PO BID anxiety 10/30/24 10/30/24 History cyclobenzaprine 5 mg tablet 5 - 10 mg PO DAILY PRN Other 10/30/24 10/30/24 History famotidine 40 mg tablet 40 mg PO BID PRN heart burn 10/30/24 10/30/24 History losartan 50 mg tablet 50 mg PO DAILY 10/30/24 10/30/24 History magnesium chloride 64 mg 64 mg PO BID 10/30/24 10/30/24 History tablet,extended release metoprolol succinate 100 mg 50 mg PO BID 10/30/24 10/30/24 History tablet,extended release 24 hr mometasone 50 mcg/actuation nasal 2 spray intranasal QAM nasal 10/30/24 10/30/24 History spray congestion naproxen 500 mg tablet 500 mg PO BID 10/30/24 10/30/24 History tiotropium 2.5 mcg-olodaterol 2.5 2 puff inhalation QAM 10/30/24 10/30/24 History mcg/actuation mist for inhalation (Stiolto Respimat) 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 Nasal bleeding Hyponatremia Hypomagnesemia Atrial fibrillation with controlled ventricular rate Ex-smoker Seasonal allergies Multiple pulmonary nodules Aortic stenosis Anemia AAA (abdominal aortic aneurysm) infrarenal Anxiety disorder (Acute) BPH (benign prostatic hyperplasia) (Acute) Chronic obstructive pulmonary disease (Acute) Gastroesophageal reflux disease (Acute 10/15/12) Gout, joint (Acute) Peripheral neuropathy (Acute) Vitamin B12 deficiency (Acute) Hypertension (Chronic) Diabetes type 2, controlled (Chronic) Hypercholesteremia (Chronic) Medical History Moderate to severe aortic stenosis Thrombocytopenia Gout DM w/o complication type II Essential (primary) hypertension Hyperlipidemia GERD (gastroesophageal reflux disease) COPD (chronic obstructive pulmonary disease) Upper respiratory infection Pulmonary nodules Lacunar infarction (10/15/12) Influenza-like symptoms Failure of outpatient treatment Bronchitis Acute bronchitis Surgical History S/P cataract extraction H/O tooth extraction Family History Mother , age 46 Kidney disease Father , age 92 - "old age"; suffered from severe osteoarthritis No problems noted. Sister Cancer Denies family history of Ovarian cancer Prostate cancer Myocardial infarction Breast cancer Colorectal cancer Social History Smoking Status: Former smoker Tobacco Type: Cigarettes Age Started Using Tobacco: 14; Age Quit Using Tobacco: 56; packs per day: 2; Cigarettes Per Day: 30-40; Second Hand Exposure: No; Do You Dip or Chew Tobacco: No; Hx Alcohol Use: No Hx Substance Use: No Preferred Language: B[place]ian Communication Ability: Effective Visual Impairment: No Limitations Hearing Ability: Normal Flux Core Welder Required: No Beliefs That Will Affect Care: None marital status: Current Living Situation: Spouse Current Living Situation Comment: apartment in [place] current occupational status: retired current occupation: [employer] other: first marriage - 1 child; 2nd marriage - 2 children Feels Safe at Home: Yes Diet: regular caffeine: Yes Dental Care, Regularly: No Physical Activity Frequency: Does not Exercise Seatbelt Use: always Sunscreen Use: No Assistive Devices: Glasses Physical Exam Physical Exam: General: A&Ox3. NAD. Cooperative. HEENT: Atraumatic, normocephalic. Vision and hearing grossly intact Pulm: Worse in the bases bilaterally. No wheezes or rales at time of admitting assessment symmetrical chest rise. No increased work of breathing. No respiratory distress. Cardiac: Irregular, slightly tachycardic. Systolic murmur is present. Radial pulses intact and symmetrical. Abdominal: Nontender, nondistended, soft. BS present. Extremities: Ankles are warm and dry without pitting edema Results & Data Results & Data Vital Signs (Past 12 Hours) Vital Signs Pulse Pulse Resp BP Pulse Ox O2 Del Method 10/30/24 12:27 96 H 10/30/24 11:24 108 H 20 92 Room Air 10/30/24 11:18 98 H 10/30/24 11:09 95 Room Air 10/30/24 11:09 101 H 19 103/70 95 Room Air PG Care Time/CCT Total # of Minutes Spent Total Time Spent with Patient: Total time spent is greater than 50% in coordination of care (as documented) at patient's floor/unit and/or counseling patient: Coding Level of Care Code 31086 INT INP/OBS CARE 75MIN Diagnoses CAP (community acquired pneumonia) J18.9 Atrial fibrillation with rapid ventricular response I48.91 Chronic combined systolic and diastolic congestive heart failure I50.42 Heart failure chronicity: chronic Mild CAD I25.10 Cardiomyopathy, unspecified type I42.9 Severe aortic stenosis I35.0 (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
[2024-10-30] MEDS: LACTATED RINGER'S 1,000 ML IV SCH (14:09)
--- NOTE | 2024-10-30 14:23 | Electrocardiogram Report ---
Test Reason : Blood Pressure : */* mmHG Vent. Rate : 108 BPM Atrial Rate : * BPM P-R Int : * ms QRS Dur : 110 ms QT Int : 322 ms P-R-T Axes : * 50 218 degrees QTcB Int : 431 ms Atrial fibrillation with rapid ventricular response Incomplete left bundle block Abnormal ECG When compared with ECG of 18-Dec-2019 11:43, Atrial fibrillation has replaced Sinus rhythm Incomplete left bundle block is now Present Confirmed by Jean Marie Bella ([id number]) on 10/30/2024 2:23:13 PM Referred By: Mateus Germain Confirmed By: Jean Marie Bella
[2024-10-30] MEDS: FAMOTIDINE 20MG IV PUSH 20 MG/5 ML SYR IV SCH (14:33)
[2024-10-30] MEDS: ALUMINUM/MAGNESIUM SUSP 30 ML UDC PO STA (15:56)
[2024-10-30] MEDS ORDERED: CARBOHYDRATES FOR HYPOGLYCEMIA PO PRN (17:12)
[2024-10-30] MEDS ORDERED: GLUCOSE 10 TAB/TUBE PO PRN (17:12)
[2024-10-30] MEDS ORDERED: GLUCOSE 40% GEL 15 GM TUBE PO PRN (17:12)
[2024-10-30] MEDS ORDERED: DEXTROSE 50% 50 ML SYRINGE IV PRN (17:12)
[2024-10-30] MEDS ORDERED: GLUCAGON FOR INJ 1 MG VIAL SQ PRN (17:12)
[2024-10-30] MEDS: ALBUTEROL HFA 8 GM INHALER INH PRN (17:16)
[2024-10-30] MEDS: ALBUTEROL HFA 8 GM INHALER INH ONE (17:17)
[2024-10-30] MEDS: INSULIN ASPART PER UNIT CHARGE SC SCH (17:57)
[2024-10-30] MEDS: ASPIRIN 81 MG ECTAB PO SCH (21:13)
[2024-10-30] MEDS: APIXABAN 5 MG TABLET PO SCH (21:13)
[2024-10-30] MEDS: guaiFENesin 600 MG TABCR PO SCH (21:13)
[2024-10-30] MEDS: METOPROLOL SUCC 50MG EXT REL TAB PO SCH (21:13)
[2024-10-30] MEDS: MAGNESIUM CHLORIDE W/CALCIUM 64MG DELAYED REL TAB PO SCH (21:13)
[2024-10-30] MEDS: clonazePAM 1 MG TAB PO SCH (21:13)
[2024-10-30] MEDS: NAPROXEN 250 MG TAB PO SCH (22:02)
[2024-10-30] MEDS: LANTUS PER UNIT CHARGE SQ SCH (22:25)
[2024-10-30] MEDS: PRAVASTATIN SOD 20 MG TAB PO SCH (22:45)
[2024-10-31 06:47] LABS: Basophils # (auto) 0.01 K/uL (0.00-0.20); Basophils % (auto) 0.1 %; Hematocrit (blood only) 36.3 % (42.0-52.0); Hemoglobin 12.3 g/dl (14.0-18.0); Immature Granulocytes # (auto) 0.12 K/uL (0.01-0.20); Immature Granulocytes % (auto) 0.7 %; Lymphocytes # (auto) 0.68 K/uL (1.20-3.40); Lymphocytes % (auto) 4.1 %; Mean Corpuscular Hgb Conc 33.9 g/dL (32.0-36.0); Mean Corpuscular Volume 94.5 fL (80.0-100.0); Mean Platelet Volume 11.9 fL (9.4-12.4); Monocytes # (auto) 1.42 K/uL (0.11-0.59); Monocytes % (auto) 8.7 %; Neutrophils # (auto) 14.17 K/uL (1.40-6.50); Neutrophils % (auto) 86.4 %; Platelet Count 174 K/uL (130-400); RDW Coefficient of Variation 14.5 % (11.5-14.5); RDW Standard Deviation 50.1 fL (36.4-46.3); Red Blood Count 3.84 M/uL (4.70-6.10)
[2024-10-31 07:02] LABS: BUN Creatinine Ratio 19.3 (10-20); Calcium 8.7 mg/dl (8.6-10.3)
[2024-10-31] MEDS: FLUTICASONE PROPIONATE NA SPR 16 GM BTL SCH (08:12)
[2024-10-31] MEDS: UMECLIDINIUM/VILANTEROL 62.5/25MCG 7 PUFFS/INHALER INH SCH (08:12)
[2024-10-31] MEDS: allopurinoL 300 MG TAB PO SCH (08:14)
[2024-10-31] MEDS: FAMOTIDINE 40 MG TABLET PO PRN (08:14)
[2024-10-31 08:36] LABS: C Reactive Protein 14.15 mg/dl (0-0.5)
--- NOTE | 2024-10-31 08:37 | XRay Report ---
HISTORY: Shortness of breath. TECHNIQUE: Portable AP radiograph of the chest. COMPARISON: Chest CT dated 02/15/2023. PA and lateral chest radiographs date08/22/2022. FINDINGS: Mild blunting of the right costophrenic angle could represent pleural thickening or trace effusion. Linear right midlung opacities favoring discoid atelectasis or scarring. Clear left lung. No pneumothorax. Top normal heart size. Left-sided aortic arch. Midline trachea. No acute osseous abnormality. Degenerative changes of the shoulders and spine. IMPRESSION: * Mild blunting of the right costophrenic angle could represent pleural thickening, trace effusion, or atelectasis. * Linear right midlung opacities favoring discoid atelectasis or scarring. * Clear left lung. * Top normal heart size. Electronically signed by Srikanth Hernandez 10-31-2024 08:37 AM
[2024-10-31] MEDS: PANTOprazole 40 MG TAB PO SCH (10:07)
[2024-10-31] MEDS: DOXYCYCLINE HYCLATE 100 MG in DEXTROSE 5% MINI-B 100 ML IV SCH (10:12)
[2024-10-31] MEDS: PLASMA-LYTE A 500 ML IV ONE (10:13)
[2024-10-31] MEDS: PLASMA-LYTE A 1,000 ML IV SCH (11:27)
--- NOTE | 2024-10-31 12:00 | Hospitalist Progress Note ---
Date of Service October 31, 2024 Assessment & Plan (1) CAP (community acquired pneumonia): Plan: 74-year-old male with a history of nonocclusive coronary disease, aortic stenosis pending TAVR who presents with fever cough and sputum production and is found to have community-acquired pneumonia. CAP - Fever, cough, chest discomfort on coughing x24 hours - XR: CAP - On reassessment remains volume contracted, additional fluid given and p.o. encouraged Leukocytosis uptrending, clinically does not appear improved. CRP uptrending. He is on Rocephin, Doxy was added for adjunct. MRSA nares subsequently negative. Unfortunately he is penicillin allergic with a rash allergy, and cannot receive fluoroquinolones due to history of aneurysms. Expanded to cefepime/doxy. If deteriorating --> merrem + ID consult. - Sputum cx pending pAfib - Mildly elevated rates likely reactive to pneumonia and some volume contraction Continue Eliquis Continue metoprolol Admitted to telemetry Severe aortic stenosis Caution preload dependence. No evdience of volume overload clinically. Volume contracted, additional fluids given and diuretics held Pending TAVR. No acute change in management Hypertension Olmesartan for elevated renal function and hypotension Amlodipine held for hypotension - recently stopped hctz, but added lasix. This is temporarily held while volume contracted and for mild RUBEN RUBEN Creatinine elevated. Suspect prerenal. Baseline ~1.1 Trend daily - hold lasix/nephrotoxins. +fluids. Renally adjust medications as needed Anxiety Home duloxetine, clonazepam continued DM2 Metformin held Basal bolus SSI while admitted. Goal BSG [id number] Lantus 5 units twice daily, CF 45, CR 20 Type II DM/heart healthy diet DVT prophylaxis: Anticoagulated Disposition: PCU CODE STATUS: Diet: Heart healthy/DM2 (2) Atrial fibrillation with rapid ventricular response: (3) Combined systolic and diastolic congestive heart failure: (4) Mild CAD: (5) Cardiomyopathy: (6) Severe aortic stenosis: Admission and Anticipated Discharge Date Admission Date: October 30, 2024 Subjective Seen at the bedside. He reports he feels better than yesterday but still very tired. Continues to have a cough. Mild shortness of breath with exertion not at rest. Denies chest pain/chest pressure/abdominal pain. He reports the a bdominal and gastric pain he was having yesterday has resolved. Does continue to feel dehydrated with dry mucous membranes. Has peed today no burning or urgency felt cold overnight but denies chills/fever Physical Exam Physical Exam: General: A&Ox3. NAD. Cooperative. HEENT: Atraumatic, normocephalic. Pulm: Managed with crackles in the bases. No wheezes/rales. Symmetrical chest rise. No increased work of breathing. No respiratory distress. Cardiac: RRR, +SM. Radial pulses intact and symmetrical. No JVD Abdominal: Nontender, nondistended, soft. BS present. Extremities: No lower extremity edema Results & Data Results & Data Vital Signs (Past 12 Hours) Vital Signs Temp Pulse Resp BP Pulse Ox O2 Del Method O2 Flow Rate 10/31/24 10:50 36.4 C L 103 H 16 105/63 96 Nasal Cannula 2 10/31/24 09:46 Nasal Cannula 2 10/31/24 07:38 36.3 C L 104 H 22 88/60 L 92 Nasal Cannula 2.0 10/31/24 03:13 36.9 C 113 H 18 90/57 L 90 Nasal Cannula PG Care Time/CCT Total # of Minutes Spent Total Time Spent with Patient: Total time spent is greater than 50% in coordination of care (as documented) at patient's floor/unit and/or counseling patient: Coding Level of Care Code 25087 SUB INP/OBS CARE 3/50MIN Diagnoses CAP (community acquired pneumonia) J18.9 Atrial fibrillation with rapid ventricular response I48.91 Chronic combined systolic and diastolic congestive heart failure I50.42 Heart failure chronicity: chronic Mild CAD I25.10 Cardiomyopathy, unspecified type I42.9 Severe aortic stenosis I35.0 (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
[2024-10-31] MEDS: CEFEPIME 2000MG 2,000 MG/20 ML SYR IV SCH (12:30)
[2024-10-31] MEDS: ALBUT/IPRATROP 3MG/0.5MG NEB 3 ML VIAL NEB PRN (13:35)
--- NOTE | 2024-10-31 13:47 | CT Scan Report ---
HISTORY: Shortness of breath. TECHNIQUE: CT imaging of the chest was performed . Images are presented in axial, sagittal, and coronal reformats. COMPARISON: Chest CT dated 02/15/2023. FINDINGS: Lungs: Intralobular septal thickening suggesting interstitial pulmonary edema. Subtle perihilar groundglass opacity involving the right greater than left lung favoring developing alveolar pulmonary edema. There is moderate bilateral pleural effusions, which are right greater than left. No pneumothorax. The central tracheobronchial tree is patent. Heart/Mediastinum: Mild cardiomegaly. No pericardial effusion. Coronary artery calcifications are present with severe multivessel disease. Severe aortic valvular calcification. No suspicious mediastinal or hilar lymph nodes. Included thyroid gland is unremarkable. The thoracic esophagus is unremarkable. Vasculature: Moderate atherosclerotic vascular disease. No abdominal aortic aneurysm. Main pulmonary artery is mildly dilated measuring 3.4 cm in diameter. Soft Tissues: Mild gynecomastia. Upper Abdomen: Unremarkable. Bones: No acute osseous abnormality. Degenerative changes of the shoulders and spine. IMPRESSION: * Findings favoring CHF with cardiomegaly, moderate pleural effusions, and interstitial pulmonary edema. Subtle bilateral perihilar groundglass opacities right greater than left and favored to represent associated alveolar pulmonary edema. Differential would also include atypical pneumonia. * Severe aortic valvular calcification concerning for aortic valve stenosis. Consider correlation with echocardiogram. * Coronary artery calcifications are present with multivessel disease. * Additional chronic and/or incidental findings as detailed above. ACT 112: Positive. There are findings on this exam that require communication between the performing entity and the patient following Patient Test Result Information Act ([place] ACT 112) guidelines. Electronically signed by Srikanth Hernandez 10-31-2024 13:47 PM
[2024-10-31] MEDS ORDERED: cefTRIAXone SODIUM 2,000 MG/50 ML BAG IV SCH (14:00)
[2024-10-31] MEDS: methylPREDNISolone 125 MG/2 ML VIAL IV STA (14:01)
[2024-10-31 14:44] LABS: Base Excess VBG -5.4 mEq/L; HCO3 VBG 20 mmol/L; Oxygen Saturation VBG < 60.0 %; PCO2 VBG 38 mmHg (38-50); PO2 VBG 31 mmHg; pH VBG 7.33 (7.36-7.41)
[2024-10-31] MEDS: FUROSEMIDE INJ 20 MG/2 ML VIAL IV ONE (16:07)
[2024-10-31] MEDS: ALBUMIN 25% 12.5 GM/50 ML VIAL IV ONE (17:34)
[2024-10-31] MEDS: methylPREDNISolone 40 MG in SYRINGE 0 ML IV SCH (20:51)
[2024-10-31] MEDS: hydrOXYzine HCl 10 MG TAB PO STA (22:03)
[2024-11-01 04:53] LABS: Appearance Urine Clear (Clear); Bacteria Urine Automated None Seen (None Seen); Bilirubin Urine Negative (Negative); Blood Urine Trace (Negative); Cast Urine Automated >20 /lpf (0-2); Color Urine Dark Yellow; Epithelial Cell Urine Auto 0-2 /hpf (0-2); Glucose Urine UA Negative (Negative); Ketones Urine Trace (Negative); Leukocyte Esterase Urine Trace (Negative); Mucus Urine Present (None Prsent); Nitrite Urine Negative (Negative); Protein Urine Trace (Negative); RBC Urine Automated 0-2 /hpf (0-2); Specific Gravity Urine 1.019 (1.000-1.030); Urobilinogen Urine Negative (Negative); WBC Urine Automated 0-5 /hpf (0-5)
[2024-11-01] MEDS: ACETAMINOPHEN 325 MG TAB PO PRN (04:53)
[2024-11-01 05:13] LABS: Hematocrit (blood only) 36.6 % (42.0-52.0); Hemoglobin 12.4 g/dl (14.0-18.0); Mean Corpuscular Hemoglobin 32.3 pg (25.0-34.0); Mean Corpuscular Hgb Conc 33.9 g/dL (32.0-36.0); Mean Corpuscular Volume 95.3 fL (80.0-100.0); Mean Platelet Volume 11.7 fL (9.4-12.4); Nucleated RBC # (auto) 0.03 K/uL (0.00-0.12); Nucleated RBC % (auto) 0.2 %; Platelet Count 172 K/uL (130-400); RDW Coefficient of Variation 14.6 % (11.5-14.5); RDW Standard Deviation 50.3 fL (36.4-46.3); Red Blood Count 3.84 M/uL (4.70-6.10); White Blood Count 15.72 K/ul (4.8-10.8)
[2024-11-01 05:38] LABS: Calcium 8.3 mg/dl (8.6-10.3); Potassium 4.5 mmol/L (3.5-5.1)
[2024-11-01 05:39] LABS: Basophils # (auto) 0.01 K/uL (0.00-0.20); Basophils % (auto) 0.1 %; Echinocytes 2+; Immature Granulocytes # (auto) 0.08 K/uL (0.01-0.20); Immature Granulocytes % (auto) 0.5 %; Lymphocytes # (auto) 0.53 K/uL (1.20-3.40); Lymphocytes % (auto) 3.4 %; Monocytes # (auto) 0.59 K/uL (0.11-0.59); Monocytes % (auto) 3.8 %; Neutrophils # (auto) 14.51 K/uL (1.40-6.50); Neutrophils % (auto) 92.2 %; Ovalocytes 1+; Polychromasia 1+
[2024-11-01 05:45] LABS: BUN Creatinine Ratio 19.4 (10-20); C Reactive Protein 20.69 mg/dl (0-0.5); Creatinine Clr Calc Pharmacy 20.5 ml/min
--- NOTE | 2024-11-01 06:38 | XRay Report ---
EXAM: XR chest 1V portable CLINICAL HISTORY: Hypoxia. TECHNIQUE: An X-ray image of the chest is obtained in AP projection. COMPARISON: The Prior study dated 10/31/2024. FINDINGS: Pulmonary Parenchyma: Right lower zone opacification may refer to early pulmonary infiltrate. The right inferior hilar opacity is more obvious in the current study. No evidence of consolidation, collapse, or focal opacities. No pulmonary nodules are identified. A blunted right costophrenic angle is seen. Heart and Mediastinum: Unchanged bilateral hilar vascular congestion was noted. Enlarged cardiac size noted. No mediastinal widening or masses. No hilar or mediastinal lymphadenopathy. Bony Thorax: Bony thorax appears intact without fractures or deformities. Soft Tissues: Soft tissues overlying the chest wall are unremarkable. IMPRESSION: 1. Right lower zone opacification may refer to early pulmonary infiltrate. 2. The right inferior hilar opacity is more obvious in the current study. May refer to congested vasculature /enlarged lymph node. 3. Mild cardiomegaly. 4. A blunted right costophrenic angle is seen. 5. No acute cardiopulmonary abnormalities are identified. Electronically signed by Krish Stevens 11-01-2024 06:38 AM
[2024-11-01] MEDS ORDERED: VANCOMYCIN CONSULT ACTIVE PRN ×2 (06:51→06:58)
[2024-11-01] MEDS ORDERED: STAT IV Infusion **Titration per Protocol STA ×3 (07:15→13:00)
[2024-11-01 07:18] LABS: Base Excess VBG -12.6 mEq/L; HCO3 VBG 16 mmol/L; Oxygen Saturation VBG < 60.0 %; PCO2 VBG 44 mmHg (38-50); PO2 VBG 29 mmHg; pH VBG 7.16 (7.36-7.41)
--- NOTE | 2024-11-01 07:21 | Hospitalist Progress Note ---
Date of Service November 01, 2024 Assessment & Plan (1) CAP (community acquired pneumonia): Plan: 74-year-old male with a history of nonocclusive coronary disease, aortic stenosis pending TAVR who presents with fever cough and sputum production and is found to have community-acquired pneumonia. Acute hypoxic respiratory failure due to community-acquired pneumonia, +/- - Fever, cough, chest discomfort on coughing x24 hours prior to admission - XR: CAP CT/AP with bilateral pleural effusions, and developing CHF versus pneumonia Antibiotics were initially expanded from Rocephin to cefepime/doxycycline. Due to continued deterioration have been further expanded to meropenem. Levaquin contraindicated due to aneurysms and he is penicillin allergic Sputum culture pending. Continues to produce dark brownish sputum. MRSA nare is negative Patient remains intermittently hypotensive. Developed confusion overnight. Lactic elevated, VBG 7.16/44/29/16. Metabolic lactic acidosis. Patient has pleural effusions and some developing pulmonary edema however also appears been intravascularly dry with pneumonia and is preload dependent with As. Due to elevated lactate, confusion and endorgan ischemia started on Levophed and transferred to the ICU. Intubated for progressive respiratory failure in the ICU pAfib Continue Eliquis Admitted to telemetry Metoprolol was held for hypotension. Aggressive rate control was not pursued due to concern for potential decompensation in the setting of intravascular depletion and pneumonia Severe aortic stenosis Preload dependent. On admission appears volume contracted, fluids were given however had poor tolerance to this with worsening shortness of breath and developing CHF. Diuresis limited by RUBEN and intravascular contraction. Lasix and small dose of albumin was trialed given pleural effusions and development of CHF however tolerated this poorly and was subsequently started on vasopressors and transferred to the ICU Pending TAVR as outpatient. No acute change in management Hypertension Antihypertensives held RUBEN Creatinine elevated. Baseline around 1.1 Consistently uptrending, suspect prerenal in the setting of pneumonia Losartan held Trend daily - hold lasix/nephrotoxins. Renally adjust for creatinine clearance as needed Anxiety Home duloxetine, clonazepam continued DM2 Metformin held Basal bolus SSI while admitted. Goal BSG [id number] Lantus 5 units twice daily, CF 45, CR 20 Type II DM/heart healthy diet DVT prophylaxis: Anticoagulated Disposition: ICU CODE STATUS: Full Diet: Heart healthy/DM2 (2) Atrial fibrillation with rapid ventricular response: (3) Combined systolic and diastolic congestive heart failure: (4) Mild CAD: (5) Cardiomyopathy: (6) Severe aortic stenosis: Admission and Anticipated Discharge Date Admission Date: October 30, 2024 Subjective Seen at the bedside on reassessment. Patient is confused, reports he is at [facility]. Endorses that he feels short of breath but does not want a wear oxygen or CPAP/BiPAP. Was trialed on CPAP when mentating clearly however could not tolerate this as he felt claustrophobic with this and was removed on for approximately 10 minutes. Moved to the ICU for progressive hypoxia, acidosis, and respiratory failure Patient is seen at bedside in the ICU. Notified by staff that had removed oxygen several times and did not wish for any blood draws. Patient was seen at the bedside with his , daughter present. He is confused and is oriented to "[place] ", is not oriented to year. Does report that he is in the hospital for "breathing "but is not able to give any further history. He reports that he wants to take off his oxygen, BiPAP and be left alone to be comfortable. Expressed that with his deterioration without medical treatments he was highly likely to be permanently harmed or . When asked to verbalize back these risks he is unable to do so, and reports the only risk him would be to be more comfortable. Did not demonstrate capacity at time of assessment. Patient's was at bedside reports that if he were able to advocate for himself in a clear state of mind he would want a breathing tube and resuscitation in his current circumstances.Subsequently intubated in the ICU pending bronchoscopy Physical Exam Physical Exam: General: Ill appearing. Oriented to name only. HEENT: Atraumatic, normocephalic. Mucous membranes dry. Pulm: Diffuse rhonchi, tachypneic. No wheezing. Diminished in the bases. Cardiac: Irregular, tachycardic. Abdominal: Nontender/nondistended Extremities: Minimal ankle edema. Results & Data Results & Data Vital Signs (Past 12 Hours) Vital Signs Temp Pulse Resp BP Pulse Ox O2 Del Method O2 Flow Rate 11/01/24 03:31 36.5 C 104 H 22 93/52 L 93 Nasal Cannula 2.5 10/31/24 23:21 36.6 C 115 H 24 95/61 L 91 Nasal Cannula 2 10/31/24 22:00 Nasal Cannula 2 10/31/24 19:25 36.3 C L 120 H 22 109/68 92 Nasal Cannula 2 PG Care Time/CCT Total # of Minutes Spent Total Time Spent with Patient: Total time spent is greater than 50% in coordination of care (as documented) at patient's floor/unit and/or counseling patient: Coding Level of Care Code 96569 SUB INP/OBS CARE 3/50MIN Diagnoses CAP (community acquired pneumonia) J18.9 Atrial fibrillation with rapid ventricular response I48.91 Chronic combined systolic and diastolic congestive heart failure I50.42 Heart failure chronicity: chronic Mild CAD I25.10 Cardiomyopathy, unspecified type I42.9 Severe aortic stenosis I35.0 (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
[2024-11-01] MEDS: VANCOMYCIN HCL 1,750 MG in SODIUM CHLORIDE 0.9% 500 ML IV STA (08:20)
[2024-11-01 08:27] LABS: iSTAT Allen Test Pass; iSTAT Art Bld Gas pCO2 Correct 24 mmHg (35-46); iSTAT Art Bld Gas pH Corrected 7.373 (7.35-7.45); iSTAT Arterial Blood Gas HCO3 14 meg/L (19-24); iSTAT Arterial Blood Gas pCO2 24 mmHg (35-46); iSTAT Arterial Blood Gas pH 7.38 (7.35-7.45); iSTAT Arterial Blood Gas pO2 74 mmHg (80-95); iSTAT Arterial Blood Gas pO2 C 75; iSTAT Carbon Dioxide 15 mmol/L (24-31); iSTAT Hematocrit 34 % (42-52); iSTAT Hemoglobin 11.6 g/dl (14.0-18.0); iSTAT Potassium 4.4 mmol/L (3.3-5.0); iSTAT Sample Type Arterial; iSTAT Site R Radial; iSTAT Sodium 129 mmol/L (135-144); iSTAT SpO2 93
[2024-11-01] MEDS ORDERED: Nursing to Pharmacy Communication SCH ×2 (08:45→13:45)
[2024-11-01] MEDS ORDERED: VANCOMYCIN HCL 1,250 MG in SODIUM CHLORIDE 0.9% 250 ML IV SCH (09:00)
--- NOTE | 2024-11-01 10:35 | Nephrology Consultation ---
Date of Consultation November 01, 2024 Assessment & Plan (1) Acute kidney injury: Non-oliguric. UOP unfortunately slowing. Clinical presentation consistent with septic/ischemic ATN -- hemodynamic instability in the setting of rapid atrial fibrillation with RVR. Consider possible contrast associated nephropathy or atheroembolic disease following recent cardiac catheterization as potentially contributing. Naproxen and losartan use also contributing. Volume status and electrolytes are acceptable. There is no emergent indication for dialysis at this time. UA demonstrates hyaline casts and +blood. Microscopy with hyaline casts. No RBCs or WBCs. Maintain Diamond to gravity. Document strict I/O's. If kidney function does not improve, consider renal US (deferred at this time pending intubation) + Diamond draining. Continue to hold losartan. Naproxen stopped. Pravastatin reduced to 10 mg daily. Continue to avoid cyclobenzaprine. Baseline creatinine ~1.1 mg/dL. No prior documented albuminuria. 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 IV furosemide 20 mg and albumin provided yesterday. Remains preload dependent in RVR with marginal BP. Avoid aggressive diuresis at this time. Additional IVF boluses are not required are not require. Avoid significantly positive fluid balance. I had a family meeting this AM with Dr. Frankel, Mr. Rutledge + his and daughters. Goals of care were reviewed. Potential future indications for dialysis were discussed. Mr. Rutledge is unfortunately not able to participate in the conversation in a meaningful way. He did not demonstrate comprehension. The family expressed that generally it would not be his personality to pursue aggressive measures but he was planning to move forward with TAVR. At this time, they would like to try mechanical ventilation. If kidney dysfunction progresses they would favor a trial of dialysis but would like to constantly reevaluate prior to escalating care. They understand the critical nature of his situation with respect to his aortic stenosis and other medical comorbidities. They are processing. Palliative care consultation may be helpful to negotiate goals of care moving forward. Repeat a renal panel tomorrow AM. CK added to AM labs. (2) CAP (community acquired pneumonia): Remains on cefepime and Doxy. Vancomycin dosing based on levels. Cultures negative. I discussed the plan of care with Dr. Browne this AM. (3) Atrial fibrillation with rapid ventricular response: BP improved. Not currently maintained on vasopressors. Remains in RVR. Anticoagulated with Eliquis. (4) Severe aortic stenosis: Cardiac cath demonstrating mild to moderate non-obstructive CAD completed on October 26. HCTZ switched to furosemide at that time due to elevated filling pressures. TAVR evaluation had been scheduled following catheterizations. (5) Combined systolic and diastolic congestive heart failure: Recent worsening LVEF. No obstructive coronary lesions seen on catheterization. History of Present Illness Reason for Consultation: RUBEN, , CHF Requesting Physician: Dixon Browne MD Attending Physician: Dixon Browne MD History of Present Illness Mr. Jr Rutledge is a 74 year-old male with coronary artery disease, HFrEF, severe aortic stenosis, chronic atrial fibrillation (Eliquis), peripheral arterial disease, hypertension, diabetes mellitus II (metformin + insulin), hyperlipidemia, COPD, OA/DJD, and GERD. He has a baseline creatinine of ~1.1 mg/dL. He has not had documented albuminuria in the past. Jr underwent left heart catheterization on October 26 in preparation for TAVR. Recent echocardiogram demonstrating worsening stenosis as well as reduction in LVEF. Evaluation demonstrated mild to moderate CAD (notably left main and LAD). Serum creatinine was 1.42 mg/dL prior to the procedure. Jr presented to the ER at [facility] on October 30 with shortness of breath. Evaluation demonstrated rapid atrial fibrillation and community acquired pneumonia. IVF were provided for evidence of sepsis and hypotension. Unfortunately, Jr's clinical condition has not improved. He was seen and evaluated in the ICU this AM with the wrapper sorter and family at the bedside. Jr is confused and not able to participate in meaningful conversation. He remains in rapid atrial fibrillation with labile BP. His respiratory status is worsening. The ICU team is planning to proceed with intubation following a family meeting. Urine output has been dropping. Diamond is in place. I also spoke to Dr. Browne this AM. Serum creatinine is rising 1.42-->2.0-->3.24 mg/dL. Thankfully, electrolytes are normal. Allergies Allergy/AdvReac Type Severity Reaction Status Date / Time iodine Allergy Intermediate SHORTNESS Verified 10/28/24 09:07 OF BREATH amoxicillin Allergy Mild RASH Verified 10/28/24 09:07 clavulanic acid Allergy Mild RASH Verified 10/28/24 09:07 clarithromycin Allergy Unknown UNKNOWN Verified 10/28/24 09:07 indomethacin Allergy Unknown UNKNOWN Verified 10/28/24 09:07 Home Medications Medication Instructions Recorded Confirmed Type aspirin 81 mg tablet,delayed 81 mg PO HS 04/21/19 10/30/24 History release (Adult Aspirin Regimen) blood-glucose meter (OneTouch #1 ea 06/03/23 10/28/24 Rx Verio Reflect Meter) omeprazole 40 mg capsule,delayed 40 mg PO DAILY #90 caps 02/13/24 10/30/24 Rx release metformin 500 mg tablet 500 mg PO BID 90 days #180 tabs 03/27/24 10/30/24 Rx allopurinol 300 mg tablet 300 mg PO DAILY #90 tabs 04/21/24 10/30/24 Rx pravastatin 20 mg tablet 20 mg PO HS #100 tabs 04/21/24 10/30/24 Rx albuterol sulfate 90 mcg/actuation 2 puff inhalation Q6H PRN 05/18/24 10/30/24 Rx aerosol inhaler (Ventolin HFA) Shortness Of Breath #8.5 grams amlodipine 5 mg tablet 5 mg PO DAILY #90 tabs 05/26/24 10/30/24 Rx blood sugar diagnostic (OneTouch #300 ea 09/30/24 10/28/24 Rx Verio test strips) B12 500 mg PO BID 10/30/24 10/30/24 History apixaban 5 mg tablet (Eliquis) 5 mg PO BID 10/30/24 10/30/24 History clonazepam 1 mg tablet 1 mg PO BID anxiety 10/30/24 10/30/24 History cyclobenzaprine 5 mg tablet 5 - 10 mg PO DAILY PRN Other 10/30/24 10/30/24 History famotidine 40 mg tablet 40 mg PO BID PRN heart burn 10/30/24 10/30/24 History losartan 50 mg tablet 50 mg PO DAILY 10/30/24 10/30/24 History magnesium chloride 64 mg 64 mg PO BID 10/30/24 10/30/24 History tablet,extended release metoprolol succinate 100 mg 50 mg PO BID 10/30/24 10/30/24 History tablet,extended release 24 hr mometasone 50 mcg/actuation nasal 2 spray intranasal QAM nasal 10/30/24 10/30/24 History spray congestion naproxen 500 mg tablet 500 mg PO BID 10/30/24 10/30/24 History tiotropium 2.5 mcg-olodaterol 2.5 2 puff inhalation QAM 10/30/24 10/30/24 History mcg/actuation mist for inhalation (Stiolto Respimat) Patient History Medical History Moderate to severe aortic stenosis Thrombocytopenia Gout DM w/o complication type II Essential (primary) hypertension Hyperlipidemia GERD (gastroesophageal reflux disease) COPD (chronic obstructive pulmonary disease) Upper respiratory infection Pulmonary nodules Lacunar infarction (10/15/12) Influenza-like symptoms Failure of outpatient treatment Bronchitis Acute bronchitis Surgical History S/P cataract extraction H/O tooth extraction Family History Mother , age 46 Kidney disease Father , age 92 - "old age"; suffered from severe osteoarthritis No problems noted. Sister Cancer Denies family history of Ovarian cancer Prostate cancer Myocardial infarction Breast cancer Colorectal cancer Social History Smoking Status: Former smoker Tobacco Type: Cigarettes Age Started Using Tobacco: 14; Age Quit Using Tobacco: 56; packs per day: 2; Cigarettes Per Day: 30-40; Second Hand Exposure: No; Do You Dip or Chew Tobacco: No; Hx Alcohol Use: No Hx Substance Use: No Preferred Language: Vietnamese Communication Ability: Effective Visual Impairment: No Limitations Hearing Ability: Normal [employer] Required: No Beliefs That Will Affect Care: None marital status: Current Living Situation: Spouse Current Living Situation Comment: apartment in [place] current occupational status: retired current occupation: [employer] other: first marriage - 1 child; 2nd marriage - 2 children Feels Safe at Home: Yes Diet: regular caffeine: Yes Dental Care, Regularly: No Physical Activity Frequency: Does not Exercise Seatbelt Use: always Sunscreen Use: No Assistive Devices: Glasses Review of Systems Review of Systems: All systems reviewed & are unremarkable except as noted in HPI & below Constitutional: no fever and no chills Respiratory: + cough and + dyspnea Cardiovascular: + orthopnea; no chest pain and no palpit ations Psychiatric: + paranoia Physical Exam Constitutional: + ill appearing and + frail appearing Eyes: + anicteric sclerae ENMT: Mouth: + dry oral mucous membranes; no TMJ abnormality Neck: normal visual inspection and trachea midline Respiratory: + tachypneic; does not use accessory mus cles Auscultation: + rhonchi Cardiovascular: Rate/Rhythm: + irregularly irregular Heart Sounds: + murmur Extremities: + pedal edema Musculoskeletal: Extremities: no cyanosis and no clubbing Skin: + dry skin; no jaundice Neurologic: awake and + confused Speech / Cognition: + abnormal cognition Psychiatric: Orientation: + not oriented to place and + not oriented to time Thought Process: + tangential thought process and + looseness of associations Genitourinary: Diamond draining light brown slightly concentrated urine Results & Data Vital Signs (Past 12 Hours) Vital Signs Temp Pulse Pulse Pulse Resp BP BP 11/01/24 09:00 37.4 C 108 H 23 111/67 11/01/24 08:01 105/58 L 11/01/24 08:01 105/58 L 11/01/24 08:01 105/58 L 11/01/24 08:01 105/58 L 11/01/24 08:01 105/58 L 11/01/24 08:01 105/58 L 11/01/24 08:01 105/58 L 11/01/24 08:01 105/58 L 11/01/24 08:01 105/58 L 11/01/24 08:01 105/58 L 11/01/24 08:00 37.3 C 122 H 25 H 11/01/24 08:00 11/01/24 07:44 37.4 C 127 H 31 H 11/01/24 07:34 120/77 11/01/24 07:34 120/77 11/01/24 07:34 120/77 11/01/24 07:34 120/77 11/01/24 07:34 120/77 11/01/24 07:34 120/77 11/01/24 07:34 120/77 11/01/24 07:34 120/77 11/01/24 07:34 120/77 11/01/24 07:34 120/77 11/01/24 07:34 37.2 C 117 H 24 120/77 11/01/24 03:31 36.5 C 104 H 22 93/52 L 10/31/24 23:21 36.6 C 115 H 24 95/61 L Pulse Ox O2 Del Method O2 Flow Rate 11/01/24 09:00 95 Nasal Cannula 3 11/01/24 08:01 11/01/24 08:01 11/01/24 08:01 11/01/24 08:01 11/01/24 08:01 11/01/24 08:01 11/01/24 08:01 11/01/24 08:01 11/01/24 08:01 11/01/24 08:01 11/01/24 08:00 84 L 11/01/24 08:00 Nasal Cannula 3 11/01/24 07:44 94 11/01/24 07:34 11/01/24 07:34 11/01/24 07:34 11/01/24 07:34 11/01/24 07:34 11/01/24 07:34 11/01/24 07:34 11/01/24 07:34 11/01/24 07:34 11/01/24 07:34 11/01/24 07:34 95 Nasal Cannula 3 11/01/24 03:31 93 Nasal Cannula 2.5 10/31/24 23:21 91 Nasal Cannula 2 Laboratory Results Laboratory Results - last 24 hr 10/31/24 10/31/24 10/31/24 09:35 11:28 14:37 WBC RBC Hgb POC Hgb Hct POC Hct MCV MCH MCHC RDW Std Deviation RDW Coeff of Kang Plt Count MPV Immature Gran % (Auto) Neut % (Auto) Lymph % (Auto) [place] % (Auto) Eos % (Auto) Baso % (Auto) Neut # (Auto) Lymph # (Auto) [place] # (Auto) Eos # (Auto) Baso # (Auto) Immature Gran # (Auto) Absolute Nucleated RBC Nucleated RBC % (auto) Polychromasia Ovalocytes Echinocytes Specimen Type Sample Site POC pH POC pCO2 POC pO2 POC HCO3 POC Total CO2 POC Base Excess O2 Sat Pulse Oximetry ABG pH (Temp Correct) ABG pCO2 (Temp Corrct POC ABG pO2 at Pt Temp POC ABG O2 Sat Prashant Test VBG pH 7.33 L VBG pCO2 38 VBG pO2 31 VBG HCO3 20 VBG O2 Saturation < 60.0 VBG Base Excess -5.4 O2 Delivery Device POC Sodium Sodium POC Potassium Potassium Chloride Carbon Dioxide Anion Gap BUN Creatinine Est Cr Clr Drug Dosing eGFR BUN/Creatinine Ratio Glucose POC Glucose 154 H Lactate Calcium C-Reactive Protein Procalcitonin 2.01 H Urine Color Urine Appearance Urine pH Ur Specific [place] Urine Protein Urine Glucose (UA) Urine Ketones Urine Blood Urine Nitrite Urine Bilirubin Urine Urobilinogen Ur Leukocyte Esterase Urine WBC (Auto) Urine RBC (Auto) U Hyaline Cast (Auto) U Epithel Cells (Auto) Urine Bacteria (Auto) Urine Mucus Nasal Screen MRSA (PCR) Negative 10/31/24 10/31/24 11/01/24 16:03 20:20 04:30 WBC RBC Hgb POC Hgb Hct POC Hct MCV MCH MCHC RDW Std Deviation RDW Coeff of Kang Plt Count MPV Immature Gran % (Auto) Neut % (Auto) Lymph % (Auto) [place] % (Auto) Eos % (Auto) Baso % (Auto) Neut # (Auto) Lymph # (Auto) [place] # (Auto) Eos # (Auto) Baso # (Auto) Immature Gran # (Auto) Absolute Nucleated RBC Nucleated RBC % (auto) Polychromasia Ovalocytes Echinocytes Specimen Type Sample Site POC pH POC pCO2 POC pO2 POC HCO3 POC Total CO2 POC Base Excess O2 Sat Pulse Oximetry ABG pH (Temp Correct) ABG pCO2 (Temp Corrct POC ABG pO2 at Pt Temp POC ABG O2 Sat Prashant Test VBG pH VBG pCO2 VBG pO2 VBG HCO3 VBG O2 Saturation VBG Base Excess O2 Delivery Device POC Sodium Sodium POC Potassium Potassium Chloride Carbon Dioxide Anion Gap BUN Creatinine Est Cr Clr Drug Dosing eGFR BUN/Creatinine Ratio Glucose POC Glucose 153 H 159 H Lactate Calcium C-Reactive Protein Procalcitonin Urine Color Dark Yellow Urine Appearance Clear Urine pH 5.0 Ur Specific [place] 1.019 Urine Protein Trace H Urine Glucose (UA) Negative Urine Ketones Trace H Urine Blood Trace H Urine Nitrite Negative Urine Bilirubin Negative Urine Urobilinogen Negative Ur Leukocyte Esterase Trace H Urine WBC (Auto) 0-5 Urine RBC (Auto) 0-2 U Hyaline Cast (Auto) >20 H U Epithel Cells (Auto) 0-2 Urine Bacteria (Auto) None Seen Urine Mucus Present A Nasal Screen MRSA (PCR) 11/01/24 11/01/24 11/01/24 04:58 07:08 07:59 WBC 15.72 H RBC 3.84 L Hgb 12.4 L POC Hgb Hct 36.6 L POC Hct MCV 95.3 MCH 32.3 MCHC 33.9 RDW Std Deviation 50.3 H RDW Coeff of Kang 14.6 H Plt Count 172 MPV 11.7 Immature Gran % (Auto) 0.5 Neut % (Auto) 92.2 Lymph % (Auto) 3.4 [place] % (Auto) 3.8 Eos % (Auto) 0.0 Baso % (Auto) 0.1 Neut # (Auto) 14.51 H Lymph # (Auto) 0.53 L [place] # (Auto) 0.59 Eos # (Auto) 0.00 Baso # (Auto) 0.01 Immature Gran # (Auto) 0.08 Absolute Nucleated RBC 0.03 Nucleated RBC % (auto) 0.2 Polychromasia 1+ Ovalocytes 1+ Echinocytes 2+ Specimen Type Sample Site POC pH POC pCO2 POC pO2 POC HCO3 POC Total CO2 POC Base Excess O2 Sat Pulse Oximetry ABG pH (Temp Correct) ABG pCO2 (Temp Corrct POC ABG pO2 at Pt Temp POC ABG O2 Sat Prashant Test VBG pH 7.16 L VBG pCO2 44 VBG pO2 29 VBG HCO3 16 VBG O2 Saturation < 60.0 VBG Base Excess -12.6 O2 Delivery Device POC Sodium Sodium 129 L POC Potassium Potassium 4.5 Chloride 94 L Carbon Dioxide 21 Anion Gap 14 H BUN 63 H D Creatinine 3.24 H D Est Cr Clr Drug Dosing 20.5 eGFR 19.15 BUN/Creatinine Ratio 19.4 Glucose 165 H POC Glucose 179 H Lactate 4.8 H* 6.8 H* Calcium 8.3 L C-Reactive Protein 20.69 H Procalcitonin Urine Color Urine Appearance Urine pH Ur Specific [place] Urine Protein Urine Glucose (UA) Urine Ketones Urine Blood Urine Nitrite Urine Bilirubin Urine Urobilinogen Ur Leukocyte Esterase Urine WBC (Auto) Urine RBC (Auto) U Hyaline Cast (Auto) U Epithel Cells (Auto) Urine Bacteria (Auto) Urine Mucus Nasal Screen MRSA (PCR) 11/01/24 08:08 WBC RBC Hgb POC Hgb 11.6 L Hct POC Hct 34 L MCV MCH MCHC RDW Std Deviation RDW Coeff of Kang Plt Count MPV Immature Gran % (Auto) Neut % (Auto) Lymph % (Auto) [place] % (Auto) Eos % (Auto) Baso % (Auto) Neut # (Auto) Lymph # (Auto) [place] # (Auto) Eos # (Auto) Baso # (Auto) Immature Gran # (Auto) Absolute Nucleated RBC Nucleated RBC % (auto) Polychromasia Ovalocytes Echinocytes Specimen Type Arterial Sample Site R Radial POC pH 7.38 POC pCO2 24 L POC pO2 74 L POC HCO3 14 L POC Total CO2 15 L POC Base Excess -11.0 L O2 Sat Pulse Oximetry 93 ABG pH (Temp Correct) 7.373 ABG pCO2 (Temp Corrct 24 L POC ABG pO2 at Pt Temp 75 POC ABG O2 Sat 95.0 Prashant Test Pass VBG pH VBG pCO2 VBG pO2 VBG HCO3 VBG O2 Saturation VBG Base Excess O2 Delivery Device Cannula POC Sodium 129 L Sodium POC Potassium 4.4 Potassium Chloride Carbon Dioxide Anion Gap BUN Creatinine Est Cr Clr Drug Dosing eGFR BUN/Creatinine Ratio Glucose POC Glucose Lactate Calcium C-Reactive Protein Procalcitonin Urine Color Urine Appearance Urine pH Ur Specific [place] Urine Protein Urine Glucose (UA) Urine Ketones Urine Blood Urine Nitrite Urine Bilirubin Urine Urobilinogen Ur Leukocyte Esterase Urine WBC (Auto) Urine RBC (Auto) U Hyaline Cast (Auto) U Epithel Cells (Auto) Urine Bacteria (Auto) Urine Mucus Nasal Screen MRSA (PCR) Diagnostic Findings XR chest 1V portable TECHNIQUE: An X-ray image of the chest is obtained in AP projection. COMPARISON: The Prior study dated 10/31/2024. FINDINGS: Pulmonary Parenchyma: Right lower zone opacification may refer to early pulmonary infiltrate. The right inferior hilar opacity is more obvious in the current study. No evidence of consolidation, collapse, or focal opacities. No pulmonary nodules are identified. A blunted right costophrenic angle is seen. Heart and Mediastinum: Unchanged bilateral hilar vascular congestion was noted. Enlarged cardiac size noted. No mediastinal widening or masses. No hilar or mediastinal lymphadenopathy. Bony Thorax: Bony thorax appears intact without fractures or deformities. Soft Tissues: Soft tissues overlying the chest wall are unremarkable. IMPRESSION: 1. Right lower zone opacification may refer to early pulmonary infiltrate. 2. The right inferior hilar opacity is more obvious in the current study. May refer to congested vasculature /enlarged lymph node. 3. Mild cardiomegaly. 4. A blunted right costophrenic angle is seen. 5. No acute cardiopulmonary abnormalities are identified. CT CHEST: COMPARISON: Chest CT dated 02/15/2023. FINDINGS: Lungs: Intralobular septal thickening suggesting interstitial pulmonary edema. Subtle perihilar groundglass opacity involving the right greater than left lung favoring developing alveolar pulmonary edema. There is moderate bilateral pleural effusions, which are right greater than left. No pneumothorax. The central tracheobronchial tree is patent. Heart/Mediastinum: Mild cardiomegaly. No pericardial effusion. Coronary artery calcifications are present with severe multivessel disease. Severe aortic valvular calcification. No suspicious mediastinal or hilar lymph nodes. Included thyroid gland is unremarkable. The thoracic esophagus is unremarkable. Vasculature: Moderate atherosclerotic vascular disease. No abdominal aortic aneurysm. Main pulmonary artery is mildly dilated measuring 3.4 cm in diameter. Soft Tissues: Mild gynecomastia. Upper Abdomen: Unremarkable. Bones: No acute osseous abnormality. Degenerative changes of the shoulders and spine. IMPRESSION: * Findings favoring CHF with cardiomegaly, moderate pleural effusions, and interstitial pulmonary edema. Subtle bilateral perihilar groundglass opacities right greater than left and favored to represent associated alveolar pulmonary edema. Differential would also include atypical pneumonia. * Severe aortic valvular calcification concerning for aortic valve stenosis. Consider correlation with echocardiogram. * Coronary artery calcifications are present with multivessel disease. * Additional chronic and/or incidental findings as detailed above. PG Care Time/CCT Total # of Minutes Spent Total Time Spent with Patient: Total time spent is greater than 50% in coordination of care (as documented) at patient's floor/unit and/or counseling patient: Coding Level of Care Code 67603 IN/OBS CONSULT LVL 5,80M Diagnoses Acute kidney injury N17.9 CAP (community acquired pneumonia) J18.9 Atrial fibrillation with rapid ventricular response I48.91 Severe aortic stenosis I35.0 Chronic combined systolic and diastolic congestive heart failure I50.42 Heart failure chronicity: chronic (5) Combined systolic and diastolic congestive heart failure Heart failure chronicity: chronic Qualified Code(s): I50.42 - Chronic combined systolic (congestive) and diastolic (congestive) heart failure
--- NOTE | 2024-11-01 11:58 | Critical Care Consultation ---
Date of Consultation November 01, 2024 Assessment & Plan (1) CAP (community acquired pneumonia): Reason Critically Ill: 74-year-old male with worsening community-acquired pneumonia acute hypoxic respiratory failure and multisystem organ dysfunction PLAN: Neuro: Metabolic encephalopathy -Likely related to critical illness and sepsis Analgesia and sedation -Fentanyl 100 mcg every 2 hours, propofol infusion -Possibly consider transition to Versed to avoid negative i notropic effects propofol Resp: Acute hypoxic respiratory failure secondary to severe community-acquired pneumonia - Initially placed on Rocephin and doxycycline, patient has been transitioned to cefepime, will expand coverage to meropenem secondary to drug interactions and allergies -Underwent bronchoscopy for specimen secondary to clinical worsening -Currently on Solu-Medrol for severe mucoid pneumonia CV: Paroxysmal A-fib Atrial fibrillation with rapid ventricular response Severe aortic stenosis -Reviewed echo from 10/14/2024: Low ejection fraction 25 to 30% -Judicious use of digoxin to facilitate rate control and inotropic support -250 mg IV x 1 Known coronary artery disease -Using phenylephrine versus norepinephrine secondary to significant heart rate elevation -May require small doses of beta-blockade to optimize hemodynamics given aortic stenosis -Avoid afterload reduction -Continue statin therapy and 81 mg aspirin Hypertension -Hold ANGELA inhibitor Fluids/Renal: Acute kidney injury with nonoliguric renal failure -Reviewed nephrology consultation -Holding allopurinol and losartan and naproxen Lactic acid acidosis -Continue to trend -Thiamine supplementation ID: Sepsis secondary to community-acquired pneumonia -Meropenem day 1: Initially received Rocephin x 2 days, doxycycline day 3, vancomycin day 1 GI/Nutrition: Patient on home meds of H2 kip and PPI -Transition to just PPI while mechanically ventilated Heme: Systemic anticoagulation with Eliquis secondary to paroxysmal atrial fibrillation -Continue 81 mg aspirin DVT prophylaxis: Eliquis 5 mg Endocrine: ICU hyperglycemia protocol Cortisol response adequate -Solu-Medrol IV Vascular access: Right IJ placed 11/01, left radial art line placed 11/01 Code Status: DO NOT RESUSCITATE in event of cardiac arrest, okay with intubation for respiratory insufficiency Disposition: ICU (2) Acute kidney injury: (3) Atrial fibrillation with rapid ventricular response: (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 This is a life/limb threatening event. This includes time spent evaluating patient, direct bedside care, chart review, placing orders, interpretation of diagnostic studies, discussion with consultants, patient, and/or family members regarding treatment decisions, as well as other required patient management activities. This time is exclusive of all separately billable procedures, and teaching time and separate from and in addition to any other critical care service time. History of Present Illness Reason for Consultation: Worsening sepsis and hemodynamics in the setting of critical aortic stenosis and worsening hypoxic respiratory failure secondary to lobar pneumonia. Attending Physician: Dixon Browne MD History of Present Illness Patient is a 74-year-old male who was admitted 2 days ago with community- acquired pneumonia, he also carries medical diagnoses of nonocclusive coronary artery disease, aortic stenosis pending TAVR, paroxysmal atrial fibrillation, severe aortic stenosis, hypertension, acute kidney injury. in the last 12 hours the patient's hemodynamic profile has worsened, he is not tolerating BiPAP, he is largely delirious and confrontational removing critical equipment. He was transferred to the ICU for evaluation and management. He had been given 2 500 mL boluses For volume expansion, patient does show some signs of worsening pulmonary congestion. Extensive discussion was undertaken with the patient's and 2 daughters regarding goals of care, prognosis, current medical issues. Certainly the patient cannot undergo aortic valve replacement given his current infection. He is hemodynamic profile is demonstrated A-fib with rapid ventricular response approaching maximum heart rate, I felt that patient required intubation and mechanical ventilation to further offload his pulmonary and cardiovascular function and expand his antibiotic coverage. Patient had previously stated he did not want aggressive heroics taken. After discussion with family they feel he would not want tracheostomy if he is unable to liberate from the ventilator which is certainly consideration given his underlying disease processes aside from the pneumonia. Decision was made to proceed with intubation as the pneumonia is a potentially reversible cause, the decision was also made to modify CODE STATUS to no CPR/heroics in event of cardiac arrest. Allergies Allergy/AdvReac Type Severity Reaction Status Date / Time iodine Allergy Intermediate SHORTNESS Verified 10/28/24 09:07 OF BREATH amoxicillin Allergy Mild RASH Verified 10/28/24 09:07 clavulanic acid Allergy Mild RASH Verified 10/28/24 09:07 clarithromycin Allergy Unknown UNKNOWN Verified 10/28/24 09:07 indomethacin Allergy Unknown UNKNOWN Verified 10/28/24 09:07 Home Medications Medication Instructions Recorded Confirmed Type aspirin 81 mg tablet,delayed 81 mg PO HS 04/21/19 10/30/24 History release (Adult Aspirin Regimen) blood-glucose meter (OneTouch #1 ea 06/03/23 10/28/24 Rx Verio Reflect Meter) omeprazole 40 mg capsule,delayed 40 mg PO DAILY #90 caps 02/13/24 10/30/24 Rx release metformin 500 mg tablet 500 mg PO BID 90 days #180 tabs 03/27/24 10/30/24 Rx allopurinol 300 mg tablet 300 mg PO DAILY #90 tabs 04/21/24 10/30/24 Rx pravastatin 20 mg tablet 20 mg PO HS #100 tabs 04/21/24 10/30/24 Rx albuterol sulfate 90 mcg/actuation 2 puff inhalation Q6H PRN 05/18/24 10/30/24 Rx aerosol inhaler (Ventolin HFA) Shortness Of Breath #8.5 grams amlodipine 5 mg tablet 5 mg PO DAILY #90 tabs 05/26/24 10/30/24 Rx blood sugar diagnostic (OneTouch #300 ea 09/30/24 10/28/24 Rx Verio test strips) B12 500 mg PO BID 10/30/24 10/30/24 History apixaban 5 mg tablet (Eliquis) 5 mg PO BID 10/30/24 10/30/24 History clonazepam 1 mg tablet 1 mg PO BID anxiety 10/30/24 10/30/24 History cyclobenzaprine 5 mg tablet 5 - 10 mg PO DAILY PRN Other 10/30/24 10/30/24 History famotidine 40 mg tablet 40 mg PO BID PRN heart burn 10/30/24 10/30/24 History losartan 50 mg tablet 50 mg PO DAILY 10/30/24 10/30/24 History magnesium chloride 64 mg 64 mg PO BID 10/30/24 10/30/24 History tablet,extended release metoprolol succinate 100 mg 50 mg PO BID 10/30/24 10/30/24 History tablet,extended release 24 hr mometasone 50 mcg/actuation nasal 2 spray intranasal QAM nasal 10/30/24 10/30/24 History spray congestion naproxen 500 mg tablet 500 mg PO BID 10/30/24 10/30/24 History tiotropium 2.5 mcg-olodaterol 2.5 2 puff inhalation QAM 10/30/24 10/30/24 History mcg/actuation mist for inhalation (Stiolto Respimat) Patient History Medical History Moderate to severe aortic stenosis Thrombocytopenia Gout DM w/o complication type II Essential (primary) hypertension Hyperlipidemia GERD (gastroesophageal reflux disease) COPD (chronic obstructive pulmonary disease) Upper respiratory infection Pulmonary nodules Lacunar infarction (10/15/12) Influenza-like symptoms Failure of outpatient treatment Bronchitis Acute bronchitis Surgical History S/P cataract extraction H/O tooth extraction Family History Mother , age 46 Kidney disease Father , age 92 - "old age"; suffered from severe osteoarthritis No problems noted. Sister Cancer Denies family history of Ovarian cancer Prostate cancer Myocardial infarction Breast cancer Colorectal cancer Social History Smoking Status: Former smoker Tobacco Type: Cigarettes Age Started Using Tobacco: 14; Age Quit Using Tobacco: 56; packs per day: 2; Cigarettes Per Day: 30-40; Second Hand Exposure: No; Do You Dip or Chew Tobacco: No; Hx Alcohol Use: No Hx Substance Use: No Preferred Language: Indonesian Communication Ability: Effective Visual Impairment: No Limitations Hearing Ability: Normal Clinical Pharmacist Required: No Beliefs That Will Affect Care: None marital status: Current Living Situation: Spouse Current Living Situation Comment: apartment in [place] current occupational status: retired current occupation: [employer] other: first marriage - 1 child; 2nd marriage - 2 children Feels Safe at Home: Yes Diet: regular caffeine: Yes Dental Care, Regularly: No Physical Activity Frequency: Does not Exercise Seatbelt Use: always Sunscreen Use: No Assistive Devices: Glasses Physical Exam Physical Exam: General: Alert. Does not exhibit insight into understanding underlying disease process frequently asking why he needs oxygen, does not understand gravity that he is getting worse and could potentially , repetitive questioning, sometimes responsive to family members request. Skin: Warm, dry, Head: Atraumatic Ears, nose, mouth and throat: airway patent Cardiovascular: Normal peripheral perfusion Respiratory: no respiratory distress Gastrointestinal: Non distended Musculoskeletal: No deformity, trace edema in bilateral lower extremities. Results & Data Results & Data Vital Signs (Past 12 Hours) Vital Signs Temp Pulse Pulse Pulse Resp BP BP 11/01/24 10:39 124 H 25 H 11/01/24 10:31 114/86 11/01/24 10:03 37.1 C 119 H 22 11/01/24 10:00 100/75 11/01/24 09:54 37.1 C 122 H 19 11/01/24 09:37 110/65 11/01/24 09:35 37.1 C 124 H 29 H 11/01/24 09:32 37.1 C 129 H 21 11/01/24 09:14 37.2 C 127 H 25 H 11/01/24 09:00 111/67 11/01/24 09:00 37.4 C 108 H 23 111/67 11/01/24 08:50 37.3 C 124 H 27 H 11/01/24 08:38 37.3 C 107 H 22 11/01/24 08:11 37.4 C 121 H 33 H 11/01/24 08:01 105/58 L 11/01/24 08:01 105/58 L 11/01/24 08:01 105/58 L 11/01/24 08:01 105/58 L 11/01/24 08:01 105/58 L 11/01/24 08:01 105/58 L 11/01/24 08:01 105/58 L 11/01/24 08:01 105/58 L 11/01/24 08:01 105/58 L 11/01/24 08:01 105/58 L 11/01/24 08:00 37.3 C 122 H 25 H 11/01/24 08:00 11/01/24 07:44 37.4 C 127 H 31 H 11/01/24 07:34 120/77 11/01/24 07:34 120/77 11/01/24 07:34 120/77 11/01/24 07:34 120/77 11/01/24 07:34 120/77 11/01/24 07:34 120/77 11/01/24 07:34 120/77 11/01/24 07:34 120/77 11/01/24 07:34 120/77 11/01/24 07:34 120/77 11/01/24 07:34 37.2 C 117 H 24 120/77 11/01/24 03:31 36.5 C 104 H 22 93/52 L Pulse Ox O2 Del Method O2 Flow Rate 11/01/24 10:39 94 11/01/24 10:31 11/01/24 10:03 92 11/01/24 10:00 11/01/24 09:54 83 L 11/01/24 09:37 11/01/24 09:35 93 11/01/24 09:32 93 11/01/24 09:14 95 11/01/24 09:00 11/01/24 09:00 95 Nasal Cannula 3 11/01/24 08:50 95 11/01/24 08:38 95 11/01/24 08:11 93 11/01/24 08:01 11/01/24 08:01 11/01/24 08:01 11/01/24 08:01 11/01/24 08:01 11/01/24 08:01 11/01/24 08:01 11/01/24 08:01 11/01/24 08:01 11/01/24 08:01 11/01/24 08:00 84 L 11/01/24 08:00 Nasal Cannula 3 11/01/24 07:44 94 11/01/24 07:34 11/01/24 07:34 11/01/24 07:34 11/01/24 07:34 11/01/24 07:34 11/01/24 07:34 11/01/24 07:34 11/01/24 07:34 11/01/24 07:34 11/01/24 07:34 11/01/24 07:34 95 Nasal Cannula 3 11/01/24 03:31 93 Nasal Cannula 2.5 Critical Care Results & Data Vital Signs (Past 12 Hours) Vital Signs Temp Pulse Pulse Pulse Resp BP BP 11/01/24 14:10 11/01/24 13:36 110 H 14 11/01/24 13:35 14 11/01/24 13:12 110 H 22 11/01/24 13:00 82/66 L 11/01/24 13:00 82/66 L 11/01/24 13:00 82/66 L 11/01/24 13:00 82/66 L 11/01/24 13:00 82/66 L 11/01/24 12:45 126 H 22 11/01/24 12:35 90/59 L 11/01/24 12:35 90/59 L 11/01/24 12:35 90/59 L 11/01/24 12:35 90/59 L 11/01/24 12:33 139 H 22 11/01/24 12:30 84/65 L 11/01/24 12:30 84/65 L 11/01/24 12:25 97/62 L 11/01/24 12:20 98/63 L 11/01/24 12:20 98/63 L 11/01/24 12:20 120 H 22 11/01/24 12:20 122 H 22 11/01/24 12:10 103/83 11/01/24 12:10 103/83 11/01/24 12:10 103/83 11/01/24 12:10 103/83 11/01/24 12:08 120 H 25 H 11/01/24 12:05 120/79 11/01/24 12:05 11/01/24 12:02 115 H 30 H 11/01/24 12:00 124/83 11/01/24 12:00 124/83 11/01/24 12:00 124/83 11/01/24 12:00 124/83 11/01/24 11:53 132 H 25 H 11/01/24 11:37 116/86 11/01/24 11:37 116/86 11/01/24 11:37 116/86 11/01/24 11:37 116/86 11/01/24 11:37 116/86 11/01/24 11:37 116/86 11/01/24 11:37 116/86 11/01/24 11:37 116/86 11/01/24 11:37 116/86 11/01/24 11:37 116/86 11/01/24 11:35 106 H 35 H 11/01/24 11:32 108 H 27 H 11/01/24 11:00 120/75 11/01/24 10:39 124 H 25 H 11/01/24 10:31 114/86 11/01/24 10:03 37.1 C 119 H 22 11/01/24 10:00 100/75 11/01/24 09:54 37.1 C 122 H 19 11/01/24 09:37 110/65 11/01/24 09:35 37.1 C 124 H 29 H 11/01/24 09:32 37.1 C 129 H 21 11/01/24 09:14 37.2 C 127 H 25 H 11/01/24 09:00 111/67 11/01/24 09:00 37.4 C 108 H 23 111/67 11/01/24 08:50 37.3 C 124 H 27 H 11/01/24 08:38 37.3 C 107 H 22 11/01/24 08:11 37.4 C 121 H 33 H 11/01/24 08:01 105/58 L 11/01/24 08:01 105/58 L 11/01/24 08:01 105/58 L 11/01/24 08:01 105/58 L 11/01/24 08:01 105/58 L 11/01/24 08:01 105/58 L 11/01/24 08:01 105/58 L 11/01/24 08:01 105/58 L 11/01/24 08:01 105/58 L 11/01/24 08:01 105/58 L 11/01/24 08:00 37.3 C 122 H 25 H 11/01/24 08:00 11/01/24 07:44 37.4 C 127 H 31 H 11/01/24 07:34 120/77 11/01/24 07:34 120/77 11/01/24 07:34 120/77 11/01/24 07:34 120/77 11/01/24 07:34 120/77 11/01/24 07:34 120/77 11/01/24 07:34 120/77 11/01/24 07:34 120/77 11/01/24 07:34 120/77 11/01/24 07:34 120/77 11/01/24 07:34 37.2 C 117 H 24 120/77 11/01/24 03:31 36.5 C 104 H 22 93/52 L Pulse Ox O2 Del Method O2 Flow Rate FiO2 11/01/24 14:10 Mechanical Vent 11/01/24 13:36 100 11/01/24 13:35 50 11/01/24 13:12 100 11/01/24 13:00 11/01/24 13:00 11/01/24 13:00 11/01/24 13:00 11/01/24 13:00 11/01/24 12:45 100 11/01/24 12:35 11/01/24 12:35 11/01/24 12:35 11/01/24 12:35 11/01/24 12:33 100 11/01/24 12:30 11/01/24 12:30 11/01/24 12:25 11/01/24 12:20 11/01/24 12:20 11/01/24 12:20 92 11/01/24 12:20 97 100 11/01/24 12:10 11/01/24 12:10 11/01/24 12:10 11/01/24 12:10 11/01/24 12:08 11/01/24 12:05 11/01/24 12:05 50 11/01/24 12:02 99 11/01/24 12:00 11/01/24 12:00 11/01/24 12:00 11/01/24 12:00 11/01/24 11:53 100 11/01/24 11:37 11/01/24 11:37 11/01/24 11:37 11/01/24 11:37 11/01/24 11:37 11/01/24 11:37 11/01/24 11:37 11/01/24 11:37 11/01/24 11:37 11/01/24 11:37 11/01/24 11:35 98 11/01/24 11:32 94 11/01/24 11:00 11/01/24 10:39 94 11/01/24 10:31 11/01/24 10:03 92 11/01/24 10:00 11/01/24 09:54 83 L 11/01/24 09:37 11/01/24 09:35 93 11/01/24 09:32 93 11/01/24 09:14 95 11/01/24 09:00 11/01/24 09:00 95 Nasal Cannula 3 11/01/24 08:50 95 11/01/24 08:38 95 03/30/25 08:11 93 11/01/24 08:01 11/01/24 08:01 11/01/24 08:01 11/01/24 08:01 11/01/24 08:01 11/01/24 08:01 11/01/24 08:01 11/01/24 08:01 11/01/24 08:01 11/01/24 08:01 11/01/24 08:00 84 L 11/01/24 08:00 Nasal Cannula 3 11/01/24 07:44 94 11/01/24 07:34 11/01/24 07:34 11/01/24 07:34 11/01/24 07:34 11/01/24 07:34 11/01/24 07:34 11/01/24 07:34 11/01/24 07:34 11/01/24 07:34 11/01/24 07:34 11/01/24 07:34 95 Nasal Cannula 3 11/01/24 03:31 93 Nasal Cannula 2.5 Lab & Micro Results (Past 24 Hours) RBC 3.84 M/uL (4.70-6.10) L 11/01/24 WBC 15.72 K/ul (4.8-10.8) H 11/01/24 Hgb 12.4 g/dl (14.0-18.0) L 11/01/24 Hct 36.6 % (42.0-52.0) L 11/01/24 MCV 95.3 fL (80.0-100.0) 11/01/24 MCH 32.3 pg (25.0-34.0) 11/01/24 MCHC 33.9 g/dL (32.0-36.0) 11/01/24 RDW Standard Deviation 50.3 fL (36.4-46.3) H 11/01/24 RDW Coefficient of Variation 14.6 % (11.5-14.5) H 11/01/24 Plt Count 172 K/uL (130-400) 11/01/24 MPV 11.7 fL (9.4-12.4) 11/01/24 Nucleated Red Blood Cells % (auto) 0.2 % 11/01 Nucleated RBC Absolute Count (auto) 0.03 K/uL (0.00-0.12) 0 11/01/24 Neutrophils (%) (Auto) 92.2 % 11/01/24 Lymphocytes (%) (Auto) 3.4 % 11/01/24 Monocytes # (Auto) 0.59 K/uL (0.11-0.59) 11/01/24 Eosinophils # (Auto) 0.00 K/uL (0.00-0.50) 11/01/24 Immature Granulocyte % (Auto) 0.5 % 11/01/24 Neutrophils # (Auto) 14.51 K/uL (1.40-6.50) H 11/01/24 Lymphocytes # (Auto) 0.53 K/uL (1.20-3.40) L 11/01/24 Monocytes # (Auto) 0.59 K/uL (0.11-0.59) 11/01/24 Eosinophils # (Auto) 0.00 K/uL (0.00-0.50) 11/01/24 Basophils # (Auto) 0.01 K/uL (0.00-0.20) 11/01/24 Immature Granulocyte # (Auto) 0.08 K/uL (0.01-0.20) 5 Polychromasia 1+ 11/01/24 Echinocytes 2+ 11/01/24 Ovalocytes 1+ 11/01/24 Na 129 mmol/L (136-145) L 11/01/24 K 4.5 mmol/L (3.5-5.1) 11/01/24 Cl 94 mmol/L (98-107) L 11/01/24 CO2 21 mmol/L (21-32) 11/01/24 Anion Gap 14 (3-11) H 11/01/24 BUN 63 mg/dl (6-23) H 11/01/24 Creatinine 3.24 mg/dl (0.6-1.4) H 11/01/24 BUN/Creatinine Ratio 19.4 (10-20) 11/01/24 Glu 165 mg/dl (70-99(Fasting)) H 11/01/24 Ca 8.3 mg/dl (8.6-10.3) L 11/01/24 Calcium Level 8.3 mg/dl (8.6-10.3) L 11/01/24 04:58 Venous Blood pH 7.16 (7.36-7.41) L 11/01/24 07:08 Venous Blood Partial Pressure CO2 44 mmHg (38-50) 11/01/24 07:0 8 Venous Blood Partial Pressure O2 29 mmHg 11/01/24 07:08 Venous Blood HCO3 16 mmol/L 11/01/24 07:08 Venous Blood Base Excess -12.6 mEq/L 11/01/24 07:08 Venous Blood Oxygen Saturation < 60.0 % 11/01/24 07:08 Prashant Test NA 11/01/24 13:29 Microbiology 10/30/24 12:13 Aerobic Blood Culture - Preliminary Blood No growth in Aerobic bottle after 48 hours. Anaerobic Blood Culture - Preliminary No growth in Anaerobic bottle after 48 hours. 10/30/24 12:18 Aerobic Blood Culture - Preliminary Blood No growth in Aerobic bottle after 48 hours. Anaerobic Blood Culture - Preliminary No growth in Anaerobic bottle after 48 hours. Diagnostic Findings (Past 24 Hours) Chest X-Ray 11/01/24 05:29 EXAM: XR chest 1V portable CLINICAL HISTORY: Hypoxia. TECHNIQUE: An X-ray image of the chest is obtained in AP projection. COMPARISON: The Prior study dated 10/31/2024. FINDINGS: Pulmonary Parenchyma: Right lower zone opacification may refer to early pulmonary infiltrate. The right inferior hilar opacity is more obvious in the current study. No evidence of consolidation, collapse, or focal opacities. No pulmonary nodules are identified. A blunted right costophrenic angle is seen. Heart and Mediastinum: Unchanged bilateral hilar vascular congestion was noted. Enlarged cardiac size noted. No mediastinal widening or masses. No hilar or mediastinal lymphadenopathy. Bony Thorax: Bony thorax appears intact without fractures or deformities. Soft Tissues: Soft tissues overlying the chest wall are unremarkable. IMPRESSION: 1. Right lower zone opacification may refer to early pulmonary infiltrate. 2. The right inferior hilar opacity is more obvious in the current study. May refer to congested vasculature /enlarged lymph node. 3. Mild cardiomegaly. 4. A blunted right costophrenic angle is seen. 5. No acute cardiopulmonary abnormalities are identified. Electronically signed by Krish Stevens 11-01-2024 06:38 AM Chest X-Ray 11/01/24 12:54 EXAM: Radiograph of the Chest 1 View INDICATION: Line placement TECHNIQUE: Frontal view of the chest. Image obtained at 1:15 PM. COMPARISON: 5:45 AM the same day FINDINGS: Lungs and pleural spaces: Worsening asymmetric groundglass and consolidative infiltrates throughout the right lung and new infiltrate left base. Increased small bilateral pleural effusions. No pneumothorax. Heart: Stable large cardiac shadow. Mediastinum: Normal contour. Bones/joints: No fracture, erosion or dislocation. Soft tissues: No abnormality noted. No radiopaque foreign body noted. Tubes, lines and devices: The endotracheal tube terminates 5.0 cm above the laury. Right internal jugular central venous catheter tip in the mid superior vena cava. Nasogastric tube below the diaphragm. The tip is not included in the image field. Upper abdomen: No abnormality noted. IMPRESSION: 1. Worsening asymmetric right aspiration pneumonitis, pneumonia and alveolar edema. 2. Lines and tubes as above. ACT 112: N/A Electronically signed by Kaur Mendez 11-01-2024 13:40 PM I & O Totals 24 Hours 10/31/24 11/01/24 11/02/24 06:59 06:59 06:59 Intake Total 910 / 910 2880 / 2880 1668.577 / 1668.577 Output Total 837 / 837 Balance 910 / 910 2043 / 2043 1668.577 / 1668.577 Cumulative 10/30/24 10:53 thru 11/01/24 13:27 Intake Total 5458.577 Output Total 837 Balance 4621.577 RT Ventilator Mngmt (Last Documented) Ventilator Ordered Settings Ventilator Support Mode Assist Control 11/01/24 12:20 Respiratory Rate 14 11/01/24 13:36 Ventilator Tidal Volume 400 11/01/24 12:20 Setting Minute Ventilation 8.6 11/01/24 12:20 Positive End Expiratory 5 11/01/24 12:20 Pressure Fraction of Inspired Oxygen 50 11/01/24 13:35 Machine Comment vent changes post ABG per 11/01/24 13:35 Shippert Ventilator - PT Measurements Respiratory Rate 14 Exhaled Tidal Volume 400 Minute Ventilation 8.6 Peak Inspiratory Airway 16 Pressure Plateau Pressure 12 Respiratory Cycle Inspiratory: 1:2.9 Expiratory Ratio Inspiratory Phase Time 0.70 End-Tidal CO2 26 Static Lung Compliance 57.14 Dynamic Lung Compliance 36.36 Normal Static Lung Compliance 48.00 Coding Level of Care Code 61554 CRITICAL CARE 1ST 30-74M Additional Critical Care Time Additional 30min Critical Care Time: Yes - 76167 Diagnoses CAP (community acquired pneumonia) J18.9 Acute kidney injury N17.9 Atrial fibrillation with rapid ventricular response I48.91 Chronic combined systolic and diastolic congestive heart failure I50.42 Heart failure chronicity: chronic Cardiomyopathy, unspecified type I42.9 Severe aortic stenosis I35.0 Acute metabolic encephalopathy G93.41 Delirium R41.0 Additional Codes Critical Care Time - Additional 30min Critical Care Time: Yes - ([id number]) (4) Combined systolic and diastolic congestive heart failure Heart failure chronicity: chronic Qualified Code(s): I50.42 - Chronic combined systolic (congestive) and diastolic (congestive) heart failure (5) Cardiomyopathy Qualified Code(s): I42.9 - Cardiomyopathy, unspecified
[2024-11-01] MEDS: VECURONIUM BROMIDE 10 MG VIAL IV STA (12:05)
[2024-11-01] MEDS: CEFEPIME 1000MG 1,000 MG/10 ML SYR IV SCH (12:18)
[2024-11-01] MEDS: propofoL 1,000 MG/100 ML VIAL IV SCH (12:19)
[2024-11-01] MEDS: PROPOFOL IV EMULSION 10 MG/ML 100 ML VIAL IV ONE (12:20)
[2024-11-01] MEDS: VECURONIUM BROMIDE 10 MG VIAL IV ONE (12:20)
[2024-11-01] MEDS: RAPID SEQUENCE INDUCTION BAG ONE (12:20)
[2024-11-01] MEDS: PHENYLEPHRINE/NSS 25 MG/250 ML BAG IV SCH (12:40)
--- NOTE | 2024-11-01 12:46 | Pharmacy Report ---
Pharmacy PK ABX Note - Date of Service November 01, 2024 - Assessment and Plan Assessment * 74 year old M receiving cefepime, doxycyline, and vancomycin for treatment of CAP. Patient now intubated in ICU and ordered norepinephrine. * Pertinent microbiologic data includes: blood cultures no growth to date, negative MRSA Nasal Swab, urine culture pending * RUBEN noted w SCr trending 1.4 -> 2.1 -> 3.2 mg/dL. Vancomycin * Will dose via level given RUBEN Plan Vancomycin * Loading dose: 1750 mg IV x 1 * Random level with AM labs tomorrow Pharmacy will continue to follow and will adjust dose/frequency as necessary. Thank you. Pharmacy has transitioned to AUC monitoring for vancomycin. AUC/KELSEY is the preferred PK/PD target and is associated with decreased risk of nephrotoxicity compared to traditional trough targets.
[2024-11-01] MEDS: PHENYLEPHRINE HCL 25 MG/250 ML NSS IV ONE (13:25)
--- NOTE | 2024-11-01 13:40 | XRay Report ---
EXAM: Radiograph of the Chest 1 View INDICATION: Line placement TECHNIQUE: Frontal view of the chest. Image obtained at 1:15 PM. COMPARISON: 5:45 AM the same day FINDINGS: Lungs and pleural spaces: Worsening asymmetric groundglass and consolidative infiltrates throughout the right lung and new infiltrate left base. Increased small bilateral pleural effusions. No pneumothorax. Heart: Stable large cardiac shadow. Mediastinum: Normal contour. Bones/joints: No fracture, erosion or dislocation. Soft tissues: No abnormality noted. No radiopaque foreign body noted. Tubes, lines and devices: The endotracheal tube terminates 5.0 cm above the laury. Right internal jugular central venous catheter tip in the mid superior vena cava. Nasogastric tube below the diaphragm. The tip is not included in the image field. Upper abdomen: No abnormality noted. IMPRESSION: 1. Worsening asymmetric right aspiration pneumonitis, pneumonia and alveolar edema. 2. Lines and tubes as above. ACT 112: N/A Electronically signed by Kaur Mendez 11-01-2024 13:40 PM
[2024-11-01 13:43] LABS: iSTAT Art Bld Gas pCO2 Correct 33 mmHg (35-46); iSTAT Art Bld Gas pH Corrected 7.321 (7.35-7.45); iSTAT Arterial Blood Gas HCO3 17 meg/L (19-24); iSTAT Arterial Blood Gas pCO2 33 mmHg (35-46); iSTAT Arterial Blood Gas pH 7.32 (7.35-7.45); iSTAT Arterial Blood Gas pO2 257 mmHg (80-95); iSTAT Arterial Blood Gas pO2 C 257; iSTAT Carbon Dioxide 18 mmol/L (24-31); iSTAT FiO2 100 %; iSTAT Hematocrit 32 % (42-52); iSTAT Hemoglobin 10.9 g/dl (14.0-18.0); iSTAT Potassium 4.2 mmol/L (3.3-5.0); iSTAT Sample Type Arterial; iSTAT Site Art Line; iSTAT Sodium 129 mmol/L (135-144); iSTAT SpO2 100
--- NOTE | 2024-11-01 13:44 | Electrocardiogram Report ---
Test Reason : Blood Pressure : */* mmHG Vent. Rate : 89 BPM Atrial Rate : * BPM P-R Int : * ms QRS Dur : 114 ms QT Int : 376 ms P-R-T Axes : * 40 204 degrees QTcB Int : 457 ms Atrial fibrillation Incomplete left bundle block Abnormal ECG When compared with ECG of 30-Oct-2024 11:09, No significant change was found Confirmed by Emily Smith (Keshawn) on 11/01/2024 1:44:25 PM Referred By: Mateus Germain Confirmed By: Emily Smith
[2024-11-01] MEDS: MEROPENEM 500 MG in SYRINGE 0 ML IV SCH (14:19)
--- NOTE | 2024-11-01 14:27 | Procedure Note ---
Procedure Note Date of Service November 01, 2024 Procedure date: Noted above Procedure: Radial artery cannulation Pre-procedure Diagnosis: Need for invasive monitoring, hypotension/frequent blood draws Post-procedure Diagnosis: same as above Prior to Procedure: Informed Consent: The risks, benefits, indications, potential complications, and alternatives were explained to the the patient's family and informed consent obtained. Attending Staff: Mary Frankel DO Skin Prep: Chlorhexidine Anesthesia: 3 mL 1% lidocaine without epinephrine The identity of the patient was confirmed and a bedside time out was performed. Description of Procedure: After sterile prep and sterile drape utilizing standard sterile technique the superficial skin of the left radial artery was anesthetized. The target artery was identified via dynamic ultrasound guidance and entered with a 20-gauge arrow Angiocath. Pulsatile bright red blood return was noted. Via modified Seldinger technique the self-contained guidewire was advanced and the Angiocath advanced over the guidewire. The guidewire was removed and brisk arterial blood return was noted. The pressure monitor was connected, and the arterial line was secured via silk suture. A sterile dressing was then applied. Complications: None Estimated blood loss: Trace Patient tolerated the procedure well. Artery visualized: Yes Vein visualized: Not applicable Guidewire or Short Catheter seen in artery prior to dilation: Yes Impression: Successful arterial line placement Images obtained are saved for permanent record Procedure date: Noted above Procedure: Central venous access Pre-procedure indication: Need for vasoactive medication administration Post-procedure Diagnosis: same as above Prior to Procedure: Informed Consent: The risks, benefits, indications, potential complications, and alternatives were explained to the patient's family and informed consent obtained. Attending Staff: Mary Frankel DO Resident/APC: Not applicable Skin Prep: Chlorhexidine Anesthesia: 4 mL 1% lidocaine without epinephrine The identity of the patient was confirmed and a bedside time out was performed. Description of Procedure: After sterile prep and sterile drape utilizing standard sterile technique the superficial skin of the right internal jugular area was anesthetized. The target vessel was identified and entered with an 18- gauge needle. Dark venous blood return was noted. A guidewire was inserted through the needle and into the vessel. The needle was withdrawn and a skin sukhdev was made. A tissue dilator was advanced via Seldinger technique and removed. A triple lumen catheter was inserted via Seldinger technique and the guidewire removed. All ports ryan and flushed easily. A Biopatch was placed, and the catheter was secured via silk suture. A sterile dressing was then applied. Complications: None Estimated blood loss: Trace Patient tolerated the procedure well. Procedure Date: Noted Above Procedure: Procedural Ultrasound Indication: Central venous access Attending: Mary Frankel DO Resident/Physician Executive Kitchen Manager: Not applicable Artery visualized: Yes Vein visualized: Yes Compressible Vein: Yes Vein patent: Yes Guidewire or Short Catheter seen in vein prior to dilation: Yes Line confirmed in Vein with ultrasound: Yes Lung Sliding on side of attempt (if applicable): NA If no lung sliding or not obtained has CXR been ordered: Yes Impression: Successful central venous access placement [facility] [place] Procedure Codes (Charges) Tubes, Drains, and Vasc Access Procedure 1: Tubes, Drains, and Vasc Access: [id number] Arterial Cath/Cannulation Sampling/Monitoring/Transfusion Procedure 2: Tubes, Drains, and Vasc Access: [id number] Ultrasound Guidance For Vascular Procedure 3: Tubes, Drains, and Vasc Access: [id number] Insertion Of Non-tunneled Catheter Age 4 Yrs> Coding CPT Codes Tubes, Drains, and Vasc Access - Tubes, Drains, and Vasc Access: [id number] Arterial Cath/Cannulation Sampling/Monitoring/Transfusion ([id number]) Tubes, Drains, and Vasc Access - Tubes, Drains, and Vasc Access: [id number] Ultrasound Guidance For Vascular ([id number]) Tubes, Drains, and Vasc Access - Tubes, Drains, and Vasc Access: [id number] Insertion Of Non-tunneled Catheter Age 4 Yrs> ([id number]) Additional Codes Date of Service ([facility].SURGERY)
--- NOTE | 2024-11-01 14:28 | Procedure Note ---
Procedure Note Date of Service November 01, 2024 Procedure Date: Noted above Procedure: Endotracheal intubation Pre-procedure Diagnosis: Acute hypoxic respiratory failure secondary to pneumonia and worsening hemodynamics with critical aortic stenosis Post-procedure Diagnosis: same as above Prior to Procedure: Informed Consent: Risks and benefits were discussed with patient's family and informed consent was obtained Attending Staff: Mary Frankel DO The identity of the patient was confirmed and a bedside time out was performed. Description of Procedure: Patient was evaluated and required intubation for impending respiratory failure. The patient was prepared in the usual fashion. A video laryngoscope was used. A 8 mm inner diameter endotrachial tube was placed endotracheally to 22 cm at the teeth. A grade 1 view was obtained. The endotracheal tube was noted to pass through the vocal cords. Chest rise was bilateral. Bilateral breath sounds were heard without air sounds in the abdomen. Mist was noted in the endotracheal tube. End-tidal CO2 measurement was positive. Chest x-ray shows proper en dotracheal tube placement. Complications: None Findings: Not applicable Specimens: Not applicable Estimated blood loss: Zero [facility] Procedure Codes (Charges) Resuscitation Resuscitation: 20949 Endotracheal Intubation, emergency Coding CPT Codes Resuscitation - Resuscitation: 14679 Endotracheal Intubation, emergency ([id number]) Additional Codes Date of Service ([facility].SURGERY)
--- NOTE | 2024-11-01 14:29 | Procedure Note ---
Procedure Note Date of Service November 01, 2024 Procedure date: Noted above Procedure: fiberoptic bronchoscopy Pre-procedure indication: Worsening sepsis secondary to pneumonia Post-procedure Diagnosis: same as above Prior to Procedure: Informed Consent: The risks, benefits, indications, potential complications, and alternatives were explained to the patient's family and informed consent obtained. Attending Staff: Mary Frankel DO Resident/APC: Not applicable Skin Prep: Not applicable Anesthesia: Continuous infusion The identity of the patient was confirmed and a bedside time out was performed. Description of Procedure: Fiberoptic bronchoscopy was performed via endotracheal tube. Bronchioalveolar lavage right lower lobe was performed. Findings included: Brownish tinged secretions were suctioned largely from the right sided proximal airways, no significant mucous plugging. Complications: None Specimens: Bronchial washings sent for culture and Gram stain, fungal elements, AFB stain and culture, cell count differential. Estimated blood loss: Zero [facility] Procedure Codes (Charges) Pulmonary/Thoracic Procedure 1: Pulmonary and Thoracic: 05184 Dx bronchoscopy/BAL Coding CPT Codes Pulmonary/Thoracic - Pulmonary and Thoracic: 98482 Dx bronchoscopy/BAL ([id number]) Additional Codes Date of Service ([facility].SURGERY)
[2024-11-01] MEDS: DIGOXIN 250 MCG in SYRINGE 9 ML IV STA (15:36)
[2024-11-01] MEDS: THIAMINE HCL 200 MG in SODIUM CHLORIDE 0.9% 50 ML IV STA (15:36)
[2024-11-01] MEDS: NOREPINEPHRINE/D5W 4 MG/250 ML PLCT IV SCH (16:04)
[2024-11-01] MEDS: INSULIN ASPART PER UNIT CHARGE SC SCH (17:45)
[2024-11-01] MEDS: PLASMA-LYTE A 500 ML IV ONE (18:10)
[2024-11-01] MEDS ORDERED: ETOMIDATE 2 MG/ML 20 ML VIAL IV ONE (18:47)
[2024-11-01] MEDS ORDERED: fentaNYL citrate PF 100 MCG/2 ML VIAL IV ONE (18:47)
[2024-11-01] MEDS: PRAVASTATIN SOD 10 MG TAB PO SCH (19:58)
[2024-11-01 20:04] LABS: iSTAT Art Bld Gas pCO2 Correct 38 mmHg (35-46); iSTAT Art Bld Gas pH Corrected 7.266 (7.35-7.45); iSTAT Arterial Blood Gas HCO3 17 meg/L (19-24); iSTAT Arterial Blood Gas pCO2 36 mmHg (35-46); iSTAT Arterial Blood Gas pH 7.28 (7.35-7.45); iSTAT Arterial Blood Gas pO2 63 mmHg (80-95); iSTAT Arterial Blood Gas pO2 C 66; iSTAT Carbon Dioxide 18 mmol/L (24-31); iSTAT FiO2 70 %; iSTAT Hematocrit 36 % (42-52); iSTAT Hemoglobin 12.2 g/dl (14.0-18.0); iSTAT Sample Type Arterial; iSTAT Site Art Line; iSTAT Sodium 130 mmol/L (135-144); iSTAT SpO2 94
[2024-11-01] MEDS: fentaNYL citrate PF 100 MCG/2 ML VIAL IV PRN (20:09)
[2024-11-01] MEDS: LACTATED RINGER'S 250 ML IV ONE (23:18)
[2024-11-01] MEDS ORDERED: Concentrate Phenylephrine IV Infusion ONE (23:21)
--- NOTE | 2024-11-01 23:36 | Communication Note ---
Date of Service: November 01, 2024 Patient seen on evening rounds. Events of today noted. He remains intubated and sedated requiring propofol infusion. Phenylephrine on board. Oliguric. Received IVF bolus just prior to my arrival. HR 130s. Patient breathing 28-32 times per minute, uncomfortable appearing. ABG pursued showing incomplete compensation of metabolic acidosis despite his respiratory drive. Increased vent rate to 18 from 14 to temporize while we treat his discomfort with opiate medications. He received 100mcg fentanyl with significant improvement in observed discomfort. His HR improved to 100. Vasopressor has increased. HR again increasing around 2200. I did give 250cc LR bolus as CVP 9-11 with improvement. HR 100-120. His urine output has improved, averaging 35cc/hr per RN. We will quad concentrate the neosynephrine as at this rate he is receiving more than 100cc/hr of unnecessary fluids. Continue to bolus carefully PRN. I discussed via telephone with patient's , Marilia, and daughter, Carol. I reiterated the critical nature of his illness with high risk for further decompensation and even, despite aggressive management, in the next 12-24 hours. We also discussed his goals of care to ensure we are on the same page - if Maicol shows signs of impending cardiac arrest the family will be called in and we will allow peaceful, natural per their (and the patient's prior) expressed wishes. All questions were answered to apparent satisfaction. This was also discussed with Dr. Frankel via telephone. Coding Level of Care Code None
[2024-11-02] MEDS: MAX Conc; 100mg in 250mL (Std Protocol) *PHA PREP IV SCH (00:08)
[2024-11-02 00:45] LABS: BUN Creatinine Ratio 22.5 (10-20); Calcium 7.7 mg/dl (8.6-10.3); Creatinine Clr Calc Pharmacy 20.7 ml/min; Potassium 4.4 mmol/L (3.5-5.1)
[2024-11-02 05:03] LABS: Hematocrit (blood only) 33.6 % (42.0-52.0); Hemoglobin 11.4 g/dl (14.0-18.0); Mean Corpuscular Hemoglobin 31.9 pg (25.0-34.0); Mean Corpuscular Hgb Conc 33.9 g/dL (32.0-36.0); Mean Corpuscular Volume 94.1 fL (80.0-100.0); Mean Platelet Volume 11.1 fL (9.4-12.4); Nucleated RBC # (auto) 0.07 K/uL (0.00-0.12); Nucleated RBC % (auto) 0.4 %; Platelet Count 221 K/uL (130-400); RDW Coefficient of Variation 14.6 % (11.5-14.5); RDW Standard Deviation 49.4 fL (36.4-46.3); Red Blood Count 3.57 M/uL (4.70-6.10); White Blood Count 17.33 K/ul (4.8-10.8)
[2024-11-02 05:08] LABS: iSTAT Art Bld Gas pCO2 Correct 28 mmHg (35-46); iSTAT Art Bld Gas pH Corrected 7.372 (7.35-7.45); iSTAT Arterial Blood Gas HCO3 16 meg/L (19-24); iSTAT Arterial Blood Gas pCO2 28 mmHg (35-46); iSTAT Arterial Blood Gas pH 7.38 (7.35-7.45); iSTAT Arterial Blood Gas pO2 75 mmHg (80-95); iSTAT Arterial Blood Gas pO2 C 76; iSTAT Carbon Dioxide 17 mmol/L (24-31); iSTAT FiO2 30 %; iSTAT Hematocrit 34 % (42-52); iSTAT Hemoglobin 11.6 g/dl (14.0-18.0); iSTAT Sample Type Arterial; iSTAT Site Art Line; iSTAT Sodium 130 mmol/L (135-144); iSTAT SpO2 98
[2024-11-02 05:20] LABS: BUN Creatinine Ratio 23.5 (10-20); Basophils # (auto) 0.02 K/uL (0.00-0.20); Basophils % (auto) 0.1 %; Calcium 7.7 mg/dl (8.6-10.3); Creatinine Clr Calc Pharmacy 21.3 ml/min; Echinocytes 1+; Immature Granulocytes # (auto) 0.12 K/uL (0.01-0.20); Immature Granulocytes % (auto) 0.7 %; Lymphocytes % (auto) 1.7 %; Monocytes # (auto) 0.89 K/uL (0.11-0.59); Monocytes % (auto) 5.1 %; Neutrophils % (auto) 92.4 %; Polychromasia 1+; Potassium 4.2 mmol/L (3.5-5.1)
[2024-11-02 05:31] LABS: INR 1.4 (0.9-1.1); Partial Thromboplastin Ratio 1.1; Partial Thromboplastin Time 30 Seconds (21-31); Prothrombin Time 15.1 Seconds (9.0-12.0)
[2024-11-02 05:38] LABS: Albumin Level 3.4 gm/dl (3.4-5.0); Bilirubin Direct 0.8 mg/dl (0-0.2); Bilirubin,Total 1.4 mg/dl (0.2-1.0); Magnesium 2.7 mg/dl (1.7-2.4); Phosphorus 5.5 mg/dl (2.5-4.9); Total Protein 6.6 gm/dl (6.0-8.3)
--- NOTE | 2024-11-02 08:18 | Electrocardiogram Report ---
Test Reason : Blood Pressure : */* mmHG Vent. Rate : 108 BPM Atrial Rate : * BPM P-R Int : * ms QRS Dur : 116 ms QT Int : 358 ms P-R-T Axes : * 49 220 degrees QTcB Int : 479 ms Atrial fibrillation with rapid ventricular response Incomplete left bundle block Abnormal ECG When compared with ECG of 30-Oct-2024 14:53, No significant change was found however the marked ST-T wave changes are new c/w 12/18/2019 Confirmed by Emily Smith (Keshawn) on 11/02/2024 8:18:12 AM Referred By: Mateus Germain Confirmed By: Emily Smith
[2024-11-02] MEDS: THIAMINE HCL 100 MG in SYRINGE 9 ML IV SCH (08:20)
[2024-11-02] MEDS: VANCOMYCIN HCL 1,000 MG/270 ML BAG IV ONE (08:20)
[2024-11-02] MEDS: PROPOFOL BOLUS FROM BAG IV PRN (10:00)
--- NOTE | 2024-11-02 10:01 | Nephrology Progress Note ---
Date of Service November 02, 2024 Assessment & Plan (1) Acute kidney injury: (2) Pneumonia: (3) Atrial fibrillation with rapid ventricular response: (4) Metabolic acidosis: Plan 74 year-old male with PMH of CAD, HFrEF, severe , chronic a fib (Eliquis), bilateral pulmonary PVD< HTN, DM, hyperlipidemia, COPD, decent kidney function, b/l cr ~1.1 mg/dL. He had left heart catheterization on October 26 in preparation for TAVR as recent Echo showe versus virald worsening and reduced LVEF, showing moderate CAD of eft main and LAD. Cr was 1.42 mg/dL prior to the cath,. He presented to the ER on 10/30/24 with SOB and was found to be in rapid A fib and community acquired pneumonia. His clinical condition has deteriorated rapidly and he was intubated yesterday, currently on pressor and sedated. Blood pressure slightly improved. On admission he was noted to have RUBEN, creatinine was 2.0 which rapidly worsened to 3.24 mg/dL. Urine output has dropped. Urinalysis with showed trace proteinuria but no hematuria. No recent renal imaging available. Overnight clinically slightly improved, blood pressure improved and pressor requirement decreased. Urine output increased to 750 mL overnight. Creatinine seem to have stabilized around 3.1-3.0, electrolyte acceptable with mild metabolic acidosis. SKIN: No lesions or rash, normal skin turgor. --Continue to monitor with hemodynamic support, no indication for dialysis. --Monitor intake and output, aim to keep net even. --monitor electrolytes --As kidney function seems to be stabilizing, urine output increasing, no urgent need for renal imaging at this point. However if kidney function does not improve as expected, nonurgent renal ultrasound can be considered. Admission and Anticipated Discharge Date Admission Date: October 30, 2024 Subjective Mr. Rutledge was seen and evaluated in ICU this morning. He is still intubated, sedated, on pressor although blood pressure improved and pressor requirement improved. Ventilated, oxygen saturation 99% on FiO2 30%. Urine output improved, made around 750 mL overnight. Creatinine seem to have plateaued, electrolyte acceptable with mild metabolic acidosis. Review of Systems Review of Systems: Unobtainable due to endotracheal tube and Unobtainable due to reduced consciousness Physical Exam Constitutional: WD/WN, vitals as above + ill appearing and + mechanically ventilated Neck: normal visual inspection Respiratory: Auscultation: + diminished lung sounds and + crackles Cardiovascular: RRR, no murmur, no edema Skin: no rashes Neurologic: Intubated, sedated, could not be assessed. Results & Data Vital Signs (Past 12 Hours) Vital Signs Temp Pulse Resp BP Pulse Ox FiO2 11/02/24 08:42 37.4 C 145 H 20 99 11/02/24 08:18 37.4 C 136 H 19 99 11/02/24 08:00 117/73 11/02/24 08:00 117/73 11/02/24 08:00 30 11/02/24 07:52 131 H 19 99 30 11/02/24 07:48 37.3 C 129 H 17 99 11/02/24 07:45 37.3 C 116 H 21 99 11/02/24 07:33 37.3 C 126 H 18 99 11/02/24 07:00 37.3 C 129 H 18 98 11/02/24 07:00 111/70 11/02/24 06:30 37.3 C 128 H 20 98 11/02/24 06:12 37.3 C 127 H 16 98 11/02/24 06:09 37.3 C 118 H 20 99 11/02/24 06:00 103/69 11/02/24 06:00 103/69 11/02/24 06:00 103/69 11/02/24 06:00 103/69 11/02/24 06:00 103/69 11/02/24 06:00 103/69 11/02/24 06:00 103/69 11/02/24 06:00 103/69 11/02/24 06:00 103/69 11/02/24 05:48 37.2 C 108 H 18 99 11/02/24 05:45 37.2 C 111 H 17 98 11/02/24 05:36 37.2 C 115 H 19 98 11/02/24 05:27 37.3 C 123 H 18 98 11/02/24 05:12 37.2 C 128 H 19 99 11/02/24 05:00 98/67 L 11/02/24 05:00 98/67 L 11/02/24 05:00 98/67 L 11/02/24 05:00 98/67 L 11/02/24 05:00 98/67 L 11/02/24 05:00 98/67 L 11/02/24 05:00 98/67 L 11/02/24 04:57 30 11/02/24 04:45 37.3 C 112 H 21 98 11/02/24 04:21 37.3 C 107 H 18 98 11/02/24 04:18 37.2 C 126 H 18 97 11/02/24 04:00 114/72 11/02/24 04:00 114/72 11/02/24 04:00 114/72 11/02/24 04:00 114/72 11/02/24 04:00 114/72 11/02/24 04:00 114/72 11/02/24 04:00 114/72 11/02/24 04:00 114/72 11/02/24 04:00 114/72 11/02/24 04:00 114/72 11/02/24 04:00 114/72 11/02/24 03:33 37.2 C 108 H 18 98 11/02/24 03:27 37.2 C 107 H 19 98 11/02/24 03:12 37.2 C 118 H 19 97 11/02/24 03:00 101/11/02/24 03:00 101/11/02/24 03:00 101/60 11/02/24 03:00 101/60 11/02/24 03:00 101/60 11/02/24 03:00 101/60 11/02/24 03:00 101/60 11/02/24 03:00 101/60 11/02/24 03:00 101/60 11/02/24 03:00 101/60 11/02/24 03:00 101/60 11/02/24 03:00 101/60 11/02/24 02:35 111 H 19 98 30 11/02/24 02:00 90/63 L 11/02/24 02:00 90/63 L 11/02/24 02:00 90/63 L 11/02/24 02:00 90/63 L 11/02/24 02:00 90/63 L 11/02/24 02:00 90/63 L 11/02/24 02:00 90/63 L 11/02/24 02:00 90/63 L 11/02/24 02:00 90/63 L 11/02/24 02:00 90/63 L 11/02/24 02:00 90/63 L 11/02/24 02:00 90/63 L 11/02/24 02:00 90/63 L 11/02/24 02:00 90/63 L 11/02/24 02:00 90/63 L 11/02/24 02:00 90/63 L 11/02/24 02:00 90/63 L 11/02/24 02:00 90/63 L 11/02/24 01:57 37.2 C 108 H 18 98 11/02/24 01:51 37.2 C 115 H 18 98 11/02/24 01:42 37.2 C 128 H 18 97 11/02/24 01:39 37.2 C 123 H 18 98 11/02/24 01:12 37.2 C 122 H 18 97 11/02/24 01:03 37.2 C 130 H 18 98 11/02/24 01:00 98/62 L 11/02/24 01:00 98/62 L 11/02/24 01:00 98/62 L 11/02/24 01:00 98/62 L 11/02/24 01:00 98/62 L 11/02/24 01:00 98/62 L 11/02/24 01:00 98/62 L 11/02/24 00:57 35 11/02/24 00:45 37.2 C 116 H 18 97 11/02/24 00:42 37.3 C 117 H 18 97 11/02/24 00:33 37.2 C 117 H 18 96 11/02/24 00:24 37.2 C 129 H 20 98 11/02/24 00:09 35 11/02/24 00:03 37.2 C 127 H 21 98 11/02/24 00:00 102/72 11/02/24 00:00 102/72 11/02/24 00:00 102/72 11/02/24 00:00 102/72 11/02/24 00:00 102/72 11/02/24 00:00 102/72 11/02/24 00:00 102/72 11/02/24 00:00 102/72 11/02/24 00:00 11/02/24 00:00 11/02/24 00:00 11/02/24 00:00 11/02/24 00:00 11/02/24 00:00 11/02/24 00:00 11/02/24 00:00 11/02/24 00:00 11/02/24 00:00 11/02/24 00:00 11/02/24 00:00 11/02/24 00:00 11/02/24 00:00 11/02/24 00:00 11/02/24 00:00 11/01/24 23:57 37.2 C 109 H 18 99 11/01/24 23:42 37.3 C 127 H 18 97 11/01/24 23:30 37.3 C 96 H 15 96 11/01/24 23:21 37.2 C 112 H 16 97 11/01/24 23:15 37.3 C 114 H 17 97 11/01/24 23:06 37.3 C 124 H 17 96 11/01/24 23:00 11/01/24 23:00 11/01/24 23:00 11/01/24 23:00 11/01/24 23:00 11/01/24 23:00 11/01/24 23:00 11/01/24 23:00 11/01/24 23:00 11/01/24 23:00 11/01/24 23:00 11/01/24 23:00 11/01/24 23:00 11/01/24 23:00 11/01/24 23:00 11/01/24 23:00 11/01/24 23:00 11/01/24 23:00 11/01/24 23:00 11/01/24 23:00 11/01/24 22:51 37.2 C 110 H 18 97 11/01/24 22:45 134 H 26 H 97 40 11/01/24 22:30 37.2 C 110 H 15 99 11/01/24 22:18 37.3 C 117 H 20 98 11/01/24 22:00 103/65 11/01/24 22:00 103/65 11/01/24 22:00 103/65 11/01/24 22:00 103/65 11/01/24 22:00 103/65 11/01/24 22:00 103/65 11/01/24 22:00 103/65 11/01/24 22:00 103/65 11/01/24 22:00 103/65 11/01/24 22:00 103/65 11/01/24 22:00 103/65 11/01/24 22:00 103/65 11/01/24 21:57 37.3 C 107 H 18 98 PG Care Time/CCT Total # of Minutes Spent Total Time Spent with Patient: Total time spent is greater than 50% in coordination of care (as documented) at patient's floor/unit and/or counseling patient: Coding Level of Care Code 63921 SUB INP/OBS CARE 2/35MIN Diagnoses Acute kidney injury N17.9 Pneumonia J18.9 Atrial fibrillation with rapid ventricular response I48.91 Metabolic acidosis E87.20
--- NOTE | 2024-11-02 10:21 | Critical Care Progress Note ---
Date of Service November 02, 2024 Assessment & Plan (1) CAP (community acquired pneumonia): Plan: Reason Critically Ill: 74-year-old male with worsening community-acquired pneumonia acute hypoxic respiratory failure and multisystem organ dysfunction PLAN: Neuro: Metabolic encephalopathy -Likely related to hypoxemia, delirium and sepsis -Continue propofol and fentanyl. Resp: Acute hypoxic respiratory failure secondary to severe community-acquired pn eumonia and systolic heart failure with pleural effusion -Bronchoscopy culture negative to date from 11/01/2024. Antibiotics de-escalated to Zosyn and doxycycline. No indication for methylprednisolone at this time which will be discontinued. Will start the patient on hydrocortisone 50 mg every 6 for severe CAP and sepsis. CV: Paroxysmal A-fib Atrial fibrillation with rapid ventricular response Severe aortic stenosis -Reviewed echo from 10/14/2024: Low ejection fraction 25 to 30% -Cardiology consulted. Will discontinue further digoxin for the time being and use esmolol as needed. Known coronary artery disease -Using phenylephrine versus norepinephrine secondary to significant heart rate elevation -May require small doses of beta-blockade to optimize hemodynamics given aortic stenosis -Avoid afterload reduction -Continue statin therapy and 81 mg aspirin Hypertension -Hold ANGELA inhibitor Fluids/Renal: Acute kidney injury with nonoliguric renal failure -Reviewed nephrology consultation -Holding allopurinol and losartan and naproxen Lactic acid acidosis -Continue to trend -Thiamine supplementation ID: Sepsis secondary to community-acquired pneumonia -Meropenem day 1 discontinued: Initially received Rocephin x 2 days, doxycycline day 3, vancomycin day 1 discontinued. Zosyn day 1 -Obtain Legionella antigen and bio fire. MRSA screen negative. Repeat procalcitonin. GI/Nutrition: -Continue PPI. Hold tube feeds given high pressor requirement. Severe transaminitis. Check acute hepatitis panel, liver ultrasound and mesenteric artery duplex. Possible congestive hepatopathy versus ischemic hepatopathy. Heme: Given transaminitis and RUBEN, transition to heparin infusion without bolus at a low dose. Endocrine: ICU hyperglycemia protocol Vascular access: Right IJ placed 11/01, left radial art line placed 11/01 Code Status: DO NOT RESUSCITATE in event of cardiac arrest, okay with intubation for respiratory insufficiency Disposition: ICU Palliative care consult placed. No family readily available at bedside at present CRITICAL CARE TIME I have personally spent 51 minutes of critical care time in the direct management of this patient. This is a life/limb threatening event. This includes time spent evaluating patient, direct bedside care, chart review, placing orders, interpretation of diagnostic studies, discussion with consultants, patient, and family members, as well as other required patient management activities. This time is exclusive of all separately billable procedures, and teaching time and separate from and in addition to any other critical care service time. 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 Requiring phenylephrine continued A-fib with RVR. Currently on low-dose sedation. Review of Systems Review of Systems: Unobtainable due to cognitive status and Unobtainable due to reduced consciousness Physical Exam Constitutional: WD/WN, vitals as above + ill appearing and + mechanically ventilated Neck: normal visual inspection Respiratory: Auscultation: + diminished lung sounds and + crackles Cardiovascular: RRR, no murmur, no edema Skin: no rashes Neurologic: Intubated, sedated, could not be assessed. Results & Data Results & Data Vital Signs (Past 12 Hours) Vital Signs Temp Pulse Resp BP Pulse Ox FiO2 11/02/24 08:42 37.4 C 145 H 20 99 11/02/24 08:18 37.4 C 136 H 19 99 11/02/24 08:00 117/73 11/02/24 08:00 117/73 11/02/24 08:00 30 11/02/24 07:52 131 H 19 99 30 11/02/24 07:48 37.3 C 129 H 17 99 11/02/24 07:45 37.3 C 116 H 21 99 11/02/24 07:33 37.3 C 126 H 18 99 11/02/24 07:00 37.3 C 129 H 18 98 11/02/24 07:00 111/70 11/02/24 06:30 37.3 C 128 H 20 98 11/02/24 06:12 37.3 C 127 H 16 98 11/02/24 06:09 37.3 C 118 H 20 99 11/02/24 06:00 103/69 11/02/24 06:00 103/69 11/02/24 06:00 103/69 11/02/24 06:00 103/69 11/02/24 06:00 103/69 11/02/24 06:00 103/69 11/02/24 06:00 103/69 11/02/24 06:00 103/69 11/02/24 06:00 103/69 11/02/24 05:48 37.2 C 108 H 18 99 11/02/24 05:45 37.2 C 111 H 17 98 11/02/24 05:36 37.2 C 115 H 19 98 11/02/24 05:27 37.3 C 123 H 18 98 11/02/24 05:12 37.2 C 128 H 19 99 11/02/24 05:00 98/67 L 11/02/24 05:00 98/67 L 11/02/24 05:00 98/67 L 11/02/24 05:00 98/67 L 11/02/24 05:00 98/67 L 11/02/24 05:00 98/67 L 11/02/24 05:00 98/67 L 11/02/24 04:57 30 11/02/24 04:45 37.3 C 112 H 21 98 11/02/24 04:21 37.3 C 107 H 18 98 11/02/24 04:18 37.2 C 126 H 18 97 11/02/24 04:00 114/72 11/02/24 04:00 114/72 11/02/24 04:00 114/72 11/02/24 04:00 114/72 11/02/24 04:00 114/72 11/02/24 04:00 114/72 11/02/24 04:00 114/72 11/02/24 04:00 114/72 11/02/24 04:00 114/72 11/02/24 04:00 114/72 11/02/24 04:00 114/72 11/02/24 03:33 37.2 C 108 H 18 98 11/02/24 03:27 37.2 C 107 H 19 98 11/02/24 03:12 37.2 C 118 H 19 97 11/02/24 03:00 101/60 11/02/24 03:00 101/60 11/02/24 03:00 101/60 11/02/24 03:00 101/60 11/02/24 03:00 101/60 11/02/24 03:00 101/60 11/02/24 03:00 101/60 11/02/24 03:00 101/60 11/02/24 03:00 101/60 11/02/24 03:00 101/60 11/02/24 03:00 101/60 11/02/24 03:00 101/60 11/02/24 02:35 111 H 19 98 30 11/02/24 02:00 90/63 L 11/02/24 02:00 90/63 L 11/02/24 02:00 90/63 L 11/02/24 02:00 90/63 L 11/02/24 02:00 90/63 L 11/02/24 02:00 90/63 L 11/02/24 02:00 90/63 L 11/02/24 02:00 90/63 L 11/02/24 02:00 90/63 L 11/02/24 02:00 90/63 L 11/02/24 02:00 90/63 L 11/02/24 02:00 90/63 L 11/02/24 02:00 90/63 L 11/02/24 02:00 90/63 L 11/02/24 02:00 90/63 L 11/02/24 02:00 90/63 L 11/02/24 02:00 90/63 L 11/02/24 02:00 90/63 L 11/02/24 01:57 37.2 C 108 H 18 98 11/02/24 01:51 37.2 C 115 H 18 98 11/02/24 01:42 37.2 C 128 H 18 97 11/02/24 01:39 37.2 C 123 H 18 98 11/02/24 01:12 37.2 C 122 H 18 97 11/02/24 01:03 37.2 C 130 H 18 98 11/02/24 01:00 98/62 L 11/02/24 01:00 98/62 L 11/02/24 01:00 98/62 L 11/02/24 01:00 98/62 L 11/02/24 01:00 98/62 L 11/02/24 01:00 98/62 L 11/02/24 01:00 98/62 L 11/02/24 00:57 35 11/02/24 00:45 37.2 C 116 H 18 97 11/02/24 00:42 37.3 C 117 H 18 97 11/02/24 00:33 37.2 C 117 H 18 96 11/02/24 00:24 37.2 C 129 H 20 98 11/02/24 00:09 35 11/02/24 00:03 37.2 C 127 H 21 98 11/02/24 00:00 102/72 11/02/24 00:00 102/72 11/02/24 00:00 102/72 11/02/24 00:00 102/72 11/02/24 00:00 102/72 11/02/24 00:00 102/72 11/02/24 00:00 102/72 11/02/24 00:00 102/72 11/02/24 00:00 102/72 11/02/24 00:00 102/72 11/02/24 00:00 102/72 11/02/24 00:00 102/72 11/02/24 00:00 102/72 11/02/24 00:00 102/72 11/02/24 00:00 102/72 11/02/24 00:00 102/72 11/02/24 00:00 102/72 11/02/24 00:00 102/72 11/02/24 00:00 102/72 11/02/24 00:00 102/72 11/02/24 00:00 102/72 11/02/24 00:00 102/72 11/02/24 00:00 102/72 11/02/24 00:00 102/72 11/01/24 23:57 37.2 C 109 H 18 99 11/01/24 23:42 37.3 C 127 H 18 97 11/01/24 23:30 37.3 C 96 H 15 96 11/01/24 23:21 37.2 C 112 H 16 97 11/01/24 23:15 37.3 C 114 H 17 97 11/01/24 23:06 37.3 C 124 H 17 96 11/01/24 23:00 106/87 11/01/24 23:00 106/87 11/01/24 23:00 11/01/24 23:00 11/01/24 23:00 11/01/24 23:00 11/01/24 23:00 11/01/24 23:00 11/01/24 23:00 11/01/24 23:00 11/01/24 23:00 11/01/24 23:00 11/01/24 23:00 11/01/24 23:00 11/01/24 23:00 11/01/24 23:00 11/01/24 23:00 11/01/24 23:00 11/01/24 23:00 11/01/24 23:00 11/01/24 22:51 37.2 C 110 H 18 97 11/01/24 22:45 134 H 26 H 97 40 11/01/24 22:30 37.2 C 110 H 15 99 11/01/24 22:18 37.3 C 117 H 20 98 Coding Level of Care Code 11076 CRITICAL CARE 1ST 30-74M Diagnoses CAP (community acquired pneumonia) J18.9 Acute kidney injury N17.9 Atrial fibrillation with rapid ventricular response I48.91 Chronic combined systolic and diastolic congestive heart failure I50.42 Heart failure chronicity: chronic Cardiomyopathy, unspecified type I42.9 Severe aortic stenosis I35.0 Acute metabolic encephalopathy G93.41 Delirium R41.0 Transaminitis R74.01 Pleural effusion J90 Time Spent (min) 51 (4) Combined systolic and diastolic congestive heart failure Heart failure chronicity: chronic Qualified Code(s): I50.42 - Chronic combined systolic (congestive) and diastolic (congestive) heart failure (5) Cardiomyopathy Qualified Code(s): I42.9 - Cardiomyopathy, unspecified
[2024-11-02 10:29] LABS: Adenovirus PCR Not Detected (NotDetected); Bordetella parapertussis PCR Not Detected (NotDetected); Bordetella pertussis PCR Not Detected (NotDetected); Chlamydia pneumoniae PCR Not Detected (NotDetected); Coronavirus 229E PCR Not Detected (NotDetected); Coronavirus CoV-2 (COVID19)PCR Not Detected (NotDetected); Coronavirus HKU1 PCR Not Detected (NotDetected); Coronavirus NL63 PCR Not Detected (NotDetected); Coronavirus OC43PCR Not Detected (NotDetected); Human Metapneumovirus PCR Not Detected (NotDetected); Influenza A PCR Not Detected (NotDetected); Influenza B PCR Not Detected (NotDetected); Mycoplasma pneumoniae PCR Not Detected (NotDetected); Parainfluenza Virus 1 PCR Not Detected (NotDetected); Parainfluenza Virus 2 PCR Not Detected (NotDetected); Parainfluenza Virus 3 PCR Not Detected (NotDetected); Parainfluenza Virus 4 PCR Not Detected (NotDetected); Respiratory Syncytial VirusPCR Not Detected (NotDetected); Rhinovirus/Enterovirus PCR Not Detected (NotDetected)
--- NOTE | 2024-11-02 11:05 | Palliative Care Consultation ---
Date of Consultation November 02, 2024 Assessment & Plan (1) Palliative care by specialist: Met with pt's spouse and two adult daughters at bedside. Pt orally intubated and sedated, follows simple commands only intermittently. Pt does require a proxy for medical decisions. Patient exhibits current lack of decisional capacity based on the inability to convey understanding of personal PMHx, current medical condition, treatment options nor the risks / benefits of those options, and lack of ability to make decisions based on such knowledge. Hospital does not have written documentation of patient wishes concerning his chosen proxy for medical decisions. Per PA [id number], in absence of written documentation of patient wishes, pt's proxy for medical decisions would be his . (2) Counseling regarding goals of care: Lengthy conversation held with pt's family, discussed current medical issues, HPI, typical progression of chronic disease, and pt's values/goals from 12:00 - 12:40. Family did express frustration that they do not have a good understanding of pt's overall health nor what is currently ailing him. Pt's daughter's both expressed concern that "no one seems to be giving us even a glimmer of hope" and questioned how pt could have decompensated so quickly from "only having a little bit of PNA a few days ago." Discussed the interdependence of the heart, lungs and kidneys and pt's current state of multi-organ failure. Helped family understand that the patient remains critically ill and encouraged visitation. Shared hope that the pt might have positive response to current treatments as well as concern for potential need for HD. Although expressed that the pt would not want any further escalation of care,dtrs expressed that they are not sure if pt would be acceptant of HD. NO CHANGE in level of care at this time. Plan Palliative care will continue to follow for ongoing [facility] discussions and family support. History of Present Illness Reason for Consultation: GOC Requesting Physician: Dixon Browne MD Attending Physician: Dixon Browne MD History of Present Illness Mr. 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 Jr underwent left heart catheterization on October 26 in preparation for TAVR. Recent echocardiogram demonstrating worsening stenosis as well as reduction in LVEF. Evaluation demonstrated mild to moderate CAD (notably left main and LAD). Serum creatinine was 1.42 mg/dL but rising 1.42-->2.0-->3.24 mg/dL. Allergies Allergy/AdvReac Type Severity Reaction Status Date / Time iodine Allergy Intermediate SHORTNESS Verified 10/28/24 09:07 OF BREATH amoxicillin Allergy Mild RASH Verified 10/28/24 09:07 clavulanic acid Allergy Mild RASH Verified 10/28/24 09:07 clarithromycin Allergy Unknown UNKNOWN Verified 10/28/24 09:07 indomethacin Allergy Unknown UNKNOWN Verified 10/28/24 09:07 Home Medications Medication Instructions Recorded Confirmed Type aspirin 81 mg tablet,delayed 81 mg PO HS 04/21/19 10/30/24 History release (Adult Aspirin Regimen) blood-glucose meter ([facility] #[facility] ea 06/03/23 10/28/24 Rx Verio Reflect Meter) omeprazole 40 mg capsule,delayed 40 mg PO DAILY #90 caps 02/13/24 10/30/24 Rx release metformin 500 mg tablet 500 mg PO BID 90 days #180 tabs 03/27/24 10/30/24 Rx allopurinol 300 mg tablet 300 mg PO DAILY #90 tabs 04/21/24 10/30/24 Rx pravastatin 20 mg tablet 20 mg PO HS #100 tabs 04/21/24 10/30/24 Rx albuterol sulfate 90 mcg/actuation 2 puff inhalation Q6H PRN 05/18/24 10/30/24 Rx aerosol inhaler (Ventolin HFA) Shortness Of Breath #8.5 grams amlodipine 5 mg tablet 5 mg PO DAILY #90 tabs 05/26/24 10/30/24 Rx blood sugar diagnostic ([facility] #300 ea 09/30/24 10/28/24 Rx Verio test strips) B12 500 mg PO BID 10/30/24 10/30/24 History apixaban 5 mg tablet (Eliquis) 5 mg PO BID 10/30/24 10/30/24 History clonazepam 1 mg tablet 1 mg PO BID anxiety 10/30/24 10/30/24 History cyclobenzaprine 5 mg tablet 5 - 10 mg PO DAILY PRN Other 10/30/24 10/30/24 History famotidine 40 mg tablet 40 mg PO BID PRN heart burn 10/30/24 10/30/24 History losartan 50 mg tablet 50 mg PO DAILY 10/30/24 10/30/24 History magnesium chloride 64 mg 64 mg PO BID 10/30/24 10/30/24 History tablet,extended release metoprolol succinate 100 mg 50 mg PO BID 10/30/24 10/30/24 History tablet,extended release 24 hr mometasone 50 mcg/actuation nasal 2 spray intranasal QAM nasal 10/30/24 10/30/24 History spray congestion naproxen 500 mg tablet 500 mg PO BID 10/30/24 10/30/24 History tiotropium 2.5 mcg-olodaterol 2.5 2 puff inhalation QAM 10/30/24 10/30/24 History mcg/actuation mist for inhalation (Stiolto Respimat) Patient History Medical History (Updated 11/03/24 @ 00:28 by BRIAN Ramirez) Moderate to severe aortic stenosis Thrombocytopenia Gout DM w/o complication type II Essential (primary) hypertension Hyperlipidemia GERD (gastroesophageal reflux disease) COPD (chronic obstructive pulmonary disease) Upper respiratory infection Pulmonary nodules Lacunar infarction (10/15/12) Influenza-like symptoms Failure of outpatient treatment Bronchitis Acute bronchitis Surgical History S/P cataract extraction H/O tooth extraction Family History Mother , age 46 Kidney disease Father , age 92 - "old age"; suffered from severe osteoarthritis No problems noted. Sister Cancer Denies family history of Ovarian cancer Prostate cancer Myocardial infarction Breast cancer Colorectal cancer Social History Smoking Status: Former smoker Tobacco Type: Cigarettes Age Started Using Tobacco: 14; Age Quit Using Tobacco: 56; packs per day: 2; Cigarettes Per Day: 30-40; Second Hand Exposure: No; Do You Dip or Chew Tobacco: No; Hx Alcohol Use: No Hx Substance Use: No Preferred Language: Upper Sorbian Communication Ability: Effective Visual Impairment: No Limitations Hearing Ability: Normal [employer] Business [employer] Required: No Beliefs That Will Affect Care: None marital status: Current Living Situation: Spouse Current Living Situation Comment: apartment in [place] current occupational status: retired current occupation: [employer] other: first marriage - 1 child; 2nd marriage - 2 children Feels Safe at Home: Yes Diet: regular caffeine: Yes Dental Care, Regularly: No Physical Activity Frequency: Does not Exercise Seatbelt Use: always Sunscreen Use: No Assistive Devices: Cane, CPAP and Wheelchair Review of Systems Review of Systems: Unobtainable due to cognitive status Physical Exam Constitutional: well developed, + ill appearing and + thin Eyes: PERRL, conjunctivae normal, anicteric sclerae ENMT: external ear and nose normal, oropharynx normal Neck: trachea midline, no thyromegaly Respiratory: orally intubated, mechanically ventilated and sedated Cardiovascular: Rate/Rhythm: + tachycardic and + irregularly irregular Gastrointestinal (Abdomen): normal bowel sounds, soft, nontender, no hepatosplenomegaly Neurologic: PERRL, EOMI, accommodation nl, no face palsy, no dysarthria Results & Data Vital Signs (Past 12 Hours) Vital Signs Temp Pulse Resp BP Pulse Ox FiO2 11/02/24 08:42 37.4 C 145 H 20 99 11/02/24 08:18 37.4 C 136 H 19 99 11/02/24 08:00 117/73 11/02/24 08:00 117/73 11/02/24 08:00 30 11/02/24 07:52 131 H 19 99 30 11/02/24 07:48 37.3 C 129 H 17 99 11/02/24 07:45 37.3 C 116 H 21 99 11/02/24 07:33 37.3 C 126 H 18 99 11/02/24 07:00 37.3 C 129 H 18 98 11/02/24 07:00 111/70 11/02/24 06:30 37.3 C 128 H 20 98 11/02/24 06:12 37.3 C 127 H 16 98 11/02/24 06:09 37.3 C 118 H 20 99 11/02/24 06:00 103/69 11/02/24 06:00 103/69 11/02/24 06:00 103/69 11/02/24 06:00 103/69 11/02/24 06:00 103/69 11/02/24 06:00 103/69 11/02/24 06:00 103/69 11/02/24 06:00 103/69 11/02/24 06:00 103/69 11/02/24 05:48 37.2 C 108 H 18 99 11/02/24 05:45 37.2 C 111 H 17 98 11/02/24 05:36 37.2 C 115 H 19 98 11/02/24 05:27 37.3 C 123 H 18 98 11/02/24 05:12 37.2 C 128 H 19 99 11/02/24 05:00 98/67 L 11/02/24 05:00 98/67 L 11/02/24 05:00 98/67 L 11/02/24 05:00 98/67 L 11/02/24 05:00 98/67 L 11/02/24 05:00 98/67 L 11/02/24 05:00 98/67 L 11/02/24 04:57 30 11/02/24 04:45 37.3 C 112 H 21 98 11/02/24 04:21 37.3 C 107 H 18 98 11/02/24 04:18 37.2 C 126 H 18 97 11/02/24 04:00 114/72 11/02/24 04:00 114/72 11/02/24 04:00 114/72 11/02/24 04:00 114/72 11/02/24 04:00 114/72 11/02/24 04:00 114/72 11/02/24 04:00 114/72 11/02/24 04:00 114/72 11/02/24 04:00 114/72 11/02/24 04:00 114/72 11/02/24 04:00 114/72 11/02/24 03:33 37.2 C 108 H 18 98 11/02/24 03:27 37.2 C 107 H 19 98 11/02/24 03:12 37.2 C 118 H 19 97 11/02/24 03:00 101/60 11/02/24 03:00 101/60 11/02/24 03:00 101/60 11/02/24 03:00 101/60 11/02/24 03:00 101/60 11/02/24 03:00 101/60 11/02/24 03:00 101/60 11/02/24 03:00 101/60 11/02/24 03:00 101/60 11/02/24 03:00 101/60 11/02/24 03:00 101/60 11/02/24 03:00 101/60 11/02/24 02:35 111 H 19 98 30 11/02/24 02:00 90/63 L 11/02/24 02:00 90/63 L 11/02/24 02:00 90/63 L 11/02/24 02:00 90/63 L 11/02/24 02:00 90/63 L 11/02/24 02:00 90/63 L 11/02/24 02:00 90/63 L 11/02/24 02:00 90/63 L 11/02/24 02:00 90/63 L 11/02/24 02:00 90/63 L 11/02/24 02:00 90/63 L 11/02/24 02:00 90/63 L 11/02/24 02:00 90/63 L 11/02/24 02:00 90/63 L 11/02/24 02:00 90/63 L 11/02/24 02:00 90/63 L 11/02/24 02:00 90/63 L 11/02/24 02:00 90/63 L 11/02/24 01:57 37.2 C 108 H 18 98 11/02/24 01:51 37.2 C 115 H 18 98 11/02/24 01:42 37.2 C 128 H 18 97 11/02/24 01:39 37.2 C 123 H 18 98 11/02/24 01:12 37.2 C 122 H 18 97 11/02/24 01:03 37.2 C 130 H 18 98 11/02/24 01:00 98/62 L 11/02/24 01:00 98/62 L 11/02/24 01:00 98/62 L 11/02/24 01:00 98/62 L 11/02/24 01:00 98/62 L 11/02/24 01:00 98/62 L 11/02/24 01:00 98/62 L 11/02/24 00:57 35 11/02/24 00:45 37.2 C 116 H 18 97 11/02/24 00:42 37.3 C 117 H 18 97 11/02/24 00:33 37.2 C 117 H 18 96 11/02/24 00:24 37.2 C 129 H 20 98 11/02/24 00:09 35 11/02/24 00:03 37.2 C 127 H 21 98 11/02/24 00:00 102/72 11/02/24 00:00 102/72 11/02/24 00:00 102/72 11/02/24 00:00 102/72 11/02/24 00:00 102/72 11/02/24 00:00 102/72 11/02/24 00:00 102/72 11/02/24 00:00 102/72 11/02/24 00:00 102/72 11/02/24 00:00 102/72 11/02/24 00:00 102/72 11/02/24 00:00 102/72 11/02/24 00:00 102/72 11/02/24 00:00 102/72 11/02/24 00:00 102/72 11/02/24 00:00 102/72 11/02/24 00:00 102/72 11/02/24 00:00 102/72 11/02/24 00:00 102/72 11/02/24 00:00 102/72 11/02/24 00:00 102/72 11/02/24 00:00 102/72 11/02/24 00:00 102/72 11/02/24 00:00 102/72 11/01/24 23:57 37.2 C 109 H 18 99 11/01/24 23:42 37.3 C 127 H 18 97 11/01/24 23:30 37.3 C 96 H 15 96 11/01/24 23:21 37.2 C 112 H 16 97 11/01/24 23:15 37.3 C 114 H 17 97 11/01/24 23:06 37.3 C 124 H 17 96 Laboratory Results Abnormal lab results 11/02/24 11/02/24 11/02/24 Range/Units 00:13 04:48 04:55 WBC 17.33 H (4.8-10.8) K/ul RBC 3.57 L (4.70-6.10) M/uL Hgb 11.4 L (14.0-18.0) g/dl POC Hgb 11.6 L (14.0-18.0) g/dl Hct 33.6 L (42.0-52.0) % POC Hct 34 L (42-52) % RDW Std Deviation 49.4 H (36.4-46.3) fL RDW Coeff of Kang 14.6 H (11.5-14.5) % Neut # (Auto) 16.00 H (1.40-6.50) K/uL Lymph # (Auto) 0.30 L (1.20-3.40) K/uL [place] # (Auto) 0.89 H (0.11-0.59) K/uL PT 15.1 H (9.0-12.0) Seconds INR 1.4 H (0.9-1.1) APTT (21-31) Seconds Heparin Anti-Xa, Unfract (0.3-0.7) IU/ml POC pCO2 28 L (35-46) mmHg POC pO2 75 L (80-95) mmHg POC HCO3 16 L (19-24) april/L POC Total CO2 17 L (24-31) mmol/L ABG pCO2 (Temp Corrct 28 L (35-46) mmHg POC Sodium 130 L (135-144) mmol/L Sodium 130 L 131 L (136-145) mmol/L Carbon Dioxide 19 L 19 L (21-32) mmol/L Anion Gap 12 H 13 H (3-11) BUN 72 H 73 H (6-23) mg/dl Creatinine 3.20 H 3.11 H (0.6-1.4) mg/dl BUN/Creatinine Ratio 22.5 H 23.5 H (10-20) Glucose 165 H 168 H (70-99(Fasting)) mg/dl POC Glucose (other) (70-99) mg/dl Calcium 7.7 L 7.7 L (8.6-10.3) mg/dl Phosphorus 5.5 H (2.5-4.9) mg/dl Magnesium 2.7 H (1.7-2.4) mg/dl Total Bilirubin 1.4 H (0.2-1.0) mg/dl Direct Bilirubin 0.8 H (0-0.2) mg/dl AST 455 H (13-39) U/L ALT 1172 H (7-52) U/L Albumin (3.4-5.0) gm/dl Procalcitonin (0-0.5) ng/ml 11/02/24 11/02/24 11/02/24 Range/Units 09:51 12:37 12:40 WBC (4.8-10.8) K/ul RBC (4.70-6.10) M/uL Hgb (14.0-18.0) g/dl POC Hgb (14.0-18.0) g/dl Hct (42.0-52.0) % POC Hct (42-52) % RDW Std Deviation (36.4-46.3) fL RDW Coeff of Kang (11.5-14.5) % Neut # (Auto) (1.40-6.50) K/uL Lymph # (Auto) (1.20-3.40) K/uL [place] # (Auto) (0.11-0.59) K/uL PT (9.0-12.0) Seconds INR (0.9-1.1) APTT (21-31) Seconds Heparin Anti-Xa, Unfract (0.3-0.7) IU/ml POC pCO2 (35-46) mmHg POC pO2 (80-95) mmHg POC HCO3 (19-24) april/L POC Total CO2 (24-31) mmol/L ABG pCO2 (Temp Corrct (35-46) mmHg POC Sodium (135-144) mmol/L Sodium 131 L (136-145) mmol/L Carbon Dioxide 18 L (21-32) mmol/L Anion Gap 14 H (3-11) BUN 70 H (6-23) mg/dl Creatinine 2.79 H D (0.6-1.4) mg/dl BUN/Creatinine Ratio 25.1 H (10-20) Glucose 206 H (70-99(Fasting)) mg/dl POC Glucose (other) 196 H (70-99) mg/dl Calcium 7.7 L (8.6-10.3) mg/dl Phosphorus (2.5-4.9) mg/dl Magnesium (1.7-2.4) mg/dl Total Bilirubin 1.4 H (0.2-1.0) mg/dl Direct Bilirubin (0-0.2) mg/dl AST 346 H (13-39) U/L ALT 1046 H (7-52) U/L Albumin 3.2 L (3.4-5.0) gm/dl Procalcitonin 1.35 H (0-0.5) ng/ml 11/02/24 11/02/24 11/02/24 Range/Units 14:56 18:21 18:46 WBC (4.8-10.8) K/ul RBC (4.70-6.10) M/uL Hgb (14.0-18.0) g/dl POC Hgb (14.0-18.0) g/dl Hct (42.0-52.0) % POC Hct (42-52) % RDW Std Deviation (36.4-46.3) fL RDW Coeff of Kang (11.5-14.5) % Neut # (Auto) (1.40-6.50) K/uL Lymph # (Auto) (1.20-3.40) K/uL [place] # (Auto) (0.11-0.59) K/uL PT (9.0-12.0) Seconds INR (0.9-1.1) APTT (21-31) Seconds Heparin Anti-Xa, Unfract > 1.50 H* (0.3-0.7) IU/ml POC pCO2 (35-46) mmHg POC pO2 (80-95) mmHg POC HCO3 (19-24) april/L POC Total CO2 (24-31) mmol/L ABG pCO2 (Temp Corrct (35-46) mmHg POC Sodium (135-144) mmol/L Sodium 133 L (136-145) mmol/L Carbon Dioxide 20 L (21-32) mmol/L Anion Gap 12 H (3-11) BUN 67 H (6-23) mg/dl Creatinine 2.61 H (0.6-1.4) mg/dl BUN/Creatinine Ratio 25.7 H (10-20) Glucose 186 H (70-99(Fasting)) mg/dl POC Glucose (other) 187 H 180 H (70-99) mg/dl Calcium 7.7 L (8.6-10.3) mg/dl Phosphorus (2.5-4.9) mg/dl Magnesium (1.7-2.4) mg/dl Total Bilirubin (0.2-1.0) mg/dl Direct Bilirubin (0-0.2) mg/dl AST (13-39) U/L ALT (7-52) U/L Albumin (3.4-5.0) gm/dl Procalcitonin (0-0.5) ng/ml 11/02/24 Range/Units 20:19 WBC (4.8-10.8) K/ul RBC (4.70-6.10) M/uL Hgb (14.0-18.0) g/dl POC Hgb (14.0-18.0) g/dl Hct (42.0-52.0) % POC Hct (42-52) % RDW Std Deviation (36.4-46.3) fL RDW Coeff of Kang (11.5-14.5) % Neut # (Auto) (1.40-6.50) K/uL Lymph # (Auto) (1.20-3.40) K/uL [place] # (Auto) (0.11-0.59) K/uL PT 14.3 H (9.0-12.0) Seconds INR 1.4 H (0.9-1.1) APTT 41 H (21-31) Seconds Heparin Anti-Xa, Unfract (0.3-0.7) IU/ml POC pCO2 (35-46) mmHg POC pO2 (80-95) mmHg POC HCO3 (19-24) april/L POC Total CO2 (24-31) mmol/L ABG pCO2 (Temp Corrct (35-46) mmHg POC Sodium (135-144) mmol/L Sodium (136-145) mmol/L Carbon Dioxide (21-32) mmol/L Anion Gap (3-11) BUN (6-23) mg/dl Creatinine (0.6-1.4) mg/dl BUN/Creatinine Ratio (10-20) Glucose (70-99(Fasting)) mg/dl POC Glucose (other) (70-99) mg/dl Calcium (8.6-10.3) mg/dl Phosphorus (2.5-4.9) mg/dl Magnesium (1.7-2.4) mg/dl Total Bilirubin (0.2-1.0) mg/dl Direct Bilirubin (0-0.2) mg/dl AST (13-39) U/L ALT (7-52) U/L Albumin (3.4-5.0) gm/dl Procalcitonin (0-0.5) ng/ml Diagnostic Findings Chest CT 10/31/24 12:59 HISTORY: Shortness of breath. TECHNIQUE: CT imaging of the chest was performed . Images are presented in axial, sagittal, and coronal reformats. COMPARISON: Chest CT dated 02/15/2023. FINDINGS: Lungs: Intralobular septal thickening suggesting interstitial pulmonary edema. Subtle perihilar groundglass opacity involving the right greater than left lung favoring developing alveolar pulmonary edema. There is moderate bilateral pleural effusions, which are right greater than left. No pneumothorax. The central tracheobronchial tree is patent. Heart/Mediastinum: Mild cardiomegaly. No pericardial effusion. Coronary artery calcifications are present with severe multivessel disease. Severe aortic valvular calcification. No suspicious mediastinal or hilar lymph nodes. Included thyroid gland is unremarkable. The thoracic esophagus is unremarkable. Vasculature: Moderate atherosclerotic vascular disease. No abdominal aortic aneurysm. Main pulmonary artery is mildly dilated measuring 3.4 cm in diameter. Soft Tissues: Mild gynecomastia. Upper Abdomen: Unremarkable. Bones: No acute osseous abnormality. Degenerative changes of the shoulders and spine. IMPRESSION: * Findings favoring CHF with cardiomegaly, moderate pleural effusions, and interstitial pulmonary edema. Subtle bilateral perihilar groundglass opacities right greater than left and favored to represent associated alveolar pulmonary edema. Differential would also include atypical pneumonia. * Severe aortic valvular calcification concerning for aortic valve stenosis. Consider correlation with echocardiogram. * Coronary artery calcifications are present with multivessel disease. * Additional chronic and/or incidental findings as detailed above. ACT 112: Positive. There are findings on this exam that require communication between the performing entity and the patient following Patient Test Result Information Act ([place] ACT 112) guidelines. Electronically signed by Srikanth Hernandez 10-31-2024 13:47 PM Chest X-Ray 11/01/24 12:54 EXAM: Radiograph of the Chest 1 View INDICATION: Line placement TECHNIQUE: Frontal view of the chest. Image obtained at 1:15 PM. COMPARISON: 5:45 AM the same day FINDINGS: Lungs and pleural spaces: Worsening asymmetric groundglass and consolidative infiltrates throughout the right lung and new infiltrate left base. Increased small bilateral pleural effusions. No pneumothorax. Heart: Stable large cardiac shadow. Mediastinum: Normal contour. Bones/joints: No fracture, erosion or dislocation. Soft tissues: No abnormality noted. No radiopaque foreign body noted. Tubes, lines and devices: The endotracheal tube terminates 5.0 cm above the laury. Right internal jugular central venous catheter tip in the mid superior vena cava. Nasogastric tube below the diaphragm. The tip is not included in the image field. Upper abdomen: No abnormality noted. IMPRESSION: 1. Worsening asymmetric right aspiration pneumonitis, pneumonia and alveolar edema. 2. Lines and tubes as above. ACT 112: N/A Electronically signed by Kaur Mendez 11-01-2024 13:40 PM Liver Ultrasound 11/02/24 09:30 ABDOMINAL ULTRASOUND, RIGHT UPPER QUADRANT HISTORY: Elevated LFTs Transaminitis. COMPARISON: None. FINDINGS: Pancreas: The pancreas is mostly obscured by bowel gas. Liver: 21 cm in length with increased echogenicity. No mass or marginal nodularity. Patent portal vein. Gallbladder: No gallbladder wall thickening. Layering gallbladder sludge. Trace pericholecystic fluid. No gallstones. CBD: 5 mm Right kidney: No hydronephrosis. Right pleural effusion. IMPRESSION: 1. Biliary sludge without cholelithiasis. 2. Right pleural effusion with trace nonspecific pericholecystic fluid. 3. Hepatic steatosis. ACT 112: Negative or not required by law. Electronically signed by: Jamshid Holland M.D. 11/02/2024 11:48 AM Mesenteric US 11/02/24 09:30 Exam(s): US OTHER duplex mesenteric EXAM: US Other - Duplex Mesenteric CLINICAL HISTORY: Transaminitis. TECHNIQUE: Real-time ultrasound of the other - duplex mesenteric with image documentation. COMPARISON: No relevant prior studies available. FINDINGS: Nondiagnostic evaluation due to bowel gas. IMPRESSION: Nondiagnostic evaluation due to bowel gas. If mesenteric ischemia is suspected recommend further evaluation with CTA of the abdomen and pelvis. Electronically signed by: Regina Spence MD 11/02/24 22:12 PM Portal Vein US 11/02/24 10:53 US duplex portal hepatic veins CLINICAL HISTORY: Evaluate for portal vein thrombosis. COMPARISON STUDY: Abdominal ultrasound March 26, 2016. TECHNIQUE: Color and duplex Doppler sonography of the major hepatic vessels was performed. FINDINGS: This exam is mildly compromised due to patient's inability to suspend respiration. However, the main, left and right portal veins are patent with appropriately directed flow. The middle, left and right hepatic veins are patent. IMPRESSION: Patent major hepatic vessels with appropriately directed flow. Exam mildly compromised from a technical standpoint. ACT 112: Negative or not required by law. Electronically signed by: Kashif Ferrara M.D. 11/02/2024 11:36 AM Medications Administered Current Inpatient Medications Acetaminophen (Acetaminophen 325 Mg Tab) 650 mg PO Q4H PRN PRN Reason: Pain or Fever Stop: 11/29/24 16:38 Last Admin: 11/01/24 04:53 Dose: 650 mg Albuterol (Albuterol Hfa 8 Gm Inhaler) 2 puffs INH Q6R PRN PRN Reason: Shortness Of Breath Stop: 11/29/24 17:11 Last Admin: 10/30/24 21:35 Dose: 2 puffs Albuterol (Albut/Ipratrop 3mg/0.5mg Neb 3 Ml Vial) 3 ml NEB Q2H PRN PRN Reason: Shortness of Breath/Wheezing Stop: 11/30/24 13:03 Last Admin: 10/31/24 15:47 Dose: 3 ml Aspirin (Aspirin 81 Mg Ectab) 81 mg PO HS DECLAN Stop: 11/29/24 20:59 Last Admin: 11/02/24 20:16 Dose: Not Given Dextrose (Dextrose 50% 50 Ml Syringe) 25 - 50 ml IV UD PRN; Protocol PRN Reason: Hypoglycemia Protocol Stop: 11/29/24 17:11 Fentanyl Citrate (Fentanyl Citrate Pf 100 Mcg/2 Ml Vial) 100 mcg IV Q2H PRN PRN Reason: Severe Pain (7,8,9,10) on NRS Stop: 11/15/24 11:55 Last Admin: 11/02/24 00:24 Dose: 100 mcg Fluticasone Propionate (Fluticasone Propionate Na Spr 16 Gm Btl) 2 sprays NA QAM DECLAN; Protocol Stop: 11/30/24 08:59 Last Admin: 11/01/24 10:52 Dose: Not Given Glucagon (Glucagon For Inj 1 Mg Vial) 1 mg SQ UD PRN; Protocol PRN Reason: Hypoglycemia Protocol Stop: 11/29/24 17:11 Glucose (Glucose 40% Gel 15 Gm Tube) 15 - 30 gm PO UD PRN; Protocol PRN Reason: Hypoglycemia Protocol Stop: 11/29/24 17:11 Glucose (Glucose 10 Tab/Tube) 4 - 8 tab PO UD PRN; Protocol PRN Reason: Hypoglycemia Protocol Stop: 11/29/24 17:11 Doxycycline Hyclate 100 mg/ (Dextrose) 100 mls @ 50 mls/hr IV Q12H DECLAN Stop: 11/06/24 23:59 Last Infusion: 11/02/24 21:39 Dose: Infused Propofol (Diprivan) 1,000 mg in 100 mls @ 15.228 mls/hr IV .Q6H35M DECLAN; Protocol Stop: 11/04/24 11:59 Last Titration: 11/02/24 18:59 Dose: 30 mcg/kg/min, 15.2 mls/hr Thiamine HCl 100 mg/ Syringe 10 mls @ 2 mls/min IV QAM DECLAN Stop: 12/02/24 08:59 Last Admin: 11/02/24 08:20 Dose: 2 mls/min Phenylephrine HCl (Phenylephrine/Nss) 100 mg in 250 mls @ 46.953 mls/hr IV .Q5H20M DECLAN; Protocol Stop: 12/02/24 00:00 Last Admin: 11/02/24 20:21 Dose: 3.8 mcg/kg/min, 48.2 mls/hr Hydrocortisone Sodium (Succinate 50 mg/ Syringe) 1 mls @ 4 mls/min IV Q6H DECLAN Stop: 12/02/24 11:59 Last Admin: 11/02/24 23:39 Dose: 4 mls/min Piperacillin Sod/Tazobactam Sod (Zosyn) 4.5 gm in 100 mls @ 25 mls/hr IV Q12H [facility]; Protocol Stop: 11/07/24 19:59 Last Infusion: 11/02/24 23:32 Dose: Infused Esmolol HCl (Brevibloc) 2,500 mg in 250 mls @ 0 mls/hr IV .Q0M [facility]; Protocol Stop: 12/02/24 10:29 Last Titration: 11/02/24 18:59 Dose: 0 mcg/kg/min, 0 mls/hr Pantoprazole Sodium (Protonix) 40 mg in 10 mls @ 5 mls/min IV DAILY [facility] Stop: 12/02/24 10:59 Last Admin: 11/02/24 12:01 Dose: 5 mls/min Heparin Sodium/Dextrose (Heparin 41824 Unit/500 Ml D5w) 25,000 units in 500 mls @ 20 mls/hr IV .Q24H [facility] Stop: 12/02/24 21:29 Last Admin: 11/02/24 21:12 Dose: 1,000 units/hr, 20 mls/hr Insulin Aspart (Insulin Aspart Per Unit Charge) 0 units SC Q6 [facility] Stop: 12/01/24 17:59 Last Admin: 11/02/24 23:53 Dose: 1 units Insulin Glargine (Lantus Per Unit Charge) 5 units SQ BID [facility] Stop: 11/29/24 20:59 Last Admin: 11/02/24 20:13 Dose: 5 units Metoprolol Succinate (Metoprolol Succ 50mg Ext Rel Tab) 50 mg PO BID [facility] Stop: 11/29/24 20:59 Last Admin: 10/31/24 21:08 Dose: Not Given Miscellaneous (Carbohydrates For Hypoglycemia ) 15 - 30 gm PO UD PRN PRN Reason: Hypoglycemia Protocol Stop: 11/29/24 17:11 Pravastatin Sodium (Pravastatin Sod 10 Mg Tab) 10 mg PO HS [facility] Stop: 12/01/24 20:59 Last Admin: 11/02/24 20:17 Dose: Not Given Propofol (Propofol Bolus From Bag) 20 mg IV Q5M PRN PRN Reason: Sedation Stop: 11/04/24 11:55 Last Admin: 11/02/24 10:00 Dose: 20 mg Umeclidinium/Vilanterol (Umeclidinium/Vilanterol 62.5/25mcg 7 Puffs/Inhaler) 1 puffs INH QAM [facility]; Protocol Stop: 11/30/24 08:59 Last Admin: 11/01/24 10:53 Dose: Not Given PG Care Time/CCT Total # of Minutes Spent Total Time Spent with Patient: Total time spent is greater than 50% in coordination of care (as documented) at patient's floor/unit and/or counseling patient: Advanced Care Planning 90370 Advanced Care Planning 30 Min [place] [address] IN/OBS CONSULT LVL 3,45M Patient Type New History Problem Focused Exam Problem Focused Medical Decision Making Low Complexity Diagnoses Palliative care by specialist Z51.5 Counseling regarding goals of care Z71.89 Additional Codes Advanced Care Planning - 20265 Advanced Care Planning 30 Min: 32312 Advanced Care Planning 30 Min ([id number])
--- NOTE | 2024-11-02 11:17 | Hospitalist Progress Note ---
Date of Service November 02, 2024 Assessment & Plan (1) CAP (community acquired pneumonia): Plan: 74-year-old male with a history of nonocclusive coronary disease, aortic stenosis pending TAVR who presents with fever cough and sputum production and is found to have community-acquired pneumonia. Acute hypoxic respiratory failure due to community-acquired pneumonia - Fever, cough, chest discomfort on coughing x24 hours prior to admission Trending leukocytosis, no left shift, with concurrent steroid use - XR: CAP. Subsequent CT/AP with bilateral pleural effusions, and developing CHF versus pneumonia Antibiotics were initially expanded from Rocephin to cefepime/doxycycline. Due to continued deterioration was further expanded to meropenem. Levaquin contraindicated due to aneurysms and he is penicillin allergic. Subsequently switched to Zosyn while in ICU, tolerating so far without signs of allergy. Methylprednisolone was discontinued and patient is continued on hydrocortisone. Sputum culture pending. Continues to produce dark brownish sputum. MRSA nare is negative Intubated for progressive respiratory failure, hypotension, progressive acidosis Remains critically ill, intubated, and vasopressor support. Guarded prognosis. Lactate normalized pAfib, severe aortic stenosis Severe . on admission appeared volume contracted, fluids were given however had poor tolerance to this with worsening shortness of breath and developing CHF. Diuresis limited by RUBEN and intravascular contraction. Lasix and small dose of albumin was trialed given pleural effusions and development of CHF however tolerated this poorly and was subsequently started on vasopressors and transferred to the ICU. Intubated progressive respiratory failure. Rate control was trialed with digoxin x 1 while in the ICU, subsequently started on esmolol drip. Cardiology following DOAC --> heparin while n.p.o Admitted to telemetry RUBEN Creatinine elevated. Baseline around 1.1 Creatinine peaked At 3.24, downtrending, suspected prerenal. Losartan held Trend daily - hold lasix/nephrotoxins. Renally adjust for creatinine clearance as needed Anxiety Home duloxetine, clonazepam continued DM2 Metformin held Goal BSG [id number] ICU hypoglycemia protocol Transaminitis Suspect shock liver / congestive. Trended.Portal ultrasound technically limited major vessels appear patent. - Trend LFTs DVT prophylaxis: Anticoagulated Disposition: ICU CODE STATUS: Full Diet: Heart healthy/DM2 (2) Atrial fibrillation with rapid ventricular response: (3) Combined systolic and diastolic congestive heart failure: (4) Mild CAD: (5) Cardiomyopathy: (6) Severe aortic stenosis: Admission and Anticipated Discharge Date Admission Date: October 30, 2024 Subjective Seen at the bedside. History is limited due to cognitive status, ETT, sedation Physical Exam Physical Exam: General: Sedated. ETT in place HEENT: Atraumatic, normocephalic. Pulm: Bibasilar crackles, diminished. No overt wheezes. On mechanical ventilation Cardiac: Tachycardic, no murmur Abdominal: Nontender, nondistended, soft. BS present. Results & Data Results & Data Vital Signs (Past 12 Hours) Vital Signs Temp Pulse Resp BP Pulse Ox FiO2 11/02/24 08:42 37.4 C 145 H 20 99 11/02/24 08:18 37.4 C 136 H 19 99 11/02/24 08:00 117/73 11/02/24 08:00 117/73 11/02/24 08:00 30 11/02/24 07:52 131 H 19 99 30 11/02/24 07:48 37.3 C 129 H 17 99 11/02/24 07:45 37.3 C 116 H 21 99 11/02/24 07:33 37.3 C 126 H 18 99 11/02/24 07:00 37.3 C 129 H 18 98 11/02/24 07:00 111/70 11/02/24 06:30 37.3 C 128 H 20 98 11/02/24 06:12 37.3 C 127 H 16 98 11/02/24 06:09 37.3 C 118 H 20 99 11/02/24 06:00 103/11/02/24 06:00 10311/02/24 06:00 10311/02/24 06:00 10311/02/24 06:00 10311/02/24 06:00 10311/02/24 06:00 103/11/02/24 06:00 103/11/02/24 06:00 103/11/02/24 05:48 37.2 C 108 H 18 99 11/02/24 05:45 37.2 C 111 H 17 98 11/02/24 05:36 37.2 C 115 H 19 98 11/02/24 05:27 37.3 C 123 H 18 98 11/02/24 05:12 37.2 C 128 H 19 99 11/02/24 05:00 98/67 L 11/02/24 05:00 98/67 L 11/02/24 05:00 98/67 L 11/02/24 05:00 98/67 L 11/02/24 05:00 98/67 L 11/02/24 05:00 98/67 L 11/02/24 05:00 98/67 L 11/02/24 04:57 30 11/02/24 04:45 37.3 C 112 H 21 98 11/02/24 04:21 37.3 C 107 H 18 98 11/02/24 04:18 37.2 C 126 H 18 97 11/02/24 04:00 114/72 11/02/24 04:00 114/72 11/02/24 04:00 114/72 11/02/24 04:00 114/72 11/02/24 04:00 114/72 11/02/24 04:00 114/72 11/02/24 04:00 114/72 11/02/24 04:00 114/72 11/02/24 04:00 114/72 11/02/24 04:00 114/72 11/02/24 04:00 114/72 11/02/24 03:33 37.2 C 108 H 18 98 11/02/24 03:27 37.2 C 107 H 19 98 11/02/24 03:12 37.2 C 118 H 19 97 11/02/24 03:00 10111/02/24 03:00 10111/02/24 03:00 10111/02/24 03:00 10160 11/02/24 03:00 10111/02/24 03:00 10160 11/02/24 03:00 10111/02/24 03:00 10160 11/02/24 03:00 10160 11/02/24 03:00 10160 11/02/24 03:00 10160 11/02/24 03:00 10160 11/02/24 02:35 111 H 19 98 30 11/02/24 02:00 90/63 L 11/02/24 02:00 90/63 L 11/02/24 02:00 90/63 L 11/02/24 02:00 90/63 L 11/02/24 02:00 90/63 L 11/02/24 02:00 90/63 L 11/02/24 02:00 90/63 L 11/02/24 02:00 90/63 L 11/02/24 02:00 90/63 L 11/02/24 02:00 90/63 L 11/02/24 02:00 90/63 L 11/02/24 02:00 90/63 L 11/02/24 02:00 90/63 L 11/02/24 02:00 90/63 L 11/02/24 02:00 90/63 L 11/02/24 02:00 90/63 L 11/02/24 02:00 90/63 L 11/02/24 02:00 90/63 L 11/02/24 01:57 37.2 C 108 H 18 98 11/02/24 01:51 37.2 C 115 H 18 98 11/02/24 01:42 37.2 C 128 H 18 97 11/02/24 01:39 37.2 C 123 H 18 98 11/02/24 01:12 37.2 C 122 H 18 97 11/02/24 01:03 37.2 C 130 H 18 98 11/02/24 01:00 98/62 L 11/02/24 01:00 98/62 L 11/02/24 01:00 98/62 L 11/02/24 01:00 98/62 L 11/02/24 01:00 98/62 L 11/02/24 01:00 98/62 L 11/02/24 01:00 98/62 L 11/02/24 00:57 35 11/02/24 00:45 37.2 C 116 H 18 97 11/02/24 00:42 37.3 C 117 H 18 97 11/02/24 00:33 37.2 C 117 H 18 96 11/02/24 00:24 37.2 C 129 H 20 98 11/02/24 00:09 35 11/02/24 00:03 37.2 C 127 H 21 98 11/02/24 00:00 102/72 11/02/24 00:00 102/72 11/02/24 00:00 11/02/24 00:00 11/02/24 00:00 11/02/24 00:00 11/02/24 00:00 11/02/24 00:00 11/02/24 00:00 11/02/24 00:00 11/02/24 00:00 11/02/24 00:00 11/02/24 00:00 11/02/24 00:00 11/02/24 00:00 11/02/24 00:00 11/02/24 00:00 11/02/24 00:00 11/02/24 00:00 11/02/24 00:00 11/02/24 00:00 11/02/24 00:00 11/02/24 00:00 11/02/24 00:00 11/01/24 23:57 37.2 C 109 H 18 99 11/01/24 23:42 37.3 C 127 H 18 97 11/01/24 23:30 37.3 C 96 H 15 96 11/01/24 23:21 37.2 C 112 H 16 97 11/01/24 23:15 37.3 C 114 H 17 97 PG Care Time/CCT Total # of Minutes Spent Total Time Spent with Patient: Total time spent is greater than 50% in coordination of care (as documented) at patient's floor/unit and/or counseling patient: Coding Level of Care Code 60411 SUB INP/OBS CARE 2/35MIN Diagnoses CAP (community acquired pneumonia) J18.9 Atrial fibrillation with rapid ventricular response I48.91 Chronic combined systolic and diastolic congestive heart failure I50.42 Heart failure chronicity: chronic Mild CAD I25.10 Cardiomyopathy, unspecified type I42.9 Severe aortic stenosis I35.0 (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
[2024-11-02 11:30] LABS: Hep B Surface Ag with confirm Negative (Negative)
[2024-11-02 11:35] LABS: Hep C Ab Rflx HepCQuant RNA Negative (Negative)
--- NOTE | 2024-11-02 11:39 | Ultrasound Report ---
US duplex portal hepatic veins CLINICAL HISTORY: Evaluate for portal vein thrombosis. COMPARISON STUDY: Abdominal ultrasound March 26, 2016. TECHNIQUE: Color and duplex Doppler sonography of the major hepatic vessels was performed. FINDINGS: This exam is mildly compromised due to patient's inability to suspend respiration. However, the main, left and right portal veins are patent with appropriately directed flow. The middle, left and right hepatic veins are patent. IMPRESSION: Patent major hepatic vessels with appropriately directed flow. Exam mildly compromised f rom a technical standpoint. ACT 112: Negative or not required by law. Electronically signed by: Kashif Ferrara M.D. 11/02/2024 11:36 AM
--- NOTE | 2024-11-02 11:50 | Ultrasound Report ---
ABDOMINAL ULTRASOUND, RIGHT UPPER QUADRANT HISTORY: Elevated LFTs Transaminitis. COMPARISON: None. FINDINGS: Pancreas: The pancreas is mostly obscured by bowel gas. Liver: 21 cm in length with increased echogenicity. No mass or marginal nodularity. Patent portal vei n. Gallbladder: No gallbladder wall thickening. Layering gallbladder sludge. Trace pericholecystic fluid . No gallstones. CBD: 5 mm Right kidney: No hydronephrosis. Right pleural effusion. IMPRESSION: 1. Biliary sludge without cholelithiasis. 2. Right pleural effusion with trace nonspecific pericholecystic fluid. 3. Hepatic steatosis. ACT 112: Negative or not required by law. Electronically signed by: Jamshid Holland M.D. 11/02/2024 11:48 AM
[2024-11-02] MEDS: 4.5GM X1 IV ONE (12:01)
[2024-11-02] MEDS: PANTOprazole 40 MG in SYRINGE DAILY IV SCH (12:01)
[2024-11-02] MEDS: HEPARIN 25000 UNIT/500 ML D5W 25,000 UNITS/500 ML BAG IV SCH ×2 (12:08→21:12)
[2024-11-02] MEDS: ESMOLOL / NSS 2,500 MG/250 ML BAG IV SCH (12:08)
[2024-11-02] MEDS: Heparin IV Adult Wt-Based Low-Dose *NO* INITIAL Bolus Protocol IV STA (12:09)
[2024-11-02] MEDS: HYDROCORTISONE SOD 50 MG in SYRINGE 0 ML IV SCH (12:09)
--- NOTE | 2024-11-02 12:22 | Cardiology Consultation ---
Date of Consultation November 02, 2024 Assessment & Plan (1) Permanent atrial fibrillation with RVR: (2) Hypotension: (3) Combined systolic and diastolic congestive heart failure: (4) Cardiomyopathy: (5) Mild CAD: (6) Severe aortic stenosis: Plan 74-year-old man with multiple cardiac issues who was planned to undergo elective aortic valve replacement in the near future, admitted with community-acquired pneumonia and developed respiratory failure with hypotension. He remains on phenylephrine for pressure support and is on IV heparin for anticoagulation (apixaban stopped). Current heart rate of 120-130 bpm is probably only minimally supra-physiologic given his mechanically ventilated status with hypotension and severe aortic stenosis. Would aim for rate of 100-120 bpm to be achieved with either intermittent doses of IV metoprolol tartrate (2.5 mg IV every 1-2 hours) or an esmolol drip (which is currently hanging and ready). Although landiolol might be beneficial in this setting, it is not yet been approved by the pharmacy and therapeutics committee at [facility]. Digoxin can be helpful, but given his declining renal function should be avoided for now. Prognosis is obviously guarded and will depend on the severity of hypoxemia and the associated physiologic demands, given reduced LV systolic function and severe aortic stenosis (but fortunately nonobstructive CAD) his physiologic reserve is likely to be quite limited. Prognosis is guarded. Patient is routinely followed by Dr. Bella, likely he will stop by tomorrow to offer further insight. History of Present Illness Reason for Consultation: systolic chf, af rvr Requesting Physician: Mitchell Benedict MD Attending Physician: Dixon Browne MD History of Present Illness 74-year-old man with severe aortic stenosis, cardiomyopathy (EF 25-30%), permanent atrial fibrillation (apixaban/metoprolol), mild/nonobstructive CAD (cath October 2024), PAD, COPD, and DM who was admitted 10/22/2024 with progressive dyspnea on exertion and felt to have community-acquired pneumonia, subsequently developed hypotension and respiratory failure and was placed on pressors and intubated/mechanically ventilated. Cardiac data: ECG on admission showed atrial fibrillation with ventricular rate 108 bpm, incomplete left frontal bundle branch block, anterolateral T wave inversions. Second ECG showed rate 89 bpm and was largely unchanged. Troponin on admission was 26, repeat value 23. Echocardiogram 10/14/2024 showed EF 25-30% with moderate to severe global hypokinesis, severe AI/mild MR. Compared with November 2023, LV systolic function now reduced. Cardiac catheterization 10/29/2024 showed only mild/nonobstructive CAD. Telemetry currently shows atrial fibrillation with rapid ventricular response (130 bpm range). Patient was sedated/intubated/mechanically ventilated, unable to offer history. Allergies Allergy/AdvReac Type Severity Reaction Status Date / Time iodine Allergy Intermediate SHORTNESS Verified 10/28/24 09:07 OF BREATH amoxicillin Allergy Mild RASH Verified 10/28/24 09:07 clavulanic acid Allergy Mild RASH Verified 10/28/24 09:07 clarithromycin Allergy Unknown UNKNOWN Verified 10/28/24 09:07 indomethacin Allergy Unknown UNKNOWN Verified 10/28/24 09:07 Home Medications Medication Instructions Recorded Confirmed Type aspirin 81 mg tablet,delayed 81 mg PO HS 04/21/19 10/30/24 History release (Adult Aspirin Regimen) blood-glucose meter (Visonysuch #1 ea 06/03/23 10/28/24 Rx Verio Reflect Meter) omeprazole 40 mg capsule,delayed 40 mg PO DAILY #90 caps 02/13/24 10/30/24 Rx release metformin 500 mg tablet 500 mg PO BID 90 days #180 tabs 03/27/24 10/30/24 Rx allopurinol 300 mg tablet 300 mg PO DAILY #90 tabs 04/21/24 10/30/24 Rx pravastatin 20 mg tablet 20 mg PO HS #100 tabs 04/21/24 10/30/24 Rx albuterol sulfate 90 mcg/actuation 2 puff inhalation Q6H PRN 05/18/24 10/30/24 Rx aerosol inhaler (Ventolin HFA) Shortness Of Breath #8.5 grams amlodipine 5 mg tablet 5 mg PO DAILY #90 tabs 05/26/24 10/30/24 Rx blood sugar diagnostic (MovinaryTouch #300 ea 09/30/24 10/28/24 Rx Verio test strips) B12 500 mg PO BID 10/30/24 10/30/24 History apixaban 5 mg tablet (Eliquis) 5 mg PO BID 10/30/24 10/30/24 History clonazepam 1 mg tablet 1 mg PO BID anxiety 10/30/24 10/30/24 History cyclobenzaprine 5 mg tablet 5 - 10 mg PO DAILY PRN Other 10/30/24 10/30/24 History famotidine 40 mg tablet 40 mg PO BID PRN heart burn 10/30/24 10/30/24 History losartan 50 mg tablet 50 mg PO DAILY 10/30/24 10/30/24 History magnesium chloride 64 mg 64 mg PO BID 10/30/24 10/30/24 History tablet,extended release metoprolol succinate 100 mg 50 mg PO BID 10/30/24 10/30/24 History tablet,extended release 24 hr mometasone 50 mcg/actuation nasal 2 spray intranasal QAM nasal 10/30/24 10/30/24 History spray congestion naproxen 500 mg tablet 500 mg PO BID 10/30/24 10/30/24 History tiotropium 2.5 mcg-olodaterol 2.5 2 puff inhalation QAM 10/30/24 10/30/24 History mcg/actuation mist for inhalation (Stiolto Respimat) Patient History Medical History (Updated 11/02/24 @ 12:46 by Cisco Segundo MD) Moderate to severe aortic stenosis Thrombocytopenia Gout DM w/o complication type II Essential (primary) hypertension Hyperlipidemia GERD (gastroesophageal reflux disease) COPD (chronic obstructive pulmonary disease) Upper respiratory infection Pulmonary nodules Lacunar infarction (10/15/12) Influenza-like symptoms Failure of outpatient treatment Bronchitis Acute bronchitis Surgical History S/P cataract extraction H/O tooth extraction Family History Mother , age 46 Kidney disease Father , age 92 - "old age"; suffered from severe osteoarthritis No problems noted. Sister Cancer Denies family history of Ovarian cancer Prostate cancer Myocardial infarction Breast cancer Colorectal cancer Social History Smoking Status: Former smoker Tobacco Type: Cigarettes Age Started Using Tobacco: 14; Age Quit Using Tobacco: 56; packs per day: 2; Cigarettes Per Day: 30-40; Second Hand Exposure: No; Do You Dip or Chew Tobacco: No; Hx Alcohol Use: No Hx Substance Use: No Preferred Language: Comoran Communication Ability: Effective Visual Impairment: No Limitations Hearing Ability: Normal Industrial Health Engineer Required: No Beliefs That Will Affect Care: None marital status: Current Living Situation: Spouse Current Living Situation Comment: apartment in [place] current occupational status: retired current occupation: [employer] other: first marriage - 1 child; 2nd marriage - 2 children Feels Safe at Home: Yes Diet: regular caffeine: Yes Dental Care, Regularly: No Physical Activity Frequency: Does not Exercise Seatbelt Use: always Sunscreen Use: No Assistive Devices: Glasses Physical Exam Physical Exam: Sedated/intubated/mechanically ventilated, not agitated. Tmax 99.3. BP 108/55 mmHg. Pulse 120-130 bpm and irregular. Respirations 20 (mechanically ventilated). Skin: no ecchymoses or generalized lesions. HEENT: unremarkable. Neck: JVP elevated to angle of jaw at 30 90 degrees, no obvious bruits or transmitted murmur. Lungs: Diminished breath sounds, no obvious wheezing. Few basilar crackles. No accessory muscle use. Cardiac: Irregular/tachycardic rhythm, no obvious murmur but difficult exam (superimposed breath sounds/mechanical ventilation). Abdomen: benign. Extremities: no edema, pulses intact. Neurologic: Sedated, grossly nonfocal. Results & Data Laboratory Results WBC 17.33, hemoglobin 11.6, normal platelet count. ABG 7.38/28/75/16 (on ventilator). Sodium 131, potassium 4.0, BUN 73, creatinine 3.11 (1.56 on admission). Diagnostic Findings Chest x-ray 11/01/2024 showed worsening asymmetric right aspiration pneumonitis, pneumonia and alveolar edema. PG Care Time/CCT Total # of Minutes Spent Total Time Spent with Patient: Total time spent is greater than 50% in coordination of care (as documented) at patient's floor/unit and/or counseling patient: Coding Level of Care Code 66097 IN/OBS CONSULT LVL 4,60M Diagnoses Permanent atrial fibrillation with RVR I48.21 Hypotension I95.9 Chronic combined systolic and diastolic congestive heart failure I50.42 Heart failure chronicity: chronic Cardiomyopathy, unspecified type I42.9 Mild CAD I25.10 Severe aortic stenosis I35.0 (3) Combined systolic and diastolic congestive heart failure Heart failure chronicity: chronic Qualified Code(s): I50.42 - Chronic combined systolic (congestive) and diastolic (congestive) heart failure (4) Cardiomyopathy Qualified Code(s): I42.9 - Cardiomyopathy, unspecified
--- NOTE | 2024-11-02 13:04 | Gastrointestinal Consultation ---
Date of Consultation November 02, 2024 Assessment & Plan (1) Transaminitis: Given that transaminases were normal just 3 days ago, I suspect that his transaminitis is secondary to his pneumonia, sepsis, and respiratory failure. Would continue with supportive care and trend LFTs. Supervising Physician Co-Signing Physician Notes I personally saw and examined the patient. I have reviewed the chart and agree with the documentation provided by the OPERATIONS RESEARCH SCIENTIST including discussion about the assessment, treatment and plan. Briefly, 74 year old male who is admitted with worsening community acquired pneumonia, acute hypoxic respiratory failure, and multisystem organ dysfunction. GI was asked to see for transaminitis. Patient had normal transaminases on 10/30, but 11/02 labs shown T bili 1.4, DB 0.8, AST 455, ALT 1172, Alk phos 66. US of liver shown hepatic steatosis. He is intubated and sedated and I suspect his transaminitis is from shock liver. The timing fits as his LFTs were normal 2 days ago. As his clinical condition (respiratory failure sepsis improves) so well his LFTs. Trend LFTs to normal check hepatitis panel acute. History of Present Illness Reason for Consultation: transaminitis Requesting Physician: Mitchell Benedict MD Attending Physician: Dixon Browne MD History of Present Illness Patient is a 74 year old male who is admitted with worsening community acquired pneumonia, acute hypoxic respiratory failure, and multisystem organ dysfunction. GI was asked to see for transaminitis. Patient had normal transaminases on 10/30, but 11/02 labs shown T bili 1.4, DB 0.8, AST 455, ALT 1172, Alk phos 66. US of liver shown hepatic steatosis. Patient currently intubated and does not provide any history. His and daughter are at his bedside and mention he had no prior issues with his liver. Patients family has met with palliative care, they are still making a decision going forward. Allergies Allergy/AdvReac Type Severity Reaction Status Date / Time iodine Allergy Intermediate SHORTNESS Verified 10/28/24 09:07 OF BREATH amoxicillin Allergy Mild RASH Verified 10/28/24 09:07 clavulanic acid Allergy Mild RASH Verified 10/28/24 09:07 clarithromycin Allergy Unknown UNKNOWN Verified 10/28/24 09:07 indomethacin Allergy Unknown UNKNOWN Verified 10/28/24 09:07 Home Medications Medication Instructions Recorded Confirmed Type aspirin 81 mg tablet,delayed 81 mg PO HS 04/21/19 10/30/24 History release (Adult Aspirin Regimen) blood-glucose meter (OneTouch #1 ea 06/03/23 10/28/24 Rx Verio Reflect Meter) omeprazole 40 mg capsule,delayed 40 mg PO DAILY #90 caps 02/13/24 10/30/24 Rx release metformin 500 mg tablet 500 mg PO BID 90 days #180 tabs 03/27/24 10/30/24 Rx allopurinol 300 mg tablet 300 mg PO DAILY #90 tabs 04/21/24 10/30/24 Rx pravastatin 20 mg tablet 20 mg PO HS #100 tabs 04/21/24 10/30/24 Rx albuterol sulfate 90 mcg/actuation 2 puff inhalation Q6H PRN 05/18/24 10/30/24 Rx aerosol inhaler (Ventolin HFA) Shortness Of Breath #8.5 grams amlodipine 5 mg tablet 5 mg PO DAILY #90 tabs 05/26/24 10/30/24 Rx blood sugar diagnostic (OneTouch #300 ea 09/30/24 10/28/24 Rx Verio test strips) B12 500 mg PO BID 10/30/24 10/30/24 History apixaban 5 mg tablet (Eliquis) 5 mg PO BID 10/30/24 10/30/24 History clonazepam 1 mg tablet 1 mg PO BID anxiety 10/30/24 10/30/24 History cyclobenzaprine 5 mg tablet 5 - 10 mg PO DAILY PRN Other 10/30/24 10/30/24 History famotidine 40 mg tablet 40 mg PO BID PRN heart burn 10/30/24 10/30/24 History losartan 50 mg tablet 50 mg PO DAILY 10/30/24 10/30/24 History magnesium chloride 64 mg 64 mg PO BID 10/30/24 10/30/24 History tablet,extended release metoprolol succinate 100 mg 50 mg PO BID 10/30/24 10/30/24 History tablet,extended release 24 hr mometasone 50 mcg/actuation nasal 2 spray intranasal QAM nasal 10/30/24 10/30/24 History spray congestion naproxen 500 mg tablet 500 mg PO BID 10/30/24 10/30/24 History tiotropium 2.5 mcg-olodaterol 2.5 2 puff inhalation QAM 10/30/24 10/30/24 History mcg/actuation mist for inhalation (Stiolto Respimat) Patient History Medical History (Updated 11/02/24 @ 12:46 by Cisco Segundo MD) Moderate to severe aortic stenosis Thrombocytopenia Gout DM w/o complication type II Essential (primary) hypertension Hyperlipidemia GERD (gastroesophageal reflux disease) COPD (chronic obstructive pulmonary disease) Upper respiratory infection Pulmonary nodules Lacunar infarction (10/15/12) Influenza-like symptoms Failure of outpatient treatment Bronchitis Acute bronchitis Surgical History S/P cataract extraction H/O tooth extraction Family History Mother , age 46 Kidney disease Father , age 92 - "old age"; suffered from severe osteoarthritis No problems noted. Sister Cancer Denies family history of Ovarian cancer Prostate cancer Myocardial infarction Breast cancer Colorectal cancer Social History Smoking Status: Former smoker Tobacco Type: Cigarettes Age Started Using Tobacco: 14; Age Quit Using Tobacco: 56; packs per day: 2; Cigarettes Per Day: 30-40; Second Hand Exposure: No; Do You Dip or Chew Tobacco: No; Hx Alcohol Use: No Hx Substance Use: No Preferred Language: Libyan Communication Ability: Effective Visual Impairment: No Limitations Hearing Ability: Normal Prorate Clerk Required: No Beliefs That Will Affect Care: None marital status: Current Living Situation: Spouse Current Living Situation Comment: apartment in [place] current occupational status: retired current occupation: [employer] other: first marriage - 1 child; 2nd marriage - 2 children Feels Safe at Home: Yes Diet: regular caffeine: Yes Dental Care, Regularly: No Physical Activity Frequency: Does not Exercise Seatbelt Use: always Sunscreen Use: No Assistive Devices: Cane, CPAP and Wheelchair Review of Systems Review of Systems: All systems reviewed & are unremarkable except as noted in HPI & below Physical Exam Cardiovascular: Rate/Rhythm: regular rate and regular rhythm Musculoskeletal: normal bowel sounds. Results & Data Vital Signs (Past 12 Hours) Vital Signs Temp Pulse Resp BP Pulse Ox FiO2 11/02/24 12:39 117 H 108/55 L 11/02/24 12:30 99.1 F 120 H 19 100 11/02/24 12:15 99.1 F 121 H 18 100 11/02/24 12:08 130 H 112/55 L 11/02/24 12:00 101/63 11/02/24 12:00 99.3 F 131 H 19 100 11/02/24 12:00 30 11/02/24 11:48 99.3 F 135 H 18 100 11/02/24 11:36 99.3 F 108 H 19 99 11/02/24 11:18 99.3 F 140 H 20 99 11/02/24 11:00 99.3 F 123 H 18 100 11/02/24 10:20 118 H 20 100 30 11/02/24 08:42 99.3 F 145 H 20 99 11/02/24 08:18 99.3 F 136 H 19 99 11/02/24 08:00 117/73 11/02/24 08:00 117/73 11/02/24 08:00 30 11/02/24 07:52 131 H 19 99 30 11/02/24 07:48 99.1 F 129 H 17 99 11/02/24 07:45 99.1 F 116 H 21 99 11/02/24 07:33 99.1 F 126 H 18 99 11/02/24 07:00 99.1 F 129 H 18 98 11/02/24 07:00 111/70 11/02/24 06:30 99.1 F 128 H 20 98 11/02/24 06:12 99.1 F 127 H 16 98 11/02/24 06:09 99.1 F 118 H 20 99 11/02/24 06:00 10311/02/24 06:00 10311/02/24 06:00 103/11/02/24 06:00 10311/02/24 06:00 10311/02/24 06:00 10311/02/24 06:00 10311/02/24 06:00 10311/02/24 06:00 10311/02/24 05:48 99.0 F 108 H 18 99 11/02/24 05:45 99.0 F 111 H 17 98 11/02/24 05:36 99.0 F 115 H 19 98 11/02/24 05:27 99.1 F 123 H 18 98 11/02/24 05:12 99.0 F 128 H 19 99 11/02/24 05:00 98/67 L 11/02/24 05:00 98/67 L 11/02/24 05:00 98/67 L 11/02/24 05:00 98/67 L 11/02/24 05:00 98/67 L 11/02/24 05:00 98/67 L 11/02/24 05:00 98/67 L 11/02/24 04:57 30 11/02/24 04:45 99.1 F 112 H 21 98 11/02/24 04:21 99.1 F 107 H 18 98 11/02/24 04:18 99.0 F 126 H 18 97 11/02/24 04:00 114/72 11/02/24 04:00 114/72 11/02/24 04:00 114/72 11/02/24 04:00 114/72 11/02/24 04:00 114/72 11/02/24 04:00 114/72 11/02/24 04:00 114/72 11/02/24 04:00 114/72 11/02/24 04:00 114/72 11/02/24 04:00 114/72 11/02/24 04:00 114/72 11/02/24 03:33 99.0 F 108 H 18 98 11/02/24 03:27 99.0 F 107 H 19 98 11/02/24 03:12 99.0 F 118 H 19 97 11/02/24 03:00 10111/02/24 03:00 10160 11/02/24 03:00 10111/02/24 03:00 101/60 11/02/24 03:00 10160 11/02/24 03:00 10160 11/02/24 03:00 10111/02/24 03:00 101/60 11/02/24 03:00 101/60 11/02/24 03:00 101/11/02/24 03:00 101/60 11/02/24 03:00 10111/02/24 02:35 111 H 19 98 30 11/02/24 02:00 90/63 L 11/02/24 02:00 90/63 L 11/02/24 02:00 90/63 L 11/02/24 02:00 90/63 L 11/02/24 02:00 90/63 L 11/02/24 02:00 90/63 L 11/02/24 02:00 90/63 L 11/02/24 02:00 90/63 L 11/02/24 02:00 90/63 L 11/02/24 02:00 90/63 L 11/02/24 02:00 90/63 L 11/02/24 02:00 90/63 L 11/02/24 02:00 90/63 L 11/02/24 02:00 90/63 L 11/02/24 02:00 90/63 L 11/02/24 02:00 90/63 L 11/02/24 02:00 90/63 L 11/02/24 02:00 90/63 L 11/02/24 01:57 99.0 F 108 H 18 98 11/02/24 01:51 99.0 F 115 H 18 98 11/02/24 01:42 99.0 F 128 H 18 97 11/02/24 01:39 99.0 F 123 H 18 98 11/02/24 01:12 99.0 F 122 H 18 97 11/02/24 01:03 99.0 F 130 H 18 98 Coding Level of Care Code 34244 INT INP/OBS CARE 2/55MIN Diagnoses Transaminitis R74.01
[2024-11-02 13:22] LABS: Albumin Globulin Ratio 1.1 (0.9-2); Albumin Level 3.2 gm/dl (3.4-5.0); BUN Creatinine Ratio 25.1 (10-20); Bilirubin,Total 1.4 mg/dl (0.2-1.0); Calcium 7.7 mg/dl (8.6-10.3); Creatinine Clr Calc Pharmacy 24.4 ml/min; Potassium 3.8 mmol/L (3.5-5.1); Total Protein 6.2 gm/dl (6.0-8.3)
[2024-11-02] MEDS: SODIUM BICARB 8.4% INJ 50 MEQ/50 ML SYR IV STA (14:51)
[2024-11-02] MEDS: POTASSIUM CHLORIDE / WTR 10 MEQ/100 ML PLCT IV SCH (14:52)
[2024-11-02 19:12] LABS: BUN Creatinine Ratio 25.7 (10-20); Calcium 7.7 mg/dl (8.6-10.3); Potassium 3.8 mmol/L (3.5-5.1)
[2024-11-02] MEDS: PIPERACILLIN/TAZOBACTAM 4.5 GM/100 ML BAG IV SCH (19:52)
[2024-11-02 19:54] LABS: ANTI-Xa, UFH(UnfractionatedHep > 1.50 IU/ml (0.3-0.7)
[2024-11-02] MEDS: ROCURONIUM BROMIDE 10 MG/ML 5 ML VIAL IV ONE (20:09)
[2024-11-02 20:55] LABS: INR 1.4 (0.9-1.1); Partial Thromboplastin Ratio 1.5; Partial Thromboplastin Time 41 Seconds (21-31); Prothrombin Time 14.3 Seconds (9.0-12.0)
[2024-11-02] MEDS ORDERED: Nursing to Pharmacy Communication SCH (21:15)
--- NOTE | 2024-11-02 22:13 | Ultrasound Report ---
Exam(s): US OTHER duplex mesenteric EXAM: US Other - Duplex Mesenteric CLINICAL HISTORY: Transaminitis. TECHNIQUE: Real-time ultrasound of the other - duplex mesenteric with image documentation. COMPARISON: No relevant prior studies available. FINDINGS: Nondiagnostic evaluation due to bowel gas. IMPRESSION: Nondiagnostic evaluation due to bowel gas. If mesenteric ischemia is suspected recommend further evaluation with CTA of the abdomen and pelvis. Electronically signed by: Regina Spence MD 11/02/24 22:12 PM
[2024-11-03 03:16] LABS: Basophils # (auto) 0.01 K/uL (0.00-0.20); Basophils % (auto) 0.1 %; Hematocrit (blood only) 34.1 % (42.0-52.0); Hemoglobin 11.6 g/dl (14.0-18.0); Immature Granulocytes # (auto) 0.12 K/uL (0.01-0.20); Immature Granulocytes % (auto) 0.8 %; Lymphocytes # (auto) 0.33 K/uL (1.20-3.40); Lymphocytes % (auto) 2.3 %; Mean Corpuscular Hemoglobin 31.3 pg (25.0-34.0); Mean Corpuscular Volume 91.9 fL (80.0-100.0); Mean Platelet Volume 10.9 fL (9.4-12.4); Monocytes # (auto) 1.04 K/uL (0.11-0.59); Monocytes % (auto) 7.1 %; Neutrophils # (auto) 13.06 K/uL (1.40-6.50); Neutrophils % (auto) 89.7 %; Nucleated RBC # (auto) 0.12 K/uL (0.00-0.12); Nucleated RBC % (auto) 0.8 %; Platelet Count 227 K/uL (130-400); RDW Coefficient of Variation 14.7 % (11.5-14.5); Red Blood Count 3.71 M/uL (4.70-6.10); White Blood Count 14.56 K/ul (4.8-10.8)
[2024-11-03 03:38] LABS: Albumin Globulin Ratio 1.2 (0.9-2); Albumin Level 3.4 gm/dl (3.4-5.0); Bilirubin Direct 0.9 mg/dl (0-0.2); Bilirubin,Total 1.6 mg/dl (0.2-1.0); Calcium 7.8 mg/dl (8.6-10.3); Creatinine Clr Calc Pharmacy 29.2 ml/min; Globulin 2.8 gm/dl (2.5-4.0); Phosphorus 3.7 mg/dl (2.5-4.9); Potassium 3.6 mmol/L (3.5-5.1); Total Protein 6.2 gm/dl (6.0-8.3)
[2024-11-03 03:42] LABS: INR 1.3 (0.9-1.1); Partial Thromboplastin Ratio 1.6; Partial Thromboplastin Time 43 Seconds (21-31); Prothrombin Time 13.8 Seconds (9.0-12.0)
[2024-11-03] MEDS ORDERED: Nursing to Pharmacy Communication SCH ×2 (05:00→10:45)
[2024-11-03] MEDS ORDERED: STAT IV Infusion **Titration per Protocol STA (07:42)
[2024-11-03] MEDS: dexMEDEtomidine 200 MCG/50 ML BAG IV SCH (08:03)
[2024-11-03] MEDS: clonazePAM 1 MG TAB PO SCH (08:09)
--- NOTE | 2024-11-03 08:26 | Critical Care Progress Note ---
Date of Service November 03, 2024 Assessment & Plan (1) CAP (community acquired pneumonia): Plan: Reason Critically Ill: 74-year-old male with worsening community-acquired pneumonia acute hypoxic respiratory failure and multisystem organ dysfunction PLAN: Neuro: Metabolic encephalopathy -Likely related to hypoxemia, delirium and sepsis -Will proceed with sedation vacation today. Resp: Acute hypoxic respiratory failure secondary to severe community-acquired pneumonia and systolic heart failure with pleural effusion -Bronchoscopy culture negative to date from 11/01/2024. Antibiotics de-escalated to Zosyn and doxycycline. Continue hydrocortisone for severe community-acquired pneumonia And septic shock. Will trial SBT today if appropriate from a neurologic perspective. Chest x-ray today. CV: Paroxysmal A-fib Atrial fibrillation with rapid ventricular response Severe aortic stenosis -Reviewed echo from 10/14/2024: Low ejection fraction 25 to 30% -Cardiology consulted. Will discontinue further digoxin for the time being and use esmolol as needed. Known coronary artery disease -Using phenylephrine versus norepinephrine secondary to significant heart rate elevation -May require small doses of beta-blockade to optimize hemodynamics given aortic stenosis -Avoid afterload reduction -Continue statin therapy and 81 mg aspirin Hypertension -Hold ANGELA inhibitor Fluids/Renal: Acute kidney injury with nonoliguric renal failure -Reviewed nephrology consultation -Holding allopurinol and losartan and naproxen Lactic acid acidosis, resolving ID: Sepsis secondary to community-acquired pneumonia -Meropenem day 1 discontinued: Initially received Rocephin x 2 days, doxycycline day 3, vancomycin day 1 discontinued. Zosyn day 2 -Obtain Legionella antigen. BioFire negative. MRSA screen negative. Procalcitonin trending downwards. GI/Nutrition: -Continue PPI. Hold tube feeds given high pressor requirement. Severe transaminitis. Check acute hepatitis panel. Liver ultrasound and vascular liver ultrasound was negative. Possible congestive hepatopathy versus ischemic hepatopathy. Heme: Continue heparin infusion. Holding Eliquis given transaminitis and RUBEN. Endocrine: ICU hyperglycemia protocol Vascular access: Right IJ placed 11/01, left radial art line placed 11/01 Code Status: DO NOT RESUSCITATE in event of cardiac arrest, okay with intubation for respiratory insufficiency. Palliative care consulted. Disposition: ICU Palliative care consult placed. No family readily available at bedside at present CRITICAL CARE TIME CRITICAL CARE TIME I have personally spent 41 minutes of critical care time in the direct management of this patient. This is a life/limb threatening event. This includes time spent evaluating patient, direct bedside care, chart review, placing orders, interpretation of diagnostic studies, discussion with consultants, patient, and family members, as well as other required patient management activities. This time is exclusive of all separately billable procedures, and teaching time and separate from and in addition to any other critical care service time. 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 Pressor requirements are stable. Patien t with persistent atrial fibrillation with rapid ventricular response. Review of Systems Review of Systems: All systems reviewed & are unremarkable except as noted in HPI & below Physical Exam Constitutional: WD/WN, vitals as above + ill appearing and + mechanically ventilated Neck: normal visual inspection Respiratory: Auscultation: + diminished lung sounds and + crackles Cardiovascular: Rate/Rhythm: + tachycardic and + irregularly irregular Heart Sounds: + murmur Extremities: + pedal edema Skin: no rashes Neurologic: Intubated, sedated, could not be assessed. Results & Data Results & Data Vital Signs (Past 12 Hours) Vital Signs Temp Pulse Resp BP Pulse Ox FiO2 11/03/24 07:44 113 H 23 96 21 11/03/24 06:24 37.4 C 109 H 18 97 11/03/24 06:00 37.5 C 111 H 18 97 11/03/24 06:00 10811/03/24 06:00 10811/03/24 06:00 10811/03/24 06:00 10811/03/24 06:00 10811/03/24 06:00 10811/03/24 06:00 10811/03/24 06:00 10811/03/24 05:51 37.5 C 107 H 18 97 11/03/24 05:42 37.4 C 113 H 18 97 11/03/24 05:30 37.5 C 110 H 18 98 11/03/24 05:21 37.4 C 108 H 18 97 11/03/24 05:15 37.5 C 105 H 20 97 11/03/24 05:09 37.5 C 118 H 18 97 11/03/24 05:00 11/03/24 05:00 11/03/24 05:00 11/03/24 05:00 11/03/24 05:00 11/03/24 05:00 11/03/24 05:00 11/03/24 05:00 11/03/24 05:00 11/03/24 05:00 11/03/24 05:00 11/03/24 05:00 11/03/24 05:00 11/03/24 05:00 11/03/24 05:00 11/03/24 05:00 11/03/24 05:00 11/03/24 05:00 11/03/24 05:00 11/03/24 05:00 11/03/24 05:00 11/03/24 05:00 11/03/24 05:00 11/03/24 05:00 11/03/24 05:00 11/03/24 05:00 10411/03/24 04:51 37.5 C 125 H 19 97 11/03/24 04:42 37.5 C 111 H 20 97 11/03/24 04:36 37.5 C 113 H 18 97 11/03/24 04:00 11/03/24 04:00 11/03/24 04:00 11/03/24 04:00 11/03/24 04:00 11/03/24 04:00 11/03/24 04:00 11/03/24 04:00 11/03/24 04:00 11/03/24 04:00 11/03/24 04:00 11/03/24 04:00 10711/03/24 04:00 10711/03/24 04:00 10711/03/24 04:00 10711/03/24 04:00 10711/03/24 04:00 10711/03/24 04:00 11/03/24 04:00 113 H 11/03/24 03:30 37.4 C 113 H 18 97 11/03/24 03:26 113 H 19 97 11/03/24 03:21 37.5 C 120 H 19 97 11/03/24 03:15 37.4 C 120 H 18 97 11/03/24 03:03 37.4 C 132 H 18 96 11/03/24 03:00 11/03/24 03:00 11/03/24 03:00 11/03/24 03:00 11/03/24 03:00 11/03/24 03:00 11/03/24 03:00 11/03/24 03:00 11/03/24 03:00 11/03/24 03:00 11/03/24 03:00 11/03/24 03:00 11/03/24 03:00 11/03/24 03:00 11/03/24 03:00 11/03/24 03:00 11/03/24 03:00 11/03/24 03:00 11/03/24 03:00 11/03/24 03:00 10011/03/24 02:57 37.4 C 114 H 18 97 11/03/24 02:54 37.4 C 126 H 18 96 11/03/24 02:42 37.4 C 98 H 18 97 11/03/24 02:36 37.5 C 109 H 18 96 11/03/24 02:09 37.4 C 114 H 18 96 11/03/24 02:00 11/03/24 02:00 11/03/24 02:00 11/03/24 02:00 25 02:00 103/11/03/24 02:00 10311/03/24 02:00 10311/03/24 02:00 10311/03/24 02:00 10311/03/24 01:30 37.3 C 123 H 17 97 11/03/24 01:00 37.3 C 112 H 18 96 11/03/24 01:00 10711/03/24 01:00 10711/03/24 01:00 10711/03/24 01:00 10711/03/24 01:00 10711/03/24 00:51 37.3 C 102 H 18 96 11/03/24 00:42 37.2 C 113 H 19 96 11/03/24 00:33 37.3 C 117 H 18 96 11/03/24 00:21 37.2 C 111 H 18 96 11/03/24 00:18 37.2 C 121 H 18 96 11/03/24 00:00 11/03/24 00:00 11/03/24 00:00 11/03/24 00:00 11/03/24 00:00 11/03/24 00:00 11/03/24 00:00 11/03/24 00:00 11/03/24 00:00 11/03/24 00:00 11/03/24 00:00 11/03/24 00:00 11/03/24 00:00 11/03/24 00:00 11/03/24 00:00 11/03/24 00:00 10111/03/24 00:00 10111/03/24 00:00 37.2 C 112 H 19 96 11/03/24 00:00 100 H 11/03/24 00:00 11/02/24 23:39 37.2 C 107 H 19 96 11/02/24 23:17 100 H 18 98 21 11/02/24 23:00 102/11/02/24 23:00 102/11/02/24 23:00 11/02/24 23:00 11/02/24 23:00 11/02/24 23:00 11/02/24 23:00 11/02/24 23:00 11/02/24 23:00 11/02/24 23:00 11/02/24 23:00 11/02/24 23:00 11/02/24 23:00 11/02/24 22:24 37.0 C 119 H 18 95 11/02/24 22:21 37.0 C 117 H 18 96 11/02/24 22:15 37.0 C 127 H 18 95 11/02/24 22:09 37.0 C 111 H 19 96 11/02/24 22:00 106/71 11/02/24 22:00 106/71 11/02/24 22:00 106/71 11/02/24 22:00 106/71 11/02/24 22:00 106/71 11/02/24 22:00 106/71 11/02/24 22:00 106/71 11/02/24 22:00 106/71 11/02/24 22:00 106/71 11/02/24 22:00 106/71 11/02/24 22:00 106/71 11/02/24 22:00 106/71 11/02/24 22:00 106/71 11/02/24 21:51 37.0 C 132 H 18 96 11/02/24 21:48 37.0 C 117 H 18 96 11/02/24 21:21 37.0 C 105 H 19 96 11/02/24 21:18 37.0 C 125 H 19 95 11/02/24 21:00 99/60 L 11/02/24 21:00 99/60 L 11/02/24 21:00 99/60 L 11/02/24 21:00 99/60 L 11/02/24 21:00 99/60 L 11/02/24 21:00 99/60 L 11/02/24 21:00 99/60 L 11/02/24 21:00 99/60 L 11/02/24 21:00 99/60 L 11/02/24 21:00 99/60 L 11/02/24 21:00 99/60 L 11/02/24 21:00 99/60 L 11/02/24 21:00 99/60 L 11/02/24 21:00 99/60 L 11/02/24 21:00 99/60 L 11/02/24 21:00 99/60 L 11/02/24 20:48 37.0 C 115 H 18 96 11/02/24 20:36 36.9 C 122 H 19 96 Coding Level of Care Code 75757 CRITICAL CARE 1ST 30-74M Diagnoses CAP (community acquired pneumonia) J18.9 Acute kidney injury N17.9 Atrial fibrillation with rapid ventricular response I48.91 Chronic combined systolic and diastolic congestive heart failure I50.42 Heart failure chronicity: chronic Cardiomyopathy, unspecified type I42.9 Severe aortic stenosis I35.0 Acute metabolic encephalopathy G93.41 Delirium R41.0 Transaminitis R74.01 Pleural effusion J90 (4) Combined systolic and diastolic congestive heart failure Heart failure chronicity: chronic Qualified Code(s): I50.42 - Chronic combined systolic (congestive) and diastolic (congestive) heart failure (5) Cardiomyopathy Qualified Code(s): I42.9 - Cardiomyopathy, unspecified
--- NOTE | 2024-11-03 08:30 | Hospitalist Progress Note ---
Date of Service November 03, 2024 Assessment & Plan (1) CAP (community acquired pneumonia): Plan: 74-year-old male with a history of nonocclusive coronary disease, aortic stenosis pending TAVR who presents with fever cough and sputum production and is found to have community-acquired pneumonia. Acute hypoxic respiratory failure due to community-acquired pneumonia - Fever, cough, chest discomfort on coughing x24 hours prior to admission Trending leukocytosis, no left shift, with concurrent steroid use - XR: CAP. Subsequent CT/AP with bilateral pleural effusions, and developing CHF versus pneumonia Antibiotics were initially expanded from Rocephin to cefepime/doxycycline. Due to continued deterioration was further expanded to meropenem. Levaquin contraindicated due to aneurysms and he is penicillin allergic. Subsequently switched to Zosyn while in ICU, tolerating so far without signs of allergy. Methylprednisolone was discontinued and patient is continued on hydrocortisone. Sputum culture pending. Continues to produce dark brownish sputum. MRSA nare is negative Intubated for progressive respiratory failure, hypotension, progressive acidosis Remains critically ill, , and vasopressor support. Guarded prognosis extubated today Lactate normalized pAfib, severe aortic stenosis Severe . on admission appeared volume contracted, fluids were given however had poor tolerance to this with worsening shortness of breath and developing CHF. Diuresis limited by RUBEN and intravascular contraction. Lasix and small dose of albumin was trialed given pleural effusions and development of CHF however tolerated this poorly and was subsequently started on vasopressors and transferred to the ICU. Intubated progressive respiratory failure. Rate control was trialed with digoxin x 1 while in the ICU, subsequently started on esmolol drip. Cardiology following DOAC --> heparin while n.p.o Admitted to telemetry RUBEN Creatinine elevated. Baseline around 1.1 Creatinine peaked At 3.24, downtrending, suspected prerenal. Creatinine now i s 2.3 Losartan held Trend daily - hold lasix/nephrotoxins. Renally adjust for creatinine clearance as needed Anxiety Home duloxetine, clonazepam continued DM2 Metformin held Goal BSG [id number] ICU hypoglycemia protocol Transaminitis Suspect shock liver / congestive. Trended.Portal ultrasound technically limited major vessels appear patent. Also shows hepatic steatosis - Trend LFTs DVT prophylaxis: Anticoagulated Disposition: ICU CODE STATUS: Full Diet: Heart healthy/DM2 (2) Atrial fibrillation with rapid ventricular response: (3) Combined systolic and diastolic congestive heart failure: (4) Mild CAD: (5) Cardiomyopathy: (6) Severe aortic stenosis: Admission and Anticipated Discharge Date Admission Date: October 30, 2024 Supervising Physician Co-Signing Physician Notes US of liver shown hepatic steatosis. He is intubated and sedated and I suspect his transaminitis is from shock liver. The timing fits as his LFTs were normal 2 days ago. As his clinical condition (respiratory failure sepsis improves) so well his LFTs. Trend LFTs to normal check hepatitis panel acute. Subjective Patient remains intubated and sedated. Pressor requirements are stable. Pat ient with persistent atrial fibrillation with rapid ventricular response. Review of Systems Review of Systems: Unable to get review of system as patient is still coming out of sedation Physical Exam Physical Exam: VITALS: Reviewed. WEIGHT/BMI reviewed. GEN: Patient is slowly waking up but his arousable but still drowsy because of the sedation. PSYCH: Could not check because of his current condition HEENT -Head: NC/AT; -Eyes: PERRL, EOMI. No discharge or redn ess; -Ears: External ears are normal. -Nose: Normal nares. -Mouth and throat: Appears to be very dr y NECK: Supple, with no masses. CV: RRR, no m/r/g. LUNGS: Decreased breath sounds at the bases ABD: Soft, NT/ND, NBS, no masses or organomegaly. : N/A SKIN: Warm, well perfused. No skin rashes or abnormal lesions. MSK: No deformities, Normal gait. EXT: No clubbing, cyanosis, or edema. NEURO: Patient is getting off sedation Results & Data Results & Data Vital Signs (Past 12 Hours) Vital Signs Temp Pulse Resp BP Pulse Ox FiO2 11/03/24 07:44 113 H 23 96 21 11/03/24 06:24 37.4 C 109 H 18 97 11/03/24 06:00 37.5 C 111 H 18 97 11/03/24 06:00 108/70 11/03/24 06:00 108/70 11/03/24 06:00 108/70 11/03/24 06:00 108/70 11/03/24 06:00 108/70 11/03/24 06:00 108/70 11/03/24 06:00 108/70 11/03/24 06:00 108/70 04/01/25 05:51 37.5 C 107 H 18 97 11/03/24 05:42 37.4 C 113 H 18 97 11/03/24 05:30 37.5 C 110 H 18 98 11/03/24 05:21 37.4 C 108 H 18 97 11/03/24 05:15 37.5 C 105 H 20 97 11/03/24 05:09 37.5 C 118 H 18 97 11/03/24 05:00 11/03/24 05:00 11/03/24 05:00 11/03/24 05:00 11/03/24 05:00 11/03/24 05:00 11/03/24 05:00 11/03/24 05:00 11/03/24 05:00 11/03/24 05:00 11/03/24 05:00 11/03/24 05:00 11/03/24 05:00 11/03/24 05:00 11/03/24 05:00 11/03/24 05:00 11/03/24 05:00 11/03/24 05:00 11/03/24 05:00 11/03/24 05:00 11/03/24 05:00 11/03/24 05:00 11/03/24 05:00 11/03/24 05:00 11/03/24 05:00 11/03/24 05:00 10411/03/24 04:51 37.5 C 125 H 19 97 11/03/24 04:42 37.5 C 111 H 20 97 11/03/24 04:36 37.5 C 113 H 18 97 11/03/24 04:00 11/03/24 04:00 11/03/24 04:00 10711/03/24 04:00 10711/03/24 04:00 10711/03/24 04:00 11/03/24 04:00 11/03/24 04:00 11/03/24 04:00 11/03/24 04:00 11/03/24 04:00 11/03/24 04:00 11/03/24 04:00 11/03/24 04:00 11/03/24 04:00 11/03/24 04:00 11/03/24 04:00 11/03/24 04:00 21 11/03/24 04:00 113 H 11/03/24 03:30 37.4 C 113 H 18 97 11/03/24 03:26 113 H 19 97 21 11/03/24 03:21 37.5 C 120 H 19 97 11/03/24 03:15 37.4 C 120 H 18 97 11/03/24 03:03 37.4 C 132 H 18 96 11/03/24 03:00 11/03/24 03:00 10011/03/24 03:00 11/03/24 03:00 10011/03/24 03:00 11/03/24 03:00 11/03/24 03:00 11/03/24 03:00 11/03/24 03:00 11/03/24 03:00 11/03/24 03:00 11/03/24 03:00 11/03/24 03:00 11/03/24 03:00 10011/03/24 03:00 10011/03/24 03:00 10011/03/24 03:00 11/03/24 03:00 11/03/24 03:00 11/03/24 03:00 10011/03/24 02:57 37.4 C 114 H 18 97 11/03/24 02:54 37.4 C 126 H 18 96 11/03/24 02:42 37.4 C 98 H 18 97 11/03/24 02:36 37.5 C 109 H 18 96 11/03/24 02:09 37.4 C 114 H 18 96 11/03/24 02:00 11/03/24 02:00 11/03/24 02:00 11/03/24 02:00 11/03/24 02:00 11/03/24 02:00 11/03/24 02:00 11/03/24 02:00 11/03/24 02:00 11/03/24 01:30 37.3 C 123 H 17 97 11/03/24 01:00 37.3 C 112 H 18 96 11/03/24 01:00 11/03/24 01:00 11/03/24 01:00 11/03/24 01:00 11/03/24 01:00 11/03/24 00:51 37.3 C 102 H 18 96 11/03/24 00:42 37.2 C 113 H 19 96 11/03/24 00:33 37.3 C 117 H 18 96 11/03/24 00:21 37.2 C 111 H 18 96 11/03/24 00:18 37.2 C 121 H 18 96 11/03/24 00:00 11/03/24 00:00 11/03/24 00:00 11/03/24 00:00 11/03/24 00:00 11/03/24 00:00 11/03/24 00:00 11/03/24 00:00 11/03/24 00:00 11/03/24 00:00 11/03/24 00:00 11/03/24 00:00 11/03/24 00:00 11/03/24 00:00 11/03/24 00:00 11/03/24 00:00 11/03/24 00:00 11/03/24 00:00 37.2 C 112 H 19 96 11/03/24 00:00 100 H 11/03/24 00:00 21 11/02/24 23:39 37.2 C 107 H 19 96 11/02/24 23:17 100 H 18 98 21 11/02/24 23:00 11/02/24 23:00 10211/02/24 23:00 10211/02/24 23:00 10211/02/24 23:00 11/02/24 23:00 11/02/24 23:00 11/02/24 23:00 10211/02/24 23:00 11/02/24 23:00 10211/02/24 23:00 11/02/24 23:00 11/02/24 23:00 11/02/24 22:24 37.0 C 119 H 18 95 11/02/24 22:21 37.0 C 117 H 18 96 11/02/24 22:15 37.0 C 127 H 18 95 11/02/24 22:09 37.0 C 111 H 19 96 11/02/24 22:00 106/71 11/02/24 22:00 106/71 11/02/24 22:00 106/71 11/02/24 22:00 106/71 11/02/24 22:00 106/71 11/02/24 22:00 106/71 11/02/24 22:00 106/71 11/02/24 22:00 106/71 11/02/24 22:00 106/71 11/02/24 22:00 106/71 11/02/24 22:00 106/71 11/02/24 22:00 106/71 11/02/24 22:00 106/71 11/02/24 21:51 37.0 C 132 H 18 96 11/02/24 21:48 37.0 C 117 H 18 96 11/02/24 21:21 37.0 C 105 H 19 96 11/02/24 21:18 37.0 C 125 H 19 95 11/02/24 21:00 99/60 L 11/02/24 21:00 99/60 L 11/02/24 21:00 99/60 L 11/02/24 21:00 99/60 L 11/02/24 21:00 99/60 L 11/02/24 21:00 99/60 L 11/02/24 21:00 99/60 L 11/02/24 21:00 99/60 L 11/02/24 21:00 99/60 L 11/02/24 21:00 99/60 L 11/02/24 21:00 99/60 L 11/02/24 21:00 99/60 L 11/02/24 21:00 99/60 L 11/02/24 21:00 99/60 L 11/02/24 21:00 99/60 L 11/02/24 21:00 99/60 L 11/02/24 20:48 37.0 C 115 H 18 96 11/02/24 20:36 36.9 C 122 H 19 96 PG Care Time/CCT Total # of Minutes Spent Total Time Spent with Patient: Total time spent is greater than 50% in coordination of care (as documented) at patient's floor/unit and/or counseling patient: Coding Level of Care Code 68012 SUB INP/OBS CARE 3/50MIN Diagnoses CAP (community acquired pneumonia) J18.9 Atrial fibrillation with rapid ventricular response I48.91 Chronic combined systolic and diastolic congestive heart failure I50.42 Heart failure chronicity: chronic Mild CAD I25.10 Cardiomyopathy, unspecified type I42.9 Severe aortic stenosis I35.0 Time Spent (min) 45 Comment Discussed with family members present in the room and with nursing staff (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
--- NOTE | 2024-11-03 09:38 | XRay Report ---
XR chest 1V portable HISTORY: 74 years-old Male pna acute respiratory failure COMPARISON: 11/01/2024 TECHNIQUE: AP view of the chest FINDINGS: Endotracheal tube overlies the midline, 4.6 cm superior to the laury. Right IJ central venous cathet er is unchanged with distal tip in the expected location of the mid SVC. Enteric tube courses into th e stomach with distal tip outside the [id number]. Cardiomegaly. Pulmonary vascular congestion with interstitial coarsening. Layering pleural effusions with bibasilar consolidation again noted. No pneumothorax. Bones appear grossly intact. IMPRESSION: 1. Lines and tubes as above. 2. Cardiomegaly with pulmonary edema, layering pleural effusions and bibasilar consolidation redemons trated. 3. No pneumothorax. ACT 112: Negative or not required by law. The above report was generated using voice recognition software. It may contain grammatical, syntax o r spelling errors. Electronically signed by: Jamshid Holland M.D. 11/03/2024 9:37 AM
[2024-11-03 09:53] LABS: Partial Thromboplastin Ratio 1.9; Partial Thromboplastin Time 52 Seconds (21-31)
--- NOTE | 2024-11-03 09:53 | Nephrology Progress Note ---
Date of Service November 03, 2024 Assessment & Plan (1) Acute kidney injury: (2) Pneumonia: (3) Atrial fibrillation with rapid ventricular response: (4) Metabolic acidosis: Plan 74 year-old male with PMH of CAD, HFrEF, severe , chronic a fib (Eliquis), bilateral pulmonary PVD< HTN, DM, hyperlipidemia, COPD, decent kidney function, b/l cr ~1.1 mg/dL. He had left heart catheterization on October 26 in preparation for TAVR as recent Echo showe versus virald worsening and reduced LVEF, showing moderate CAD of eft main and LAD. Cr was 1.42 mg/dL prior to the cath,. He presented to the ER on 10/30/24 with SOB and was found to be in rapid A fib and community acquired pneumonia. His clinical condition has deteriorated rapidly and he was intubated yesterday, currently on pressor and sedated. Blood pressure slightly improved. On admission he was noted to have RUBEN, creatinine was 2.0 which rapidly worsened to 3.24 mg/dL. Urine output has dropped. Urinalysis with showed trace proteinuria but no hematuria. No recent renal imaging available. Blood pressure has improved. Kidney function started to improve, creatinine down to 2.3, electrolyte acceptable. Has been having decent urine output, about 1.5 L over last 24 hours. --Continue to monitor with hemodynamic support. --Monitor intake and output, aim to keep net even. --monitor electrolytes --Expect kidney function to continue to improve. Admission and Anticipated Discharge Date Admission Date: October 30, 2024 Subjective Mr. Rutledge was seen and evaluated in ICU this morning. He remains intubated, sedated. Blood pressure improved. Ventilated, oxygen saturation 99% on FiO2 20%. Urine output improved, about 1.5 L last 24 h. Kidney function has been improving, creatinine down to 2.3, electrolyte acceptable. Review of Systems Review of Systems: Was not possible as patient intubated and sedated. Physical Exam Constitutional: WD/WN, vitals as above + ill appearing and + mechanically ventilated Neck: normal visual inspection Respiratory: Auscultation: + diminished lung sounds; no crackles and no whee zes Cardiovascular: RRR, no murmur, no edema Skin: no rashes Results & Data Vital Signs (Past 12 Hours) Vital Signs Temp Pulse Resp BP Pulse Ox O2 Del Method FiO2 04/01/25 09:06 37.5 C 106 H 19 98 11/03/24 09:00 106/68 11/03/24 08:49 Mechanical Vent 11/03/24 08:40 116 H 11/03/24 08:35 21 11/03/24 08:33 123/62 11/03/24 08:00 114/78 11/03/24 08:00 37.4 C 111 H 18 98 11/03/24 07:44 113 H 23 96 21 11/03/24 07:00 109/74 11/03/24 07:00 109/74 11/03/24 07:00 37.4 C 112 H 18 96 11/03/24 06:24 37.4 C 109 H 18 97 11/03/24 06:00 37.5 C 111 H 18 97 11/03/24 06:00 108/70 11/03/24 06:00 108/70 11/03/24 06:00 108/70 11/03/24 06:00 108/70 11/03/24 06:00 108/70 11/03/24 06:00 108/70 11/03/24 06:00 108/70 11/03/24 06:00 108/70 11/03/24 05:51 37.5 C 107 H 18 97 11/03/24 05:42 37.4 C 113 H 18 97 11/03/24 05:30 37.5 C 110 H 18 98 11/03/24 05:21 37.4 C 108 H 18 97 11/03/24 05:15 37.5 C 105 H 20 97 11/03/24 05:09 37.5 C 118 H 18 97 11/03/24 05:00 11/03/24 05:00 11/03/24 05:00 11/03/24 05:00 11/03/24 05:00 11/03/24 05:00 11/03/24 05:00 11/03/24 05:00 11/03/24 05:00 11/03/24 05:00 11/03/24 05:00 11/03/24 05:00 11/03/24 05:00 11/03/24 05:00 11/03/24 05:00 11/03/24 05:00 11/03/24 05:00 11/03/24 05:00 11/03/24 05:00 11/03/24 05:00 11/03/24 05:00 11/03/24 05:00 11/03/24 05:00 11/03/24 05:00 11/03/24 05:00 11/03/24 05:00 11/03/24 04:51 37.5 C 125 H 19 97 11/03/24 04:42 37.5 C 111 H 20 97 11/03/24 04:36 37.5 C 113 H 18 97 11/03/24 04:00 10711/03/24 04:00 10711/03/24 04:00 11/03/24 04:00 10711/03/24 04:00 10711/03/24 04:00 10711/03/24 04:00 10711/03/24 04:00 10711/03/24 04:00 10711/03/24 04:00 10711/03/24 04:00 10711/03/24 04:00 10711/03/24 04:00 11/03/24 04:00 10711/03/24 04:00 10711/03/24 04:00 10711/03/24 04:00 10711/03/24 04:00 21 11/03/24 04:00 113 H 11/03/24 03:30 37.4 C 113 H 18 97 11/03/24 03:26 113 H 19 97 21 11/03/24 03:21 37.5 C 120 H 19 97 11/03/24 03:15 37.4 C 120 H 18 97 11/03/24 03:03 37.4 C 132 H 18 96 11/03/24 03:00 11/03/24 03:00 11/03/24 03:00 11/03/24 03:00 11/03/24 03:00 11/03/24 03:00 11/03/24 03:00 11/03/24 03:00 11/03/24 03:00 11/03/24 03:00 11/03/24 03:00 11/03/24 03:00 11/03/24 03:00 11/03/24 03:00 11/03/24 03:00 11/03/24 03:00 11/03/24 03:00 11/03/24 03:00 11/03/24 03:00 11/03/24 03:00 11/03/24 02:57 37.4 C 114 H 18 97 11/03/24 02:54 37.4 C 126 H 18 96 11/03/24 02:42 37.4 C 98 H 18 97 11/03/24 02:36 37.5 C 109 H 18 96 11/03/24 02:09 37.4 C 114 H 18 96 11/03/24 02:00 11/03/24 02:00 11/03/24 02:00 11/03/24 02:00 11/03/24 02:00 11/03/24 02:00 11/03/24 02:00 11/03/24 02:00 11/03/24 02:00 11/03/24 01:30 37.3 C 123 H 17 97 11/03/24 01:00 37.3 C 112 H 18 96 11/03/24 01:00 11/03/24 01:00 11/03/24 01:00 11/03/24 01:00 10711/03/24 01:00 10711/03/24 00:51 37.3 C 102 H 18 96 11/03/24 00:42 37.2 C 113 H 19 96 11/03/24 00:33 37.3 C 117 H 18 96 11/03/24 00:21 37.2 C 111 H 18 96 11/03/24 00:18 37.2 C 121 H 18 96 11/03/24 00:00 11/03/24 00:00 11/03/24 00:00 11/03/24 00:00 11/03/24 00:00 11/03/24 00:00 11/03/24 00:00 11/03/24 00:00 11/03/24 00:00 11/03/24 00:00 11/03/24 00:00 11/03/24 00:00 11/03/24 00:00 11/03/24 00:00 11/03/24 00:00 11/03/24 00:00 11/03/24 00:00 11/03/24 00:00 37.2 C 112 H 19 96 11/03/24 00:00 100 H 11/03/24 00:00 21 11/02/24 23:39 37.2 C 107 H 19 96 11/02/24 23:17 100 H 18 98 21 11/02/24 23:00 11/02/24 23:00 11/02/24 23:00 11/02/24 23:00 11/02/24 23:00 11/02/24 23:00 11/02/24 23:00 11/02/24 23:00 11/02/24 23:00 10211/02/24 23:00 11/02/24 23:00 11/02/24 23:00 11/02/24 23:00 10211/02/24 22:24 37.0 C 119 H 18 95 11/02/24 22:21 37.0 C 117 H 18 96 11/02/24 22:15 37.0 C 127 H 18 95 11/02/24 22:09 37.0 C 111 H 19 96 11/02/24 22:00 11/02/24 22:00 11/02/24 22:00 11/02/24 22:00 11/02/24 22:00 11/02/24 22:00 11/02/24 22:00 11/02/24 22:00 11/02/24 22:00 11/02/24 22:00 11/02/24 22:00 11/02/24 22:00 11/02/24 22:00 11/02/24 21:51 37.0 C 132 H 18 96 PG Care Time/CCT Total # of Minutes Spent Total Time Spent with Patient: Total time spent is greater than 50% in coordination of care (as documented) at patient's floor/unit and/or counseling patient: Coding Level of Care Code 56292 SUB INP/OBS CARE 2/35MIN Diagnoses Acute kidney injury N17.9 Pneumonia J18.9 Atrial fibrillation with rapid ventricular response I48.91 Metabolic acidosis E87.20
--- NOTE | 2024-11-03 11:13 | Cardiology Progress Note ---
Date of Service November 03, 2024 Assessment & Plan (1) Permanent atrial fibrillation with RVR: (2) Hypotension: (3) Combined systolic and diastolic congestive heart failure: (4) Cardiomyopathy: (5) Mild CAD: (6) Severe aortic stenosis: Plan No major change in his clinical status. BP adequate with possibility of weaning off pressor. As noted, no need for negative chronotropic medication as heart rate in the 100- 120 bpm range is physiologic given his critically ill status. Prognosis remains guarded with severe aortic stenosis and reduced LV systolic function, fortunately his CAD is nonobstructive. Dr. Bella spoke with the patient's daughter to give her an update. No new recommendations. Admission and Anticipated Discharge Date Admission Date: October 30, 2024 Subjective Patient remains intubated/mechanically ventilated. Phenylephrine is being weaned off. Has not required any negative chronotropic medications as his heart rate has remained between 100-120 bpm predominantly. Physical Exam Physical Exam: Sedated/intubated/mechanically ventilated, not agitated. BP 106/68 mmHg. Pulse 110 bpm and irregular. Respirations 18 (mechanically ventilated). Skin: no ecchymoses or generalized lesions. HEENT: unremarkable. Neck: JVP elevated to angle of jaw at 30 degrees, no obvious bruits or transmitted murmur. Lungs: Diminished breath sounds, no obvious wheezing. Few basilar crackles. No accessory muscle use. Cardiac: Irregular/tachycardic rhythm, no obvious murmur but difficult exam (superimposed breath sounds/mechanical ventilation). Abdomen: benign. Extremities: no edema, pulses intact. Neurologic: Sedated, grossly nonfocal. Results & Data Laboratory Results WBC 14.5, hemoglobin 11.6, normal platelet count. Sodium 132, potassium 3.6, BUN 63, creatinine 2.33. Diagnostic Findings Chest x-ray showed pulmonary edema with layering pleural effusions and bibasilar consolidation. PG Care Time/CCT Total # of Minutes Spent Total Time Spent with Patient: Total time spent is greater than 50% in coordination of care (as documented) at patient's floor/unit and/or counseling patient: Coding Level of Care Code 29499 SUB INP/OBS CARE 25MIN Diagnoses Permanent atrial fibrillation with RVR I48.21 Hypotension I95.9 Chronic combined systolic and diastolic congestive heart failure I50.42 Heart failure chronicity: chronic Cardiomyopathy, unspecified type I42.9 Mild CAD I25.10 Severe aortic stenosis I35.0 (3) Combined systolic and diastolic congestive heart failure Heart failure chronicity: chronic Qualified Code(s): I50.42 - Chronic combined systolic (congestive) and diastolic (congestive) heart failure (4) Cardiomyopathy Qualified Code(s): I42.9 - Cardiomyopathy, unspecified
[2024-11-03 12:34] LABS: Partial Thromboplastin Time 28 Seconds (21-31)
[2024-11-03 14:01] LABS: Hepatitis A Antibody IgM NON-REACTIVE (NON-REACTIVE); Hepatitis B Core Antibody IgM NON-REACTIVE (NON-REACTIVE)
--- NOTE | 2024-11-03 14:07 | Palliative Family Discussion ---
Date of Service November 03, 2024 Patient Directed Conference Time of Meetin - 7200 Participants: Bhavya Cueto AGACNP Patient participation: no Patient Support System: spouse and 3 adult dtrs Other Healthcare Provider Participation: DR. Shin Benedict. Meeting Location: outside pt room Advanced Directive available: No If yes, descriptors: The patient's surrogate medical decision maker participated: spouse Legally authorized health care proxy: spouse Other surrogate: three dtrs A family meeting was held for JEAN PAUL BERRIOS. This meeting was necessary for determining the appropriate course of treatment. Topics of Discussion Topics of Discussion: 1. comfort directed care 2. code status 3. goals of care Other Content of Meetin. Opportunity given for participants to speak and ask questions. 2. Participants were assured of attention to patient comfort. 3. Reassurance provided. 4. Support was provided for informed, good-katia decisions. 5. Emotions expressed by family were acknowledged and addressed. 6. Follow-up Outpatient: N/A 7. Plan of Care: DNR/DNI, continue all life prolonging therapies otherwise Reinforced teaching from previous palliative care conversations with family. Pt's dtr shared that sh and her sister were "in agreement" but that the pt's spouse was having difficulty with discussing "palliative things". Family shared that Dr Benedict had informed them that the plan for today is to extubate pt with hope that he will do well off vent. Pt's expressed that in event that the pt fails extubation, she would like NO REINTUBATION and to transition to comfort directed care. Helped family understand that per their wishes, in event he fails extubation, he would be afforded a peaceful, comfortable and dignified . Discussed hospice benefit: an interdisciplinary program offered by nurses, nurses aides, social workers, chaplains and a medical receptionist medical assistant for patients with a terminal condition and a life expectancy of less than 6 months. This is covered by Medicare at 100%/no out of pocket expense to patient and all meds/supplies needed by patient for the reason they are on hospice are paid for/covered by hospice. The goal is assure quality of life of the patient in their home setting (home, halfway, inpatient hospice setting) by providing symptoms management, psychosocial and spiritual support. However, they cannot offer 24 hours care and if the family is unable to provide that care, they will have to consider personal care with out of pocket cost vs. halfway placement. We discussed the goals of hospice as a patient service and the goals of care; we discussed EOL trajectories and transitions rosaura the emotional impact of realizing mortality as a concrete reality from prior abstract considerations. Pt was reassured that no matter where they are along this trajectory, they are not alone - their medical team will remain by their side through their journey. Discussed the pros/cons of accepting help when especially weakened and distressed by pain-which would also help provide relief/decrease caregiver burden/strain. Family request that extubation be delayed until after lunch so that they may be present "in case anything bad happens". Pt to be extubated to supplemental oxygen as needed. In event pt fails extubation, confirm wish for comfort directed care with . If family requests STILL OPERATOR BATCH OR CONTINUOUS, placed Comfort measures order with following recs: EOL Symptom manamgement: Pain/dyspnea/tachypnea dilaudid 0.2mg IVP PRN [id number] Consider titratable dilaudid drip if pt requires >3 PRN doses in under two consecutive hours. Nausea/vomitting zofran 4mg IVP q4h PRN Agitation ativan 0.5mg IVP q4h PRN Hyperactive delirium haldol 5mg IVP q6h PRN Secretions - if repositioning not effective robinul 0.4mg IV q4h PRN atropine SL 3 drops Q1h PRN Nursing care: Discontinue all medications not directed towards comfort. Detether pt from IV tubing, monitor cables, and check vitals once per shift. Please continue HFNC and titrate down as able for patient comfort. Use medications above PRN for dyspnea/tachypnea and do not increase oxygen once titrated down. Assess q1h for pain/dyspnea and treat accordingly. Time Involved in Meeting: I spent 60 minutes overall addressing this case: 10 in medical data review/discussion with referring provider(s) and/or preparation for the visit 40 in direct interaction with the patient and spouse 40 Advance Care Planning/Goals of Care discussions as detailed above in note (must be >16min) 5 in subsequent review and synthesis of assessment and plan 5 in communicating with other providers regarding the patient's case: BSRN, CCM attdg
[2024-11-03] MEDS: PIPERACILLIN/TAZOBACTAM 4.5 GM/100 ML BAG IV SCH (14:33)
[2024-11-03 20:26] LABS: Partial Thromboplastin Ratio 2.2; Partial Thromboplastin Time 58 Seconds (21-31)
[2024-11-04 03:33] LABS: Phosphorus 3.2 mg/dl (2.5-4.9)
[2024-11-04 03:46] LABS: Basophils # (auto) 0.01 K/uL (0.00-0.20); Basophils % (auto) 0.1 %; Hematocrit (blood only) 33.4 % (42.0-52.0); Hemoglobin 11.1 g/dl (14.0-18.0); Immature Granulocytes # (auto) 0.19 K/uL (0.01-0.20); Immature Granulocytes % (auto) 1.6 %; Lymphocytes # (auto) 0.44 K/uL (1.20-3.40); Lymphocytes % (auto) 3.8 %; Mean Corpuscular Hgb Conc 33.2 g/dL (32.0-36.0); Mean Corpuscular Volume 93.3 fL (80.0-100.0); Mean Platelet Volume 11.3 fL (9.4-12.4); Monocytes # (auto) 0.84 K/uL (0.11-0.59); Monocytes % (auto) 7.3 %; Neutrophils # (auto) 10.05 K/uL (1.40-6.50); Neutrophils % (auto) 87.2 %; Nucleated RBC # (auto) 0.04 K/uL (0.00-0.12); Nucleated RBC % (auto) 0.3 %; Platelet Count 140 K/uL (130-400); RDW Coefficient of Variation 14.7 % (11.5-14.5); RDW Standard Deviation 49.5 fL (36.4-46.3); Red Blood Count 3.58 M/uL (4.70-6.10); White Blood Count 11.53 K/ul (4.8-10.8)
[2024-11-04 03:53] LABS: Partial Thromboplastin Ratio 2.5; Partial Thromboplastin Time 66 Seconds (21-31)
[2024-11-04 03:59] LABS: Magnesium 2.9 mg/dl (1.7-2.4)
[2024-11-04 05:49] LABS: BUN Creatinine Ratio 28.9 (10-20); Calcium 7.8 mg/dl (8.6-10.3); Creatinine Clr Calc Pharmacy 34.8 ml/min; Potassium 3.3 mmol/L (3.5-5.1)
[2024-11-04 09:03] LABS: Partial Thromboplastin Time 53 Seconds (21-31)
--- NOTE | 2024-11-04 09:52 | Nephrology Progress Note ---
Date of Service November 04, 2024 Assessment & Plan (1) Acute kidney injury: (2) Pneumonia: (3) Atrial fibrillation with rapid ventricular response: (4) Metabolic acidosis: Plan 74 year-old male with PMH of CAD, HFrEF, severe , chronic a fib (Eliquis), bilateral pulmonary PVD< HTN, DM, hyperlipidemia, COPD, decent kidney function, b/l cr ~1.1 mg/dL. He had left heart catheterization on October 26 in preparation for TAVR as recent Echo showe versus virald worsening and reduced LVEF, showing moderate CAD of eft main and LAD. Cr was 1.42 mg/dL prior to the cath,. He presented to the ER on 10/30/24 with SOB and was found to be in rapid A fib and community acquired pneumonia. His clinical condition has deteriorated rapidly and he was intubated yesterday, currently on pressor and sedated. Blood pressure slightly improved. On admission he was noted to have RUBEN, creatinine was 2.0 which rapidly worsened to 3.24 mg/dL. Urine output has dropped. Urinalysis with showed trace proteinuria but no hematuria. No recent renal imaging available. Blood pressure has improved. Kidney function continues to improve, creatinine down to 1.9 mg/dl. Has been having decent urine output. --Monitor intake and output, aim to keep net even. --Expect kidney function to continue to improve. Will sign off, thank you for the consult, please contact if any further assistance needed. Admission and Anticipated Discharge Date Admission Date: October 30, 2024 Subjective Mr. Rutledge was seen and evaluated this morning. Extubated yesterday, doing better. Blood pressure stable. Denies any specific symptoms. Has been having decent urine output. Kidney function continues to improve, creatinine down to 1.9 mg/dl Review of Systems Review of Systems: Detailed review of system was otherwise unremarkable except mentioned above. Physical Exam Constitutional: WD/WN, vitals as above + ill appearing Neck: normal visual inspection Respiratory: Auscultation: + diminished lung sounds; no crackles and no wheezes Cardiovascular: RRR, no murmur, no edema Neurologic: awake; no focal motor deficits and not confused Psychiatric: A+Ox3, euthymic affect Results & Data Vital Signs (Past 12 Hours) Vital Signs Temp Pulse Resp BP Pulse Ox O2 Del Method O2 Flow Rate 11/04/24 08:00 104 H 128/63 11/04/24 07:49 Nasal Cannula 2 11/04/24 07:06 36.5 C 95 H 19 98 Nasal Cannula 2 11/04/24 07:00 124/72 11/04/24 06:50 104 H 11/04/24 06:45 36.5 C 101 H 18 99 Nasal Cannula 2 11/04/24 06:15 36.6 C 105 H 15 97 11/04/24 06:09 36.5 C 100 H 15 100 11/04/24 06:00 123/84 11/04/24 06:00 123/84 11/04/24 06:00 123/84 11/04/24 06:00 123/84 11/04/24 06:00 123/84 11/04/24 06:00 123/84 11/04/24 06:00 123/84 11/04/24 06:00 123/84 11/04/24 05:51 36.6 C 108 H 18 100 11/04/24 05:45 36.6 C 94 H 22 100 11/04/24 05:33 36.5 C 103 H 18 100 11/04/24 05:24 36.5 C 102 H 20 98 11/04/24 05:03 36.5 C 105 H 18 100 11/04/24 05:00 115/79 11/04/24 04:54 36.5 C 98 H 16 100 11/04/24 04:45 36.5 C 103 H 20 100 11/04/24 04:30 36.5 C 101 H 16 100 11/04/24 04:21 36.5 C 95 H 17 100 11/04/24 04:15 36.5 C 94 H 16 100 11/04/24 04:00 118/11/04/24 04:00 11811/04/24 04:00 11811/04/24 04:00 11811/04/24 04:00 11811/04/24 04:00 11811/04/24 04:00 11811/04/24 04:00 11811/04/24 04:00 11811/04/24 04:00 11811/04/24 04:00 11811/04/24 04:00 118/61 11/04/24 04:00 118/61 11/04/24 04:00 118/61 11/04/24 04:00 118/61 11/04/24 04:00 118/61 11/04/24 04:00 118/61 11/04/24 04:00 118/61 11/04/24 04:00 118/61 11/04/24 04:00 97 H 11/04/24 03:45 36.5 C 96 H 18 100 11/04/24 03:36 36.5 C 105 H 19 100 11/04/24 03:24 36.5 C 95 H 16 100 11/04/24 03:00 11772 11/04/24 03:00 11772 11/04/24 03:00 11711/04/24 03:00 11772 11/04/24 03:00 11711/04/24 03:00 11711/04/24 03:00 11711/04/24 03:00 11772 11/04/24 03:00 11772 11/04/24 03:00 11772 11/04/24 03:00 11772 11/04/24 03:00 11772 11/04/24 02:18 36.5 C 97 H 17 99 11/04/24 02:00 11511/04/24 02:00 11511/04/24 02:00 11511/04/24 02:00 11511/04/24 02:00 11511/04/24 02:00 11511/04/24 02:00 11511/04/24 02:00 11511/04/24 02:00 11511/04/24 02:00 11511/04/24 02:00 11511/04/24 02:00 11511/04/24 02:00 11511/04/24 02:00 11511/04/24 02:00 11511/04/24 02:00 11511/04/24 02:00 11511/04/24 02:00 11511/04/24 02:00 11511/04/24 01:33 36.5 C 99 H 17 99 11/04/24 01:30 36.5 C 106 H 19 98 11/04/24 01:24 36.6 C 97 H 18 98 11/04/24 01:18 36.5 C 95 H 19 99 11/04/24 01:06 36.6 C 102 H 18 98 11/04/24 01:00 11/04/24 01:00 11/04/24 01:00 11/04/24 01:00 11/04/24 01:00 11/04/24 01:00 11/04/24 01:00 11/04/24 01:00 11/04/24 01:00 11/04/24 01:00 11/04/24 01:00 11/04/24 01:00 11/04/24 01:00 11/04/24 01:00 11/04/24 01:00 11/04/24 01:00 11/04/24 01:00 11/04/24 01:00 11/04/24 01:00 11/04/24 01:00 11/04/24 01:00 11/04/24 01:00 11/04/24 01:00 11/04/24 00:51 36.6 C 96 H 19 99 11/04/24 00:45 36.6 C 96 H 17 99 11/04/24 00:00 11/04/24 00:00 11/04/24 00:00 11/04/24 00:00 11/04/24 00:00 11/04/24 00:00 11/04/24 00:00 11/04/24 00:00 11/04/24 00:00 11/04/24 00:00 11/04/24 00:00 11/04/24 00:00 11/04/24 00:00 114/72 11/04/24 00:00 114/72 11/04/24 00:00 11411/04/24 00:00 11411/04/24 00:00 11411/04/24 00:00 114/72 11/04/24 00:00 78 11/03/24 23:39 36.6 C 100 H 16 100 11/03/24 23:30 36.6 C 115 H 16 100 11/03/24 23:24 36.6 C 98 H 17 100 11/03/24 23:12 36.6 C 111 H 18 100 11/03/24 23:00 36.6 C 93 H 19 100 11/03/24 23:00 120/73 11/03/24 23:00 120/73 11/03/24 23:00 120/73 11/03/24 23:00 120/73 11/03/24 23:00 120/73 11/03/24 23:00 120/73 11/03/24 23:00 120/73 11/03/24 23:00 120/73 11/03/24 23:00 120/73 11/03/24 23:00 120/73 11/03/24 23:00 120/73 11/03/24 23:00 120/73 11/03/24 23:00 120/73 11/03/24 23:00 120/73 11/03/24 23:00 120/73 11/03/24 23:00 120/73 11/03/24 23:00 120/73 11/03/24 23:00 120/73 11/03/24 23:00 120/73 11/03/24 23:00 120/73 11/03/24 23:00 120/73 11/03/24 23:00 120/73 11/03/24 23:00 120/73 11/03/24 23:00 120/73 11/03/24 23:00 120/73 11/03/24 23:00 120/73 11/03/24 22:51 36.6 C 100 H 18 100 11/03/24 22:00 114/71 11/03/24 22:00 114/11/03/24 22:00 114/11/03/24 22:00 11411/03/24 22:00 11/03/24 22:00 11/03/24 22:00 11/03/24 22:00 11/03/24 22:00 11/03/24 22:00 11/03/24 22:00 11/03/24 22:00 11/03/24 22:00 11/03/24 22:00 11/03/24 22:00 11/03/24 22:00 11/03/24 22:00 11/03/24 22:00 11/03/24 22:00 PG Care Time/CCT Total # of Minutes Spent Total Time Spent with Patient: Total time spent is greater than 50% in coordination of care (as documented) at patient's floor/unit and/or counseling patient: Coding Level of Care Code 14030 SUB INP/OBS CARE 2/35MIN Diagnoses Acute kidney injury N17.9 Pneumonia J18.9 Atrial fibrillation with rapid ventricular response I48.91 Metabolic acidosis E87.20
[2024-11-04] MEDS: POTASSIUM CHLORIDE / WTR 20 MEQ/100 ML PLCT IV SCH (09:55)
--- NOTE | 2024-11-04 10:50 | Cardiology Progress Note ---
Date of Service November 04, 2024 Assessment & Plan (1) Permanent atrial fibrillation with RVR: (2) Combined systolic and diastolic congestive heart failure: (3) Cardiomyopathy: (4) Mild CAD: (5) Severe aortic stenosis: Plan Extubated and off pressors, doing well with reasonable hemodynamics. Agree with restarting his outpatient dose of beta-kip (metoprolol succinate 50 mg twice daily). At some point would replace heparin with apixaban 5 mg twice daily. Amlodipine and losartan held given recent hypotension, could be gradually reintroduced if he becomes hypertensive. Appears hypervolemic, but diuresing well, not on diuretic at home but may need a dose here at some point to volume unload. Will sign off from cardiology standpoint, please contact if change in clinical status, routine cardiology follow-up with Dr. Bella. Admission and Anticipated Discharge Date Admission Date: October 30, 2024 Subjective Patient extubated, off pressors, awake and interactive. Denies chest pain, dyspnea, notes only that he feels "tired". Blood pressure normotensive, mildly tachycardic, telemetry shows permanent atrial fibrillation with rapid ventricular response (100-140 bpm). Physical Exam Physical Exam: No acute distress. BP 128/63 mmHg. Pulse 110 bpm and irregular. Respirations 19 and unlabored. Skin: no ecchymoses or generalized lesions. HEENT: unremarkable. Neck: JVP elevated to angle of jaw at 90 degrees, no obvious bruits or transmitted murmur. Lungs: Diminished breath sounds, no obvious wheezing. Few basilar crackles. No accessory muscle use. Cardiac: Irregular/tachycardic rhythm, no obvious murmur but difficult exam. Abdomen: benign. Extremities: no edema, pulses intact. Neurologic: Answers simple questions appropriately, moves all extremities, grossly nonfocal. Results & Data Laboratory Results WBC 11.5, hemoglobin 11.1, normal platelet count. Sodium 136, potassium 3.3, BUN 56, creatinine 1.94 (2.33 yesterday). PG Care Time/CCT Total # of Minutes Spent Total Time Spent with Patient: Total time spent is greater than 50% in coordination of care (as documented) at patient's floor/unit and/or counseling patient: Coding Level of Care Code 45857 SUB INP/OBS CARE 2/35MIN Diagnoses Permanent atrial fibrillation with RVR I48.21 Chronic combined systolic and diastolic congestive heart failure I50.42 Heart failure chronicity: chronic Cardiomyopathy, unspecified type I42.9 Mild CAD I25.10 Severe aortic stenosis I35.0 (2) Combined systolic and diastolic congestive heart failure Heart failure chronicity: chronic Qualified Code(s): I50.42 - Chronic combined systolic (congestive) and diastolic (congestive) heart failure (3) Cardiomyopathy Qualified Code(s): I42.9 - Cardiomyopathy, unspecified
[2024-11-04] MEDS: METOPROLOL TARTRATE 1 MG/ML VIAL IV STA (10:59)
[2024-11-04] MEDS ORDERED: ONDANSETRON INJ 2 MG/ML 2 ML VIAL IV PRN (11:00)
[2024-11-04 11:06] LABS: INR 1.2 (0.9-1.1); Prothrombin Time 12.8 Seconds (9.0-12.0)
--- NOTE | 2024-11-04 11:10 | Critical Care Progress Note ---
Date of Service November 04, 2024 Assessment & Plan (1) CAP (community acquired pneumonia): Plan: Reason Critically Ill: 74-year-old male with worsening community-acquired pneumonia acute hypoxic respiratory failure and multisystem organ dysfunction PLAN: Neuro: Metabolic encephalopathy -Likely related to hypoxemia, delirium and sepsis -Extubated. Holding sedative hypnotics. Frequent reorientation delirium precautions. Resp: Acute hypoxic respiratory failure secondary to severe community-acquired pneumonia and systolic heart failure with pleural effusion -Bronchoscopy culture negative to date from 11/01/2024. Antibiotics de-escalated to Zosyn and doxycycline. Continue hydrocortisone for severe community-acquired pneumonia and septic shock. Wean hydrocortisone starting on day 4 over course of 4 to 5 days. Extubated 11/03/2024. Chest x-ray 11/03/2024 with evidence of pulmonary edema. CV: -Atrial fibrillation with rapid ventricular response. Heart rates into the 170s this afternoon. Given 2.5 mg of IV metoprolol with 50 mg metoprolol tartrate twice daily restarted as he is not able to take oral medications. Low threshold for Cardizem infusion. Severe aortic stenosis -Continue heparin infusion. Coordinated with pharmacy. -Reviewed echo from 10/14/2024: Low ejection fraction 25 to 30% -Cardiology consulted. Will discontinue further digoxin for the time being and use esmolol as needed. Known coronary artery disease -Off vasopressors currently. -Continue statin therapy and 81 mg aspirin Hypertension -Hold ANGELA inhibitor Fluids/Renal: Acute kidney injury with nonoliguric renal failure -Reviewed nephrology consultation -Holding allopurinol and losartan and naproxen -Replace electrolytes as needed -Will start diuresis once he is more hemodynamically stable. ID: Sepsis secondary to community-acquired pneumonia -Meropenem day 1 discontinued: Initially received Rocephin x 2 days, doxycycline day 3, vancomycin day 1 discontinued. Zosyn day 3. Complete total course of 7 days of antibiotics. -Urine Legionella antigen pending. BioFire negative. MRSA screen negative. Procalcitonin trending downwards. GI/Nutrition: -Continue PPI. Trend LFTs and INR. Follow-up acute hepatitis panel. Liver ultrasound and vascular liver ultrasound was negative. Possible congestive hepatopathy versus ischemic hepatopathy. Check KUB today given abdominal complaints. Heme: Continue heparin infusion. Holding Eliquis given transaminitis and RUBEN. Endocrine: ICU hyperglycemia protocol Vascular access: Right IJ placed 11/01. Left radial art line removed. Code Status: Discussion with family including who indicated that they would want the patient to be a DNR/DNI in the event of cardiopulmonary arrest or progressive declining condition. Disposition: ICU Palliative care consultation appreciated. Possible downgrade out of the ICU later today if heart rate is better controlled and KUB is unremarkable. CRITICAL CARE TIME I have personally spent 48 minutes of critical care time in the direct management of this patient. This is a life/limb threatening event. This includes time spent evaluating patient, direct bedside care, chart review, placing orders, interpretation of diagnostic studies, discussion with consultants, patient, and family members, as well as other required patient management activities. This time is exclusive of all separately billable procedures, and teaching time and separate from and in addition to any other critical care service time. (2) Acute kidney injury: (3) Atrial fibrillation with rapid ventricular response: (4) Combined systolic and diastolic congestive heart failure: (5) Cardiomyopathy: (6) Severe aortic stenosis: (7) Acute metabolic encephalopathy: (8) Delirium: (9) Transaminitis: (10) Pleural effusion: Admission and Anticipated Discharge Date Admission Date: October 30, 2024 Subjective Patient seen and examined this morning. He was doing well and denied have any significant complaints. Later this afternoon he started having some nausea and A-fib with rapid ventricular response. He has been given 2-1/2 mg of IV metoprolol for milligrams of IV Zofran. KUB will be ordered. Family is at bedside has been updated. Hemodynamically he is stable from blood pressure standpoint. Review of Systems Review of Systems: All systems reviewed & are unremarkable except as noted in HPI & below Physical Exam Constitutional: WD/WN, vitals as above + acute distress and + ill appearing; not mechanically ventilated Neck: normal visual inspection Respiratory: Auscultation: + diminished lung sounds and + crackles Cardiovascular: Rate/Rhythm: + tachycardic and + irregularly irregular Heart Sounds: + murmur Extremities: + pedal edema Gastrointestinal (Abdomen): Mild tenderness palpation of his abdomen. Skin: no rashes Neurologic: Awake and alert. Nonfocal. Psychiatric: Anxious appearing. Alert. Oriented x 1. Results & Data Results & Data Vital Signs (Past 12 Hours) Vital Signs Temp Pulse Resp BP Pulse Ox O2 Del Method O2 Flow Rate 11/04/24 10:59 157 H 123/97 11/04/24 08:00 104 H 128/63 11/04/24 07:49 Nasal Cannula 2 11/04/24 07:06 36.5 C 95 H 19 98 Nasal Cannula 2 11/04/24 07:00 124/72 11/04/24 06:50 104 H 11/04/24 06:45 36.5 C 101 H 18 99 Nasal Cannula 2 11/04/24 06:15 36.6 C 105 H 15 97 11/04/24 06:09 36.5 C 100 H 15 100 11/04/24 06:00 123/84 11/04/24 06:00 123/84 11/04/24 06:00 123/84 11/04/24 06:00 123/84 11/04/24 06:00 123/84 11/04/24 06:00 123/84 11/04/24 06:00 123/84 11/04/24 06:00 123/84 11/04/24 05:51 36.6 C 108 H 18 100 11/04/24 05:45 36.6 C 94 H 22 100 11/04/24 05:33 36.5 C 103 H 18 100 11/04/24 05:24 36.5 C 102 H 20 98 11/04/24 05:03 36.5 C 105 H 18 100 11/04/24 05:00 115/79 11/04/24 04:54 36.5 C 98 H 16 100 11/04/24 04:45 36.5 C 103 H 20 100 11/04/24 04:30 36.5 C 101 H 16 100 11/04/24 04:21 36.5 C 95 H 17 100 11/04/24 04:15 36.5 C 94 H 16 100 11/04/24 04:00 11811/04/24 04:00 11811/04/24 04:00 11811/04/24 04:00 11/04/24 04:00 11811/04/24 04:00 11811/04/24 04:00 11811/04/24 04:00 11811/04/24 04:00 11811/04/24 04:00 11811/04/24 04:00 118/61 11/04/24 04:00 118/61 11/04/24 04:00 118/61 11/04/24 04:00 118/61 11/04/24 04:00 118/61 11/04/24 04:00 118/61 11/04/24 04:00 118/61 11/04/24 04:00 118/61 11/04/24 04:00 118/61 11/04/24 04:00 97 H 11/04/24 03:45 36.5 C 96 H 18 100 11/04/24 03:36 36.5 C 105 H 19 100 11/04/24 03:24 36.5 C 95 H 16 100 11/04/24 03:00 11772 11/04/24 03:00 11772 11/04/24 03:00 11772 11/04/24 03:00 11772 11/04/24 03:00 11772 11/04/24 03:00 11772 11/04/24 03:00 11772 11/04/24 03:00 11772 11/04/24 03:00 11772 11/04/24 03:00 11772 11/04/24 03:00 11772 11/04/24 03:00 11772 11/04/24 02:18 36.5 C 97 H 17 99 11/04/24 02:00 11511/04/24 02:00 11511/04/24 02:00 11511/04/24 02:00 11511/04/24 02:00 11511/04/24 02:00 11511/04/24 02:00 11511/04/24 02:00 11511/04/24 02:00 11511/04/24 02:00 11511/04/24 02:00 11511/04/24 02:00 11511/04/24 02:00 11511/04/24 02:00 11511/04/24 02:00 11511/04/24 02:00 11511/04/24 02:00 11511/04/24 02:00 11/04/24 02:00 11/04/24 01:33 36.5 C 99 H 17 99 11/04/24 01:30 36.5 C 106 H 19 98 11/04/24 01:24 36.6 C 97 H 18 98 11/04/24 01:18 36.5 C 95 H 19 99 11/04/24 01:06 36.6 C 102 H 18 98 11/04/24 01:00 11/04/24 01:00 11/04/24 01:00 11/04/24 01:00 11/04/24 01:00 11/04/24 01:00 11/04/24 01:00 11/04/24 01:00 11/04/24 01:00 11/04/24 01:00 11/04/24 01:00 11/04/24 01:00 11/04/24 01:00 11/04/24 01:00 11/04/24 01:00 11/04/24 01:00 11/04/24 01:00 11/04/24 01:00 11/04/24 01:00 11/04/24 01:00 11/04/24 01:00 11/04/24 01:00 11/04/24 01:00 11/04/24 00:51 36.6 C 96 H 19 99 11/04/24 00:45 36.6 C 96 H 17 99 11/04/24 00:00 11/04/24 00:00 11/04/24 00:00 11/04/24 00:00 11/04/24 00:00 11/04/24 00:00 11/04/24 00:00 11/04/24 00:00 11/04/24 00:00 11/04/24 00:00 11/04/24 00:00 11/04/24 00:00 11472 11/04/24 00:00 11411/04/24 00:00 11411/04/24 00:00 11411/04/24 00:00 11411/04/24 00:00 11411/04/24 00:00 11411/04/24 00:00 78 11/03/24 23:39 36.6 C 100 H 16 100 11/03/24 23:30 36.6 C 115 H 16 100 11/03/24 23:24 36.6 C 98 H 17 100 11/03/24 23:12 36.6 C 111 H 18 100 Coding Level of Care Code 09891 CRITICAL CARE 1ST 30-74M Diagnoses CAP (community acquired pneumonia) J18.9 Acute kidney injury N17.9 Atrial fibrillation with rapid ventricular response I48.91 Chronic combined systolic and diastolic congestive heart failure I50.42 Heart failure chronicity: chronic Cardiomyopathy, unspecified type I42.9 Severe aortic stenosis I35.0 Acute metabolic encephalopathy G93.41 Delirium R41.0 Transaminitis R74.01 Pleural effusion J90 (4) Combined systolic and diastolic congestive heart failure Heart failure chronicity: chronic Qualified Code(s): I50.42 - Chronic combined systolic (congestive) and diastolic (congestive) heart failure (5) Cardiomyopathy Qualified Code(s): I42.9 - Cardiomyopathy, unspecified
--- NOTE | 2024-11-04 11:26 | XRay Report ---
KUB HISTORY: abdominal pain COMPARISON STUDY: Lumbar spine dated 10/16/2024 FINDINGS: Single portable view of the abdomen demonstrates a nonspecific bowel gas pattern. There is no evidence of obstruction. There is no mass identified. Degenerative changes are noted in the lumbar spine. IMPRESSION: No acute findings. ACT 112: Negative or not required by law. The above report was generated using voice recognition software. It may contain grammatical, syntax o r spelling errors. Electronically signed by: Lashawn Antunez M.D. 11/04/2024 11:25 AM
[2024-11-04 11:32] LABS: Albumin Level 3.5 gm/dl (3.4-5.0); Bilirubin Direct 1.2 mg/dl (0-0.2); Bilirubin,Total 1.9 mg/dl (0.2-1.0); Total Protein 6.5 gm/dl (6.0-8.3)
[2024-11-04] MEDS: Heparin IV Adult Wt-Based Low-Dose *NO* INITIAL Bolus Protocol IV STA (11:33)
[2024-11-04] MEDS: METOPROLOL TARTRATE 50 MG TAB PO SCH (11:33)
[2024-11-04] MEDS: HEPARIN 25000 UNIT/500 ML D5W 25,000 UNITS/500 ML BAG IV SCH (11:35)
[2024-11-04] MEDS ORDERED: STAT IV Infusion **Titration per Protocol STA (11:38)
[2024-11-04] MEDS: dilTIAZem HCL 125 MG in DEXTROSE 5% 100 ML IV SCH (11:50)
[2024-11-04 11:58] LABS: ANTI-Xa, UFH(UnfractionatedHep 1.49 IU/ml (0.3-0.7)
[2024-11-04] MEDS: dilTIAZem HCl 5 MG/ML 5 ML VIAL IV STA (12:02)
--- NOTE | 2024-11-04 13:40 | Communication Note ---
Date of Service: November 04, 2024 Patient is started on Cardizem drip due to A-fib with RVR despite metoprolol IV and p.o. Will also give an additional 25 mg p.o. metoprolol to tartrate now. Patient was stable for downgrade otherwise to PCU status. Orders placed for transfer.
[2024-11-04] MEDS: METOPROLOL TARTRATE 25 MG TAB PO STA (13:56)
--- NOTE | 2024-11-04 15:00 | Hospitalist Progress Note ---
Date of Service November 04, 2024 Assessment & Plan (1) CAP (community acquired pneumonia): Plan: 74-year-old male with a history of nonocclusive coronary disease, aortic stenosis pending TAVR who presents with fever cough and sputum production and is found to have community-acquired pneumonia. Acute hypoxic respiratory failure due to community-acquired pneumonia - Acute hypoxic respiratory failure secondary to severe community-acquired pneumonia and systolic heart failure with pleural effusion -Bronchoscopy culture negative to date from 11/01/2024. Antibiotics de-escalated to Zosyn and doxycycline. Continue hydrocortisone for severe community-acquired pneumonia and septic shock. Wean hydrocortisone starting on day 4 over course of 4 to 5 days. Extubated 11/03/2024. Chest x-ray 11/03/2024 with evidence of pulmonary edema. CV: Atrial fibrillation with rapid ventricular response. Heart rates into the 170s this afternoon. Given 2.5 mg of IV metoprolol with 50 mg metoprolol tartrate twice daily restarted as he is not able to take oral medications. Low threshold for Cardizem infusion. Severe aortic stenosis -Continue heparin infusion. Coordinated with pharmacy. -Reviewed echo from 10/14/2024: Low ejection fraction 25 to 30% -Cardiology consulted. Will discontinue further digoxin for the time being and use esmolol as needed. Known coronary artery disease -Off vasopressors currently. -Continue statin therapy and 81 mg aspirin Hypertension -Hold ANGELA inhibitor RUBEN Creatinine elevated. Baseline around 1.1 Creatinine peaked At 3.24, downtrending, Reviewed nephrology consultation -Holding allopurinol and losartan and naproxen -Replace electrolytes as needed -Will start diuresis once he is more hemodynamically stable. Anxiety Home duloxetine, clonazepam continued DM2 Metformin held Goal BSG [id number] ICU hypoglycemia protocol Transaminitis Suspect shock liver / congestive. Trended.Portal ultrasound technically limited major vessels appear patent. Also shows hepatic steatosis - Trend LFTs DVT prophylaxis: Anticoagulated Disposition: ICU CODE STATUS: Full Diet: Heart healthy/DM2 Neuro: Metabolic encephalopathy -Likely related to hypoxemia, delirium and sepsis -Extubated. Holding sedative hypnotics. Frequent reorientation delirium precautions. - Fluids/Renal: Acute kidney injury with nonoliguric renal failure - ID: Sepsis secondary to community-acquired pneumonia -Meropenem day 1 discontinued: Initially received Rocephin x 2 days, doxycycline day 3, vancomycin day 1 discontinued. Zosyn day 3. Complete total course of 7 days of antibiotics. -Urine Legionella antigen pending. BioFire negative. MRSA screen negative. Procalcitonin trending downwards. GI/Nutrition: -Continue PPI. Trend LFTs and INR. Follow-up acute hepatitis panel. Liver ultrasound and vascular liver ultrasound was negative. Possible congestive hepatopathy versus ischemic hepatopathy. Check KUB today given abdominal co mplaints. Heme: Continue heparin infusion. Holding Eliquis given transaminitis and RUBEN. Endocrine: ICU hyperglycemia protocol Vascular access: Right IJ placed 11/01. Left radial art line removed. Code Status: Discussion with family including who indicated that they would want the patient to be a DNR/DNI in the event of cardiopulmonary arrest or progressive declining condition. Disposition: ICU Palliative care consultation appreciated. Possible downgrade out of the ICU later today if heart rate is better controlled and KUB is unremarkable. (2) Atrial fibrillation with rapid ventricular response: (3) Combined systolic and diastolic congestive heart failure: (4) Mild CAD: (5) Cardiomyopathy: (6) Severe aortic stenosis: Admission and Anticipated Discharge Date Admission Date: October 30, 2024 Subjective Day 5 of hospital stay patient is extubated and he is off pressors Patient is started on Cardizem drip due to A-fib with RVR despite metoprolol IV and p.o. Will also give an additional 25 mg p.o. metoprolol to tartrate now. Patient was stable for downgrade otherwise to PCU status. Orders placed for transfer. Physical Exam Physical Exam: D/WN, vitals as ab ove + acute distr ess and + ill appe aring; not mechani leah ventilated Neck: normal visual insp ection Respiratory: Auscultation: + di minished lung soun ds and + crackles Cardiovascular: Rate/Rhythm: + tac hycardic and + irr egularly irregular Heart Sounds: + murmur Extremitie s: + pedal edema Gastrointestinal ( Abdomen): Mild tenderness p alpation of his ab domen. Skin: no rashes Neurologic: Awake and alert. Nonfocal. Psychiatric: Anxious appearing . Alert. Oriente d x 1. Results & Data Results & Data Vital Signs (Past 12 Hours) Vital Signs Temp Pulse Resp BP Pulse Ox O2 Del Method O2 Flow Rate 11/04/24 12:57 103 H 28 H 93 Room Air 04/02/25 12:36 108 H 23 93 Room Air 11/04/24 12:30 129/81 11/04/24 12:24 130 H 27 H 93 Room Air 11/04/24 12:06 147 H 32 H 94 Room Air 11/04/24 12:00 127/84 11/04/24 11:45 124 H 28 H 93 Room Air 11/04/24 11:36 135 H 27 H 93 Room Air 11/04/24 11:30 119/83 11/04/24 11:28 34.3 C L 11/04/24 11:14 137 H 119/83 11/04/24 11:02 123/97 11/04/24 10:59 157 H 123/97 11/04/24 10:42 36.8 C 167 H 28 H 91 Room Air 11/04/24 10:01 117/84 11/04/24 09:39 36.7 C 111 H 23 98 11/04/24 09:39 129/81 11/04/24 09:33 36.7 C 140 H 27 H 98 11/04/24 09:12 36.7 C 115 H 18 97 11/04/24 09:00 116/83 11/04/24 09:00 36.6 C 128 H 24 97 11/04/24 08:59 116/87 11/04/24 08:27 36.6 C 104 H 18 99 11/04/24 08:00 104 H 128/63 11/04/24 07:49 Nasal Cannula 2 11/04/24 07:06 36.5 C 95 H 19 98 Nasal Cannula 2 11/04/24 07:00 124/72 11/04/24 06:50 104 H 11/04/24 06:45 36.5 C 101 H 18 99 Nasal Cannula 2 11/04/24 06:15 36.6 C 105 H 15 97 11/04/24 06:09 36.5 C 100 H 15 100 11/04/24 06:00 11/04/24 06:00 12311/04/24 06:00 12311/04/24 06:00 12311/04/24 06:00 12311/04/24 06:00 12311/04/24 06:00 12311/04/24 06:00 12384 11/04/24 05:51 36.6 C 108 H 18 100 11/04/24 05:45 36.6 C 94 H 22 100 11/04/24 05:33 36.5 C 103 H 18 100 11/04/24 05:24 36.5 C 102 H 20 98 11/04/24 05:03 36.5 C 105 H 18 100 11/04/24 05:00 115/79 11/04/24 04:54 36.5 C 98 H 16 100 11/04/24 04:45 36.5 C 103 H 20 100 11/04/24 04:30 36.5 C 101 H 16 100 11/04/24 04:21 36.5 C 95 H 17 100 11/04/24 04:15 36.5 C 94 H 16 100 11/04/24 04:00 118/61 11/04/24 04:00 118/61 11/04/24 04:00 118/61 11/04/24 04:00 118/61 11/04/24 04:00 118/61 11/04/24 04:00 118/61 11/04/24 04:00 118/61 11/04/24 04:00 118/61 11/04/24 04:00 118/61 11/04/24 04:00 118/61 11/04/24 04:00 118/61 11/04/24 04:00 118/61 11/04/24 04:00 118/61 11/04/24 04:00 118/61 11/04/24 04:00 118/61 11/04/24 04:00 118/61 11/04/24 04:00 118/61 11/04/24 04:00 118/61 11/04/24 04:00 118/61 11/04/24 04:00 97 H 11/04/24 03:45 36.5 C 96 H 18 100 11/04/24 03:36 36.5 C 105 H 19 100 11/04/24 03:24 36.5 C 95 H 16 100 11/04/24 03:00 11772 11/04/24 03:00 11711/04/24 03:00 11711/04/24 03:00 11711/04/24 03:00 117/72 11/04/24 03:00 117/72 11/04/24 03:00 117/72 11/04/24 03:00 117/72 11/04/24 03:00 117/72 11/04/24 03:00 117/72 11/04/24 03:00 117/72 11/04/24 03:00 11772 PG Care Time/CCT Total # of Minutes Spent Total Time Spent with Patient: Total time spent is greater than 50% in coordination of care (as documented) at patient's floor/unit and/or counseling patient: Coding Level of Care Code 22571 SUB INP/OBS CARE 3/50MIN Diagnoses CAP (community acquired pneumonia) J18.9 Atrial fibrillation with rapid ventricular response I48.91 Chronic combined systolic and diastolic congestive heart failure I50.42 Heart failure chronicity: chronic Mild CAD I25.10 Cardiomyopathy, unspecified type I42.9 Severe aortic stenosis I35.0 (3) Combined systolic and diastolic congestive heart failure Heart failure chronicity: chronic Qualified Code(s): I50.42 - Chronic comb ined systolic (congestive) and diastolic (congestive) heart failure (5) Cardiomyopathy Qualified Code(s): I42.9 - Cardiomyopathy, unspecified
[2024-11-04 15:34] LABS: Partial Thromboplastin Ratio 0.9; Partial Thromboplastin Time 25 Seconds (21-31)
[2024-11-04 16:11] LABS: iSTAT Allen Test Pass; iSTAT Art Bld Gas pCO2 Correct 25 mmHg (35-46); iSTAT Art Bld Gas pH Corrected 7.418 (7.35-7.45); iSTAT Arterial Blood Gas HCO3 16 meg/L (19-24); iSTAT Arterial Blood Gas pCO2 25 mmHg (35-46); iSTAT Arterial Blood Gas pH 7.42 (7.35-7.45); iSTAT Arterial Blood Gas pO2 65 mmHg (80-95); iSTAT Arterial Blood Gas pO2 C 65; iSTAT Carbon Dioxide 17 mmol/L (24-31); iSTAT Hematocrit 37 % (42-52); iSTAT Hemoglobin 12.6 g/dl (14.0-18.0); iSTAT Potassium 4.3 mmol/L (3.3-5.0); iSTAT Sample Type Arterial; iSTAT Site L Radial; iSTAT Sodium 137 mmol/L (135-144); iSTAT SpO2 92
[2024-11-04] MEDS: FUROSEMIDE INJ 20 MG/2 ML VIAL IV ONE (16:18)
[2024-11-04] MEDS: OLANZapine 10 MG/2.1 ML SDV IM STA (16:18)
[2024-11-04] MEDS: HYDROCORTISONE SOD 50 MG in SYRINGE 0 ML IV SCH (16:24)
[2024-11-04 20:57] LABS: Base Excess VBG -4.4 mEq/L; HCO3 VBG 21 mmol/L; Oxygen Saturation VBG < 60.0 %; PCO2 VBG 39 mmHg (38-50); PO2 VBG 34 mmHg; pH VBG 7.34 (7.36-7.41)
[2024-11-04 21:28] LABS: Partial Thromboplastin Ratio 0.9; Partial Thromboplastin Time 25 Seconds (21-31)
[2024-11-04 21:45] LABS: Albumin Globulin Ratio 1.3 (0.9-2); Albumin Level 3.6 gm/dl (3.4-5.0); BUN Creatinine Ratio 28.8 (10-20); Bilirubin,Total 2.3 mg/dl (0.2-1.0); Calcium 8.2 mg/dl (8.6-10.3); Creatinine Clr Calc Pharmacy 31.4 ml/min; Globulin 2.8 gm/dl (2.5-4.0); Phosphorus 4.4 mg/dl (2.5-4.9); Potassium 4.7 mmol/L (3.5-5.1); Total Protein 6.4 gm/dl (6.0-8.3); Troponin I High Sensitivity 283.9 pg/ml (0-20)
[2024-11-04] MEDS ORDERED: Nursing to Pharmacy Communication SCH (21:45)
--- NOTE | 2024-11-04 23:07 | XRay Report ---
Exam(s): XR CXR 1 VIEW EXAM: XR Chest, 1 View CLINICAL HISTORY: Reason for exam: Tachypneic. TECHNIQUE: Frontal view of the chest. COMPARISON: 11/03/24 FINDINGS: Lungs: Pulmonary vascular congestion. Interstitial opacity suggesting edema. Pleural space: Layering pleural effusions. No pneumothorax. Heart: Stable cardiac size. Bones/joints: No acute fracture. No dislocation. Tubes, lines and devices: Right IJ CVC with tip in the SVC. Other findings: Interval extubation. IMPRESSION: 1. Pulmonary vascular congestion. Interstitial opacities suggesting edema. Appearance is similar to prior. 2. Layering pleural effusions. 3. Interval extubation. Electronically signed by: Sharona Morgan M.D. 11/04/24 23:07 PM
[2024-11-05] MEDS: FUROSEMIDE INJ 20 MG/2 ML VIAL IV ONE ×2 (00:14)
[2024-11-05 03:12] LABS: Basophils # (auto) 0.03 K/uL (0.00-0.20); Basophils % (auto) 0.2 %; Hemoglobin 12.3 g/dl (14.0-18.0); Immature Granulocytes # (auto) 0.36 K/uL (0.01-0.20); Immature Granulocytes % (auto) 1.9 %; Lymphocytes # (auto) 0.54 K/uL (1.20-3.40); Lymphocytes % (auto) 2.9 %; Mean Corpuscular Hemoglobin 31.8 pg (25.0-34.0); Mean Corpuscular Hgb Conc 33.2 g/dL (32.0-36.0); Mean Corpuscular Volume 95.6 fL (80.0-100.0); Monocytes # (auto) 1.57 K/uL (0.11-0.59); Monocytes % (auto) 8.5 %; Neutrophils # (auto) 16.01 K/uL (1.40-6.50); Neutrophils % (auto) 86.5 %; Nucleated RBC % (auto) 1.1 %; Platelet Count 182 K/uL (130-400); RDW Coefficient of Variation 15.2 % (11.5-14.5); RDW Standard Deviation 52.3 fL (36.4-46.3); Red Blood Count 3.87 M/uL (4.70-6.10); White Blood Count 18.51 K/ul (4.8-10.8)
[2024-11-05 03:21] LABS: BUN Creatinine Ratio 28.9 (10-20); Calcium 8.3 mg/dl (8.6-10.3); Creatinine Clr Calc Pharmacy 28.3 ml/min; Magnesium 2.9 mg/dl (1.7-2.4); Phosphorus 5.4 mg/dl (2.5-4.9); Potassium 4.9 mmol/L (3.5-5.1)
[2024-11-05 03:33] LABS: Partial Thromboplastin Ratio 0.9; Partial Thromboplastin Time 25 Seconds (21-31)
[2024-11-05 08:36] VITALS: TEMP 97.2
[2024-11-05 08:59] LABS: Partial Thromboplastin Ratio 0.9; Partial Thromboplastin Time 25 Seconds (21-31)
--- NOTE | 2024-11-05 09:57 | Electrocardiogram Report ---
Test Reason : Blood Pressure : */* mmHG Vent. Rate : 112 BPM Atrial Rate : * BPM P-R Int : * ms QRS Dur : 108 ms QT Int : 294 ms P-R-T Axes : * 53 229 degrees QTcB Int : 401 ms Atrial fibrillation with rapid ventricular response Incomplete left bundle block Diffuse Nonspecific ST and T wave abnormality Abnormal ECG When compared with ECG of 01-Nov-2024 13:33, No significant change was found Confirmed by iCsco Segundo ([id number] on 11/05/2024 9:56:34 AM Referred By: Mateus Germain Confirmed By: Cisco Segundo
[2024-11-05 10:00] LABS: Base Excess VBG -5.8 mEq/L; HCO3 VBG 19 mmol/L; Oxygen Saturation VBG 63.5 %; PCO2 VBG 32 mmHg (38-50); PO2 VBG 34 mmHg; pH VBG 7.37 (7.36-7.41)
[2024-11-05] MEDS: LORazepam 2 MG/1 ML VIAL IV PRN ×2 (10:23→14:10)
--- NOTE | 2024-11-05 12:38 | Cardiology Progress Note ---
Date of Service November 05, 2024 Assessment & Plan (1) Hypotension: (2) Severe aortic stenosis: (3) Permanent atrial fibrillation with RVR: (4) Combined systolic and diastolic congestive heart failure: (5) Cardiomyopathy: (6) Mild CAD: (7) Acute kidney injury: Plan Respiratory status is tenuous and peripheral perfusion diminished, in the context of comfort care with no intention of reintubation or pressors, prognosis is poor. Given reduced systolic function and hypotension might be preferable to use intermittent or continuous beta-kip and allow mild tachycardia rather than diltiazem infusion. Although diltiazem appears more effective at rate control for this patient, likely his physiologic rate should be 100-120 bpm and beta- kip would be less likely to impact blood pressure/cardiac contractility in patient with EF 25-30%. Still appears hypervolemic, if BP allows consider additional diuretic dosing. Did discuss with the family members ( and 2 daughters) the patient's poor prognosis based primarily on his severe aortic stenosis limiting cardiac output complicated by pneumonia/heart failure compromising respiration and further complicated by progressive renal insufficiency, hypotension, and atrial fibrillation with rapid ventricular response. They are aware of his likely deterioration and restated their desire for comfort care only. Admission and Anticipated Discharge Date Admission Date: October 30, 2024 Subjective Patient awake but confused, labored respirations, denies any pain or dyspnea. Off pressors but on a diltiazem drip for rate control. Telemetry shows atrial fibrillation with controlled ventricular rate (90-100 bpm). Physical Exam Physical Exam: Labored respirations but not acutely distressed. BP 97/62 mmHg. Pulse 90 bpm and irregular. Respirations 24 and somewhat labored (on BiPAP). Skin: no ecchymoses or generalized lesions. HEENT: unremarkable. Neck: JVP elevated to angle of jaw at 90 degrees, no obvious bruits or transmitted murmur. Lungs: Diminished breath sounds, scattered crackles crackles. Moderate accessory muscle use. Cardiac: Irregular rhythm, no obvious murmur but difficult exam. Abdomen: benign. Extremities: Lower extremities cool to touch, pale. Neurologic: Slow to respond but answers simple questions, grossly nonfocal. Results & Data Laboratory Results WBC 18.5, hemoglobin 12.3, normal platelet count. VBG 7.3 7/32/34/19. Normal electrolytes, BUN 69, creatinine 2.39. PG Care Time/CCT Total # of Minutes Spent Total Time Spent with Patient: Total time spent is greater than 50% in coordination of care (as documented) at patient's floor/unit and/or counseling patient: Coding Level of Care Code 29262 SUB INP/OBS CARE 3/50MIN Diagnoses Hypotension I95.9 Severe aortic stenosis I35.0 Permanent atrial fibrillation with RVR I48.21 Chronic combined systolic and diastolic congestive heart failure I50.42 Heart failure chronicity: chronic Cardiomyopathy, unspecified type I42.9 Mild CAD I25.10 Acute kidney injury N17.9 (4) Combined systolic and diastolic congestive heart failure Heart failure chronicity: chronic Qualified Code(s): I50.42 - Chronic combined systolic (congestive) and diastolic (congestive) heart failure (5) Cardiomyopathy Qualified Code(s): I42.9 - Cardiomyopathy, unspecified
[2024-11-05] MEDS ORDERED: ATROPINE SULFATE 1% OP SOLN 5 ML BTL SL PRN (13:04)
[2024-11-05] MEDS ORDERED: HYDROmorphone INJ 0.5 MG/0.5 ML SYR IV PRN (13:04)
[2024-11-05] MEDS ORDERED: ONDANSETRON INJ 2 MG/ML 2 ML VIAL IV PRN (13:04)
--- NOTE | 2024-11-05 14:05 | Hospitalist Progress Note ---
Date of Service November 05, 2024 Assessment & Plan (1) CAP (community acquired pneumonia): Plan: 74-year-old male with a history of nonocclusive coronary disease, aortic stenosis pending TAVR who presents with fever cough and sputum production and is found to have community-acquired pneumonia. Acute hypoxic respiratory failure due to community-acquired pneumonia - Acute hypoxic respiratory failure secondary to severe community-acquired pneumonia and systolic heart failure with pleural effusion -Bronchoscopy culture negative to date from 11/01/2024. Antibiotics de-escalated to Zosyn and doxycycline. Continue hydrocortisone for severe community-acquired pneumonia and septic shock. Wean hydrocortisone starting on day 4 over course of 4 to 5 days. Extubated 11/03/2024. Chest x-ray 11/03/2024 with evidence of pulmonary edema. 11/05 patient received doses of Lasix however with his low blood pressure and limited response from the kidneys urine output is only 15 mL/h it seems that this will not help we will use BiPAP and CPAP to push the fluid out of his respiratory system and get him some comfort CV: Atrial fibrillation with rapid ventricular response. Heart rates into the 170s this afternoon. Given 2.5 mg of IV metoprolol with 50 mg metoprolol tartrate twice daily restarted as he is not able to take oral medications. Low threshold for Cardizem infusion. Severe aortic stenosis -Continue heparin infusion. Coordinated with pharmacy. -Reviewed echo from 10/14/2024: Low ejection fraction 25 to 30% -Cardiology consulted. Will discontinue further digoxin for the time being and use esmolol as needed. Known coronary artery disease -Off vasopressors currently. -Continue statin therapy and 81 mg aspirin Hypertension -Hold ANGELA inhibitor 11/05 appreciate cardiology input and talking to the family members it seems like patient's family is understanding that patient should be comfort care RUBEN Kidney functions are declining overnight Anxiety Per palliative care DM2 Metformin held Goal BSG [id number] ICU hypoglycemia protocol Since patient is on comfort care this should not be checked Transaminitis Suspect shock liver / congestive. Trended.Portal ultrasound technically limited major vessels appear patent. Also shows hepatic steatosis - Neuro: Metabolic encephalopathy -Likely related to hypoxemia, delirium and sepsis -Extubated. Holding sedative hypnotics. Frequent reorientation delirium precautions. - Fluids/Renal: Acute kidney injury with nonoliguric renal failure - ID: Sepsis secondary to community-acquired pneumonia -Meropenem day 1 discontinued: Initially received Rocephin x 2 days, doxycycline day 3, vancomycin day 1 discontinued. Zosyn day 3. Complete total course of 7 days of antibiotics. -Urine Legionella antigen pending. BioFire negative. MRSA screen negative. Procalcitonin trending downwards. GI/Nutrition: -Continue PPI. Trend LFTs and INR. Follow-up acute hepatitis panel. Liver ultrasound and vascular liver ultrasound was negative. Possible congestive hepatopathy versus ischemic hepatopathy. Check KUB today given abdominal complaints. Palliative care consultation appreciated. 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: (4) Mild CAD: (5) Cardiomyopathy: (6) Severe aortic stenosis: Admission and Anticipated Discharge Date Admission Date: October 30, 2024 Subjective Overnight patient's respiratory rate was high he was having difficulty breathing patient received a dose of Lasix but he was not able to get significant response as diuresis and patient has significant swelling of his upper and lower extremity kidney functions have worsened white count has increased blood gases indicating that patient has respiratory acidosis with bicarb level of 16 patient is ventilating but he is struggling. This morning I went at bedside and spoke to the respiratory therapist we decided to put patient on CPAP and repeat a blood gas and see if patient will tolerate BiPAP meanwhile palliative care doctors were also consulted who contacted family members and asked them to come and stay with the patient I also had a conversation with patient and daughter Gayla they wanted to know if there is a certain time where patient will go if they make him comfort care I discussed with them that nobody can tell her that however understanding that patient has severe aortic stenosis declining kidney function declining respiratory function declining neurological functions it is best to keep patient as comfortable on comfort measures IV heparin was stopped yesterday and patient has not been able to take any oral anticoagulants patient got off pressors yesterday at this time it seems that we should support him and keep him comfort care Physical Exam Physical Exam: abored respirations but not acutely distressed. BP 97/62 mmHg. Pulse 90 bpm and irregular. Respirations 24 and somewhat labored (on BiPAP). Skin: no ecchymoses or generalized lesions. HEENT: unremarkable. Neck: JVP elevated to angle of jaw at 90 degrees, no obvious bruits or transmitted murmur. Lungs: Diminished breath sounds, scattered crackles crackles. Moderate accessory muscle use. Cardiac: Irregular rhythm, no obvious murmur but difficult exam. Abdomen: benign. Extremities: Lower extremities cool to touch, pale. Neurologic: Slow to respond but answers simple questions, grossly nonfocal. Results & Data Results & Data Vital Signs (Past 12 Hours) Vital Signs Temp Pulse Pulse Resp BP BP Pulse Ox 11/05/24 11:00 97/62 L 11/05/24 11:00 90 24 93 11/05/24 10:30 98 H 21 96 11/05/24 10:30 95/70 L 11/05/24 10:00 94 H 25 H 95 11/05/24 10:00 103/55 L 11/05/24 09:30 81 23 95 11/05/24 09:30 96/58 L 11/05/24 09:15 89 30 H 95 11/05/24 09:03 102 H 42 H 95 11/05/24 09:00 106/73 11/05/24 09:00 86 34 H 94 11/05/24 08:36 36.2 C L 100 H 41 H 108/62 90 11/05/24 08:00 11/05/24 06:57 104 H 44 H 81 L 11/05/24 06:50 115 H 11/05/24 06:44 112/76 11/05/24 06:44 112/76 11/05/24 06:44 112/76 11/05/24 06:33 106 H 40 H 87 L 11/05/24 06:12 95 H 31 H 86 L 11/05/24 06:06 103 H 27 H 91 11/05/24 06:06 90/63 L 11/05/24 06:06 90/63 L 11/05/24 06:06 90/63 L 11/05/24 06:06 90/63 L 11/05/24 06:06 90/63 L 11/05/24 06:06 90/63 L 11/05/24 06:06 90/63 L 11/05/24 06:06 90/63 L 11/05/24 06:00 102 H 19 11/05/24 05:54 92 H 22 11/05/24 05:42 91 H 29 H 92 11/05/24 05:36 102 H 29 H 92 11/05/24 05:31 115/11/05/24 05:31 115/11/05/24 05:31 115/71 11/05/24 05:31 115/71 11/05/24 05:31 115/71 11/05/24 05:31 115/71 11/05/24 05:31 115/71 11/05/24 05:31 115/71 11/05/24 05:31 115/71 11/05/24 05:31 115/71 11/05/24 05:31 115/71 11/05/24 05:31 115/11/05/24 05:31 115/11/05/24 05:31 115/71 11/05/24 05:31 115/71 11/05/24 05:31 115/71 11/05/24 05:31 115/11/05/24 05:31 115/71 11/05/24 05:31 115/71 11/05/24 05:21 87 29 H 92 11/05/24 05:06 87 31 H 92 11/05/24 05:00 106 H 11/05/24 05:00 117/11/05/24 05:00 117/11/05/24 05:00 117/11/05/24 05:00 117/69 11/05/24 05:00 117/69 11/05/24 05:00 117/69 11/05/24 04:48 92 H 29 H 92 11/05/24 04:33 91 H 30 H 94 11/05/24 04:30 112/79 11/05/24 04:30 112/79 11/05/24 04:30 112/79 11/05/24 04:30 112/79 11/05/24 04:30 112/79 11/05/24 04:30 112/79 11/05/24 04:30 112/79 11/05/24 04:30 112/79 11/05/24 04:30 112/79 11/05/24 04:30 112/79 11/05/24 04:24 97 H 28 H 92 11/05/24 04:21 98 H 30 H 92 11/05/24 04:18 98 H 30 H 92 11/05/24 04:00 107/11/05/24 04:00 107/11/05/24 04:00 107/11/05/24 04:00 107/11/05/24 04:00 107/11/05/24 04:00 107/11/05/24 04:00 107/11/05/24 04:00 107/11/05/24 04:00 113 H 33 H 91 11/05/24 03:57 96 H 34 H 91 11/05/24 03:42 98 H 35 H 92 11/05/24 03:36 84 36 H 92 11/05/24 03:30 107/64 11/05/24 03:30 107/64 11/05/24 03:30 107/64 11/05/24 03:30 107/64 11/05/24 03:30 107/64 11/05/24 03:30 107/64 11/05/24 03:30 107/64 11/05/24 03:30 107/64 11/05/24 03:30 107/64 11/05/24 03:30 107/64 11/05/24 03:30 107/64 11/05/24 03:30 107/64 11/05/24 03:15 99 H 34 H 92 11/05/24 03:12 95 H 41 H 92 11/05/24 03:01 114/80 11/05/24 03:01 114/80 11/05/24 03:01 114/80 11/05/24 03:01 114/80 11/05/24 03:01 114/80 11/05/24 03:01 114/80 11/05/24 03:01 114/80 11/05/24 03:01 114/80 11/05/24 03:01 114/80 11/05/24 03:01 114/80 11/05/24 03:00 105 H 43 H 11/05/24 02:58 89 42 H 96 11/05/24 02:57 95 H 36 H 96 11/05/24 02:39 109 H 39 H 90 11/05/24 02:31 112/81 11/05/24 02:31 112/81 11/05/24 02:31 112/81 11/05/24 02:31 112/81 11/05/24 02:31 112/81 11/05/24 02:31 112/81 11/05/24 02:31 11211/05/24 02:31 11/05/24 02:24 108 H 44 H 91 11/05/24 02:12 108 H 42 H 92 11/05/24 02:01 125/79 11/05/24 02:01 125/79 11/05/24 02:01 125/79 11/05/24 02:01 125/79 11/05/24 02:01 125/79 11/05/24 02:01 125/79 11/05/24 02:01 125/79 11/05/24 02:01 125/79 11/05/24 02:00 109 H 43 H O2 Del Method O2 Flow Rate FiO2 11/05/24 11:00 11/05/24 11:00 11/05/24 10:30 11/05/24 10:30 11/05/24 10:00 11/05/24 10:00 11/05/24 09:30 11/05/24 09:30 11/05/24 09:15 30 11/05/24 09:03 11/05/24 09:00 11/05/24 09:00 Oxymask 4 11/05/24 08:36 Nasal Cannula 3 11/05/24 08:00 Oxymask 3 11/05/24 06:57 11/05/24 06:50 11/05/24 06:44 11/05/24 06:44 11/05/24 06:44 11/05/24 06:33 11/05/24 06:12 11/05/24 06:06 11/05/24 06:06 11/05/24 06:06 11/05/24 06:06 11/05/24 06:06 11/05/24 06:06 11/05/24 06:06 11/05/24 06:06 11/05/24 06:06 11/05/24 06:00 11/05/24 05:54 11/05/24 05:42 11/05/24 05:36 11/05/24 05:31 11/05/24 05:31 11/05/24 05:31 11/05/24 05:11/05/24 05:31 11/05/24 05:11/05/24 05:11/05/24 05:11/05/24 05:11/05/24 05:11/05/24 05:11/05/24 05:11/05/24 05:11/05/24 05:11/05/24 05:11/05/24 05:11/05/24 05:11/05/24 05:11/05/24 05:11/05/24 05:21 11/05/24 05:06 11/05/24 05:00 11/05/24 05:00 11/05/24 05:00 11/05/24 05:00 11/05/24 05:00 11/05/24 05:00 11/05/24 05:00 11/05/24 04:48 11/05/24 04:11/05/24 04:11/05/24 04:11/05/24 04:11/05/24 04:11/05/24 04:11/05/24 04:11/05/24 04:11/05/24 04:11/05/24 04:11/05/24 04:11/05/24 04:24 11/05/24 04:21 11/05/24 04:18 11/05/24 04:00 11/05/24 04:00 11/05/24 04:00 11/05/24 04:00 11/05/24 04:00 11/05/24 04:00 11/05/24 04:00 11/05/24 04:00 11/05/24 04:00 11/05/24 03:57 11/05/24 03:42 11/05/24 03:36 11/05/24 03:11/05/24 03:11/05/24 03:30 11/05/24 03:30 11/05/24 03:30 11/05/24 03:30 11/05/24 03:30 11/05/24 03:30 11/05/24 03:30 11/05/24 03:30 11/05/24 03:30 11/05/24 03:30 11/05/24 03:15 11/05/24 03:12 11/05/24 03:01 11/05/24 03:01 11/05/24 03:01 11/05/24 03:01 11/05/24 03:01 11/05/24 03:01 11/05/24 03:01 11/05/24 03:01 11/05/24 03:01 11/05/24 03:01 11/05/24 03:00 11/05/24 02:58 Nasal Cannula 2 11/05/24 02:57 11/05/24 02:39 11/05/24 02:31 11/05/24 02:31 11/05/24 02:31 11/05/24 02:31 11/05/24 02:31 11/05/24 02:31 11/05/24 02:31 11/05/24 02:31 11/05/24 02:24 11/05/24 02:12 11/05/24 02:01 11/05/24 02:01 11/05/24 02:01 11/05/24 02:01 11/05/24 02:01 11/05/24 02:01 11/05/24 02:01 11/05/24 02:01 11/05/24 02:00 PG Care Time/CCT Total # of Minutes Spent Total Time Spent with Patient: Total time spent is greater than 50% in coordination of care (as documented) at patient's floor/unit and/or counseling patient: Coding Level of Care Code 11089 SUB INP/OBS CARE 3/50MIN Diagnoses CAP (community acquired pneumonia) J18.9 Atrial fibrillation with rapid ventricular response I48.91 Chronic combined systolic and diastolic congestive heart failure I50.42 Heart failure chronicity: chronic Mild CAD I25.10 Cardiomyopathy, unspecified type I42.9 Severe aortic stenosis I35.0 Time Spent (min) 70 (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
[2024-11-05] MEDS: HYDROmorphone INJ 0.5 MG/0.5 ML SYR IV PRN (14:09)
[2024-11-05 14:25] VITALS: BP 113/70; PULSE 97; RESP 28; O2SAT 91
--- NOTE | 2024-11-05 15:42 | Palliative Care Progress Note ---
Date of Service November 05, 2024 Assessment & Plan (1) Palliative care by specialist: Plan: Palliative care will continue to follow for ongoing EOL pt care and family support. (2) Counseling regarding goals of care: Plan: Met with Pt's and two daughters at bedside from 13:00-13:40 Discussed pt's multiple comorbidities and deconditioned state as well as his acutely decompensated state. Pt's shared concern that he appears to be struggling to breath and that he gets anxious with the bipap mask and his anxiety drives his feeling SOB. Discussed pt's decreased level of alertness and that Bipap may actually place him at higher risk for aspiration. Family all reafffirm desire for DNR/DNI and Carol encouraged her mother and sister to consider comfort directed care given pt's distress and struggle to breathe without Bipap. Ultimately spouse agrees with her daughters that she would not want to prolong pt suffering. We discussed the transtion to comfort directed care and that all life prolonging therapies would cease in favor of addressing pt's quality of life and comfort while allowing for a peaceful, natural and dignified . Discussed hospice benefit: an interdisciplinary program offered by nurses, nurses aides, social workers, chaplains and a medical records custodian for patients with a terminal condition and a life expectancy of less than 6 months. This is covered by Medicare at 100%/no out of pocket expense to patient and all meds/supplies needed by patient for the reason they are on hospice are paid for/covered by hospice. The goal is assure quality of life of the patient in their home setting (home, senior care, inpatient hospice setting) by providing symptoms management, psychosocial and spiritual support. However, they cannot offer 24 hours care and if the family is unable to provide that care, they will have to consider personal care with out of pocket cost vs. senior care placement. We discussed the goals of hospice as a patient service and the goals of care; we discussed EOL trajectories and transitions rosaura the emotional impact of realizing mortality as a concrete reality from prior abstract considerations. Pt was reassured that no matter where they are along this trajectory, they are not alone - their medical team will remain by their side through their journey. Discussed the pros/cons of accepting help when especially weakened and distressed by pain-which would also help provide relief/decrease caregiver burden/strain. Anticipatory guidance offered. Discussed changes pt may move through in the dying process including but not limited to sleeping more, disorientation when awake, restlessness, diminished senses/inability to respond to stimulus although ability to be aware of them remains intact longer, and changes in body temperatures, skin changes/mottling/cyanosis, respiratory pattern changes, and oral secretions. Family verbalized understanding. The goal is to assure a peaceful . (3) Comfort measures only status: Plan: Pt transitioned to comfort directed care today, down graded from ICU status. Will required evaluation for GIP hospice. (4) Need for comfort care: Plan: EOL Symptom manamgement: Pain/dyspnea/tachypnea DILAUDID 0.5mg IVP PRN [id number] Consider titratable dilaudid drip if pt requires >3 PRN doses in under two consecutive hours. Nausea/vomitting zofran 4mg IVP q4h PRN Agitation ativan 0.5mg IVP q4h PRN Hyperactive delirium haldol 5mg IVP q6h PRN Secretions - if repositioning not effective robinul 0.4mg IV q4h PRN atropine SL 3 drops Q1h PRN Nursing care: Discontinue all medications not directed towards comfort. Detether pt from IV tubing, monitor cables, and check vitals once per shift. Please continue HFNC and titrate down as able for patient comfort. Use medications above PRN for dyspnea/tachypnea and do not increase oxygen once titrated down. Assess q1h for pain/dyspnea and treat accordingly. Plan as above. 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 Admission and Anticipated Discharge Date Admission Date: October 30, 2024 Subjective Pt assessed at bedside, no visitors present. Pt has had acute status change overnight. Per bedside RN, pt would not tolerated cPAP/BiPAP overnight and this morning is found to be in acute distress, obtunded and tachypneic on BiPap with notable accessory muscle use and minimal air exchange. I made phone contact with both pt's Marilia and his daughter Carol to encourage visitation. Pt DNR/DNI, given acute distress, plan was made to address GOC further on family arrival. Review of Systems Review of Systems: Unobtainable due to cognitive status Physical Exam Constitutional: + acute distress, + ill appearing, + thi n, + altered mental status and + frail appearing ENMT: external ear and nose normal, oropharynx normal Neck: trachea midline, no thyromegaly Respiratory: + respiratory distress, + labored breath ing, + uses accessory muscles, + dullness to percussion, + tachypneic and + prolonged expiratory phase; + not able to speak in complete sentence Cardiovascular: Rate/Rhythm: + tachycardic Gastrointestinal (Abdomen): normal bowel sounds, soft, nontender, no hepatosplenomegaly Skin: + turgor decreased and + pallor Neurologic: + obtunded Results & Data Vital Signs (Past 12 Hours) Vital Signs Temp Pulse Pulse Resp BP BP Pulse Ox 11/05/24 14:00 97 H 28 H 91 11/05/24 14:00 113/70 11/05/24 13:51 97 H 24 91 11/05/24 13:45 92 H 29 H 91 11/05/24 13:30 92 H 23 91 11/05/24 13:30 110/62 11/05/24 13:24 94 H 21 90 11/05/24 13:12 88 27 H 92 11/05/24 13:09 92 H 22 97 11/05/24 13:01 102/61 11/05/24 12:45 89 22 96 11/05/24 12:42 100 H 21 95 11/05/24 12:39 90 21 95 11/05/24 12:30 116/60 11/05/24 12:18 92 H 27 H 95 11/05/24 12:12 88 21 95 11/05/24 11:00 97/62 L 11/05/24 11:00 90 24 93 11/05/24 10:30 98 H 21 96 11/05/24 10:30 95/70 L 11/05/24 10:00 94 H 25 H 95 11/05/24 10:00 103/55 L 11/05/24 09:30 81 23 95 11/05/24 09:30 96/58 L 11/05/24 09:15 89 30 H 95 11/05/24 09:03 102 H 42 H 95 11/05/24 09:00 106/73 11/05/24 09:00 86 34 H 94 11/05/24 08:36 36.2 C L 100 H 41 H 108/62 90 11/05/24 08:00 11/05/24 06:57 104 H 44 H 81 L 11/05/24 06:50 115 H 11/05/24 06:44 112/76 11/05/24 06:44 112/76 11/05/24 06:44 112/76 11/05/24 06:33 106 H 40 H 87 L 11/05/24 06:12 95 H 31 H 86 L 11/05/24 06:06 103 H 27 H 91 11/05/24 06:06 90/63 L 11/05/24 06:06 90/63 L 11/05/24 06:06 90/63 L 11/05/24 06:06 90/63 L 11/05/24 06:06 90/63 L 11/05/24 06:06 90/63 L 11/05/24 06:06 90/63 L 11/05/24 06:06 90/63 L 11/05/24 06:00 102 H 19 11/05/24 05:54 92 H 22 11/05/24 05:42 91 H 29 H 92 11/05/24 05:36 102 H 29 H 92 11/05/24 05:31 115/11/05/24 05:31 11511/05/24 05:31 11511/05/24 05:31 11511/05/24 05:31 11511/05/24 05:31 11511/05/24 05:31 115/11/05/24 05:31 11511/05/24 05:31 115/11/05/24 05:31 115/11/05/24 05:31 115/11/05/24 05:31 115/11/05/24 05:31 115/11/05/24 05:31 115/11/05/24 05:31 115/11/05/24 05:31 115/11/05/24 05:31 115/11/05/24 05:31 115/11/05/24 05:31 115/11/05/24 05:21 87 29 H 92 11/05/24 05:06 87 31 H 92 11/05/24 05:00 106 H 11/05/24 05:00 11711/05/24 05:00 117/69 11/05/24 05:00 117/69 11/05/24 05:00 117/69 11/05/24 05:00 117/69 11/05/24 05:00 117/69 11/05/24 04:48 92 H 29 H 92 11/05/24 04:33 91 H 30 H 94 11/05/24 04:30 112/79 11/05/24 04:30 112/79 11/05/24 04:30 112/79 11/05/24 04:30 112/79 11/05/24 04:30 112/79 11/05/24 04:30 112/79 11/05/24 04:30 112/79 11/05/24 04:30 112/79 11/05/24 04:30 112/79 11/05/24 04:30 112/79 11/05/24 04:24 97 H 28 H 92 11/05/24 04:21 98 H 30 H 92 11/05/24 04:18 98 H 30 H 92 11/05/24 04:00 107/11/05/24 04:00 107/11/05/24 04:00 107/11/05/24 04:00 107/11/05/24 04:00 107/11/05/24 04:00 107/11/05/24 04:00 107/11/05/24 04:00 107/11/05/24 04:00 113 H 33 H 91 11/05/24 03:57 96 H 34 H 91 O2 Del Method O2 Flow Rate FiO2 11/05/24 14:00 11/05/24 14:00 11/05/24 13:51 11/05/24 13:45 11/05/24 13:30 11/05/24 13:30 11/05/24 13:24 11/05/24 13:12 11/05/24 13:09 11/05/24 13:01 11/05/24 12:45 11/05/24 12:42 11/05/24 12:39 11/05/24 12:30 11/05/24 12:18 11/05/24 12:12 11/05/24 11:00 11/05/24 11:00 11/05/24 10:30 11/05/24 10:30 11/05/24 10:00 11/05/24 10:00 11/05/24 09:30 11/05/24 09:30 11/05/24 09:15 30 11/05/24 09:03 11/05/24 09:00 11/05/24 09:00 Oxymask 4 11/05/24 08:36 Nasal Cannula 3 11/05/24 08:00 Oxymask 3 11/05/24 06:57 11/05/24 06:50 11/05/24 06:44 11/05/24 06:44 11/05/24 06:44 11/05/24 06:33 11/05/24 06:12 11/05/24 06:06 11/05/24 06:06 11/05/24 06:06 11/05/24 06:06 11/05/24 06:06 11/05/24 06:06 11/05/24 06:06 11/05/24 06:06 11/05/24 06:06 11/05/24 06:00 11/05/24 05:54 11/05/24 05:42 11/05/24 05:36 11/05/24 05:11/05/24 05:11/05/24 05:11/05/24 05:11/05/24 05:11/05/24 05:11/05/24 05:11/05/24 05:11/05/24 05:11/05/24 05:11/05/24 05:11/05/24 05:11/05/24 05:11/05/24 05:11/05/24 05:11/05/24 05:11/05/24 05:11/05/24 05:11/05/24 05:11/05/24 05:21 11/05/24 05:06 11/05/24 05:00 11/05/24 05:00 11/05/24 05:00 11/05/24 05:00 11/05/24 05:00 11/05/24 05:00 11/05/24 05:00 11/05/24 04:48 11/05/24 04:33 11/05/24 04:30 11/05/24 04:30 11/05/24 04:30 11/05/24 04:30 11/05/24 04:30 11/05/24 04:30 11/05/24 04:30 11/05/24 04:30 11/05/24 04:30 11/05/24 04:30 11/05/24 04:24 11/05/24 04:21 11/05/24 04:18 11/05/24 04:00 11/05/24 04:00 11/05/24 04:00 11/05/24 04:00 11/05/24 04:00 11/05/24 04:00 11/05/24 04:00 11/05/24 04:00 11/05/24 04:00 11/05/24 03:57 Laboratory Results Abnormal lab results 11/04/24 11/04/24 11/05/24 Range/Units 22:51 23:29 02:47 WBC 18.51 H (4.8-10.8) K/ul RBC 3.87 L (4.70-6.10) M/uL Hgb 12.3 L (14.0-18.0) g/dl Hct 37.0 L (42.0-52.0) % RDW Std Deviation 52.3 H (36.4-46.3) fL RDW Coeff of Kang 15.2 H (11.5-14.5) % Neut # (Auto) 16.01 H (1.40-6.50) K/uL Lymph # (Auto) 0.54 L (1.20-3.40) K/uL [place] # (Auto) 1.57 H (0.11-0.59) K/uL Immature Gran # (Auto) 0.36 H (0.01-0.20) K/uL Absolute Nucleated RBC 0.20 H (0.00-0.12) K/uL VBG pCO2 (38-50) mmHg Anion Gap 12 H (3-11) BUN 69 H (6-23) mg/dl Creatinine 2.39 H (0.6-1.4) mg/dl BUN/Creatinine Ratio 28.9 H (10-20) Glucose 132 H (70-99(Fasting)) mg/dl POC Glucose 135 H (70-99) mg/dl Calcium 8.3 L (8.6-10.3) mg/dl Phosphorus 5.4 H (2.5-4.9) mg/dl Magnesium 2.9 H (1.7-2.4) mg/dl Troponin I High Sens 289.1 H* 350.0 H* D (0-20) pg/ml 11/05/24 11/05/24 Range/Units 05:09 09:39 WBC (4.8-10.8) K/ul RBC (4.70-6.10) M/uL Hgb (14.0-18.0) g/dl Hct (42.0-52.0) % RDW Std Deviation (36.4-46.3) fL RDW Coeff of Kang (11.5-14.5) % Neut # (Auto) (1.40-6.50) K/uL Lymph # (Auto) (1.20-3.40) K/uL [place] # (Auto) (0.11-0.59) K/uL Immature Gran # (Auto) (0.01-0.20) K/uL Absolute Nucleated RBC (0.00-0.12) K/uL VBG pCO2 32 L (38-50) mmHg Anion Gap (3-11) BUN (6-23) mg/dl Creatinine (0.6-1.4) mg/dl BUN/Creatinine Ratio (10-20) Glucose (70-99(Fasting)) mg/dl POC Glucose 140 H (70-99) mg/dl Calcium (8.6-10.3) mg/dl Phosphorus (2.5-4.9) mg/dl Magnesium (1.7-2.4) mg/dl Troponin I High Sens (0-20) pg/ml Diagnostic Findings Chest CT 10/31/24 12:59 HISTORY: Shortness of breath. TECHNIQUE: CT imaging of the chest was performed . Images are presented in axial, sagittal, and coronal reformats. COMPARISON: Chest CT dated 02/15/2023. FINDINGS: Lungs: Intralobular septal thickening suggesting interstitial pulmonary edema. Subtle perihilar groundglass opacity involving the right greater than left lung favoring developing alveolar pulmonary edema. There is moderate bilateral pleural effusions, which are right greater than left. No pneumothorax. The central tracheobronchial tree is patent. Heart/Mediastinum: Mild cardiomegaly. No pericardial effusion. Coronary artery calcifications are present with severe multivessel disease. Severe aortic valvular calcification. No suspicious mediastinal or hilar lymph nodes. Included thyroid gland is unremarkable. The thoracic esophagus is unremarkable. Vasculature: Moderate atherosclerotic vascular disease. No abdominal aortic aneurysm. Main pulmonary artery is mildly dilated measuring 3.4 cm in diameter. Soft Tissues: Mild gynecomastia. Upper Abdomen: Unremarkable. Bones: No acute osseous abnormality. Degenerative changes of the shoulders and spine. IMPRESSION: * Findings favoring CHF with cardiomegaly, moderate pleural effusions, and interstitial pulmonary edema. Subtle bilateral perihilar groundglass opacities right greater than left and favored to represent associated alveolar pulmonary edema. Differential would also include atypical pneumonia. * Severe aortic valvular calcification concerning for aortic valve stenosis. Consider correlation with echocardiogram. * Coronary artery calcifications are present with multivessel disease. * Additional chronic and/or incidental findings as detailed above. ACT 112: Positive. There are findings on this exam that require communication between the performing entity and the patient following Patient Test Result Information Act ([place] ACT 112) guidelines. Electronically signed by Srikanth Hernandez 10-31-2024 13:47 PM Liver Ultrasound 11/02/24 09:30 ABDOMINAL ULTRASOUND, RIGHT UPPER QUADRANT HISTORY: Elevated LFTs Transaminitis. COMPARISON: None. FINDINGS: Pancreas: The pancreas is mostly obscured by bowel gas. Liver: 21 cm in length with increased echogenicity. No mass or marginal nodularity. Patent portal vein. Gallbladder: No gallbladder wall thickening. Layering gallbladder sludge. Trace pericholecystic fluid. No gallstones. CBD: 5 mm Right kidney: No hydronephrosis. Right pleural effusion. IMPRESSION: 1. Biliary sludge without cholelithiasis. 2. Right pleural effusion with trace nonspecific pericholecystic fluid. 3. Hepatic steatosis. ACT 112: Negative or not required by law. Electronically signed by: Jamshid Holland M.D. 11/02/2024 11:48 AM Mesenteric US 11/02/24 09:30 Exam(s): US OTHER duplex mesenteric EXAM: US Other - Duplex Mesenteric CLINICAL HISTORY: Transaminitis. TECHNIQUE: Real-time ultrasound of the other - duplex mesenteric with image documentation. COMPARISON: No relevant prior studies available. FINDINGS: Nondiagnostic evaluation due to bowel gas. IMPRESSION: Nondiagnostic evaluation due to bowel gas. If mesenteric ischemia is suspected recommend further evaluation with CTA of the abdomen and pelvis. Electronically signed by: Regina Spence MD 11/02/24 22:12 PM Portal Vein US 11/02/24 10:53 US duplex portal hepatic veins CLINICAL HISTORY: Evaluate for portal vein thrombosis. COMPARISON STUDY: Abdominal ultrasound March 26, 2016. TECHNIQUE: Color and duplex Doppler sonography of the major hepatic vessels was performed. FINDINGS: This exam is mildly compromised due to patient's inability to suspend respiration. However, the main, left and right portal veins are patent with appropriately directed flow. The middle, left and right hepatic veins are patent. IMPRESSION: Patent major hepatic vessels with appropriately directed flow. Exam mildly compromised from a technical standpoint. ACT 112: Negative or not required by law. Electronically signed by: Kashif Ferrara M.D. 11/02/2024 11:36 AM KUB X-Ray 11/04/24 11:00 KUB HISTORY: abdominal pain COMPARISON STUDY: Lumbar spine dated 10/16/2024 FINDINGS: Single portable view of the abdomen demonstrates a nonspecific bowel gas pattern. There is no evidence of obstruction. There is no mass identified. Degenerative changes are noted in the lumbar spine. IMPRESSION: No acute findings. ACT 112: Negative or not required by law. The above report was generated using voice recognition software. It may contain grammatical, syntax or spelling errors. Electronically signed by: Lashawn Antunez M.D. 11/04/2024 11:25 AM Chest X-Ray 11/04/24 20:34 Exam(s): XR CXR 1 VIEW EXAM: XR Chest, 1 View CLINICAL HISTORY: Reason for exam: Tachypneic. TECHNIQUE: Frontal view of the chest. COMPARISON: 11/03/24 FINDINGS: Lungs: Pulmonary vascular congestion. Interstitial opacity suggesting edema. Pleural space: Layering pleural effusions. No pneumothorax. Heart: Stable cardiac size. Bones/joints: No acute fracture. No dislocation. Tubes, lines and devices: Right IJ CVC with tip in the SVC. Other findings: Interval extubation. IMPRESSION: 1. Pulmonary vascular congestion. Interstitial opacities suggesting edema. Appearance is similar to prior. 2. Layering pleural effusions. 3. Interval extubation. Electronically signed by: Sharona Morgan M.D. 11/04/24 23:07 PM Medications Administered Current Inpatient Medications Atropine Sulfate (Atropine Sulfate 1% Op Soln 5 Ml Btl) 4 drops SL Q1H PRN PRN Reason: Secretions or pulm congestion Stop: 12/05/24 13:03 Glycopyrrolate (Glycopyrrolate 0.2 Mg/Ml Vial) 0.4 mg IV Q4H PRN PRN Reason: Rattling Secretions or Pulm Congestion Stop: 12/05/24 13:03 Hydromorphone HCl (Hydromorphone Inj 0.5 Mg/0.5 Ml Syr) 0.5 mg IV Q15M PRN PRN Reason: Pain Stop: 11/19/24 10:09 Last Admin: 11/05/24 22:11 Dose: 0.5 mg Lorazepam (Lorazepam 2 Mg/1 Ml Vial) 0.5 mg IV Q4H PRN PRN Reason: Anxiety/Agitation Stop: 12/05/24 13:03 Last Admin: 11/05/24 20:28 Dose: 0.5 mg Ondansetron HCl (Ondansetron Inj 2 Mg/Ml 2 Ml Vial) 4 mg IV Q4H PRN PRN Reason: Nausea &/or Vomiting Stop: 12/05/24 13:03 PG Care Time/CCT Total # of Minutes Spent Total Time Spent with Patient: Total time spent is greater than 50% in coordination of care (as documented) at patient's floor/unit and/or counseling patient: Advanced Care Planning 58787 Advanced Care Planning 30 Min C[place] [address] SUB INP/OBS CARE 2/35MIN Patient Type Established History Expanded Problem Focused Exam Expanded Problem Focused Medical Decision Making Moderate Complexity Diagnoses Palliative care by specialist Z51.5 Counseling regarding goals of care Z71.89 Comfort measures only status Z51.5 Need for comfort care Additional Codes Advanced Care Planning - 74922 Advanced Care Planning 30 Min: 61424 Advanced Care Planning 30 Min ([id number])
[2024-11-06] MEDS ORDERED: HYDROmorphone BOLUS from BAG IV PRN (11:48)
[2024-11-06] MEDS ORDERED: STAT IV Infusion **Titration per Protocol STA (11:48)
[2024-11-06] MEDS: HYDROmorphone 100 MG/100 ML BAG IV SCH (12:49)
[2024-11-06] MEDS: GLYCOPYRROLATE 0.2 MG/ML VIAL IV PRN (13:17)
--- NOTE | 2024-11-06 15:21 | Hospitalist Progress Note ---
Date of Service November 06, 2024 Assessment & Plan (1) CAP (community acquired pneumonia): Plan: 74-year-old male with a history of nonocclusive coronary disease, aortic stenosis pending TAVR who presents with fever cough and sputum production and is found to have community-acquired pneumonia. Acute hypoxic respiratory failure due to community-acquired pneumonia - Acute hypoxic respiratory failure secondary to severe community-acquired pneumonia and systolic heart failure with pleural effusion -Bronchoscopy culture negative to date from 11/01/2024. Antibiotics de-escalated to Zosyn and doxycycline. Continue hydrocortisone for severe community-acquired pneumonia and septic shock. Wean hydrocortisone starting on day 4 over course of 4 to 5 days. Extubated 11/03/2024. Chest x-ray 11/03/2024 with evidence of pulmonary edema. 11/05 patient received doses of Lasix however with his low blood pressure and limited response from the kidneys urine output is only 15 mL/h it seems that this will not help we will use BiPAP and CPAP to push the fluid out of his respiratory system and get him some comfort 11/06 on comfort care now CV: Atrial fibrillation with rapid ventricular response. Heart rates into the 170s this afternoon. Given 2.5 mg of IV metoprolol with 50 mg metoprolol tartrate twice daily restarted as he is not able to take oral medications. Low threshold for Cardizem infusion. Severe aortic stenosis -Continue heparin infusion. Coordinated with pharmacy. -Reviewed echo from 10/14/2024: Low ejection fraction 25 to 30% -Cardiology consulted. Will discontinue further digoxin for the time being and use esmolol as needed. Known coronary artery disease -Off vasopressors currently. -Continue statin therapy and 81 mg aspirin Hypertension -Hold ANGELA inhibitor 11/05 appreciate cardiology input and talking to the family members it seems like patient's family is understanding that patient should be comfort care 11/06 on comfort care A Palliative care consultation appreciated. 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: (4) Mild CAD: (5) Cardiomyopathy: (6) Severe aortic stenosis: Admission and Anticipated Discharge Date Admission Date: October 30, 2024 Subjective Patient is resting comfortably he has irregular but comfortable breathing patient now is on comfort care Review of Systems Review of Systems: Unable to get review of systems because of patient's condition Physical Exam Physical Exam: Constitutional: + acute distress, + ill appearing, + thin, + altered mental status and + frail appearing ENMT: external ear and n ose normal, oropha rynx normal Neck: trachea midline, n o thyromegaly Respiratory: + respiratory dis tress, + labored b reathing, + uses a ccessory muscles, + dullness to perc ussion, + tachypne ic and + prolonged expiratory phase; + not able to spe ak in complete sen tence Cardiovascular: Rate/Rhythm: + tac hycardic Gastrointestinal ( Abdomen): normal bowel sound s, soft, nontender , no hepatosplenom egaly Skin: + turgor decrease d and + pallor Neurologic: + obtunded PG Care Time/CCT Total # of Minutes Spent Total Time Spent with Patient: Total time spent is greater than 50% in coordination of care (as documented) at patient's floor/unit and/or counseling patient: Coding Level of Care Code 28612 SUB INP/OBS CARE 2/35MIN Diagnoses CAP (community acquired pneumonia) J18.9 Atrial fibrillation with rapid ventricular response I48.91 Chronic combined systolic and diastolic congestive heart failure I50.42 Heart failure chronicity: chronic Mild CAD I25.10 Cardiomyopathy, unspecified type I42.9 Severe aortic stenosis I35.0 (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
--- NOTE | 2024-11-06 21:26 | Palliative Care Progress Note ---
Date of Service November 06, 2024 Assessment & Plan (1) Palliative care by specialist: Plan: Palliative care will continue to follow for ongoing EOL pt care and family support. (2) Comfort measures only status: Plan: Pt transitioned to comfort directed care yesterday and down graded from ICU status. Spouse and adult daughters holding bedside bella. Discussed pt's current respiratory distress with , she shared concern that giving PRN comfort medications would be "like killing him" and that she has been asking RN to not give dilaudid. She was ok with the ativan, but expressed concern for morphine or dilaudid "making him faster". Discussed the comfort care medications and that he has gotten very low doses of dilaudid and with the short acting nature of dilaudid it is more likely that the pt is actively dying and he will be less responsive as time gets shorter. Discussed pt's work of breathing and how this can cause discomfort despite the pt no longer being able to verbally express discomfort. Helped family understand that the medications are not indicated to hasten but to ensure comfort and dignity in . Anticipatory guidance reinforced. Discussed changes pt may move through in the dying process including but not limited to sleeping more, disorientation when awake, restlessness, diminished senses/inability to respond to stimulus although ability to be aware of them remains intact longer, and changes in body temperatures, skin changes/mottling/cyanosis, respiratory pattern changes, and oral secretions. Family verbalized understanding. The goal is to assure a peaceful . Discussed potential need for continuous infusion to assure pt does not suffer nor struggle to breath while dying. Family agreeable to this if required. After mltiple doses of dilaudid, pt remains tachypneic with increased WOB, and dilaudid drip was initiated. (3) Need for comfort care: Plan: EOL Symptom manamgement: Pain/dyspnea/tachypnea continue DILAUDID 0.5mg IVP PRN [id number] Initiate dilaudid drip titrate for comfort per protocol Nausea/vomitting zofran 4mg IVP q4h PRN Agitation ativan 0.5mg IVP q4h PRN Hyperactive delirium haldol 5mg IVP q6h PRN Secretions - if repositioning not effective robinul 0.4mg IV q4h PRN atropine SL 3 drops Q1h PRN Nursing care: Discontinue all medications not directed towards comfort. Detether pt from IV tubing, monitor cables, and check vitals once per shift. Please continue HFNC and titrate down as able for patient comfort. Use medications above PRN for dyspnea/tachypnea and do not increase oxygen once titrated down. Assess q1h for pain/dyspnea and treat accordingly. Plan as above. 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 Admission and Anticipated Discharge Date Admission Date: October 30, 2024 Subjective Assessed pt at bedside, he was transitioned to SHOE PATTERNMAKER on 11/05/24. Pt is unresponsive to verbal and gentle tactile stimuli, did not attempt to awaken in concert with comfort directed care. He appears uncomfortable, respiratory effort increased, rate 28/min with notable accessory muscle use. Spouse and daughters at bedside. Review of Systems Review of Systems: Unobtainable due to cognitive status Physical Exam Constitutional: + acute distress, + ill appearing, + thi n, + altered mental status and + frail appearing ENMT: external ear and nose normal, oropharynx normal Neck: trachea midline, no thyromegaly Respiratory: + respiratory distress, + labored breath ing, + retractions, + uses accessory muscles, + tachypneic and + prolonged expiratory phase Cardiovascular: Rate/Rhythm: + tachycardic Gastrointestinal (Abdomen): normal bowel sounds, soft, nontender, no hepatosplenomegaly Skin: + turgor decreased and + pallor Neurologic: + obtunded Results & Data Vital Signs (Past 12 Hours) Vital Signs O2 Del Method 11/06/24 19:24 Room Air 11/06/24 15:43 Room Air Laboratory Results No further labs or diagnostics in concert with comfort directed care. Diagnostic Findings No further labs or diagnostics in concert with comfort directed care. Medications Administered Current Medications Atropine Sulfate (Atropine Sulfate 1% Op Soln 5 Ml Btl) 4 drops SL Q1H PRN PRN Reason: Secretions or pulm congestion Stop: 12/05/24 13:03 Glycopyrrolate (Glycopyrrolate 0.2 Mg/Ml Vial) 0.4 mg IV Q4H PRN PRN Reason: Rattling Secretions or Pulm Congestion Stop: 12/05/24 13:03 Last Admin: 11/06/24 13:17 Dose: 0.4 mg Hydromorphone HCl (Hydromorphone Inj 0.5 Mg/0.5 Ml Syr) 0.5 mg IV Q15M PRN PRN Reason: Pain Stop: 11/19/24 10:09 Last Admin: 11/06/24 10:35 Dose: 0.5 mg Hydromorphone HCl (Hydromorphone Bolus From Bag) 0.5 mg IV Q15M PRN PRN Reason: Comfort Care Parameters Stop: 11/20/24 11:47 Hydromorphone HCl (Dilaudid) 100 mg in 100 mls @ 0.5 mls/hr IV .Q96H DECLAN; Protocol Stop: 11/20/24 11:59 Last Admin: 11/06/24 12:49 Dose: 0.5 mg/hr, 0.5 mls/hr Lorazepam (Lorazepam 2 Mg/1 Ml Vial) 0.5 mg IV Q4H PRN PRN Reason: Anxiety/Agitation Stop: 12/05/24 13:03 Last Admin: 11/06/24 13:11 Dose: 0.5 mg Ondansetron HCl (Ondansetron Inj 2 Mg/Ml 2 Ml Vial) 4 mg IV Q4H PRN PRN Reason: Nausea &/or Vomiting Stop: 12/05/24 13:03 PG Care Time/CCT Total # of Minutes Spent Total Time Spent with Patient: Total time spent is greater than 50% in coordination of care (as documented) at patient's floor/unit and/or counseling patient: C[place] [address] SUB INP/OBS CARE 3/50MIN Patient Type Established History Expanded Problem Focused Exam Expanded Problem Focused Medical Decision Making Moderate Complexity Diagnoses Palliative care by specialist Z51.5 Comfort measures only status Z51.5 Need for comfort care
--- NOTE | 2024-11-06 22:08 | Death Pronouncement Note ---
Date of Service November 06, 2024 Pronouncement Note Admission Date Admission Date: October 30, 2024 Contributing Factors (1) Palliative care by specialist: (2) Comfort measures only status: (3) Need for comfort care: Summary Additional details: I was called to pronounce the of Jr Rutledge : 1950 by nursing on 11/06/2024 Upon entering the room, the patient was found to be in a terminal state. Patient was unresponsive to verbal and tactile stimuli. Patient unresponsive to corneal and pupillary reflexes. On cardiopulmonary exam, no carotid or radial pulses found and pt without spontaneous heart tones or respirations. Time of was pronounced by me on 11/06/2024 at 21:59 Attending physician was notified. Next of kin at bedside Additional Data Attending physician: Daniela Villaseñor MD Resident Activity Tracking Resident Involvement: Resident Care Provided Care Provided: Adult Hospital Medicine
--- NOTE | 2024-11-08 17:27 | Discharge Summary ---
Date of Service November 08, 2024 Admission HPI Per Admitting Provider Jr is a 74-year-old male with recent cardiac catheterization 10/29/2024 for valvular disease showing mild to moderate coronary left main/LAD disease otherwise normal coronaries and he was referred for AVR who presents back to the emergency department for shortness of breath. P patient initially was in the intensive care unit he was intubated treated for septic shock due to pneumonia and then he was also on vasopressors separately subsequently he was extubated and pressor support was taken away however he had significant hypoxia and had difficulty breathing eventually palliative care consult was sought and cardiology also spoke to patient's family regarding his significantly low ejection fraction and significant aortic stenosis all of these are multiorgan failure prognosis seems very bad family eventually decided that patient should be DNR/DNI patient on November 06, 2024 at 2159 Discharge Data Consultations 10/30/24 13:06 ED Decision to Admit Stat 11/01/24 07:55 Consult Nephrology Routine 11/01/24 09:57 Consult Educational Adviser Routine 11/02/24 09:39 Consult Cardiology Routine Consult Palliative Care Routine 11/02/24 12:35 Consult Gastroenterology Routine Hospital Course (1) CAP (community acquired pneumonia): 74-year-old male with a history of nonocclusive coronary disease, aortic stenosis pending TAVR who presents with fever cough and sputum production and is found to have community-acquired pneumonia. 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 patient has history of aortic stenosis and with sepsis this got complicated patient required pressors and after patient was extubated and pressor support was taken away patient had evidence of low perfusion T *Demand ischemia secondary to significant aortic stenosis as well as low ejection fraction and high demand due to septic shock (2) Atrial fibrillation with rapid ventricular response: (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
== END 2024-11-06 22:35 | disposition expired | DRG 871 ==
LOC: ED 11:05 → SUATTDRO 16:39 → EDINP 16:39 → 2S 16:43 → 1E 11-01 07:16 → 3E 11-05 17:54
DX: E11.9 Type 2 diabetes mellitus without complications; I50.43 Acute on chronic combined systolic (congestive) and diastolic (congestive) heart failure; I42.9 Cardiomyopathy, unspecified; Z66 Do not resuscitate; Z88.1 Allergy status to other antibiotic agents; J44.0 Chronic obstructive pulmonary disease with (acute) lower respiratory infection; Z87.891 Personal history of nicotine dependence; Z79.82 Long term (current) use of aspirin; Z79.01 Long term (current) use of anticoagulants; F41.9 Anxiety disorder, unspecified; G93.41 Metabolic encephalopathy; R79.89 Other specified abnormal findings of blood chemistry; I48.21 Permanent atrial fibrillation; E87.20 Acidosis, unspecified; Z79.84 Long term (current) use of oral hypoglycemic drugs; R65.21 Severe sepsis with septic shock; J18.9 Pneumonia, unspecified organism; Z51.5 Encounter for palliative care; E78.5 Hyperlipidemia, unspecified; R74.01 Elevation of levels of liver transaminase levels; I11.0 Hypertensive heart disease with heart failure; I25.10 Atherosclerotic heart disease of native coronary artery without angina pectoris; J91.8 Pleural effusion in other conditions classified elsewhere; I48.0 Paroxysmal atrial fibrillation; J96.21 Acute and chronic respiratory failure with hypoxia; N17.0 Acute kidney failure with tubular necrosis; A41.9 Sepsis, unspecified organism; I35.0 Nonrheumatic aortic (valve) stenosis; K76.0 Fatty (change of) liver, not elsewhere classified; Z79.4 Long term (current) use of insulin